=== PATIENT | male | born 1960 | race Caucasian/White ===

== ENCOUNTER 2017-09-20 06:30 | Outpatient (RCR) | payer BC, SELFPAY | END 2017-09-20 06:31 | disposition home or self-care (01) | LOC: OT 06:30 | PROVIDERS: Family Provider Family Medicine; PCP Family Medicine; Visit Provider Specialist | DX: M19.012 Primary osteoarthritis, left shoulder (principal); M19.011 Primary osteoarthritis, right shoulder | CPT/HCPCS: 97014; 97110; 97163; 97165; G0283 ==

== ENCOUNTER → 2018-09-05 08:47 | Outpatient (CLI) | payer BC, SELFPAY | PROVIDERS: PCP Family Medicine; Visit Provider Family Medicine | DX: Z71.3 Dietary counseling and surveillance (principal); E11.65 Type 2 diabetes mellitus with hyperglycemia; E66.3 Overweight | CPT/HCPCS: 97802 ==

== ENCOUNTER → 2019-04-23 14:10 | Outpatient (CLI) | payer BC, SELFPAY ==
--- NOTE | 2019-04-23 14:22 | XR_ITS ---
PROCEDURE: XR FOOT WT BEARING RT 3V CLINICAL INDICATION: pain COMPARISON: No exams were available for comparison FINDINGS: No fracture or dislocation. No lytic or blastic change. There is normal mineralization. The joint spaces are well-preserved. No significant degenerative/arthritic changes. No erosive changes evident. Other findings:There is a 5 millimeter plantar calcaneal spur and a prominent posterior calcaneal spur. There are calcifications also along the plantar aspect of the foot near the calcaneus spur likely related to the plantar aponeurosis. There are ossified densities also related to the distal Achilles tendon. IMPRESSION: No acute process. 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 Achilles calcific/calcific tendinitis. Dictated by: Leon Montgomery 04/23/2019 14:50 Electronically signed by Leon Montgomery in [place] 04/23/2019 14:50
--- NOTE | 2019-04-23 14:22 | XR_ITS ---
PROCEDURE: XR ANKLE WT BEARING LT MIN 3V CLINICAL INDICATION: pain COMPARISON: No exams were available for comparison FINDINGS: Bone density and alignment are normal. There narrowing of the anterior aspect of the tibial talar joint. There is plantar and posterior calcaneal spurs and plantar calcific densities likely related to the plantar aponeurosis described on the foot report. There is also a 5 millimeter calcific density posterior to the ankle on the lateral view although not as well seen on the frontal views. IMPRESSION: No acute process. Arthritic changes at the anterior tibiotalar joint. 5 millimeter ossific/calcific density posterior to the ankle only seen on lateral view. I could not rule out loose body in the joint space although this could be in the soft tissues posterior to the fibula and may be dystrophic. Plantar soft tissue and calcaneal findings described on the foot report. Dictated by: Leon Montgomery 04/23/2019 14:55 Electronically signed by Leon Montgomery in [facility] 04/23/2019 14:55
--- NOTE | 2019-04-23 14:22 | XR_ITS ---
PROCEDURE: XR ANKLE WT BEARING RT MIN 3V CLINICAL INDICATION: pain COMPARISON: No exams were available for comparison FINDINGS: There narrowing of the anterior aspect of the tibiotalar joint. Bone density is normal. Again seen are degenerative changes along the plantar and posterior aspect of the calcaneus described on the foot report. There is no acute fracture. Soft tissues are otherwise unremarkable IMPRESSION: . no acute process. Degenerative change anterior tibiotalar joint. Calcaneal findings described on right foot report. Dictated by: Leon Montgomery 04/23/2019 14:57 Electronically signed by Leon Montgomery in [facility] 04/23/2019 14:57
--- NOTE | 2019-04-23 14:22 | XR_ITS ---
PROCEDURE: XR FOOT WT BEARING LT 3V CLINICAL INDICATION: pain COMPARISON: No exams were available for comparison FINDINGS: No fracture or dislocation. No lytic or blastic change. There is normal mineralization. The joint spaces are well-preserved. No significant degenerative/arthritic changes. No erosive changes evident. Other findings:There is a prominent posterior calcaneal spur at the Achilles tendon attachment. There is a 4 millimeter plantar calcaneal spur along with calcifications in the plantar soft tissues likely related to the plantar aponeurosis. IMPRESSION: No acute process. Degenerative calcaneal changes as described with probable calcific postinflammatory dystrophic densities related to the plantar aponeurosis. Dictated by: Leon Montgomery 04/23/2019 14:52 Electronically signed by Leon Montgomery in [facility] 04/23/2019 14:52
== END ==
PROVIDERS: PCP Family Medicine; Visit Provider Podiatrist
DX: M25.572 Pain in left ankle and joints of left foot (principal); M25.571 Pain in right ankle and joints of right foot
CPT/HCPCS: 73610; 73630

== ENCOUNTER → 2019-04-24 09:35 | Outpatient (POV) | payer BC, SELFPAY | PROVIDERS: Visit Provider Dermatology | DX: Z00.00 Encounter for general adult medical examination without abnormal findings (principal) ==

== ENCOUNTER → 2019-07-10 14:54 | Outpatient (CLI) | payer OTHER, BC, SELFPAY ==
--- NOTE | 2019-07-10 14:58 | XR_ITS ---
PROCEDURE: XR KNEE RT 3V CLINICAL INDICATION: SWELLING RT KNEE, INJURY Right knee pain and swelling COMPARISON: No exams were available for comparison FINDINGS: No fracture or dislocation. No lytic or blastic change. There is normal mineralization. There are minimal osteoarthritic changes of all 3 compartments. Enthesophytes are present along the superior aspect of the patella. No fracture or dislocation. No lytic or blastic change. Other findings:None. IMPRESSION: Minimal osteoarthritic changes Dictated by: Juan Carlos Lopez MD 07/10/2019 15:40 Electronically signed by Juan Carlos Lopez MD in [facility] 07/10/2019 15:40
== END ==
PROVIDERS: PCP Nurse Practitioner Family; Visit Provider Nurse Practitioner Family
DX: M25.461 Effusion, right knee (principal); S89.91XA Unspecified injury of right lower leg, initial encounter
CPT/HCPCS: 73562

== ENCOUNTER → 2019-07-31 15:51 | Outpatient (CLI) | payer OTHER, BC, SELFPAY ==
--- NOTE | 2019-07-31 15:57 | CA_ITS ---
APPROVED REPORT Bilateral Lower Extremity Venous Study for Dsp Engineer: RAFAT Indications Lower Extremity Pain: Right Vein Imaging CFV (R): compressive, spontaneous, phasic, augmentation FEM (R): compressive, spontaneous, phasic, augmentation POP (R): compressive, spontaneous, phasic, augmentation DFV (R): compressive, spontaneous, phasic, augmentation PTV (R): compressive, spontaneous, phasic, augmentation GSV (R): compressive, spontaneous, phasic, augmentation Peroneals (R):compressive, spontaneous, phasic, augmentation GAS (R): compressive, spontaneous, phasic, augmentation Findings No evidence of DVT or superficial thrombophlebitis in the veins scanned of the right lower extremity. Conclusion No evidence of DVT or superficial thrombophlebitis in the veins scanned of the right lower extremity. Electronically signed by : Juan Carlos Lopez MD 08/01/2019 17:02:12
== END ==
PROVIDERS: PCP Nurse Practitioner Family; Visit Provider Nurse Practitioner Family
DX: M79.89 Other specified soft tissue disorders (principal)
CPT/HCPCS: 93971

== ENCOUNTER → 2020-03-12 08:16 | Outpatient (CLI) | payer BC, SELFPAY ==
--- NOTE | 2020-03-12 08:23 | XR_ITS ---
PROCEDURE: XR LUMBAR SPINE MIN 4V CLINICAL INDICATION: LOW BACK PAIN COMPARISON: No exams were available for comparison FINDINGS: No fracture or dislocation. No lytic or blastic change. There is normal mineralization. Minimal lumbar curvature convex left. Multilevel prominent anterior osteophytes from the lower thoracic spine to the L5 region. Disc spaces are well preserved. There are mild facet arthritic changes at L5-L4 and S1. Other findings:None. IMPRESSION: Multilevel spondylosis with prominent anterior osteophytes and mild facet arthritic change Dictated by: Juan Carlos Lopez MD 03/12/2020 14:51 Juan Carlos Lopez MD in [facility] 03/12/2020 14:51
== END ==
PROVIDERS: PCP Family Medicine; Visit Provider Family Medicine
DX: M54.5 Low back pain (principal)
CPT/HCPCS: 72110

== ENCOUNTER → 2020-05-13 13:29 | Outpatient (CLI) | payer BC, MEDICAID, SELFPAY | PROVIDERS: PCP Family Medicine; Visit Provider Family Medicine | DX: Z03.818 Encounter for observation for suspected exposure to other biological agents ruled out (principal) | CPT/HCPCS: U0003 ==

== ENCOUNTER 2020-06-05 16:00 | Outpatient (RCR) | payer BC, MEDICAID, SELFPAY | END 2020-06-05 16:05 | disposition home or self-care (01) | LOC: PT 16:00 | PROVIDERS: PCP Family Medicine; Visit Provider Family Medicine | DX: M54.5 Low back pain (principal) | CPT/HCPCS: 97010; 97012; 97014; 97110; 97163; 97164; G0283 ==

== ENCOUNTER → 2020-06-18 15:24 | Outpatient (CLI) | payer BC, MEDICAID, SELFPAY | PROVIDERS: PCP Family Medicine; Visit Provider Family Medicine | DX: Z20.828 Contact with and (suspected) exposure to other viral communicable diseases (principal); U07.1 COVID-19 | CPT/HCPCS: U0003 ==

== ENCOUNTER → 2020-08-23 09:51 | Outpatient (CLI) | payer BC, OTHER, SELFPAY | PROVIDERS: PCP Family Medicine; Visit Provider Orthopaedic Surgery Hand Surgery | DX: Z01.818 Encounter for other preprocedural examination (principal); Z20.822 Contact with and (suspected) exposure to COVID-19 | CPT/HCPCS: U0003 ==

== ENCOUNTER → 2020-10-30 12:55 | Outpatient (CLI) | payer BC, OTHER, SELFPAY ==
[2020-10-30 13:09] LABS: Basophils # 0.1 K/mm3 (0-0.2); Basophils % 0.8 % (0.1-2.0); Eosinophils # 0.1 K/mm3 (0.0-0.4); Hemoglobin 15.9 g/dL (14.1-18.0); Lymphocytes # 1.9 K/mm3 (0.7-4.5); Mean Corpuscular HGB Conc 33.2 g/dL (31.8-35.4); Mean Corpuscular Hemoglobin 29.8 pg (27.0-31.2); Mean Corpuscular Volume 89.6 fl (80-94); Mean Platelet Volume 8.6 fl (7.4-10.4); Monocytes # 0.4 K/mm3 (0.1-1.0); Monocytes % 6.8 % (1.7-9.3); Neutrophils # 3.5 K/mm3 (1.8-7.8); Neutrophils % 59.3 % (37.0-80.0); Platelet Count 197 K/mm3 (142-424); Red Blood Count 5.36 M/mm3 (4.60-6.20); White Blood Count 5.9 K/mm3 (4.8-10.8)
[2020-10-30 13:11] LABS: Alanine Aminotransferase 50 U/L (12-78); Albumin Level 4.8 g/dl (3.5-5.0); Albumin/Globulin Ratio 1.8 (1.1-1.8); Alkaline Phosphatase 90 U/L (38-126); Anion Gap 15.9 mEq/L (5-15); Aspartate Amino Transferase 41 U/L (17-59); Bilirubin,Total 0.7 mg/dl (0.2-1.3); Blood Urea Nitrogen 16 mg/dl (9-20); Calcium 9.9 mg/dl (8.4-10.2); Carbon Dioxide 28 mmol/L (22.0-30.0); Chloride 101 mmol/L (98-107); Chol/HDL Ratio 3.6 (1-3.5); Cholesterol 208 mg/dl (140-200); Estimated Glomerular Filt Rate 86 ml/min (>60); GFR (African American) 103 ML/MIN (>60); Globulin 2.6 g/dL (1.3-3.2); Glucose 178 mg/dl (74-100); HDL Cholesterol 57 mg/dl (40-60); Potassium 4.9 mmoL/L (3.5-5.1); Sodium 140 mmol/L (136-145); Total Protein,Serum 7.4 g/dl (6.3-8.2); Triglycerides 334 mg/dl (30-150); VLDL Cholesterol 67 mg/dL (0-40)
[2020-10-30 13:22] LABS: Direct LDL Cholesterol 86.99 mg/dL (100-129)
[2020-10-30 13:26] LABS: Creatinine,Urine Random 85 mg/dL (Not Estab.)
[2020-10-30 13:28] LABS: T4 (Thyroxine) 7.4 ug/dl (5.53-11.0)
[2020-10-30 13:30] LABS: Microalbumin < 6.000 mg/L (0-16.7)
[2020-10-30 13:31] LABS: Hemoglobin A1C 8.5 % (4.0-6.0)
[2020-10-30 13:42] LABS: Thyroid Stimulating Hormone 1.31 uIU/mL (0.465-4.68)
== END ==
PROVIDERS: Visit Provider Nurse Practitioner Family
DX: E11.9 Type 2 diabetes mellitus without complications (principal); R73.9 Hyperglycemia, unspecified; E78.5 Hyperlipidemia, unspecified; Z79.84 Long term (current) use of oral hypoglycemic drugs; Z68.35 Body mass index [BMI] 35.0-35.9, adult
CPT/HCPCS: 80053; 80061; 82043; 82306; 82570; 83036; 84436; 84443; 85025

== ENCOUNTER → 2020-11-18 13:55 | Outpatient (CLI) | payer BC, OTHER, SELFPAY | PROVIDERS: PCP Nurse Practitioner Family; Visit Provider Nurse Practitioner Family | DX: G47.33 Obstructive sleep apnea (adult) (pediatric) (principal); R06.83 Snoring | CPT/HCPCS: G0399 ==

== ENCOUNTER 2020-12-02 10:00 | Outpatient (RCR) | payer BC, OTHER, SELFPAY | END 2020-12-23 08:10 | disposition home or self-care (01) | LOC: OT 10:00 | PROVIDERS: PCP Family Medicine; Visit Provider Orthopaedic Surgery Hand Surgery | DX: M18.11 Unilateral primary osteoarthritis of first carpometacarpal joint, right hand (principal) | CPT/HCPCS: 97010; 97014; 97110; 97140; 97164; 97165; 97530; G0283 ==

== ENCOUNTER → 2020-12-02 11:15 | Outpatient (CLI) | payer BC, OTHER, SELFPAY ==
--- NOTE | 2020-12-02 11:18 | XR_ITS ---
PROCEDURE: XR HIP LT 2-3V W/PELVIS CLINICAL INDICATION: BL hip pain COMPARISON: No exams were available for comparison FINDINGS: No acute fractures or dislocations. Bone density is normal. Degenerative changes of the left hip joint with subchondral sclerosis, cystic changes and osteophyte formation. Heterotopic ossification noted adjacent to the greater trochanter. No significant soft tissue abnormality is noted. IMPRESSION: Degenerative changes of the left hip joint. Otherwise unremarkable study. Dictated by: Rachel Fall 12/02/2020 13:18 Rachel Fall in [facility] 12/02/2020 13:18
--- NOTE | 2020-12-02 11:18 | XR_ITS ---
PROCEDURE: XR HIP RT 2-3V W/PELVIS CLINICAL INDICATION: BL hip pain COMPARISON: No exams were available for comparison FINDINGS: Degenerative changes of the right hip joint with subchondral sclerosis, loss of joint space and the heterotopic ossification. Bone density is normal. No significant soft tissue abnormality is noted. IMPRESSION: Right hip joint osteoarthritis. No acute fractures or dislocations. Dictated by: Rachel Fall 12/02/2020 13:17 Rachel Fall in [facility] 12/02/2020 13:17
== END ==
PROVIDERS: PCP Family Medicine; Visit Provider Orthopaedic Surgery
DX: M25.552 Pain in left hip (principal); M25.551 Pain in right hip
CPT/HCPCS: 73502

== ENCOUNTER → 2020-12-12 09:01 | Outpatient (CLI) | payer BC, OTHER, SELFPAY ==
--- NOTE | 2020-12-12 09:15 | MR_ITS ---
PROCEDURE INFORMATION: Exam: MR Lumbar Spine Without Contrast Exam date and time: 12/12/2020 9:15 AM Age: 60 years old Clinical indication: Low back pain; Additional info: Low back pain. Lbp with bilateral hip and leg pain. RT leg pain, numbness, and tingling. Symptoms [id number]. No injury or trauma. Prior x-ray 03-12-20 TECHNIQUE: Imaging protocol: Multiplanar magnetic resonance images of the lumbar spine without intravenous contrast. COMPARISON: CR XR LUMBAR SPINE MIN 4V 03/12/2020 8:37 AM FINDINGS: alignment is grossly normal. signal intensity within the bone marrow is normal. conus terminates at the mid aspect of L1. Soft tissues are unremarkable. Disc degeneration including decreased disc height, hydration and annular disk bulge/protrusion L2-L3 and L3-L4. Annular disc bulge and/or disc protrusion T12-L1. Multilevel neural foraminal narrowing most conspicuous L3-L4 on the right No marrow edema Moderate to severe central canal narrowing L2-L3 and L3-L4 T11-T12: Broad-based annular disc bulge effaces the anterior aspect of the thecal sac mildly so. Question mild central canal narrowing. T12-L1: Central canal and neural foramina are widely patent. L1-L2: No axial images were obtained through this region. L2-L3: Severe narrowing of the central canal secondary to facet hypertrophic changes, ligamentum flavum hypertrophic changes, and a broad-based annular bulge. Disc lateralizes to the right and left with paucity of fat about the exiting nerve roots. Small synovial cyst on the left L3-L4: Moderate degree of central canal narrowing secondary to facet hypertrophic changes, ligamentum flavum hypertrophic changes, and a broad-based annular bulge. Disc lateralizes to the right and left. L4-L5: Broad-based annular disc bulge effaces the anterior aspect of the thecal sac mildly so. Moderate facet hypertrophic changes and ligamentum flavum hypertrophic changes. IMPRESSION: Multilevel degenerative disc disease most pronounced L2-L3 and L3-L4. Severe central canal narrowing L2-L3 and moderate central canal narrowing L3-L4. See above.
--- NOTE | 2020-12-12 09:24 | XR_ITS ---
PROCEDURE: XR ORBIT BILATERAL MIN 4V CLINICAL INDICATION: RULE OUT METAL ARTIFACT FOR MRI COMPARISON: No exams were available for comparison TECHNIQUE: AP views are obtained of the orbits with the patient looking up and down. FINDINGS: No radio opaque foreign bodies evident. IMPRESSION: No radio opaque orbital foreign body identified. Dictated by: Juan Carlos Lopez MD 12/12/2020 12:09 Juan Carlos Lopez MD in [facility] 12/12/2020 12:09
== END ==
PROVIDERS: PCP Family Medicine; Visit Provider Orthopaedic Surgery
DX: M54.5 Low back pain (principal); H05.53 Retained (old) foreign body following penetrating wound of bilateral orbits
CPT/HCPCS: 70200; 72148; 76376

== ENCOUNTER → 2021-01-05 08:58 | Outpatient (POV) | payer BC, OTHER, SELFPAY ==
[2021-01-05 09:49] VITALS: BP 137/79; PULSE 66; RESP 18; O2SAT 96; BMI 35.2
--- NOTE | 2021-01-05 12:29 | HMH.PMCON ---
Assessment and Plan (1) Degenerative joint disease (DJD) of lumbar spine Status: Chronic Category: Medical Code(s): M47.816 - Spondylosis without myelopathy or radiculopathy, lumbar region (2) Lumbar radiculopathy Status: Chronic Category: Medical Code(s): M54.16 - Radiculopathy, lumbar region (3) Facet arthropathy Status: Chronic Category: Medical Code(s): M47.819 - Spondylosis without myelopathy or radiculopathy, site unspecified - Assessment and plan all Dx Assessment and Plan for all problems:: Patient I reviewed his MRI today. He says that he was planning to follow-up with Dr. Kingsley regarding his MRI, however, when he did call to make the appointment he says that Dr. Kingsley is no longer here. He was advised to contact our clinic. We reviewed the MRI today. Patient does have pain that is worse with movement with a positive Kemps test. He says that the pain, however, waxes and wanes. His pain is a 2 out of 10 today. He is having paresthesia to his lower extremity stopping at the knee. We will order him a low-dose of gabapentin until he is able to see Dr. Lopez. He does not want to undergo injective therapy at this time. He is also requested to see the physician before proceeding with any type of injection. He would like to meet the physician and discuss his MRI. We will schedule him to meet with Dr. Lindquist so that she can review his MRI as well. We will order him gabapentin 100 mg 1 tablet p.o. at bedtime. Risks and benefits of the medication have been explained in detail to the patient. The patient has been advised to consult with his/her primary care provider and pharmacist regarding drug-drug interaction of medications currently prescribed. Patient has been instructed to contact the clinic with any concerns before the next appointment. Dr. Lindquist has reviewed this note and agrees with this plan of care. This note was dictated using voice recognition software and make contain errors or omissions. HPI - Data of Consult Patient: new to practice Consult date: 01/05/21 Requesting Physician: Maria Elena Lamas APRN Primary Care Provider: Referral Provider, MD - Consult Narrative Reason for consult: Low back pain History of present illness: Mr. Comer is a 60 year old male who presents today for consultation for low back pain. Patient was referred to us by Dr. Kingsley. Patient says that he has had chronic low back pain for many years which is progressively worsened. He rates his pain a 2 out of 10. Patient says that he has a left knot-like area that causes severe pain with radiation into right side low back. He reports to be having pain that is worse with leaning forward. He says any turning or twisting at his waist worsens his pain, however, he also says that he is having radicular pain into the bilateral lower extremities worse on the right hip and right lateral thigh area. He does have intermittent paresthesia to lower extremities. He says that he has a pulled hamstring sensation to his lower extremities. He says that he did purchase a lumbar support belt which is giving him good relief, but his pain has returned. Patient says that the pain is intermittent. He is not having pain today. He says the pain waxes and wanes. He is referred to Dr. Lopez and also sees rheumatology. Patient is diabetic and wants to postpone any injections until he meets with Dr. Lopez and patient has requested to see the physician before proceeding with injective therapy as well. Patient says his pain is a stabbing sensation and shooting pain that is made worse by movement. The pain has not been relieved with oral medications at this point. He is also tried and failed conservative therapies physical therapy for greater than 6 weeks in the past along with home stretching. CC: Maria Elena Lamas APRN [facility] History I have reviewed the patient's past medical history: Yes Medical History: Reports:: Anxiety,
== END ==
PROVIDERS: Visit Provider Clinical Nurse Specialist Family Health
DX: M47.816 Spondylosis without myelopathy or radiculopathy, lumbar region (principal); M54.16 Radiculopathy, lumbar region
CPT/HCPCS: 99202; G0463

== ENCOUNTER → 2021-01-23 13:03 | Outpatient (POV) | payer BC, OTHER, SELFPAY ==
[2021-01-23 13:18] VITALS: BP 119/62; PULSE 64; RESP 20; O2SAT 97; BMI 34.8
--- NOTE | 2021-01-23 13:59 | HMH.PAINSOAP ---
[facility] Pain Management SOAP Note Subjective:: Mr. Comer is a 60 year old male who presents today for follow-up for low back pain. Patient was referred to us by Dr. Kingsley. Patient says that he has had chronic low back pain for many years which is progressively worsened. He states that the pain is primarily over the left lower side of his back and describes it as a knot in his back. He says he has some very infrequent radiation of pain down his legs posteriorly to the level below his knees. Overall, he states that his back and leg pain is tolerable at this time. He describes his leg pain as sharp shooting pain. He reports that the low back pain is worse with bending, ports that the pain has become much more tolerable after starting to wear a lumbar support brace. Today he rates his pain as a 0 out of 10. He states that he has an upcoming appointment at with Dr. Lopez. Of note, he has tried and failed conservative treatment including oral pain medications and physical therapy for greater than 6 weeks in the past along with home stretching. Has underwent massage therapy for that not in the left side of his back and he said it helped somewhat. He recently had an MRI of lumbar spine which revealed multilevel degenerative changes including severe narrowing of the central canal secondary to facet hypertrophic changes, ligamentum flavum hypertrophic changes, and a broad-based annular bulge at L2-3. At L3-4, he has moderate degree of central canal narrowing secondary to facet hypertrophic changes, ligamentum flavum hypertrophic changes and a broad-based annular bulge. At L4-L5 he is got broad-based annular disc bulge effaces the anterior aspect of the thecal sac and moderate facet hypertrophic changes and ligamentum flavum hypertrophic changes. Objective:: General: Alert and oriented x3, no acute distress, pleasant and cooperative Lungs: Resps E/U, symmetric chest expansion Eyes: PERRL Musculoskeletal: limited flexion and extension of the lumbar spine secondary to pain. Deep tendon reflexes were normal in bilateral lower extremities. Motor exam was grossly intact in the bilateral lower extremities, antalgic gait noted. Military Equipment Specialist to palpation over the left lumbar facet joints, positive facet loading on the left, tenderness to palpation over the lumbar paraspinal muscle. Straight leg raise is positive on the right Neurological: Speech is clear, pony roll finisher equal, no gross sensory deficits Assessment:: I discussed with the patient that he may benefit from lumbar epidural steroid injection at L4-L5 in the future if his low back pain and leg pain worsens and becomes intolerable. I also discussed with him that he may benefit from trigger point injections to his left lumbar paraspinal muscles in the future for his left sided knot-like pain. I discussed the MRI findings of lumbar spine which revealed multilevel degenerative changes including severe narrowing of the central canal secondary to facet hypertrophic changes, ligamentum flavum hypertrophic changes, and a broad-based annular bulge at L2-3. At L3-4, he has moderate degree of central canal narrowing secondary to facet hypertrophic changes, ligamentum flavum hypertrophic changes and a broad-based annular bulge. At L4-L5 he is got broad-based annular disc bulge effaces the anterior aspect of the thecal sac and moderate facet hypertrophic changes and ligamentum flavum hypertrophic changes. This time, he reports the pain is tolerable and we will continue to monitor for now. He also has a evaluation with Dr. Lopez at . We will follow-up with him in 3 months and will reevaluate pain symptoms at that time. [facility] History Medical History: Reports:: Anxiety, Asthma, Depression, Diabetes Mellitus Type 2, Gastroesophageal Reflux Disease(GERD), Hyperlipidemia, Valvular Heart Disease Denies:: Diabetes Mellitus Type 1, Internal Pacemaker, Lung Disease, Seizures *Have you ever received a pneumonia vaccine?: No *Have
== END ==
PROVIDERS: PCP Family Medicine; Visit Provider Anesthesiology Pain Medicine
DX: M51.36 Other intervertebral disc degeneration, lumbar region (principal)
CPT/HCPCS: 99212; G0463

== ENCOUNTER → 2021-06-15 15:18 | Outpatient (CLI) | payer BC, SELFPAY | PROVIDERS: PCP Family Medicine; Visit Provider Nurse Practitioner | DX: Z20.822 Contact with and (suspected) exposure to COVID-19 (principal) | CPT/HCPCS: C9803; U0003; U0005 ==

== ENCOUNTER 2021-10-29 15:00 | Outpatient (RCR) | payer BC, SELFPAY | END 2021-11-02 14:31 | disposition home or self-care (01) | LOC: PT.CARL 15:00 | PROVIDERS: PCP Nurse Practitioner Family; Visit Provider Neurological Surgery | DX: M71.38 Other bursal cyst, other site (principal); Z98.890 Other specified postprocedural states | CPT/HCPCS: 97010; 97014; 97110; 97163; 97530; G0283 ==

== ENCOUNTER 2021-12-06 12:54 | Inpatient (IN) | payer BC, SELFPAY ==
[2021-12-06] VITALS (9 sets, daily range): BP systolic 105–127; BP diastolic 53–70; PULSE 85–126; RESP 18–20; TEMP 36.9–39.1; O2SAT 2–95; BMI 35.2
--- NOTE | 2021-12-06 13:08 | PC.NURSE ---
patient to ED room 2 by wheelchair from waiting room; family at BS. Patient transferred to ED stretcher without complications. Patient hooked to the monitor, and blood glucose was checked reading 129 mg/dL and was reported to Shelby Richards RN. Patient given a warm blanket and is resting.
[2021-12-06 13:13] LABS: POC Glucose,Bedside 129 (70-110)
--- NOTE | 2021-12-06 13:13 | PC.NURSE ---
Shelby Richards, RN at
--- NOTE | 2021-12-06 13:36 | CT_ITS ---
PROCEDURE INFORMATION: Exam: CT Head Without Contrast Exam date and time: 12/06/2021 1:42 PM Age: 61 years old Clinical indication: Altered mental status/memory loss and other: Headache; Confusion or disorientation; Additional info: Confusion and headache TECHNIQUE: Imaging protocol: Computed tomography of the head without contrast. Radiation optimization: All CT scans at this facility use at least one of these dose optimization techniques: automated exposure control; mA and/or kV adjustment per patient size (includes targeted exams where dose is matched to clinical indication); or iterative reconstruction. COMPARISON: CR XR ORBIT BILATERAL MIN 4V 12/12/2020 9:27 AM FINDINGS: Brain: Prominent sulci. Patchy hypodensity of the cerebral white matter which are nonspecific but likely secondary to microangiopathic changes. Cerebral ventricles: The ventricles are prominent secondary to diffuse volume loss/atrophy. Paranasal sinuses: Visualized sinuses are unremarkable. No fluid levels. Mastoid air cells: Visualized mastoid air cells are well aerated. Bones/joints: Unremarkable. No acute fracture. Soft tissues: Unremarkable. IMPRESSION: Chronic age related changes but no evidence of acute intracranial pathology.
--- NOTE | 2021-12-06 13:44 | PC.NURSE ---
patient to CT with RAD techs by mukund
[2021-12-06 13:47] LABS: Chloride 104 mmol/L (98-107); Potassium 3.4 mmoL/L (3.5-5.1); Sodium 138 mmol/L (136-145)
[2021-12-06 13:49] LABS: Alanine Aminotransferase 71 U/L (12-78); Aspartate Amino Transferase 113 U/L (17-59); Blood Urea Nitrogen 14 mg/dl (9-20); Creatinine Clearance Estimated 119 mL/min (50-200); Estimated Glomerular Filt Rate 98 ml/min (>60); GFR (African American) 118 ML/MIN (>60)
--- NOTE | 2021-12-06 13:49 | PC.NURSE ---
patient back from CT with RAD techs by mukund
[2021-12-06 13:50] LABS: Albumin Level 3.9 g/dl (3.5-5.0); Albumin/Globulin Ratio 1.4 (1.1-1.8); Alkaline Phosphatase 133 U/L (38-126); Anion Gap 10.4 mEq/L (5-15); Bilirubin,Total 1.2 mg/dl (0.2-1.3); Calcium 9.6 mg/dl (8.4-10.2); Carbon Dioxide 27 mmol/L (22.0-30.0); Globulin 2.8 g/dL (1.3-3.2); Glucose 151 mg/dl (74-100); Total Protein,Serum 6.7 g/dl (6.3-8.2)
--- NOTE | 2021-12-06 13:52 | PC.NURSE ---
Covid/flu swab sent to lab; family at BS; patient has no needs at this time
[2021-12-06 14:00] LABS: Basophils # 0.1 K/mm3 (0-0.2); Basophils % 0.9 % (0.1-2.0); Eosinophils % 0.2 % (0.1-12.0); Hematocrit 44.9 % (42.0-52.0); Hemoglobin 14.9 g/dL (14.1-18.0); Lymphocytes # 0.8 K/mm3 (0.7-4.5); Lymphocytes % 7.3 % (10-50); Mean Corpuscular HGB Conc 33.1 g/dL (31.8-35.4); Mean Corpuscular Hemoglobin 30.4 pg (27.0-31.2); Mean Corpuscular Volume 91.8 fl (80-94); Mean Platelet Volume 8.4 fl (7.4-10.4); Monocytes # 0.8 K/mm3 (0.1-1.0); Monocytes % 7.8 % (1.7-9.3); Neutrophils # 8.5 K/mm3 (1.8-7.8); Neutrophils % 83.7 % (37.0-80.0); Platelet Count 158 K/mm3 (142-424); Red Blood Count 4.89 M/mm3 (4.60-6.20); Red Cell Distribution Width 13.5 % (11.5-17.5); White Blood Count 10.1 K/mm3 (4.8-10.8)
--- NOTE | 2021-12-06 14:00 | PC.NURSE ---
patient given a urinal and he is aware that we need a urine specimen
[2021-12-06 14:01] LABS: Adenovirus,PCR Not Detected (NotDetected); Bordetella Pertussis Not Detected (NotDetected); Chlamydophila Pneumoniae, PCR Not Detected (NotDetected); Coronavirus 19, PCR Not Detected (NotDetected); Coronavirus 229E Not Detected (NotDetected); Coronavirus NL63 Not Detected (NotDetected); Coronavirus OC43 Not Detected (NotDetected); Coronovirus HKU1,PCR Not Detected (NotDetected); Human Metapneumovirus Not Detected (NotDetected); Influenza A, PCR Not Detected (NotDetected); Influenza AH1, 2009 Not Detected (NotDetected); Influenza AH1, PCR Not Detected (NotDetected); Influenza AH3,PCR Not Detected (NotDetected); Influenza B, PCR Not Detected (NotDetected); Mycoplasma Pneumoniae, PCR Not Detected (NotDetected); Parainfluenza 1, PCR Not Detected (NotDetected); Parainfluenza 2, PCR Not Detected (NotDetected); Parainfluenza 3, PCR Not Detected (NotDetected); Parainfluenza 4, PCR Not Detected (NotDetected); Respiratory Syncytial Virus Not Detected (NotDetected); Rhinovirus/Enterovirus Not Detected (NotDetected)
--- NOTE | 2021-12-06 14:47 | HMH.EDGENADL ---
ED Disposition Clinical Impression: Septic shock Pneumonia Qualifiers: Pneumonia type: due to unspecified organism Laterality: left Lung location: lower lobe of lung Qualified Code(s): J18.9 - Pneumonia, unspecified organism Disposition: Admitted As Inpatient Condition on Discharge: Serious - Critical Care Critical Care Time: Yes Attestation: On 12/06/21, the high probability of a clinically significant, sudden or life threatening deterioration of the following system(s) required my full and direct attention, intervention and personal management. The time I documented below is in addition to time spent performing reported procedures but includes the following listed in this critical care notation. Total Critical Care Time: 35 Vital system(s) involved:: Shock (Septic) My critical care processes included: Assessment & monitoring of V/S, Initial and Re-exams, Data Review/Interpretation, Coordinating Care, Medication Orders and management, Documentation Medical Decision Making - Tristen Inquiry Pt receiving controlled substance: No Vital Signs: 12/06/21 12:56 12/06/21 13:03 12/06/21 13:08 Temperature 99.5 F Temperature Source Oral Pulse Rate 90 90 Pulse Rate [Left Radial] 85 Respiratory Rate 18 Blood Pressure 117/66 111/62 Blood Pressure [Right Arm] 111/62 Blood Pressure Mean 78 72 Blood Pressure Mean [Right Arm] 78 Blood Pressure Source [Right Arm] Automatic Cuff Blood Pressure Position [Right Arm] Sitting 02 Sat by Pulse Oximetry 92 L 92 L 92 L Oxygen Delivery Method Room Air 12/06/21 13:30 12/06/21 15:00 12/06/21 16:30 Temperature 102.4 F H 98.5 F Temperature Source Oral Oral Pulse Rate Pulse Rate [Left Radial] Respiratory Rate 18 Blood Pressure 112/63 Blood Pressure [Right Arm] Blood Pressure Mean 74 Blood Pressure Mean [Right Arm] Blood Pressure Source [Right Arm] Blood Pressure Position [Right Arm] 02 Sat by Pulse Oximetry 95 Oxygen Delivery Method 12/06/21 19:39 Temperature 98.5 F Temperature Source Oral Pulse Rate 113 H Pulse Rate [Left Radial] Respiratory Rate 18 Blood Pressure 105/53 L Blood Pressure [Right Arm] Blood Pressure Mean Blood Pressure Mean [Right Arm] Blood Pressure Source [Right Arm] Blood Pressure Position [Right Arm] 02 Sat by Pulse Oximetry Oxygen Delivery Method - Lab Data Lab Results 12/06/21 12:30: WBC 10.1, RBC 4.89, Hgb 14.9, Hct 44.9, MCV 91.8, MCH 30.4, MCHC 33.1, RDW 13.5, Plt Count 158, MPV 8.4, Neut % (Auto) 83.7 H, Lymph % (Auto) 7.3 L, Schley % (Auto) 7.8, Eos % (Auto) 0.2, Baso % (Auto) 0.9, Neut # (Auto) 8.5 H, Lymph # (Auto) 0.8, Schley # (Auto) 0.8, Eos # (Auto) 0.0, Baso # (Auto) 0.1 12/06/21 12:30: Sodium 138, Potassium 3.4 L, Chloride 104, Carbon Dioxide 27, Anion Gap 10.4, BUN 14, Creatinine 0.80, Estimated Creat Clear 119, Estimated GFR 98, Est GFR ( Amer) 118, Glucose 151 H, Calcium 9.6, Total Bilirubin 1.2, AST 113 H, ALT 71, Alkaline Phosphatase 133 H, Total Protein 6.7, Albumin 3.9, Globulin 2.8, Albumin/Globulin Ratio 1.4 12/06/21 13:05: POC Glucose 129 H 12/06/21 13:57: Chlamy pneumoniae PCR Not detected, Adenovirus (PCR) Not detected, B. pertussis DNA (PCR) Not detected, Coronavirus OC43 (PCR) Not detected, Coronavirus HKU1 (PCR) Not detected, Coronavirus 229E (PCR) Not detected, SARS-CoV-2 (PCR) Not detected, Coronavirus NL63 (PCR) Not detected, Human Metapneumovir PCR Not detected, Influenza A (H1) PCR Not detected, Influ A (H1N1/09) PCR Not detected, Influenza A (H3) PCR Not detected, Influenza Type A (PCR) Not detected, Influenza Type B (PCR) Not detected, M. pneumoniae (PCR) Not detected, Parainfluenza 1 (PCR) Not detected, Parainfluenza 2 (PCR) Not detected, Parainfluenza 3 (PCR) Not detected, Parainfluenza 4 (PCR) Not detected, RSV (PCR) Not detected, Entero/Rhino (PCR) Not detected 12/06/21 13:57: SARS-CoV-2 (PCR) Not detected, Influenza A Untype (PCR) Not detected, Influenza Type
--- NOTE | 2021-12-06 14:53 | PC.NURSE ---
ED MD at
--- NOTE | 2021-12-06 14:59 | XR_ITS ---
PROCEDURE INFORMATION: Exam: XR Chest Exam date and time: 12/06/2021 3:02 PM Age: 61 years old Clinical indication: Cough and shortness of breath; Additional info: Cough, chills TECHNIQUE: Imaging protocol: XR of the chest. Views: 1 view. COMPARISON: No relevant prior studies available. FINDINGS: Lungs: Unremarkable. No consolidation. Pleural spaces: Unremarkable. No pleural effusion. No pneumothorax. Heart/Mediastinum: Unremarkable. No cardiomegaly. Bones/joints: Mild degenerative changes of the shoulder joints. IMPRESSION: No evidence of acute pulmonary process.
--- NOTE | 2021-12-06 15:00 | PC.NURSE ---
Re-checked temp orally; 102.4 Dr. Hester and Shelby Richards RN are aware
--- NOTE | 2021-12-06 15:16 | PC.NURSE ---
Shelby Richards, RN at
--- NOTE | 2021-12-06 15:19 | PC.NURSE ---
Blood cultures and lactic were collected and sent to lab; drawn from right AC; no complications.
[2021-12-06 15:40] LABS: Lactic Acid 1.9 mmol/L (0.7-2.1)
[2021-12-06 15:45] LABS: Coronavirus 19, PCR Not Detected (NotDetected); Influenza A, PCR Not Detected (NotDetected); Influenza B, PCR Not Detected (NotDetected)
[2021-12-06 15:59] LABS: Microscopic, Urine URINE MICROSCOPIC (MICROSCOPIC)
[2021-12-06 16:10] LABS: Erythrocyte Sedimentation Rate 18 mm/hr (0-20)
--- NOTE | 2021-12-06 16:26 | CT_ITS ---
PROCEDURE INFORMATION: Exam: CT Abdomen And Pelvis Without Contrast Exam date and time: 12/06/21 04:33 PM Age: 61 years old Clinical indication: Abdominal pain; Flank; Left; Additional info: Left flank pain TECHNIQUE: Imaging protocol: Computed tomography of the abdomen and pelvis without contrast. Radiation optimization: All CT scans at this facility use at least one of these dose optimization techniques: automated exposure control; mA and/or kV adjustment per patient size (includes targeted exams where dose is matched to clinical indication); or iterative reconstruction. COMPARISON: CR XR HIP LT 2-3V W/PELVIS 12/02/20 11:37 AM FINDINGS: Tubes, catheters and devices: Kahn catheter in the bladder. Lungs: Left lower lobe consolidated pneumonia. Heart: No significant coronary calcifications. No cardiomegaly. No significant pericardial effusion. Liver: Normal. No mass. Gallbladder and bile ducts: Normal. No calcified stones. No ductal dilation. Pancreas: Normal. No ductal dilation. Spleen: Normal. No splenomegaly. Adrenal glands: Normal. No mass. Kidneys and ureters: No CT evidence of nephroureterolithiasis. No hydronephrosis. Stomach and bowel: Unremarkable. No obstruction. No mucosal thickening. Appendix: Retrocecal appendix is well visualized. No evidence of appendicitis. Intraperitoneal space: Unremarkable. No free air. No significant fluid collection. Retroperitoneal space: No significant retroperitoneal inflammatory changes are noted. Vasculature: Unremarkable. No abdominal aortic aneurysm. Lymph nodes: Unremarkable. No enlarged lymph nodes. Urinary bladder: Unremarkable as visualized. Reproductive: Unremarkable as visualized. Bones/joints: Unremarkable. No acute fracture. Soft tissues: Unremarkable. IMPRESSION: 1. Left lower lobe pneumonia. 2. No CT evidence of nephroureterolithiasis.
[2021-12-06 16:27] LABS: Appearance,Urine CLEAR (Clear); Bilirubin,Urine Negative (Negative); Blood, Urine 1+ (Negative); Color,Urine YELLOW (Yellow); Glucose,Urine (UA) 3+ (Negative); Ketones,Urine 3+ (Negative); Leukocyte Esterase,Urine Negative (Negative); Nitrate,Urine Negative (Negative); Protein,Urine Negative (Negative); Urobilinogen,Urine 0.2 EU/dl (0.2)
--- NOTE | 2021-12-06 16:32 | PC.NURSE ---
patient to CT with business technology teacher by mukund
[2021-12-06 16:37] LABS: Bacteria,Urine Trace /lpf; WBC,Urine Occasional #/hpf (0-3)
--- NOTE | 2021-12-06 17:32 | PC.NURSE ---
spoke to house on admit and bed request
--- NOTE | 2021-12-06 17:39 | PC.NURSE ---
ED MD at speaking with patient and family regarding update on POC
--- NOTE | 2021-12-06 17:44 | PC.NURSE ---
pharmacy technician inpatient Dr logan for Dr. Hester
--- NOTE | 2021-12-06 18:19 | PC.NURSE ---
Dr. Hester speaking with Dr. Constantino
--- NOTE | 2021-12-06 18:35 | PC.NURSE ---
janitorial supervisor aware of admission
--- NOTE | 2021-12-06 19:23 | PC.NURSE ---
report given to Kimberly PRYOR
--- NOTE | 2021-12-06 20:15 | PC.NURSE ---
patient up to floor via wheelchair @ this time
[2021-12-07] VITALS: BP 104/41; PULSE 122; RESP 18; TEMP 38.8; O2SAT 91
--- NOTE | 2021-12-07 03:26 | PC.NURSE ---
Pt placed on a bed alarm. Pt unsteady on his feet at this time. Bed alarm set for safety. Pt agreed. Pt continues to have a strong cough, non-productive. Pt continues to be nauseated. Pt encouraged to eat slow ice chips. And was given zofran. Nausea stopped. TYlenol given for fever x1 effective.
[2021-12-07 04:52] VITALS: BP 84/43; PULSE 118; RESP 18; TEMP 37.3; O2SAT 93
--- NOTE | 2021-12-07 05:50 | PC.NURSE ---
Pts blood pressure noted to be low. Pt repositioned in chair and blood pressure retaken. Blood pressure is now 101/60. Pt reported that he was asymptomatic.
--- NOTE | 2021-12-07 07:21 | HMH.PHAVTE ---
[facility] Pharmacy VTE Monitoring - Patient Demographics Admission date: 12/06/21 Report Date: 12/07/21 Time: 07:21 Allergies/Adverse Reactions: Patient Allergies No Known Allergies Allergy (Verified 08/07/21 16:05) Height: 1.78 m Weight: 111.448 kg Patient Problems: Current Active Problems Septic shock (Acute) Pneumonia (Acute) - VTE Risk Labs: VTE Related Lab Results Hgb 14.9 g/dL (14.1-18.0) 12/06/21 12:30 Hct 44.9 % (42.0-52.0) 12/06/21 12:30 Plt Count 158 K/mm3 (142-424) 12/06/21 12:30 BUN 14 mg/dl (9-20) 12/06/21 12:30 Creatinine 0.80 mg/dl (0.66-1.25) 12/06/21 12:30 Estimated Creat Clear 119 mL/min (50-200) 12/06/21 12:30 Was VTE Risk Assessment Performed: Yes VTE Score: 2 VTE Risk Level: Very Low Risk - Prophylaxis VTE Prophylaxis Ordered?: Yes Types of VTE Prophylaxis: TEDS Knee High Location of Applied Device: Bilateral Lower Extremeties
[2021-12-07 08:00] VITALS: BP 113/63; PULSE 119; RESP 18; TEMP 37.6; O2SAT 95
--- NOTE | 2021-12-07 08:48 | PC.NURSE ---
received call from lab (Kimberly) reporting aerobic blood cx PCR is positive for strep pneumonie and gram + diplococci. Name and Verified. Dr. Del Valle rounding and has been notified.
[2021-12-07 10:40] VITALS: BMI 35.2
[2021-12-07 12:00] VITALS: BP 122/49; PULSE 88; RESP 16; TEMP 37.7; O2SAT 94
--- NOTE | 2021-12-07 13:11 | HMH.HP ---
*Admission Date: 12/06/21 *Chief complaint: cough *History of present illness: this patient presented to the ed with altered mental status and cough -pt was seen in the ed - confusion and vomiting since this am and achy all over States that since this morning he has had chills, cough, disorientation. He developed rhinorrhea yesterday. Denies sore throat. Developed a left flank pain while in the emergency department. Also vomiting since arrival in the emergency department. Unable to urinate since arrival in the emergency department, says he feels like his bladder is full, just cannot go. No known exposures to any illnesses. He has been vaccinated against COVID. pt had cap and was admitted for iv treatment [facility] History I have reviewed the patient's past medical history: Yes Medical History: Reports:: Anxiety, Asthma, Depression, Diabetes Mellitus Type 2, Gastroesophageal Reflux Disease(GERD), Hyperlipidemia, Valvular Heart Disease Denies:: Diabetes Mellitus Type 1, Internal Pacemaker, Lung Disease, Seizures *Have you ever received a pneumonia vaccine?: Yes *Have you received a flu vaccine this season?: Yes Other Medical History: Reports: Arthritis Other Surgeries: Yes: Colonoscopy, Sinus Surgery, Other. No: Pacemaker Amputation: No Fractures: Yes - *Social History Last grade of school completed: High school graduate Smoking Status: Former smoker Tobacco Type: cigarettes # Packs/Day (cigarettes): 1 Alcohol Intake: current Alcohol Intake Frequency:: a few times a month Substance Use Type: denies use *Occupational Status:: retired Housing: house Household Members: spouse *Travel in the last 8 weeks: None - Psychiatric History Pschychiatric History:: Reports:: Anxiety, Depression Family Hx:: Diabetes, Hyperlipidemia, Hypertension Review of Systems - Review of Systems Review of systems:: pertinent systems reviewed and negative unless documented below - Constitutional Reports fever(s), Reports weakness - Eyes Denies change in vision - ENT Reports dry mouth - *Cardiovascular Denies chest pain - *Respiratory Reports cough, Reports shortness of breath - *Gastrointestinal Reports nausea, Denies abdominal pain - *Genitourinary Denies blood in urine - *Musculoskeletal Denies joint pain - Integumentary/Breasts Denies rash - *Neurologic Denies localized weakness, Denies seizure-like activity - Psychiatric Denies anxiety Meds Home Medications Medication Instructions Recorded Confirmed Type Tamsulosin HCl [Flomax 0.4mg 0.8 mg PO DAILY 10/05/18 05/16/22 History capsule] clonazepam 0.5 mg tablet 0.5 mg PO TIDP PRN tab 10/30/20 12/07/21 History cholecalciferol (vitamin D3) 50 50 mcg PO DAILY 12/10/20 12/06/21 History mcg (2,000 unit) capsule multivitamin 1 tab PO DAILY 12/10/20 12/06/21 History Semaglutide [Ozempic] 0.25 mg SQ WEEKLY 12/06/21 12/06/21 History Aspirin [Aspirin 81mg EC Tab] 81 mg PO DAILY 12/07/21 12/07/21 History Atorvastatin Calcium [Lipitor 20mg 20 mg PO DAILY 12/07/21 12/07/21 History Tab] Empagliflozin [Jardiance] 25 mg PO DAILY 12/07/21 12/07/21 History Escitalopram Oxalate [Lexapro] 10 mg PO DAILY 12/07/21 12/07/21 History Montelukast Sodium [Singulair 10mg 10 mg PO PM 12/07/21 12/07/21 History tablet] Sitagliptin Phos/Metformin HCl 1 each PO DAILY 12/07/21 12/07/21 History [Janumet Xr 100-1,000 mg Tablet] Allergies Allergy/AdvReac Type Severity Reaction Status Date / Time No Known Allergies Allergy Verified 08/07/21 16:05 Exam Vital signs and Labs for Last 24 Hours: Temp Pulse Resp BP Pulse Ox 99.8 F H 88 16 122/49 L 94 L 12/07/21 12:00 12/07/21 12:00 12/07/21 12:00 12/07/21 12:00 12/07/21 12:00 Laboratory Results - last 24 hr 12/06/21 12:30: WBC 10.1, RBC 4.89, Hgb 14.9, Hct 44.9, MCV 91.8, MCH 30.4, MCHC 33.1, RDW 13.5, Plt Count 158, MPV 8.4, Neut % (Auto) 83.7 H, Lymph % (Auto) 7.3 L, [place] % (Auto) 7.8, Eos
[2021-12-07 15:21] VITALS: BP 106/68; PULSE 104; RESP 17; TEMP 36.6; O2SAT 95
[2021-12-07 16:38] LABS: POC Glucose,Bedside 145 (70-110)
[2021-12-07 16:38] LABS: POC Glucose,Bedside 216 (70-110)
--- NOTE | 2021-12-07 18:41 | PC.NURSE ---
shift summary: Pt A&O. Has been mildly agitated requiring 2 doses of Clonazepam. Bilateral lungs with inspiratory and expiratory ronchi. Unable to cough sputum in cup for specimen. Kahn catheter discontinued this morning. Has been using urinal to measure I&Os. Had 1 BM in toilet. Ambulates with standby assist. Sat in chair for several hours today. Eats 100% of meals.
[2021-12-07 20:00] VITALS: BP 121/67; PULSE 105; RESP 18; TEMP 37.8; O2SAT 94
--- NOTE | 2021-12-07 20:04 | PC.NURSE ---
induced sputum with 3ml of normal saline. pt was able to produce sputum. sent to lab.
[2021-12-08] VITALS (7 sets, daily range): BP systolic 112–136; BP diastolic 62–77; PULSE 72–104; RESP 15–22; TEMP 36.8–37.6; O2SAT 92–98; BMI 35.7
[2021-12-08 00:34] LABS: POC Glucose,Bedside 233 (70-110)
[2021-12-08 05:34] LABS: POC Glucose,Bedside 165 (70-110)
--- NOTE | 2021-12-08 09:25 | HMH.PULMCON ---
*Admission Date: 12/06/21 *Reason for consult:: Acute hypoxic respiratory failure, Streptococcus pneumonia *History of present illness: Mr. Comer is a 61-year-old male no significant smoking complaint presented to the emergency department complaining of nausea vomiting and headache along with worsening respiratory distress found to be having left lower lobe pneumonia and pulmonary was called for further management [facility] History Medical History: Reports:: Anxiety, Asthma, Depression, Diabetes Mellitus Type 2, Gastroesophageal Reflux Disease(GERD), Hyperlipidemia, Valvular Heart Disease Denies:: Diabetes Mellitus Type 1, Internal Pacemaker, Lung Disease, Seizures *Have you ever received a pneumonia vaccine?: Yes *Have you received a flu vaccine this season?: Yes Other Medical History: Reports: Arthritis Other Surgeries: Yes: Colonoscopy, Sinus Surgery, Other. No: Pacemaker Amputation: No Fractures: Yes - *Social History Last grade of school completed: High school graduate Smoking Status: Former smoker Tobacco Type: cigarettes # Packs/Day (cigarettes): 1 Alcohol Intake: current Alcohol Intake Frequency:: a few times a month Substance Use Type: denies use *Occupational Status:: retired Housing: house Household Members: spouse *Travel in the last 8 weeks: None - Psychiatric History Pschychiatric History:: Reports:: Anxiety, Depression Family Hx:: Diabetes, Hyperlipidemia, Hypertension ROS - Cons Reports body ache(s), Denies anorexia, Denies chills - Eyes Reports blurry vision - ENT Denies hoarseness - Card Denies shortness of breath, Denies shortness of breath with activity - Resp Respiratory: Reports chest congestion, Reports cough, Denies excessive phlegm production, Denies coughing up blood, Reports cough with sputum production, Denies wheezing - GI Gastrointestingal: Reports: nausea. Denies: abdominal pain - [place] Musculoskeletal: Reports back pain - Psych Denies thoughts of hurting/killing others, Denies thoughts of hurting/killing yourself Meds Home Medications Medication Instructions Recorded Confirmed Type Tamsulosin HCl [Flomax 0.4mg 0.8 mg PO DAILY 04/28/18 12/07/21 History capsule] clonazepam 0.5 mg tablet 0.5 mg PO TIDP PRN tab 10/30/20 12/07/21 History cholecalciferol (vitamin D3) 50 50 mcg PO DAILY 12/10/20 12/06/21 History mcg (2,000 unit) capsule multivitamin 1 tab PO DAILY 12/10/20 12/06/21 History Semaglutide [Ozempic] 0.25 mg SQ WEEKLY 12/06/21 12/06/21 History Aspirin [Aspirin 81mg EC Tab] 81 mg PO DAILY 12/07/21 12/07/21 History Atorvastatin Calcium [Lipitor 20mg 20 mg PO DAILY 12/07/21 12/07/21 History Tab] Empagliflozin [Jardiance] 25 mg PO DAILY 12/07/21 12/07/21 History Escitalopram Oxalate [Lexapro] 10 mg PO DAILY 12/07/21 12/07/21 History Montelukast Sodium [Singulair 10mg 10 mg PO PM 12/07/21 12/07/21 History tablet] Sitagliptin Phos/Metformin HCl 1 each PO DAILY 12/07/21 12/07/21 History [Janumet Xr 100-1,000 mg Tablet] Allergies Allergy/AdvReac Type Severity Reaction Status Date / Time No Known Allergies Allergy Verified 08/07/21 16:05 Exam - Constitutional Constitutional:: Present: no acute distress, comfortable - HENMT Exam HENMT: Present: normocephalic - Eye Exam Eyes:: Present: normal appearance both eyes and related structures - Neck Exam Neck:: Present: normal visual inspection - Respiratory Exam Respiratory:: Present: able to speak in complete sentences, no respiratory distress. Absent: wheezing - Cardiovascular Exam Cardiac:: Present: S1, S2 - GI Exam GI:: Present: soft - Skin Exam Skin: Present: warm, no rash - Neurological Exam Neurological: Present: alert, awake - Extremities Exam Extremities: Present: no cyanosis, no clubbing, no edema Internal Medicine - CN: Reslt - Labs CBC & Chem 7: 12/06/21 12:30 12/06/21 12:30 Assessment and Plan (1) SIRS (systemic inflammatory response
--- NOTE | 2021-12-08 09:53 | P.PN_ITS ---
Internal Medicine - PN: Subj *Date: 12/09/21 *Time: 04:48 Interval history: doing better but with fever last pm - has lt post rib pain Exam Vital signs and Labs for Last 24 Hours: Temp Pulse Resp BP Pulse Ox 99.5 F 104 H 22 136/75 96 12/08/21 08:00 12/08/21 08:00 12/08/21 08:00 12/08/21 08:00 12/08/21 08:00 Laboratory Results - last 24 hr 12/07/21 11:16: POC Glucose 216 H 12/07/21 16:29: POC Glucose 145 H 12/07/21 20:13: POC Glucose 233 H 12/08/21 05:13: POC Glucose 165 H I & O for Last 24 hours: Intake & Output 12/05/21 12/06/21 12/07/21 12/08/21 11:59 11:59 11:59 11:59 Intake Total 1275 / 1275 2220 / 2220 Output Total 2250 / 2250 2100 / 2100 Balance -975 / -975 120 / 120 Weight 245 lb 9.519 oz 249 lb 8 oz Microbiology Reports for the Last 24 Hours: Microbiology 12/06/21 15:19 Blood Blood Culture - Preliminary Gram Negative Rods - Constitutional no acute distress - *Routine HEENT Exam Head: Present: normocephalic Eye: Present: EOMI, PERRL ENT: Present: mucous membranes dry - *Routine Neck Exam Absent: JVD - *Routine Respiratory Exam Present: prolonged expiratory phase, rhonchi - *Routine Cardiovascular Exam Present: RRR, murmur - *Routine Abdominal Exam Present: soft - *Routine Extremities Exam Absent: calf tenderness - *Routine Skin Exam Present: intact - *Routine Neurological Exam Present: alert, CN II-XII intact - Routine Psychiatric Exam Present: normal affect Assessment and Plan (1) SIRS (systemic inflammatory response syndrome) Status: Acute Category: Medical Code(s): R65.10 - Systemic inflammatory response syndrome (SIRS) of non-infectious origin without acute organ dy sfunction (2) Pneumonia Status: Acute Qualifiers: Pneumonia type: due to unspecified organism Laterality: left Lung location: lower lobe of lung Qualified Code(s): J18.9 - Pneumonia, unspecified organism Category: Medical Code(s): J18.9 - Pneumonia, unspecified organism (3) Diabetes mellitus Status: Chronic Qualifiers: Diabetes mellitus type: type 2 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
--- NOTE | 2021-12-08 18:50 | PC.NURSE ---
PT IS ALERT AND ORIENTED X4. HE HAS AMULATED WITH STANDBY ASSISTANCE TO THE BATHROOM. HE HAS BEEN ON ROOM AIR MOST OF THE DAY AND IS TOLERATING WELL. HE HAS HAD NO C/O N/V/D OR SOB. CALL LOERA WITHIN REACH. WILL CONTINUE TO MONITOR.
[2021-12-09] VITALS: BP 129/78; PULSE 92; RESP 18; TEMP 37.3; O2SAT 96
[2021-12-09 04:00] VITALS: BP 138/85; PULSE 76; RESP 16; TEMP 36.9; O2SAT 96
[2021-12-09 05:08] VITALS: BMI 35.8
--- NOTE | 2021-12-09 05:20 | PC.NURSE ---
Patient is alert and oriented x4. Has been awake most of the shift, complaints of having a headache and not getting comfortable in the bed. Call light in place and working appropriately.
[2021-12-09 06:29] LABS: Basophils % 0.4 % (0.1-2.0); Eosinophils # 0.1 K/mm3 (0.0-0.4); Eosinophils % 0.9 % (0.1-12.0); Hematocrit 36.3 % (42.0-52.0); Hemoglobin 11.9 g/dL (14.1-18.0); Lymphocytes # 1.2 K/mm3 (0.7-4.5); Lymphocytes % 11.9 % (10-50); Mean Corpuscular HGB Conc 32.9 g/dL (31.8-35.4); Mean Corpuscular Hemoglobin 30.2 pg (27.0-31.2); Mean Corpuscular Volume 91.9 fl (80-94); Mean Platelet Volume 7.9 fl (7.4-10.4); Monocytes # 0.4 K/mm3 (0.1-1.0); Monocytes % 4.3 % (1.7-9.3); Neutrophils # 8.1 K/mm3 (1.8-7.8); Neutrophils % 82.5 % (37.0-80.0); Platelet Count 179 K/mm3 (142-424); Red Blood Count 3.95 M/mm3 (4.60-6.20); Red Cell Distribution Width 13.3 % (11.5-17.5); White Blood Count 9.8 K/mm3 (4.8-10.8)
[2021-12-09 06:56] LABS: Anion Gap 9.6 mEq/L (5-15); Blood Urea Nitrogen 10 mg/dl (9-20); Calcium 8.5 mg/dl (8.4-10.2); Carbon Dioxide 29 mmol/L (22.0-30.0); Chloride 101 mmol/L (98-107); Creatinine Clearance Estimated 121 mL/min (50-200); Estimated Glomerular Filt Rate 114 ml/min (>60); GFR (African American) 138 ML/MIN (>60); Glucose 167 mg/dl (74-100); Potassium 3.6 mmoL/L (3.5-5.1); Sodium 136 mmol/L (136-145)
[2021-12-09 07:41] VITALS: BP 139/73; PULSE 89; RESP 18; TEMP 37.3; O2SAT 97
[2021-12-09 08:00] VITALS: O2SAT 97
[2021-12-09 08:07] VITALS: O2SAT 97
--- NOTE | 2021-12-09 08:07 | PC.NURSE ---
Pt on RA is 97%.
[2021-12-09 09:14] LABS: POC Glucose,Bedside 199 (70-110)
--- NOTE | 2021-12-09 09:23 | XR_ITS ---
FINAL REPORT CLINICAL HISTORY: Pneumonia COMPARISON: December 06, 2021 FINDINGS: SINGLE VIEW CHEST The heart size is enlarged. The mediastinum is within normal limits. No acute pulmonary abnormality is identified. There is no evidence of pneumothorax. The bony thorax is intact. IMPRESSION: No acute cardiopulmonary process. Reviewed, Interpreted and Dictated by Bud Yang III, MD Transcribed by Paco Ortega Authenticated by Bud Yang III, MD on 12/09/2021 10:16:09 AM [facility]
--- NOTE | 2021-12-09 10:49 | HMH.PULMPN ---
Internal Medicine - PN: Subj *Date: 12/09/21 *Time: 10:49 Interval history: No acute respiratory events overnight. Patient admits continued improvement in his symptoms. Exam - Constitutional Constitutional:: Present: no acute distress, comfortable - HENMT Exam HENMT: Present: normocephalic - Eye Exam Eyes:: Present: normal appearance both eyes and related structures - Neck Exam Neck:: Present: normal visual inspection - Respiratory Exam Respiratory:: Present: able to speak in complete sentences, no respiratory distress, crackles. Absent: wheezing - Cardiovascular Exam Cardiac:: Present: S1, S2 - GI Exam GI:: Present: soft - Skin Exam Skin: Present: warm, no rash - Neurological Exam Neurological: Present: alert, awake - Extremities Exam Extremities: Present: no cyanosis, no clubbing, no edema - Psychiatric Exam Psychiatric: Present: normal affect Assessment and Plan (1) SIRS (systemic inflammatory response syndrome) Status: Acute Category: Medical Code(s): R65.10 - Systemic inflammatory response syndrome (SIRS) of non-infectious origin without acute organ dysfunction (2) Pneumonia Status: Acute Qualifiers: Pneumonia type: due to unspecified organism Laterality: left Lung location: lower lobe of lung Qualified Code(s): J18.9 - Pneumonia, unspecified organism Category: Medical Code(s): J18.9 - Pneumonia, unspecified organism (3) Diabetes mellitus Status: Chronic Qualifiers: Diabetes mellitus type: type 2 Diabetes mellitus fci insulin use: without termite technician use Diabetes mellitus complication status: without complication Qualified Code(s): E11.9 - Type 2 diabetes mellitus without complications Category: Medical Code(s): E11.9 - Type 2 diabetes mellitus without complications (4) Obesity (BMI 30-39.9) Status: Acute Category: Medical Code(s): E66.9 - Obesity, unspecified - Assessment and plan all Dx Assessment and Plan for all problems:: #Streptococcus bacteremia: #Left lower lobe pneumonia: 61-year-old no significant smoking history no prior respiratory complaints presented with nausea vomiting and abdominal pain found to be having Streptococcus bacteremia along with left lower lobe consolidation Presented with altered mentation, confusion and vomiting. On 2 L nasal cannula saturating 95% and above. BUN/creatinine within normal limits. CRP elevated at 41. No evidence of leukocytosis. Chest x-ray bilateral lower lobe airspace disease left greater than right. Evidence of vascular congestion also noted. CT abdomen showed dense left lower lobe consolidation. Patient was initiated on ceftriaxone and azithromycin. Preliminary blood cultures growing Streptococcus pneumonia. Interval update: Patient admits improving symptoms, weaned to room air, saturating 95% and above chest x-ray this morning continue to show left lower lobe pulmonary infiltrate, stable from recent chest x-ray. Improving leukocytosis. Ceftriaxone dose increased to 2 g every 12 hours as remote concern for meningitis patient initial presentation was nausea and vomiting with no respiratory distress. Given his continued improvement in symptoms will wean to cefdinir to complete a total of 14-day course. Repeat blood cultures pending at this point of time. Plan: -F/U repeat Blood cultures -Antibiotics can be weaned to cefdinir to complete a total of 14-day course -Follow with sputum cultures. #Thank you for involving pulmonary in this patient care. We will follow the patient in pulmonary clinic in 7 to 10 days
[2021-12-09 11:21] VITALS: BP 127/70; PULSE 77; RESP 18; TEMP 36.6; O2SAT 95
[2021-12-09 11:48] LABS: POC Glucose,Bedside 242 (70-110)
--- NOTE | 2021-12-09 12:55 | HMH.DCSUM ---
General - General Admission date:: 12/06/21 Discharge date: 12/09/21 HPI HPI: this patient presented to the ed with altered mental status and cough -pt was seen in the ed - confusion and vomiting since this am and achy all over States that since this morning he has had chills, cough, disorientation. He developed rhinorrhea yesterday. Denies sore throat. Developed a left flank pain while in the emergency department. Also vomiting since arrival in the emergency department. Unable to urinate since arrival in the emergency department, says he feels like his bladder is full, just cannot go. No known exposures to any illnesses. He has been vaccinated against COVID. pt had cap and was admitted for iv treatment Hospital Course Hospital Course: States that since this morning he has had chills, cough, disorientation. He developed rhinorrhea yesterday. Denies sore throat. Developed a left flank pain while in the emergency department. Also vomiting since arrival in the emergency department. Unable to urinate since arrival in the emergency department, says he feels like his bladder is full, just cannot go. No known exposures to any illnesses. He has been vaccinated against COVID. pt had cap and was admitted for iv treatment In the emergency department temperature 102.4, systolic blood pressure 89, heart rate 135, he received fluid bolus, azithromycin, and ceftriaxone, ER physician documented septic shock Chest x-ray showed left lower lobe airspace disease and abdomen CT revealed dense left lower lobe consolidation Preliminary blood culture reveal Streptococcus pneumonia in 1 bottle the other bottle was negative. Follow-up blood cultures were negative at 5 days. Sputum culture was no growth at 5 days. Respiratory PCR negative and urinalysis was negative. He did receive azithromycin and ceftriaxone IV and will be discharged with cefdinir p.o. Oxygenation status he was weaned down from 2 L to room air with greater than 95% saturation. He has been afebrile for greater than 24 hours and is tolerating a regular diet Pulmonology has seen and recommends: 61-year-old no significant smoking history no prior respiratory complaints presented with nausea vomiting and abdominal pain found to be having Streptococcus bacteremia along with left lower lobe consolidation Presented with altered mentation, confusion and vomiting. On 2 L nasal cannula saturating 95% and above. BUN/creatinine within normal limits. CRP elevated at 41. No evidence of leukocytosis. Chest x-ray bilateral lower lobe airspace disease left greater than right. Evidence of vascular congestion also noted. CT abdomen showed dense left lower lobe consolidation. Patient was initiated on ceftriaxone and azithromycin. Preliminary blood cultures growing Streptococcus pneumonia. Interval update: Patient admits improving symptoms, weaned to room air, saturating 95% and above chest x-ray this morning continue to show left lower lobe pulmonary infiltrate, stable from recent chest x-ray. Improving leukocytosis. Ceftriaxone dose increased to 2 g every 12 hours as remote concern for meningitis patient initial presentation was nausea and vomiting with no respiratory distress. Given his continued improvement in symptoms will wean to cefdinir to complete a total of 14-day course. Repeat blood cultures pending at this point of time. Plan: -F/U repeat Blood cultures -Antibiotics can be weaned to cefdinir to complete a total of 14-day course -Follow with sputum cultures. #Thank you for involving pulmonary in this patient care. We will follow the patient in pulmonary clinic in 7 to 10 days Septic shock SIRS (systemic inflammatory response syndrome) Pneumonia left lower lobe In the emergency department temperature 102.4, systolic blood pressure 89, heart rate 135, he received fluid bolus, azithromycin, and ceftriaxone, ER physician documented septic shock Chest x-ray showed left lower lobe a
--- NOTE | 2021-12-10 14:31 | CARE MANAGER ---
Contacted patient related to discharge from hospital. Patient states he had an episode last night where he couldn't sleep, but states he finally fell asleep and is doing ok now. He is aware of follow up appointments and is taking his antibiotic as prescribed.
== END 2021-12-09 14:22 | disposition home or self-care (01) | DRG 871 ==
LOC: ER 17:46 → 2ND 12-07 02:39
PROVIDERS: Nurse Practitioner Family; Admitting Provider Internal Medicine Adolescent Medicine; Emergency Provider Emergency Medicine; PCP Nurse Practitioner Family; Visit Provider Emergency Medicine
DX: A40.9 Streptococcal sepsis, unspecified (principal); J18.9 Pneumonia, unspecified organism; R65.21 Severe sepsis with septic shock; F41.9 Anxiety disorder, unspecified; F32.A Depression, unspecified; K21.9 Gastro-esophageal reflux disease without esophagitis; E78.5 Hyperlipidemia, unspecified; M19.90 Unspecified osteoarthritis, unspecified site; Z79.84 Long term (current) use of oral hypoglycemic drugs; E66.9 Obesity, unspecified; Z68.35 Body mass index [BMI] 35.0-35.9, adult
CPT/HCPCS: 36415; 51702; 70450; 71045; 74176; 80048; 80053; 81001; 82962; 83605; 85025; 85651; 86140; 87040; 87070; 87077; 87186; 87205; 87581; 87632; 87798; 99291; C9803; J0456; J0696; J2405; U0003; U0005

== ENCOUNTER 2022-05-03 16:32 | Emergency (ER) | payer BC, SELFPAY ==
[2022-05-03 16:33] VITALS: BP 139/75; PULSE 82; RESP 20; TEMP 36.6; O2SAT 97; BMI 34.2
--- NOTE | 2022-05-03 16:42 | CT_ITS ---
PROCEDURE INFORMATION: Exam: CT Lumbar Spine Without Contrast Exam date and time: 05/03/2022 5:00 PM Age: 61 years old Clinical indication: Injury or trauma; Fall; Additional info: Fall, pain TECHNIQUE: Imaging protocol: Computed tomography of the lumbar spine without contrast. Radiation optimization: All CT scans at this facility use at least one of these dose optimization techniques: automated exposure control; mA and/or kV adjustment per patient size (includes targeted exams where dose is matched to clinical indication); or iterative reconstruction. COMPARISON: MR LUMBAR SPINE WO CON 12/12/2020 9:45 AM FINDINGS: Bones/joints: Acute burst fracture L5 vertebral body with less than 50% height loss centrally and no retropulsion. Moderate lumbar spondylosis without CT evidence of critical stenosis. Soft tissues: Unremarkable. IMPRESSION: Acute burst fracture L5 vertebral body with less than 50% height loss centrally and no retropulsion.
--- NOTE | 2022-05-03 16:42 | CT_ITS ---
PROCEDURE INFORMATION: Exam: CT Pelvis Without Contrast; Skeletal Exam date and time: 05/03/2022 4:57 PM Age: 61 years old Clinical indication: Injury or trauma; Fall; Additional info: Fall, pain TECHNIQUE: Imaging protocol: Computed tomography of the pelvis without contrast. Exam focused on the skeleton. Radiation optimization: All CT scans at this facility use at least one of these dose optimization techniques: automated exposure control; mA and/or kV adjustment per patient size (includes targeted exams where dose is matched to clinical indication); or iterative reconstruction. COMPARISON: CT ABDOMEN PELVIS WO CON 12/06/2021 4:33 PM FINDINGS: Reproductive: Enlarged prostate. Bones/joints: Moderate osteoarthritis in the hips bilaterally without acute hip or pelvic fracture. Burst fracture L5 vertebral body without retropulsion. Soft tissues: Unremarkable. IMPRESSION: Moderate osteoarthritis in the hips bilaterally without acute hip or pelvic fracture. Burst fracture L5 vertebral body without retropulsion.
--- NOTE | 2022-05-03 16:45 | PC.NURSE ---
ED MD AT BEDSIDE FOR EVALUATION
--- NOTE | 2022-05-03 16:47 | HMH.EDGENADL ---
Discharge Plan Disposition Patient Disposition: Home, Self-Care Condition: Fair Prescriptions Prescriptions: No Action cholecalciferol (vitamin D3) 50 mcg (2,000 unit) capsule 50 mcg PO DAILY multivitamin Tablet 1 tab PO DAILY albuterol sulfate 90 mcg/actuation HFA aerosol inhaler 2 inh IH Q6H PRN (Reason: shortness of breath or wheezing) 90 Days Qty: 8.5 3RF semaglutide 0.25 mg or 0.5 mg(2 mg/1.5 mL) pen injector 0.25 mg SQ WEEKLY Qty: 1.5 10RF tamsulosin 0.4 MG capsule 0.8 mg PO DAILY clonazepam 0.5 mg tablet 0.5 mg PO TIDP PRN (Reason: Anxiety) atorvastatin 20 MG tablet 20 mg PO DAILY montelukast 10 MG tablet 10 mg PO PM escitalopram oxalate 10 MG tablet 10 mg PO DAILY sitagliptin-metformin 1 EACH tablet, ER multiphase 24 hr 1 each PO DAILY Label Comments: TAKE 1 TABLET BY MOUTH EVERY DAY WITH A MEAL empagliflozin 25 MG tablet 25 mg PO DAILY Label Comments: TAKE 1 TABLET BY MOUTH EVERY DAY aspirin 81 MG tablet,delayed release (DR/EC) 81 mg PO DAILY cefdinir 300 MG capsule 300 mg PO BID 11 Days Qty: 22 0RF Referrals Follow up/Referrals: Nellie Duran APRN [Primary Care Provider] - See instructions Activity Restrictions/Add. Instructions Additional Instructions/Restrictions: You have been evaluated for back injury, diagnosed with a fracture. The fracture is of the L5 vertebrae. The type of fracture is called a burst fracture. There is less than 50% height loss and no retropulsion of fragments into the spinal canal. No other fractures. Take Tylenol B Profen for pain. Oxycodone for severe pain. It is very important that you follow-up with your spine doctor. Follow-up with your primary care doctor in 1 to 2 days for symptom recheck. Return to the emergency department at once for any new or worsening symptoms, uncontrolled pain, difficulty walking, any other concerns. Clinical Impressions Clinical Impression: Closed L5 vertebral fracture, Lumbar back pain Instructions Patient Instructions: DI for Low Back Pain, DI for Lumbar Radiculopathy Discharge ED Provider: Maryjane Spivey Adult [facility] General Chief complaint: Back Pain/Injury Stated complaint: back pain Time Seen by Provider: 05/03/22 16:34 Mode of Arrival: Ambulatory Source of Information: Patient Limitations: No Limitations History of Present Illness HPI narrative: 61-year-old male presenting the emergency department with low back pain after a fall. Fall happened yesterday evening. He was working in his yard when he pulled backwards, lost his balance and fell. He struck his low back and landed on his buttocks. Had immediate pain. Was able to get up. Continue to have pain yesterday evening and this morning. Pain is constant and achy in the low back. Radiates into his buttocks on the right. No numbness, weakness, tingling in his legs. He took oxycodone with some relief. Has a history of spine surgery in July of this year. Says he did not have hardware, but had the vertebrae scraped. Related Data Home Medications Medication Instructions Recorded Confirmed tamsulosin 0.4 mg capsule 0.8 mg PO DAILY prostate 04/28/18 12/15/21 clonazepam 0.5 mg tablet 0.5 mg PO TIDP PRN Anxiety 10/30/20 12/15/21 cholecalciferol (vitamin D3) 50 50 mcg PO DAILY supplement 12/10/20 12/15/21 mcg (2,000 unit) capsule multivitamin 1 tab PO DAILY Supplement 12/10/20 12/15/21 aspirin 81 mg tablet,delayed 81 mg PO DAILY HEART HEALTH 12/07/21 12/15/21 release atorvastatin 20 mg tablet 20 mg PO DAILY Cholesterol 12/07/21 12/15/21 empagliflozin 25 mg tablet 25 mg PO DAILY Diabetes 12/07/21 12/15/21 escitalopram oxalate 10 mg tablet 10 mg PO DAILY MOOD 12/07/21 12/15/21 montelukast 10 mg tablet 10 mg PO PM Allergy symptoms 12/07/21 12/15/21 sitagliptin 100 mg-metformin ER 1 each PO DAILY Diabetes 12/07/21 12/15/21 1,000 mg tablet,extended [id number]
[2022-05-03 16:48] VITALS: BMI 34.2
[2022-05-03 16:49] LABS: Microscopic, Urine URINE MICROSCOPIC (MICROSCOPIC)
[2022-05-03 16:53] LABS: Appearance,Urine CLEAR (Clear); Bilirubin,Urine Negative (Negative); Blood, Urine Negative (Negative); Color,Urine YELLOW (Yellow); Glucose,Urine (UA) 3+ (Negative); Ketones,Urine 1+ (Negative); Leukocyte Esterase,Urine Negative (Negative); Nitrate,Urine Negative (Negative); Protein,Urine Negative (Negative); Specific Gravity, Urine 1.025 (1.005-1.030); Urobilinogen,Urine 0.2 EU/dl (0.2)
--- NOTE | 2022-05-03 17:04 | PC.NURSE ---
PT TO CT AT THIS TIME
[2022-05-03 17:11] LABS: RBC,Urine Occasional #/hpf (0-3); Squamous Epithelial Cell,Urine Occasional #/hpf (0-5); WBC,Urine Occasional #/hpf (0-3)
--- NOTE | 2022-05-03 17:12 | PC.NURSE ---
PT RETURNED FROM CT
[2022-05-03 17:34] LABS: Basophils # 0.2 K/mm3 (0-0.2); Basophils % 3.4 % (0.1-2.0); Eosinophils # 0.1 K/mm3 (0.0-0.4); Eosinophils % 1.7 % (0.1-12.0); Hematocrit 44.4 % (42.0-52.0); Hemoglobin 14.8 g/dL (14.1-18.0); Lymphocytes # 1.9 K/mm3 (0.7-4.5); Mean Corpuscular HGB Conc 33.2 g/dL (31.8-35.4); Mean Corpuscular Hemoglobin 30.2 pg (27.0-31.2); Mean Corpuscular Volume 90.8 fl (80-94); Mean Platelet Volume 7.9 fl (7.4-10.4); Monocytes # 0.6 K/mm3 (0.1-1.0); Neutrophils # 4.1 K/mm3 (1.8-7.8); Neutrophils % 58.9 % (37.0-80.0); Platelet Count 157 K/mm3 (142-424); Red Blood Count 4.89 M/mm3 (4.60-6.20); White Blood Count 6.9 K/mm3 (4.8-10.8)
[2022-05-03 17:35] LABS: Chloride 99 mmol/L (98-107)
[2022-05-03 17:36] LABS: Potassium 4.2 mmoL/L (3.5-5.1); Sodium 137 mmol/L (136-145)
[2022-05-03 17:38] LABS: Alanine Aminotransferase 37 U/L (12-78); Alkaline Phosphatase 106 U/L (38-126); Aspartate Amino Transferase 34 U/L (17-59); Bilirubin,Total 1.2 mg/dl (0.2-1.3); Blood Urea Nitrogen 15 mg/dl (9-20); Creatinine Clearance Estimated 119 mL/min (50-200); Estimated Glomerular Filt Rate 114 ml/min (>60); GFR (African American) 138 ML/MIN (>60)
[2022-05-03 17:39] LABS: Albumin Level 4.4 g/dl (3.5-5.0); Albumin/Globulin Ratio 1.6 (1.1-1.8); Anion Gap 14.2 mEq/L (5-15); Calcium 9.2 mg/dl (8.4-10.2); Carbon Dioxide 28 mmol/L (22.0-30.0); Globulin 2.7 g/dL (1.3-3.2); Glucose 129 mg/dl (74-100); Total Protein,Serum 7.1 g/dl (6.3-8.2)
[2022-05-03 18:24] VITALS: BP 111/69; PULSE 80; RESP 18; TEMP 36.6; O2SAT 99
== END 2022-05-03 18:25 | disposition home or self-care (01) ==
PROVIDERS: Emergency Provider Emergency Medicine; PCP Nurse Practitioner Family
DX: S32.051A Stable burst fracture of fifth lumbar vertebra, initial encounter for closed fracture (principal); W19.XXXA Unspecified fall, initial encounter; E11.9 Type 2 diabetes mellitus without complications; Z79.51 Long term (current) use of inhaled steroids; Z79.82 Long term (current) use of aspirin; Z79.899 Other long term (current) drug therapy
CPT/HCPCS: 72131; 72192; 80053; 81001; 85025; 99285

== ENCOUNTER → 2022-05-11 17:27 | Outpatient (CLI) | payer BC, SELFPAY ==
--- NOTE | 2022-05-11 17:48 | XR_ITS ---
PROCEDURE INFORMATION: Exam: XR Left Femur Exam date and time: 05/11/2022 5:58 PM Age: 61 years old Clinical indication: Injury or trauma; Fall; Blunt trauma; Thigh or upper leg; Patient HX: Fell last week, left hip pain, cant walk even with his cane. TECHNIQUE: Imaging protocol: Radiologic exam of the Left femur. Views: 2 views. COMPARISON: CT PELVIS WO CON 05/03/2022 4:57 PM FINDINGS: Bones/joints: Osteopenia. Scattered phleboliths superimposed upon the left superior pubic ramus. Focal region of sclerosis superimposed upon the proximal femur. This corresponds to soft tissue calcification superficial to the left gluteal muscle bundle based upon previous CT examination. Total knee replacement. No evidence of hardware malfunction or distal femoral fracture. Soft tissues: See Bones/joints finding. IMPRESSION: No evidence of acute osseous injury.
== END ==
PROVIDERS: PCP Nurse Practitioner Family; Visit Provider Nurse Practitioner Family
DX: M25.552 Pain in left hip (principal)
CPT/HCPCS: 73552

== ENCOUNTER → 2022-05-17 11:04 | Outpatient (POV) | payer BC, SELFPAY ==
[2022-05-17 11:37] VITALS: BP 130/73; PULSE 69; RESP 18; TEMP 37; O2SAT 96; BMI 34.2
--- NOTE | 2022-05-17 16:52 | EXP.PAIN.OV ---
HPI Data of Consult Patient: new to practice Consult date: 05/17/22 Requesting Physician: Coni Velásquez APRN Primary Care Provider: Froilan Duran APRN Consult Narrative Reason for consult: Back pain, bilateral leg pain History of present illness: Mr. Comer is a 61 year old male who presents today as a new patient. He is a referral from froilan from his office. He rates his pain a 10 out of 10 and states the pain is in his low back with some radiating symptoms into his bilateral lower extremities and bilateral hips. Patient describes this as a sharp, shooting, throbbing sensation that is constant and worse with increased activity. Patient fell while he was trying to move a piece of a tree off the road on May 02. Patient did have CT imaging which showed a burst fracture at L5 with 50% height loss. Patient has been managing his pain with Bethany 7.5 mg 4 times a day. Patient does also use occasional Tylenol or ibuprofen. Patient states he has tried [id number] Biofreeze as well as a herbal cream called deep blue that helps provide additional relief. Patient does use a heating pad and a back brace. Patient has been using a cane for ambulation and he states he cannot tolerate pressure on his left leg. Patient states he has had back issues for years but over time of progressively worsened. He states he does have a sciatica history as well as cramping along his calves at night. Patient states he does do deep tissue massage every 2 weeks to provide additional relief of his symptoms. Patient has had previous back surgery at and is currently waiting for an appointment on June 07 at that office for possible treatment such as a kyphoplasty. Patient states he has had a lot going on this year starting with his original back surgery the end of July followed by a blood infection that turned to aspiration pneumonia. Patient also mentions that he then had prostate/bladder issues. Patient states he is a diabetic and that his glucose levels are not well managed and average around 240. Patient states he only uses oral medications to treat his diabetes at this point however his primary care has discussed going to insulin injections. Patient's Tristen was reviewed and appropriate. CC: Coni Velásquez APRN [facility] Medical History (Updated 05/18/22 @ 08:44 by Coni Velásquez APRN) Anxiety Arthritis Chronic pain Depression Diabetes mellitus FH: total knee replacement HLD (hyperlipidemia) Hypothyroidism Surgical History (Updated 05/17/22 @ 11:41 by Chantel Lorenzana RN) H/O eye surgery History of bladder surgery Previous back surgery Social History (Updated 05/17/22 @ 11:42 by Chantel Lorenzana, RN) Smoking Status: Never smoker alcohol intake: current substance use type: denies use current occupational status: retired Travel in the last 8 weeks: None household members: spouse housing: house caffeine: Yes Review of Systems Review of Systems Review of systems:: pertinent systems reviewed and negative unless documented below Review of systems (narrative): Review of Systems: General: No recent weight changes, no fever, no sleep disturbances Respiratory: No cough, no shortness of air, no recurring pulmonary infections Cardiovascular/peripheral vascular: No chest pain, no palpitations, no edema, no shortness of breath Gastrointestinal: No new onset incontinence, normal bowel movements reported Genitourinary: No new onset incontinence Musculoskeletal: Low back pain, bilateral leg pain Psychiatric: [Normal mood/affect] Neurological: [Denies weakness in extremities], [denies balance issues] Meds Home Medications and Allergies Home Medications Medication Instructions Recorded Confirmed Type tamsulosin 0.4 mg capsule 0.8 mg PO DAILY prostate 04/28/18 05/17/22 History clonazepam 0.5 mg tablet 0.5 mg PO TIDP PRN Anxiety 10/30/20 05/17/22 History cholecalciferol (vitamin D3) 50 50 mcg PO DAILY supplement 11/22
== END | disposition home or self-care (01) ==
PROVIDERS: PCP Nurse Practitioner Family; Visit Provider Nurse Practitioner Family
DX: S32.059A Unspecified fracture of fifth lumbar vertebra, initial encounter for closed fracture (principal); M47.816 Spondylosis without myelopathy or radiculopathy, lumbar region; M25.551 Pain in right hip; M25.552 Pain in left hip; M79.604 Pain in right leg; M79.605 Pain in left leg; Z79.899 Other long term (current) drug therapy
CPT/HCPCS: 99212; G0463

== ENCOUNTER → 2022-05-24 07:53 | Outpatient (CLI) | payer BC, SELFPAY ==
--- NOTE | 2022-05-24 07:55 | MR_ITS ---
FINAL REPORT CLINICAL HISTORY: BURST FRACTURE, FALL Apr, FX L5, PAIN, LEFT HIP PAIN AND NUMBNESS COMPARISON: CT dated 05/03/2022 FINDINGS: Multiplanar MR imaging of the lumbar spine was performed without contrast. On the sagittal T2-weighted images, disc degeneration is seen at multiple levels. The vertebral alignment is normal. There is a mild acute to subacute L3 superior endplate compression fracture with 10% loss of height. There is a moderate, acute to subacute L5 burst fracture with approximately 40% loss of height. There is a probable small fracture of the anterior/superior corner of S1 with bone marrow edema. The conus has an unremarkable appearance. L1-2: An annular bulge and facet arthropathy are present. There is mild bilateral neural foraminal narrowing. L2-3: An annular bulge is present. Facet arthropathy and osteophytes are present. There is moderate bilateral neural foraminal narrowing. L3-4: An annular bulge is present. Facet arthropathy and osteophytes are present. There is a broad-based right foraminal disc protrusion resulting in right L4 nerve root impingement. There is moderate bilateral neural foraminal narrowing. L4-5: An annular bulge is present. Facet arthropathy and osteophytes are present. There is moderate bilateral neural foraminal narrowing. L5-S1: An annular bulge is present. Facet arthropathy and osteophytes are present. There is severe bilateral neural foraminal narrowing. There is spurring of the sacroiliac joints. IMPRESSION: Mild acute to subacute L3 superior endplate compression fracture. Moderate acute to subacute L5 burst fracture. Probable small fracture of the anterior/superior corner of S1. Broad-based right foraminal disc protrusion at L3-4 results in right L4 nerve root impingement. Multilevel degenerative disc disease and spondylosis. Reviewed, Interpreted and Dictated by Bud Yang III, MD Transcribed by Sujatha Abdul Authenticated and [facility]
== END ==
PROVIDERS: PCP Nurse Practitioner Family; Visit Provider Nurse Practitioner Family
DX: M54.50 Low back pain, unspecified (principal); S32.001A Stable burst fracture of unspecified lumbar vertebra, initial encounter for closed fracture
CPT/HCPCS: 72148; 76376

== ENCOUNTER → 2022-05-27 08:34 | Outpatient (POV) | payer BC, SELFPAY ==
[2022-05-27 08:51] VITALS: BP 129/75; PULSE 92; RESP 18; TEMP 36.7; O2SAT 95; BMI 34.2
--- NOTE | 2022-05-27 09:21 | EXP.PAIN.SOA ---
[facility] Pain Management SOAP Note Subjective:: Patient is a pleasant 61-year-old male who presents today for MRI follow-up. We are currently treating the patient for degenerative disc disease of lumbar spine with lumbar radiculopathy symptoms, L5 burst fracture. Today the patient rates his pain a 9 out of 10. Patient denies any new trauma or injury. Patient denies any change to location or type of pain he experiences. Patient does describe this pain as a sharp, shooting, throbbing sensation as well as a tooth ache like sensation that is worse with increased activity. Patient did have a fall while trying to move a piece of a tree off of the road on May 02 which resulted in the fracture. Patient is currently managing his pain with [place] 7.5 mg as needed. Patient denies any side effects from this medication. He states this medication does help take the edge off his pain. Patient does also use occasional Tylenol or ibuprofen with minimal improvement. Patient uses Biofreeze as well as a herbal cream called deep blue that provides additional relief. Patient continues to wear his back brace to add additional support and uses a heating pad. Patient does use a cane for ambulation. Patient states he did try the ropinirole for 1 night and it did seem to really help however he has not continued to take this. Patient states he will make more of an effort to try and remember this medication at night. Patient is scheduled to go to [facility] on June 02 and June 07 to to see a neurosurgeon. Patient does have a history of low back pain and sciatic issues. Patient states he recently was given an antibiotic for a ear infection. Patient is a diabetic that is uncontrolled with his average blood glucose being 240. Patient does only use oral medications to treat his diabetes however he states they have discussed starting insulin injections. His Tristen is [id number]. It has been reviewed and appropriate. Review of Systems: General: No recent weight changes, no fever, no sleep disturbances Respiratory: No cough, no shortness of air, no recurring pulmonary infections Cardiovascular/peripheral vascular: No chest pain, no palpitations, no edema, no shortness of breath Gastrointestinal: No new onset incontinence, normal bowel movements reported Genitourinary: No new onset incontinence Musculoskeletal: Low back pain, bilateral leg pain Psychiatric: [Normal mood/affect] Neurological: [Denies weakness in extremities], [denies balance issues] Objective:: Physical Exam: General: Alert and oriented x3, no acute distress, pleasant and cooperative Lungs: Respirations even and unlabored, symmetrical chest expansion Eyes: PERRL Musculoskeletal: Flexion and extension of lumbar [spine] somewhat guarded secondary to pain, [antalgic gait noted] Neurological: Speech clear, no gross sensory deficit Assessment:: Degenerative disc disease of lumbar spine with lumbar radiculopathy symptoms, L5 burst fracture, lumbar facet arthropathy, L3 compression fracture Plan:: Patient is experiencing significant pain in his low back that radiates into his bilateral lower extremities. Patient did have limited range of motion of his lumbar spine during today's visit. I have discussed with the patient regarding a lumbar epidural. Risk and benefits of the procedure were explained to the patient. He would like to proceed forward with this injection. Patient is not currently on any blood thinners. I have counseled the patient to continue to take his medication for his diabetes and monitor his glucose the day of this injection. I have also discussed with the patient to continue taking the ropinirole 0.25 mg at night and that if he has significant improvement in his leg cramping that he experiences at night I will send in a refill. We will schedule him for a lumbar epidural steroid injection at L4-L5 as soon as possible. Patient has been instructed to contact the clinic with any concerns befor
== END ==
PROVIDERS: PCP Nurse Practitioner Family; Visit Provider Nurse Practitioner Family
DX: M51.16 Intervertebral disc disorders with radiculopathy, lumbar region (principal); S32.059A Unspecified fracture of fifth lumbar vertebra, initial encounter for closed fracture; M48.56XA Collapsed vertebra, not elsewhere classified, lumbar region, initial encounter for fracture
CPT/HCPCS: 99212; G0463

== ENCOUNTER 2022-05-28 14:28 | Day surgery (SDC) | payer BC, SELFPAY ==
[2022-05-28 15:35] VITALS: BP 113/66; PULSE 87; RESP 20; TEMP 36.8; O2SAT 94; BMI 32.8
[2022-05-28 16:20] VITALS: BP 130/76; PULSE 78; RESP 20
--- NOTE | 2022-05-28 16:26 | EXP.PAIN.PRO ---
Procedure Date: 05/28/22 Time: 16:26 Anesthesiologist:: Jigar Soriano MD Complications:: None Pre-procedure Diagnosis:: Degenerative disc disease of lumbar spine with lumbar radiculopathy symptoms With subacute compression fracture of the L3 vertebrae and burst fracture of the L5 vertebrae. Post-procedure Diagnosis:: Same Indications for Procedure:: This patient is a pleasant 61-year-old white male who we are treating for low back pain with lumbar radicular symptoms. He has a subacute compression fracture of the L3 vertebrae. He also has a burst fracture of the L5 vertebrae. He is having some increasing back pain. He is scheduled to see Dr. Velásquez as well as a neurosurgeon at . We will plan on a lumbar epidural steroid injection today to help him with his pain symptoms. Procedure Details:: Informed consent was obtained and the risk and benefits of the procedure was explained to the patient. The patient was taken to the procedure room. The patient was placed prone on the procedure table. The patient was prepped and draped in sterile fashion. C-arm fluoroscopy was used to view the lumbar spine. Skin and subcutaneous tissues were anesthetized using lidocaine. I placed an 18-gauge epidural needle and advanced into the L4-L5 interspace using fluoroscopic guidance and [id number] to air. After confirmation of needle placement in the epidural space with dye I injected 2 mL of lidocaine 1.5% with Depo-Medrol 80 mg. Patient tolerated the procedure well with no complications. Plan and Disposition:: We will follow-up with him in 2 weeks. Will reevaluate symptoms at that time. We will follow-up on recommendations from Dr. Velásquez and his neurosurgeon.
== END 2022-05-28 16:20 | disposition home or self-care (01) ==
PROVIDERS: PCP Nurse Practitioner Family; Visit Provider Anesthesiology
DX: M51.16 Intervertebral disc disorders with radiculopathy, lumbar region (principal); S32.051A Stable burst fracture of fifth lumbar vertebra, initial encounter for closed fracture
CPT/HCPCS: 62323

== ENCOUNTER → 2022-06-14 12:55 | Outpatient (POV) | payer BC, SELFPAY ==
[2022-06-14 13:16] VITALS: BP 126/72; PULSE 75; RESP 18; O2SAT 97; BMI 32.8
--- NOTE | 2022-06-14 14:30 | EXP.PAIN.SOA ---
[facility] Pain Management SOAP Note Subjective:: Patient is a pleasant 61-year-old male who presents today for follow-up. We are currently treating the patient for degenerative disc disease of lumbar spine with lumbar radiculopathy symptoms, L5 burst fracture, subacute compression fracture of L3 vertebra. Today the patient rates his pain a 9 out of 10. Patient denies any new trauma or injury. Patient denies any change to location or type of pain he experiences. Patient states the pain is all in his low back with radiating symptoms into his bilateral lower extremities however states his left leg being the worst leg. Patient describes this as a sharp, shooting, throbbing sensation that is worse with increased activity. Patient states he has limited range of motion in his left leg. Patient states this affects his ability to walk or stand for prolonged periods. Patient has had increasing difficulty in performing activities of daily living due to the pain. Patient previously had a fall where he tripped over a piece of wood on the road resulted in a burst fracture at L5 and a subacute fracture of L3. Patient previously had a lumbar epidural steroid injection at L4-L5 on 05/28/2022. Patient states that he did have approximately 75 to 80% relief with this injection lasting a couple of weeks. Patient is currently managed with [place] 7.5 mg from an outside provider. Patient denies any side effects from this medication. He states this medication does help with some of his pain symptoms. Patient also uses Biofreeze and a herbal cream deep blue to provide additional relief. Patient continues to wear his back brace to provide additional support and will use a heating pad occasionally. Patient does use a cane for ambulation. At our last visit I did prescribe him ropinirole at night however he states he has not noticed significant improvement with this medication. Patient denies any side effects from the medicine. Patient did go to [facility] and they have recommended him to see Carroll Ramirez for a possible spinal fusion. He states he is scheduled to see them July 12 for a nerve test to identify any nerve root impingements. Patient states he also saw his previous neurosurgeon at however he stated that they told him that they do not do spinal fusions. Patient is a diabetic and states his average blood glucose is around 240. Patient does use oral medications for his diabetes however states that his provider has mentioned that he might need to start insulin injections. His Tristen is [id number]. It has been reviewed and appropriate. Review of Systems: General: No recent weight changes, no fever, no sleep disturbances Respiratory: No cough, no shortness of air, no recurring pulmonary infections Cardiovascular/peripheral vascular: No chest pain, no palpitations, no edema, no shortness of breath Gastrointestinal: No new onset incontinence, normal bowel movements reported Genitourinary: No new onset incontinence Musculoskeletal: Low back pain, left leg pain Psychiatric: [Normal mood/affect] Neurological: [Denies weakness in extremities], [denies balance issues] Objective:: Physical Exam: General: Alert and oriented x3, no acute distress, pleasant and cooperative Lungs: Respirations even and unlabored, symmetrical chest expansion Eyes: PERRL Musculoskeletal: Flexion and extension of lumbar [spine] somewhat guarded secondary to pain, [antalgic gait noted] Neurological: Speech clear, no gross sensory deficit Assessment:: Degenerative disc disease of lumbar spine with lumbar radiculopathy symptoms, L5 burst fracture, subacute compression fracture of L3 vertebra Plan:: Patient continues to experience significant pain in his low back that radiates into his lower extremities. Patient had limited range of motion of his lumbar spine during today's visit. I have discussed with the patient that he may benefit from a repeat lumbar epidural steroid injection. Risk and benef
== END | disposition home or self-care (01) ==
PROVIDERS: PCP Nurse Practitioner Family; Visit Provider Nurse Practitioner Family
DX: M51.16 Intervertebral disc disorders with radiculopathy, lumbar region (principal); S32.051A Stable burst fracture of fifth lumbar vertebra, initial encounter for closed fracture
CPT/HCPCS: 99212; G0463

== ENCOUNTER 2022-06-22 14:34 | Day surgery (SDC) | payer BC, SELFPAY ==
[2022-06-22 15:10] VITALS: BP 115/72; PULSE 77; RESP 18; TEMP 36.4; O2SAT 94; BMI 32.8
[2022-06-22 15:12] VITALS: BP 140/80; PULSE 79; RESP 18; O2SAT 97
--- NOTE | 2022-06-22 15:21 | EXP.PAIN.PRO ---
Procedure Date: 06/22/22 Time: 15:21 Anesthesiologist:: Dayo Lee CRNA Complications:: None Pre-procedure Diagnosis:: Degenerative disc disease lumbar spine multilevels. Lumbar radiculopathy. Lumbar postlaminectomy syndrome Post-procedure Diagnosis:: Same Indications for Procedure:: Patient is a pleasant 61-year-old male that comes our clinic today for lumbar epidural steroid injection. We have given him a couple of these in the past with significant provement terms of low back pain as well as bilateral hip and leg radicular symptoms. He describes low back pain as constant, dull, aching. He rates pain 6/10. Procedure Details:: Procedure: Lumbar epidural steroid injection under fluoroscopy Informed consent was obtained and the risks and benefits of the procedure were explained to the patient. The patient was taken to the procedure room and noninvasive monitors placed, including noninvasive blood pressure cuff and pulse oximeter. The back was viewed using C-arm Fluoroscopy and prepped using Chloraprep as a cleansing solution and the L4-L5 interspace was palpated. Skin and subcutaneous tissues were anesthetized using lidocaine 1.5% and a 25-gauge needle. After this, an 18-gauge Touhy epidural needle was placed into the L4-L5 interspace and advanced using fluoroscopic guidance and loss of resistance to air until the epidural space was encountered. After confirmation of needle placement in the epidural space, with dye, a solution containing normal saline, 3 mL and Depo-Medrol 80 mg were incrementally injected into the lumbar epidural space. The patient tolerated the procedure well with no complications. The patient was observed in the Pain Clinic and then discharged home neurologically intact. Plan and Disposition:: Patient was discharged without incident.
[2022-06-22 15:25] VITALS: BP 132/70; PULSE 72; RESP 20
== END 2022-06-22 15:26 | disposition home or self-care (01) ==
PROVIDERS: PCP Nurse Practitioner Family; Visit Provider Nurse Anesthetist, Certified Registered
DX: M51.16 Intervertebral disc disorders with radiculopathy, lumbar region (principal); M96.1 Postlaminectomy syndrome, not elsewhere classified
CPT/HCPCS: 62323; J1040

== ENCOUNTER → 2022-07-03 09:18 | Outpatient (CLI) | payer BC, SELFPAY ==
[2022-07-03 09:25] LABS: Microscopic, Urine URINE MICROSCOPIC (MICROSCOPIC)
[2022-07-03 09:52] LABS: Basophils # 0.1 K/mm3 (0-0.2); Basophils % 0.9 % (0.1-2.0); Eosinophils # 0.1 K/mm3 (0.0-0.4); Eosinophils % 1.3 % (0.1-12.0); Hematocrit 46.1 % (42.0-52.0); Hemoglobin 15.5 g/dL (14.1-18.0); Lymphocytes # 2.5 K/mm3 (0.7-4.5); Lymphocytes % 34.3 % (10-50); Mean Corpuscular HGB Conc 33.7 g/dL (31.8-35.4); Mean Corpuscular Hemoglobin 30.2 pg (27.0-31.2); Mean Corpuscular Volume 89.6 fl (80-94); Mean Platelet Volume 7.8 fl (7.4-10.4); Monocytes # 0.4 K/mm3 (0.1-1.0); Monocytes % 5.7 % (1.7-9.3); Neutrophils # 4.3 K/mm3 (1.8-7.8); Neutrophils % 57.9 % (37.0-80.0); Platelet Count 205 K/mm3 (142-424); Red Blood Count 5.15 M/mm3 (4.60-6.20); Red Cell Distribution Width 13.1 % (11.5-17.5); White Blood Count 7.3 K/mm3 (4.8-10.8)
[2022-07-03 10:33] LABS: Appearance,Urine CLEAR (Clear); Bilirubin,Urine Negative (Negative); Blood, Urine Negative (Negative); Color,Urine YELLOW (Yellow); Glucose,Urine (UA) 3+ (Negative); Ketones,Urine Negative (Negative); Leukocyte Esterase,Urine Negative (Negative); Nitrate,Urine Negative (Negative); Protein,Urine Negative (Negative); Urobilinogen,Urine 0.2 EU/dl (0.2)
[2022-07-03 10:41] LABS: Albumin Level 4.7 g/dl (3.5-5.0); Blood Urea Nitrogen 18 mg/dl (9-20); Calcium 9.9 mg/dl (8.4-10.2); Carbon Dioxide 25 mmol/L (22.0-30.0); Chloride 102 mmol/L (98-107); Estimated Glomerular Filt Rate 85 ml/min (>60); GFR (African American) 103 ML/MIN (>60); Glucose 184 mg/dl (74-100); Phosphorous 4.7 mg/dl (2.5-4.5); Sodium 137 mmol/L (136-145)
[2022-07-03 10:48] LABS: Creatinine,Urine Random 92 mg/dL (Not Estab.); Microalbumin < 6.000 mg/L (0-16.7)
[2022-07-03 10:53] LABS: Intact Parathyroid Hormone 39.2 pg/mL (7.5-53.5)
[2022-07-03 11:00] LABS: 25-OH Vitamin D, Total 39.5 ng/mL (30-100)
== END ==
PROVIDERS: PCP Nurse Practitioner Family; Visit Provider Internal Medicine Nephrology
DX: R80.9 Proteinuria, unspecified (principal); E55.9 Vitamin D deficiency, unspecified
CPT/HCPCS: 36415; 80069; 81001; 82043; 82306; 82570; 83970; 84155; 85025

== ENCOUNTER → 2022-07-05 13:16 | Outpatient (POV) | payer BC, SELFPAY | PROVIDERS: Visit Provider Internal Medicine Nephrology | DX: Z00.00 Encounter for general adult medical examination without abnormal findings (principal) ==

== ENCOUNTER → 2022-08-05 10:15 | Outpatient (POV) | payer BC, SELFPAY ==
[2022-08-05 10:41] VITALS: BP 136/66; PULSE 84; RESP 18; O2SAT 98; BMI 34.8
--- NOTE | 2022-08-05 11:20 | EXP.PAIN.SOA ---
[facility] Pain Management SOAP Note Subjective:: Patient is a pleasant 62-year-old male who presents today for follow-up. We are currently treating the patient for degenerative disc disease of lumbar spine with lumbar radiculopathy symptoms, L5 burst fracture, subacute compression fracture of L3 vertebra. Today he rates his pain a 2 out of 10. Patient states that he has had significant improvement from his initial visit to our office. Patient did state that his last lumbar epidural steroid injection did not seem to make significant difference. Patient states that he has been back to his neurosurgeon and had updated imaging and was told that his back has healed as much to be expected and that he did not think that he would need additional back surgery. Patient states that he is scheduled for a follow-up with Dr. Carroll Ramirez on August 08. Patient states he continues to use his compounding cream along with deep blue and IcyHot for some additional improvement. Patient states he is scheduled for carvedilol physical therapy following our visit today as well as he has a's scheduled deep tissue massage coming up in the future. Patient does state that his pain today is more along his bilateral hips and into his lower extremities. Patient does state that the left side is the worst side. He does describe this as a stiffness with some radiating symptoms into his groin. Patient does state it limits his range of motion and often has to walk with a cane for additional support. Patient does state that increased activity aggravates his symptoms and he often ends up limping. Patient does describe this as a aching sensation that affects his ability to perform activities of daily living such as light housework. Patient is currently managed with clonazepam 0.5 mg 3 times a day from his primary care doctor. Patient denies any side effects from this medication. Patient is a diabetic on oral medications. his Tristen is [id number]. Its been reviewed and appropriate. Review of Systems: General: No recent weight changes, no fever, no sleep disturbances Respiratory: No cough, no shortness of air, no recurring pulmonary infections Cardiovascular/peripheral vascular: No chest pain, no palpitations, no edema, no shortness of breath Gastrointestinal: No new onset incontinence, normal bowel movements reported Genitourinary: No new onset incontinence Musculoskeletal: Low back pain, bilateral hip pain, bilateral leg pain Psychiatric: [Normal mood/affect] Neurological: [Denies weakness in extremities], [denies balance issues] Objective:: Physical Exam: General: Alert and oriented x3, no acute distress, pleasant and cooperative Lungs: Respirations even and unlabored, symmetrical chest expansion Eyes: PERRL Musculoskeletal: Flexion and extension of lumbar [spine] somewhat guarded secondary to pain, [antalgic gait noted] point tenderness along bilateral SI's and positive bilateral Joseph's, Indigo's, Gaenslen's, compression and distraction exam Neurological: Speech clear, no gross sensory deficit Assessment:: Degenerative disc disease of lumbar spine with lumbar radiculopathy symptoms, L5 burst fracture, subacute compression fracture of L3 vertebra, chronic pain syndrome, sacroiliitis Plan:: Patient is experiencing significant pain in his low back with radiating symptoms into his bilateral lower extremities. Patient did have limited range of motion of his lumbar spine during today's visit along with point tenderness along his bilateral SI's and positive bilateral Joseph's, Indigo's, Gaenslen's, compression and distraction exam. I have discussed with the patient that he may benefit from diagnostic sacroiliac joint injections. Risk and benefits were discussed with the patient. He would like to proceed forward with this plan of care. We will schedule him for diagnostic bilateral SI injections. Patient has been instructed to contact the clinic with any concerns before the next appointment. Dr. Soriano has
== END ==
PROVIDERS: PCP Nurse Practitioner Family; Visit Provider Nurse Practitioner Family
DX: M51.16 Intervertebral disc disorders with radiculopathy, lumbar region (principal); G89.4 Chronic pain syndrome; M46.1 Sacroiliitis, not elsewhere classified; S32.059A Unspecified fracture of fifth lumbar vertebra, initial encounter for closed fracture; S32.039A Unspecified fracture of third lumbar vertebra, initial encounter for closed fracture
CPT/HCPCS: 99212; G0463

== ENCOUNTER 2022-08-10 10:47 | Day surgery (SDC) | payer BC, SELFPAY ==
[2022-08-10 11:04] VITALS: BP 123/70; PULSE 64; RESP 18; TEMP 36.6; O2SAT 96; BMI 32.8
[2022-08-10 11:25] VITALS: BP 158/99; PULSE 62; RESP 18; O2SAT 97
[2022-08-10 11:26] VITALS: BP 158/99; PULSE 62; RESP 18; O2SAT 97
--- NOTE | 2022-08-10 11:31 | P.PCN_ITS ---
Procedure Date: 08/10/22 Time: 11:32 Anesthesiologist:: Dayo Lee CRNA Complications:: None Pre-procedure Diagnosis:: Degenerative disc disease of lumbar spine with lumbar radiculopathy symptoms, L5 burst fracture, subacute compression fracture of L3 vertebra, sacroiliitis Post-procedure Diagnosis:: Same Indications for Procedure:: Patient is a pleasant 62-year-old male who presents today for bilateral SI injections. We are currently treating the patient for degenerative disc disease of the lumbar spine with lumbar radiculopathy symptoms, L5 burst fracture, subacute compression fracture of L3 vertebra, sacroiliitis. Today he rates his pain a 4 out of 10. Patient denies any new trauma or injury. Patient denies any change to location or type of pain he experiences. Patient does state his pain is in his low back on bilateral sides radiating into his lower extremities that stops before the knee. Patient does state this is an aching, throbbing sensation that is worse with increased activity. Patient is a diabetic on oral medications. Procedure Details:: Informed consent was obtained and the risks and benefits of the procedure were explained to the patient.~ The patient was taken to the procedure room and noninvasive monitors were placed including a noninvasive blood pressure cuff and pulse oximeter.~ The patient was placed prone on the procedure table. Both hips were cleansed using Betadine as a cleansing solution. C-arm fluoroscopy was used to view the right sacroiliac joint.~ The skin and subcutaneous tissues were anesthetized using lidocaine 1.5% and a 25-gauge needle.~ After this, a 22-gauge spinal needle was inserted under fluoroscopic guidance into the inferior aspect of the right sacroiliac joint.~ Omnipaque dye was injected and good spread was seen throughout the joint.~ After this, approximately 5 mL of bupivacaine, 0.25% and Depo-Medrol, 40 mg was incrementally injected into the right sacroiliac joint. We then moved to the left sacroiliac joint.~ The skin and subcutaneous tissues were anesthetized using lidocaine 1.5% and a 25-gauge needle.~ After this, a 22- gauge spinal needle was inserted under fluoroscopic guidance into the inferior aspect of the left sacroiliac joint.~ Omnipaque dye was injected and good spread was seen throughout the joint. After this, approximately 5 mL of bupivacaine, 0.25% and Depo-Medrol, 40 mg was incrementally injected into the left sacroiliac joint.~ The patient tolerated the procedure well with no complications. The patient was observed in the Pain Clinic and then was discharged home neurologically intact. Plan and Disposition:: Patient will return to clinic in 2 weeks for reevaluation of symptoms and follow-up. Patient has been counseled to contact the office with any questions or concerns before the next appointment date. Dr. Soriano has read this note and agrees with this plan of care. This note was dictated using voice recognition software and may contain errors or omissions.
[2022-08-10 11:50] VITALS: BP 128/69; PULSE 66; RESP 20
== END 2022-08-10 11:50 | disposition home or self-care (01) ==
PROVIDERS: PCP Nurse Practitioner Family; Visit Provider Nurse Anesthetist, Certified Registered
DX: M51.16 Intervertebral disc disorders with radiculopathy, lumbar region (principal); M46.1 Sacroiliitis, not elsewhere classified; S32.051A Stable burst fracture of fifth lumbar vertebra, initial encounter for closed fracture
CPT/HCPCS: 27096; G0260; J1040

== ENCOUNTER → 2022-08-30 08:52 | Outpatient (POV) | payer BC, SELFPAY ==
[2022-08-30 09:32] VITALS: BP 131/70; PULSE 78; RESP 18; O2SAT 97; BMI 32.8
--- NOTE | 2022-08-30 10:18 | EXP.PAIN.SOA ---
[facility] Pain Management SOAP Note Subjective:: Patient is a pleasant 62-year-old male who presents today for follow-up of bilateral SI injections on 08/10/2022. We are currently treating the patient for degenerative disc disease of lumbar spine with lumbar radiculopathy symptoms, L5 burst fracture, subacute compression fracture of L3 vertebra, sacroiliitis. Today the patient rates his pain a 0 out of 10. Patient states that he did have significant improvement of upwards of 60% or more following these injections however they only lasted 3 to 4 days. Patient denies any new trauma or injury. Patient denies any change in the location or type of pain he experiences. Patient does state his shoulder pain is a pulling, achy, throbbing sensation with occasional sharp pains. Patient states that he is in physical therapy currently and he does feel like following these visits his pain is aggravated specifically in his low back. Patient states that they do several stretching exercises and certain movements are more painful than others. Patient has recently been to [facility] where he did get bilateral shoulder injections and he states that this did help his right significantly however he continues to experience worsening pain in the left shoulder. Patient also states he does still have pain along his low back at the left side that is worse with certain movements. Patient states he is scheduled to see a [place] orthopedic doctor in November for his shoulder issues. Patient states he is going to discuss whether or not surgical intervention is needed. Patient has been to a neurosurgeon who stated he did not need any additional back surgery. Patient does continue to use his compounded cream along with IcyHot and deep blue for additional improvement. Patient does do deep tissue massages for some additional relief. Patient is currently managed with clonazepam 0.5 mg 3 times a day from his primary care doctor. Patient denies any side effects from this medication. His Tristen is [id number]. Has been reviewed and appropriate. Review of Systems: General: No recent weight changes, no fever, no sleep disturbances Respiratory: No cough, no shortness of air, no recurring pulmonary infections Cardiovascular/peripheral vascular: No chest pain, no palpitations, no edema, no shortness of breath Gastrointestinal: No new onset incontinence, normal bowel movements reported Genitourinary: No new onset incontinence Musculoskeletal: Left shoulder pain Psychiatric: [Normal mood/affect] Neurological: [Denies weakness in extremities], [denies balance issues] Objective:: Physical Exam: General: Alert and oriented x3, no acute distress, pleasant and cooperative Lungs: Respirations even and unlabored, symmetrical chest expansion Eyes: PERRL Musculoskeletal: Flexion and extension of left shoulder somewhat guarded secondary to pain, [antalgic gait noted] Neurological: Speech clear, no gross sensory deficit Assessment:: Degenerative disc disease of lumbar spine with lumbar radiculopathy symptoms, L5 burst fracture, subacute compression fracture of L3 vertebra, sacroiliitis, left shoulder pain Plan:: Patient continues to experience significant pain in his left shoulder with limited range of motion. I have discussed with the patient that he may benefit from a left suprascapular nerve block. Risk and benefits were discussed with the patient. He would like to proceed forward with this plan of care. I have also discussed with the patient that he may benefit from repeat SI injections in the future. We will schedule him for a diagnostic left suprascapular nerve block. Patient has been instructed to contact the clinic with any concerns before the next appointment. Dr. Soriano has reviewed this note and agrees with this plan of care. This note was dictated using voice recognition software and make contain errors or omissions. [facility] Disclaimer: The information contained in this section may have
== END ==
PROVIDERS: Visit Provider Nurse Practitioner Family
DX: M51.16 Intervertebral disc disorders with radiculopathy, lumbar region (principal); M46.1 Sacroiliitis, not elsewhere classified; M25.512 Pain in left shoulder; S32.051D Stable burst fracture of fifth lumbar vertebra, subsequent encounter for fracture with routine healing
CPT/HCPCS: 99212; G0463

== ENCOUNTER 2022-08-31 13:10 | Day surgery (SDC) | payer BC, SELFPAY ==
[2022-08-31 13:33] VITALS: BP 135/71; PULSE 80; RESP 18; TEMP 36.8; O2SAT 95; BMI 33.7
[2022-08-31 13:56] VITALS: BP 148/87; PULSE 84; RESP 18; O2SAT 98
[2022-08-31 13:57] VITALS: BP 148/87; PULSE 84; RESP 18; O2SAT 98
[2022-08-31 14:03] VITALS: BP 146/76; PULSE 73; RESP 18; O2SAT 95
--- NOTE | 2022-08-31 14:11 | P.PCN_ITS ---
Procedure Date: 08/31/22 Time: 14:00 Anesthesiologist:: Dayo Lee CRNA Complications:: None Pre-procedure Diagnosis:: Osteoarthritis left shoulder. Chronic left shoulder pain Post-procedure Diagnosis:: Same. Indications for Procedure:: Was patient's a very pleasant 62-year-old male who comes our injection clinic today for left suprascapular nerve block. Patient has had chronic bilateral shoulder pain for several years. He has appointment with shoulder specialist in [place] november 2022. Procedure Details:: Details of the procedure explained to the patient. The patient taken the procedure room placed in the sitting position. The area of the left scapula was cleaned using chlorhexidine as a cleansing solution. Using a 25-gauge inch and half needle the superior border of the left scapula from midline to the lateral was accessed in a fanning fashion. I injected after negative aspiration 8 cc of 0.25% Marcaine +1% lidocaine and 40 mg of Depo-Medrol. Patient tolerated procedure without difficulty. There are no complications Plan and Disposition:: Patient was discharged without incident. He reported 50 to 75% improvement in terms of his left shoulder pain at the time of discharge.
== END 2022-08-31 14:03 | disposition home or self-care (01) ==
LOC: SC.PAINP 13:10
PROVIDERS: PCP Nurse Practitioner Family; Visit Provider Nurse Anesthetist, Certified Registered
DX: M19.012 Primary osteoarthritis, left shoulder (principal); M25.512 Pain in left shoulder; G89.29 Other chronic pain; M25.511 Pain in right shoulder
CPT/HCPCS: 64418; J1040

== ENCOUNTER 2022-09-21 09:00 | Outpatient (RCR) | payer BC, SELFPAY | END 2022-09-23 15:30 | disposition home or self-care (01) | LOC: PT 09:00 | PROVIDERS: PCP Nurse Practitioner Family; Visit Provider Orthopaedic Surgery | DX: S32.038A Other fracture of third lumbar vertebra, initial encounter for closed fracture (principal); S32.058A Other fracture of fifth lumbar vertebra, initial encounter for closed fracture; M48.061 Spinal stenosis, lumbar region without neurogenic claudication | CPT/HCPCS: 97010; 97014; 97110; 97163; 97530; G0283 ==

== ENCOUNTER → 2022-09-23 14:43 | Outpatient (POV) | payer BC, SELFPAY ==
--- NOTE | 2022-09-23 15:01 | EXP.PAIN.SOA ---
[facility] Pain Management SOAP Note Subjective:: Patient is a pleasant 62-year-old male who presents today for follow-up of left suprascapular nerve block on 08/31/2022. We are currently treating the patient for degenerative disc disease of lumbar spine with lumbar radiculopathy symptoms, L5 burst fracture, subacute compression fracture of L3 vertebra, sacroiliitis, shoulder pain. Today he states that the suprascapular nerve block did help some however only for 2 days. Patient rates the improvement of upwards of 50%. He does rate his pain today a 6 out of 10. Patient denies any new trauma or injury. Patient denies any change location or type of pain he experiences. Patient does state that his pain changes on a day-to-day basis depending on what activities he is doing. Right now he states his left shoulder is doing good overall and not causing additional symptoms. Patient is scheduled to see a specialist for his shoulder coming up in November. Patient does state that his back does still appear to be a chronic pain issue. He describes it as a aching, throbbing sensation with certain activities. He does state that he will still occasionally get symptoms into his lower extremities. Patient does have a history of SI related issues. He does state that he had his last visit for physical therapy and was released. He states they said that he does have good range of motion as well as muscle strength. He does state occasionally this would aggravate his pain symptoms after these visits. Patient also states he did go to see his neurosurgeon on September 20 and said that everything looked great. Patient also states that last week he had a rougher time due to a double ear infection. He states that he did have to sleep on a heating pad 1 day just to get any additional improvement. He states this may have aggravated some of his additional pain symptoms. Patient did go to his primary care doctor who gave a injection and oral antibiotics. Patient states he is currently still taking the antibiotics. Patient is prescribed ropinirole 1 mg at bedtime however he states he has been out of this medication. He is requesting a refill at today's visit. Patient is currently managed with clonazepam 0.5 mg 3 times a day from his primary care doctor and compounding cream from our office. Patient denies any side effects from this medication. His Tristen is [id number]. Its been reviewed and appropriate. Review of Systems: General: No recent weight changes, no fever, no sleep disturbances Respiratory: No cough, no shortness of air, no recurring pulmonary infections Cardiovascular/peripheral vascular: No chest pain, no palpitations, no edema, no shortness of breath Gastrointestinal: No new onset incontinence, normal bowel movements reported Genitourinary: No new onset incontinence Musculoskeletal: Low back pain Psychiatric: [Normal mood/affect] Neurological: [Denies weakness in extremities], [denies balance issues] Objective:: Physical Exam: General: Alert and oriented x3, no acute distress, pleasant and cooperative Lungs: Respirations even and unlabored, symmetrical chest expansion Eyes: PERRL Musculoskeletal: Flexion and extension of lumbar spine somewhat guarded secondary to pain, [antalgic gait noted] Neurological: Speech clear, no gross sensory deficit Assessment:: degenerative disc disease of lumbar spine with lumbar radiculopathy symptoms, L5 burst fracture, subacute compression fracture of L3 vertebra, sacroiliitis, shoulder pain Plan:: Patient continues to have chronic pain symptoms with limited range of motion of his lumbar spine. I have discussed with the patient that he may benefit in the future from a spinal cord stimulator trial or a pain pump trial. Risk and benefits were discussed with the patient and educational handouts given at today's visit. I will refill his ropinirole 1 mg at bedtime and provide a 3-month supply of this medication. I will also order him methocarbamol 500 mg tw
[2022-09-23 15:14] VITALS: BP 132/79; PULSE 80; RESP 18; O2SAT 98; BMI 34.8
== END | disposition home or self-care (01) ==
PROVIDERS: PCP Nurse Practitioner Family; Visit Provider Nurse Practitioner Family
DX: M51.16 Intervertebral disc disorders with radiculopathy, lumbar region (principal); M46.1 Sacroiliitis, not elsewhere classified; M25.519 Pain in unspecified shoulder; S32.051D Stable burst fracture of fifth lumbar vertebra, subsequent encounter for fracture with routine healing; S32.030D Wedge compression fracture of third lumbar vertebra, subsequent encounter for fracture with routine healing
CPT/HCPCS: 99212; G0463

== ENCOUNTER → 2023-05-16 09:22 | Outpatient (POV) | payer BC, SELFPAY ==
[2023-05-16 11:15] VITALS: BP 141/69; PULSE 81; RESP 18; O2SAT 95; BMI 35.2
--- NOTE | 2023-05-16 12:56 | EXP.PAIN.SOA ---
[facility] Pain Management SOAP Note Subjective:: This patient is a very pleasant 62-year-old male that comes our clinic today for medication refill. He is currently taking ropinirole 1 mg nightly. Patient reports moderate to significant improvement terms of his overall restless leg syndrome while taking ropinirole. Patient does not report any side effects from the medication. We treat the patient chronically for degenerative disc lumbar spine multilevels. Lumbar radiculopathy. L5 burst fracture. Subacute compression fracture L3 vertebral body. Bilateral sacroiliitis. Right shoulder pain. Today patient states his right shoulder pain has increased significantly over the last several weeks. He was working on a lawnmower and pulled a cable and felt something in his shoulder. Upon examination he has 5/5 strength in the right arm. He has limited range of motion secondary to right shoulder joint pain. We discussed right intra-articular shoulder injection. He wishes to proceed. Patient's Tristen #[id number] has been reviewed and appropriate. Objective:: Patient is awake alert [place] x3. No acute distress. Flexion-extension lumbar spine somewhat guarded secondary to pain. Deep tendon reflexes upper lower extremities normal. Motor strength upper lower extremities normal. There is no gross sensory deficit. Gait is normal Assessment:: Degenerative disc lumbar spine multilevel. Lumbar radiculopathy. Right shoulder pain. DJD right shoulder Plan:: Discussed in detail with the patient regarding right intra-articular shoulder injection. He wishes to proceed. We will set this up for him today. We will refill his ropinirole 1 mg 1 p.o. nightly [facility] Disclaimer: The information contained in this section may have been updated after the patient was seen, as this information can be updated by other users. Medical History (Updated 11/16/22 @ 14:13 by Kendy Harding MD) Anxiety Arthritis Chronic pain COPD (chronic obstructive pulmonary disease) Cough Depression Diabetes mellitus Dyspnea on exertion FH: total knee replacement History of asthma HLD (hyperlipidemia) Hypothyroidism Seasonal allergic rhinitis Shortness of breath Surgical History H/O eye surgery History of arthroscopic knee surgery History of bladder surgery Previous back surgery Family History Other Diabetes Hyperlipidemia Hypertension Social History (Updated 11/16/22 @ 09:21 by Edilma Salcido Smoking Status: Former smoker tobacco type: cigarettes packs per day: 1 alcohol intake: current substance use type: denies use current occupational status: retired Travel in the last 8 weeks: None household members: spouse housing: house marital status: caffeine: Yes
== END | disposition home or self-care (01) ==
PROVIDERS: PCP Nurse Practitioner Family; Visit Provider Nurse Anesthetist, Certified Registered
DX: M51.16 Intervertebral disc disorders with radiculopathy, lumbar region (principal); M25.511 Pain in right shoulder; M19.011 Primary osteoarthritis, right shoulder
CPT/HCPCS: 99212; G0463

== ENCOUNTER 2023-05-24 13:56 | Day surgery (SDC) | payer MEDICARE, SELFPAY, BC ==
[2023-05-24 14:13] VITALS: BP 152/76; PULSE 76; RESP 16; TEMP 36.8; O2SAT 94; BMI 35.2
[2023-05-24 14:30] VITALS: BP 167/77; PULSE 67; RESP 16; O2SAT 94
[2023-05-24] MEDS: BUPIVACAINE 0.25% 10ML INJ 25 MG IJ (14:40)
[2023-05-24] MEDS: methylPREDNISolone ACETATE 80MG/ML VIAL 80 MG (14:41)
[2023-05-24] MEDS: LIDOCAINE 1% 5ML PF VIAL 5 ML (14:41)
--- NOTE | 2023-06-03 12:27 | P.PCN_ITS ---
Procedure Date: 05/24/23 Time: 09:00 Anesthesiologist:: Dayo Lee CRNA Complications:: None Pre-procedure Diagnosis:: DJD right shoulder. Chronic right shoulder pain. Post-procedure Diagnosis:: Same. Indications for Procedure:: Patient is a very pleasant 62-year-old male who comes our clinic today for a right shoulder injection. Patient has 5/5 strength in the right arm. However, patient has limited range of motion in the right arm secondary to right shoulder pain. He describes the pain as constant, dull, aching. He rates the pain 7/10. Procedure Details:: Procedure Details: Right shoulder intra-articular injection Informed consent was obtained risk and benefits of the procedure were explained to the patient. Patient was taken to the procedure room. The right shoulder was prepped using ChloraPrep. A 25-gauge needle was used first anteriorly, laterally, and then posteriorly to inject 10 mL bupivacaine 0.25% and Depo- Medrol 40 mg. Patient tolerated procedure well with no complications. Plan and Disposition:: Patient was discharged without incident.
== END 2023-05-24 14:30 | disposition home or self-care (01) ==
LOC: SC.PAINP 13:56
PROVIDERS: PCP Nurse Practitioner Family; Visit Provider Nurse Anesthetist, Certified Registered
DX: M19.011 Primary osteoarthritis, right shoulder (principal); M25.511 Pain in right shoulder; G89.29 Other chronic pain
CPT/HCPCS: 20610; J1040

== ENCOUNTER → 2023-06-06 11:02 | Outpatient (POV) | payer MEDICARE, SELFPAY ==
--- NOTE | 2023-06-06 11:50 | EXP.PAIN.SOA ---
[facility] Pain Management SOAP Note Subjective:: Patient is a pleasant 62-year-old male who presents today for follow-up of right shoulder intra-articular injection on 06/03/2023. We are currently treating the patient for degenerative disc disease of lumbar spine with lumbar radiculopathy symptoms, burst fracture, right shoulder pain, hip pain. Today he rates his pain a 2 out of 10. Patient states that he had about 40% improvement following this injection. He states he has noticed decreased pain however he still feels like he has additional soreness and limited range of motion. Patient states this is all regarding trying to get a lawnmower going and pulling the cord he felt something tear. Patient denies any previous imaging. He does also state that yesterday he fell 2 different times while deer hunting. He states that he just feels like he does not have the balance that he had prior to and also has weakness into his lower extremities. Patient is on ropinirole 1 mg at bedtime and denies any side effects from this medication. His Tristen has been reviewed and is appropriate. Review of Systems: General: No recent weight changes, no fever, no sleep disturbances Respiratory: No cough, no shortness of air, no recurring pulmonary infections Cardiovascular/peripheral vascular: No chest pain, no palpitations, no edema, no shortness of breath Gastrointestinal: No new onset incontinence, normal bowel movements reported Genitourinary: No new onset incontinence Musculoskeletal: Right shoulder pain, bilateral leg weakness/altered balance Psychiatric: [Normal mood/affect] Neurological: [Denies weakness in extremities], [denies balance issues] Objective:: Physical Exam: General: Alert and oriented x3, no acute distress, pleasant and cooperative Lungs: Respirations even and unlabored, symmetrical chest expansion Eyes: PERRL Musculoskeletal: Flexion and extension of right shoulder somewhat guarded secondary to pain, [antalgic gait noted] Neurological: Speech clear, no gross sensory deficit Assessment:: Degenerative disc disease of lumbar spine with lumbar radiculopathy symptoms, burst fracture history, right shoulder pain, left hip pain Plan:: Patient is experiencing continued pain in his right shoulder with limited range of motion. I have counseled the patient that I will order x-ray imaging followed by MRI without contrast of his right shoulder. I have also counseled the patient that I will order physical therapy evaluation and treatment for his altered balance and continued weakness in his bilateral lower extremities. Patient will return to clinic in 1 month for reevaluation of symptoms and plan of care. Patient has been instructed to contact the clinic with any concerns before the next appointment. Dr. Soriano has reviewed this note and agrees with this plan of care. This note was dictated using voice recognition software and make contain errors or omissions. [facility] Disclaimer: The information contained in this section may have been updated after the patient was seen, as this information can be updated by other users. Medical History Anxiety Arthritis Chronic pain COPD (chronic obstructive pulmonary disease) Cough Depression Diabetes mellitus Dyspnea on exertion FH: total knee replacement History of asthma HLD (hyperlipidemia) Hypothyroidism Seasonal allergic rhinitis Shortness of breath Surgical History H/O eye surgery History of arthroscopic knee surgery History of bladder surgery Previous back surgery Family History Other Diabetes Hyperlipidemia Hypertension Social History Smoking Status: Former smoker tobacco type: cigarettes packs per day: 1 alcohol intake: current substance use type: denies use cu
[2023-06-06 12:03] VITALS: BP 136/68; PULSE 84; RESP 18; O2SAT 95; BMI 35.2
== END ==
PROVIDERS: PCP Nurse Practitioner Family; Visit Provider Nurse Practitioner Family
DX: M51.16 Intervertebral disc disorders with radiculopathy, lumbar region (principal); Z87.81 Personal history of (healed) traumatic fracture; M25.511 Pain in right shoulder; M25.552 Pain in left hip
CPT/HCPCS: 99212; G0463

== ENCOUNTER → 2023-06-06 12:06 | Outpatient (CLI) | payer MEDICARE, SELFPAY ==
--- NOTE | 2023-06-06 12:12 | XR_ITS ---
FINAL REPORT CLINICAL HISTORY: RT SHOULDER PAIN,LIMITED ROM FINDINGS: RIGHT SHOULDER Three views demonstrate no acute fracture or dislocation. The visualized joint spaces are normally aligned. The soft tissues are unremarkable. There are moderate hypertrophic changes in the acromioclavicular joint. IMPRESSION: No acute process. Moderate hypertrophic change involving the acromioclavicular joint. Reviewed, Interpreted and Dictated by Alber Black MD Transcribed by Naz Wright Authenticated and [facility]
== END ==
PROVIDERS: PCP Nurse Practitioner Family; Visit Provider Nurse Practitioner Family
DX: M25.511 Pain in right shoulder (principal); M25.611 Stiffness of right shoulder, not elsewhere classified
CPT/HCPCS: 73030; 99212; G0463

== ENCOUNTER → 2023-07-07 08:21 | Outpatient (CLI) | payer MEDICARE, SELFPAY ==
--- NOTE | 2023-07-07 08:25 | MR_ITS ---
FINAL REPORT CLINICAL HISTORY: RIGHT SHOULDER PAIN, LIMITED ROM. WEAKNESS IN ARM COMPARISON: None FINDINGS: Multi planar MR imaging of the right shoulder was performed. There is complete disruption and retraction of the supraspinatus tendon. The supraspinatus tendon is retracted by 3.2 cm. There is fluid in the subacromial subdeltoid bursa. There is a linear tear of the anterior labrum best seen in images #14 through 16 of series 3. The biceps tendon appears intact. Marked hypertrophic changes present in the acromioclavicular joint. IMPRESSION: Complete disruption with retraction of the supraspinatus tendon as described. Marked hypertrophic change acromioclavicular joint. Linear tear of the anterior labrum. Reviewed, Interpreted and Dictated by Alber Black MD Transcribed by Naz Wright Authenticated and [facility]
== END ==
PROVIDERS: PCP Nurse Practitioner Family; Visit Provider Nurse Practitioner Family
DX: M25.511 Pain in right shoulder (principal)
CPT/HCPCS: 73221

== ENCOUNTER → 2023-07-14 09:00 | Outpatient (POV) | payer MEDICARE, SELFPAY ==
[2023-07-14 09:19] VITALS: BP 138/66; PULSE 82; RESP 18; O2SAT 95; BMI 34.8
--- NOTE | 2023-07-14 10:27 | EXP.PAIN.SOA ---
[facility] Pain Management SOAP Note Subjective:: Patient is a pleasant 63-year-old male who presents today for shoulder MRI follow-up. We are currently treating the patient for degenerative disc disease of lumbar spine with lumbar radiculopathy symptoms, lumbar burst fracture, right shoulder pain, hip pain. Today he rates his pain a 3 out of 10. Patient denies any new trauma or injury since our last visit. He states he continues to have low back and left hip pain as well as right shoulder pain. Patient does see [facility] orthopedics for his left shoulder issues as well as his low back. Patient had previously been told that he may benefit from back surgery by Dr. Rosenbaum. He states he is scheduled for follow-up soon. Patient is currently managed with ropinirole 1 mg at bedtime. He denies any side effects from this medication. His Tristen has been reviewed and is appropriate. Review of Systems: General: No recent weight changes, no fever, no sleep disturbances Respiratory: No cough, no shortness of air, no recurring pulmonary infections Cardiovascular/peripheral vascular: No chest pain, no palpitations, no edema, no shortness of breath Gastrointestinal: No new onset incontinence, normal bowel movements reported Genitourinary: No new onset incontinence Musculoskeletal: Right shoulder pain, low back pain Psychiatric: [Normal mood/affect] Neurological: [Denies weakness in extremities], [denies balance issues] Objective:: Physical Exam: General: Alert and oriented x3, no acute distress, pleasant and cooperative Lungs: Respirations even and unlabored, symmetrical chest expansion Eyes: PERRL Musculoskeletal: Flexion and extension of lumbar [spine] somewhat guarded secondary to pain, [antalgic gait noted] Neurological: Speech clear, no gross sensory deficit COMPARISON: None FINDINGS: Multi planar MR imaging of the right shoulder was performed. There is complete disruption and retraction of the supraspinatus tendon. The supraspinatus tendon is retracted by 3.2 cm. There is fluid in the subacromial subdeltoid bursa. There is a linear tear of the anterior labrum best seen in images #14 through 16 of series 3. The biceps tendon appears intact. Marked hypertrophic changes present in the acromioclavicular joint. IMPRESSION: Complete disruption with retraction of the supraspinatus tendon as described. Marked hypertrophic change acromioclavicular joint. Linear tear of the anterior labrum. Reviewed, Interpreted and Dictated by Alber Black MD Transcribed by Naz Wright Authenticated and [facility] Assessment:: Degenerative disc disease of lumbar spine with lumbar radiculopathy symptoms, lumbar burst fracture, right shoulder pain, hip pain Plan:: I have reviewed over with the patient his MRI findings and discussed regarding him following up with his orthopedic doctor for possible surgical intervention. I have reviewed over with the patient that he may benefit from additional shoulder injections or additional physical therapy as well. At this time he is going to follow-up with [facility] orthopedics for possible evaluation and surgical intervention. He will return to clinic in 1 month for reevaluation of symptoms and plan of care. I will refill his ropinirole 1 mg at bedtime and provide a 2-month supply of this medication. Patient has been instructed to contact the clinic with any concerns before the next appointment. Dr. Soriano has reviewed this note and agrees with this plan of care. This note was dictated using voice recognition software and make contain errors or omissions. [facility] Disclaimer: The information contained in this section may have been updated after the patient was seen, as this information can be updated by other users. Medical History Anxiety Arthritis Chronic pain COPD (chronic o
== END | disposition home or self-care (01) ==
PROVIDERS: Visit Provider Nurse Practitioner Family
DX: M51.16 Intervertebral disc disorders with radiculopathy, lumbar region (principal); S32.001S Stable burst fracture of unspecified lumbar vertebra, sequela; M25.511 Pain in right shoulder; M25.559 Pain in unspecified hip
CPT/HCPCS: 99212; G0463

== ENCOUNTER 2023-07-28 10:05 | Outpatient (CLI) | payer MEDICARE, SELFPAY ==
[2023-07-28 10:16] LABS: Microscopic, Urine URINE MICROSCOPIC (MICROSCOPIC)
[2023-07-28 10:49] LABS: Basophils % 0.6 % (0.1-2.0); Eosinophils # 0.1 K/mm3 (0.0-0.4); Eosinophils % 1.8 % (0.1-12.0); Hematocrit 43.6 % (42.0-52.0); Hemoglobin 14.8 g/dL (14.1-18.0); Lymphocytes # 1.6 K/mm3 (0.7-4.5); Lymphocytes % 30.8 % (10-50); Mean Corpuscular HGB Conc 33.9 g/dL (31.8-35.4); Mean Corpuscular Hemoglobin 30.9 pg (27.0-31.2); Mean Corpuscular Volume 91.1 fl (80-94); Mean Platelet Volume 8.1 fl (7.4-10.4); Monocytes # 0.4 K/mm3 (0.1-1.0); Monocytes % 7.5 % (1.7-9.3); Neutrophils # 3.1 K/mm3 (1.8-7.8); Neutrophils % 59.4 % (37.0-80.0); Platelet Count 180 K/mm3 (142-424); Red Blood Count 4.78 M/mm3 (4.60-6.20); Red Cell Distribution Width 13.5 % (11.5-17.5); White Blood Count 5.2 K/mm3 (4.8-10.8)
[2023-07-28 10:54] LABS: Albumin Level 3.8 g/dl (3.5-5.0); Blood Urea Nitrogen 12 mg/dl (9-20); Calcium 8.7 mg/dl (8.4-10.2); Carbon Dioxide 28 mmol/L (22.0-30.0); Chloride 104 mmol/L (98-107); Estimated Glomerular Filt Rate 85 ml/min (>60); GFR (African American) 102 ML/MIN (>60); Glucose 186 mg/dl (74-100); Phosphorous 3.6 mg/dl (2.5-4.5); Sodium 136 mmol/L (136-145)
[2023-07-28 13:09] LABS: Appearance,Urine CLEAR (Clear); Bilirubin,Urine Negative (Negative); Blood, Urine Negative (Negative); Color,Urine YELLOW (Yellow); Glucose,Urine (UA) 3+ (Negative); Ketones,Urine Negative (Negative); Leukocyte Esterase,Urine Negative (Negative); Nitrate,Urine Negative (Negative); Protein,Urine Negative (Negative); Specific Gravity, Urine 1.015 (1.005-1.030); Urobilinogen,Urine 0.2 EU/dl (0.2)
[2023-07-28 13:49] LABS: Sperm,Urine OCC /lpf; Squamous Epithelial Cell,Urine Occasional #/hpf (0-5); WBC,Urine Occasional #/hpf (0-3)
[2023-07-28 14:30] LABS: Creatinine,Urine Random 92 mg/dL (Not Estab.)
== END 2023-07-28 23:59 ==
LOC: LAB 10:07
PROVIDERS: PCP Nurse Practitioner Family; Visit Provider Internal Medicine Nephrology
DX: R80.9 Proteinuria, unspecified (principal)
CPT/HCPCS: 36415; 80069; 81001; 82570; 84155; 85025

== ENCOUNTER 2023-07-28 12:42 | Outpatient (POV) | payer MEDICARE, SELFPAY | END 2023-07-28 23:59 | disposition home or self-care (01) | LOC: SC 12:43 | PROVIDERS: Visit Provider Internal Medicine Nephrology | DX: Z00.00 Encounter for general adult medical examination without abnormal findings (principal) ==

== ENCOUNTER → 2023-08-25 08:08 | Outpatient (POV) | payer MEDICARE, SELFPAY ==
[2023-08-25 08:36] VITALS: BP 123/64; PULSE 123; RESP 18; O2SAT 95; BMI 34.2
--- NOTE | 2023-08-25 08:48 | A.OFFVIS_ITS ---
[facility] Pain Management SOAP Note Subjective:: Patient is a pleasant 63-year-old male who presents today for follow-up. We are currently treating the patient for degenerative disc disease of the lumbar spine with lumbar radiculopathy symptoms, lumbar burst fracture, right shoulder pain, hip pain. Today he rates his pain a 3 out of 10. Patient denies any new trauma or injury. He does state that he did go back and see Dr. Warren regarding his shoulder tear and that he is stating he can do surgery for this. Patient states that he was told it is up to him when he would like to schedule this procedure. Patient is already scheduled for a lumbar fusion with Carroll Rosenbaum on 16 September. Patient is currently managed with ropinirole 1 mg at bedtime. He denies any side effects from this medication. He states he does not take this medication every day because his low back symptoms have been better. He is prescribed clonazepam 0.5 mg 3 times daily from his as needed from his PCP. His Tristen has been reviewed and is appropriate. Review of Systems: General: No recent weight changes, no fever, no sleep disturbances Respiratory: No cough, no shortness of air, no recurring pulmonary infections Cardiovascular/peripheral vascular: No chest pain, no palpitations, no edema, no shortness of breath Gastrointestinal: No new onset incontinence, normal bowel movements reported Genitourinary: No new onset incontinence Musculoskeletal: Low back pain right shoulder pain Psychiatric: [Normal mood/affect] Neurological: [Denies weakness in extremities], [denies balance issues] Objective:: Physical Exam: General: Alert and oriented x3, no acute distress, pleasant and cooperative Lungs: Respirations even and unlabored, symmetrical chest expansion Eyes: PERRL Musculoskeletal: Flexion and extension of lumbar [spine] somewhat guarded secondary to pain, [antalgic gait noted] Neurological: Speech clear, no gross sensory deficit Assessment:: Degenerative disc disease of lumbar spine with lumbar radiculopathy symptoms, lumbar burst fracture, right shoulder pain, hip pain Plan:: Patient is doing overall well at today's visit and does have upcoming lumbar fusion surgery at the end of this month. I have counseled the patient that we will follow-up with him following this procedure in 2 months for reevaluation of symptoms and plan of care. Patient has been instructed to contact the clinic with any concerns before the next appointment. Dr. Soriano has reviewed this note and agrees with this plan of care. This note was dictated using voice recognition software and make contain errors or omissions. [facility] Disclaimer: The information contained in this section may have been updated after the patient was seen, as this information can be updated by other users. Medical History Anxiety Arthritis Chronic pain COPD (chronic obstructive pulmonary disease) Cough Depression Diabetes mellitus Dyspnea on exertion FH: total knee replacement History of asthma HLD (hyperlipidemia) Hypothyroidism Seasonal allergic rhinitis Shortness of breath Surgical History H/O eye surgery History of arthroscopic knee surgery History of bladder surgery Previous back surgery Family History Other Diabetes Hyperlipidemia Hypertension Social History Smoking Status: Former smoker tobacco type: cigarettes packs per day: 1 alcohol intake: current substance use type: denies use current occupational status: retired Travel in the last 8 weeks: None household members: spouse housing: house marital status: caffeine: Yes
== END ==
LOC: SC.PAIN 08:08
PROVIDERS: Visit Provider Nurse Practitioner Family
DX: M51.16 Intervertebral disc disorders with radiculopathy, lumbar region (principal); S32.001D Stable burst fracture of unspecified lumbar vertebra, subsequent encounter for fracture with routine healing; M25.511 Pain in right shoulder; M25.559 Pain in unspecified hip
CPT/HCPCS: 99212; G0463

== ENCOUNTER 2024-02-01 09:00 | Outpatient (RCR) | payer MEDICARE, SELFPAY | END 2024-02-01 10:20 | disposition home or self-care (01) | LOC: PT 09:00 | PROVIDERS: Visit Provider Orthopaedic Surgery | DX: M43.26 Fusion of spine, lumbar region (principal) | CPT/HCPCS: 97010; 97014; 97110; 97112; 97163; 97164; 97530; 97535; G0283 ==

== ENCOUNTER 2024-02-15 10:46 | Day surgery (SDC) | payer MEDICARE, SELFPAY ==
[2024-02-13 13:45] VITALS: BMI 34.2
[2024-02-15 12:11] VITALS: BMI 34.2
[2024-02-15 12:12] VITALS: BP 142/83; PULSE 62; RESP 18; TEMP 36.6; O2SAT 96
[2024-02-15] MEDS: LACTATED RINGERS 1000ML 1,000 ML 25 ML IV (12:28)
[2024-02-15 12:30] LABS: POC Glucose,Bedside 113 (70-110)
[2024-02-15 13:17] VITALS: O2SAT 96
--- NOTE | 2024-02-15 13:26 | EXP.ANES.CKL ---
[facility] Disclaimer: The information contained in this section may have been updated after the patient was seen, as this information can be updated by other users. Medical History Macular degeneration Chronic eczematous otitis externa Recurrent serous otitis media of both ears Dyspnea on exertion Seasonal allergic rhinitis Cough History of asthma Shortness of breath COPD (chronic obstructive pulmonary disease) FH: total knee replacement Hypothyroidism Arthritis Depression Anxiety Chronic pain HLD (hyperlipidemia) Diabetes mellitus Surgical History History of arthroscopic knee surgery H/O eye surgery Previous back surgery History of bladder surgery Family History Other Diabetes Hyperlipidemia Hypertension Social History Smoking Status: Former smoker tobacco type: cigarettes packs per day: 1 alcohol intake: never substance use type: denies use current occupational status: retired Travel in the last 8 weeks: None household members: spouse housing: house marital status: caffeine: Yes [facility] Anesthesia Checklist Patient Identification Patient Identification: Arm Band Structural Data Admitted From: Home Planned Operative Procedure/s: EGD Consent for Planned Operative Procedure(s) Verified: Yes Verified Documents: Surgical Consent and History and Physical NPO Status Verified Time NPO: 00:00 Additional verifications Anesthesia Reactions: No Hx Blood Transfusions: No Blood Transfusion Reaction: No Airway Assessment Mallampati Score:: Class II C-Spine Mobility Assessed: Yes TMJ Mobility Assessed: Yes Dentition: Good Dentition Neurological Assessment Level of Consciousness: Awake, Alert and Appropriate Anesthesia Plan Anesthesia Risk discussed: Yes Anesthesia Plan: Verified ASA Class: II Anesthesia Type: MAC
--- NOTE | 2024-02-15 13:27 | HMH.SCOPE ---
Procedure: Date: 02/15/24 Patient Date of :: 1960 Procedure Performed:: EGD Indications:: The patient is a 63-year-old who presents for EGD evaluation of anemia. The patient reportedly had a normal colonoscopy 1 year ago. The patient denies a history of hematochezia or melena. Performing Provider:: Lei Nunes MD Referring Provider:: Bhaskar Luna MD Sedation:: See RN records Procedure:: The gastroscope was gently passed through the incisoral orifice into the oral cavity and under direct visualization the esophagus was intubated. The endoscope was passed down the esophagus, through the stomach, and into the duodenum. Color, texture, mucosa, and anatomy of the esophagus, stomach, and duodenum were carefully examined with the scope. Findings:: The esophagus appeared normal. The Z-line was regular and measured at 40 cm. There was inflammation in the stomach characterized by erythema and congestion. There were a few scattered small fundic gland polyps. There was flecks of old blood in the body of the stomach. Biopsies were obtained with a cold forceps for histology. The examined duodenum appeared normal. Biopsies were obtained with a cold forceps for histology. The cardia and fundus appeared normal on retroflexion view. Impression: Gastritis Recommendations:: Await pathology results Avoid NSAIDs when possible Follow-up with referring provider as previously scheduled Complications:: None Estimated blood obtained (mL): 0 Colonoscopy Component Colonoscopy Component Was a colonoscopy performed during today's procedure?: No
[2024-02-15 13:38] VITALS: BP 126/67; BP 128/69; PULSE 61; PULSE 62; TEMP 36.7; O2SAT 91; O2SAT 92
[2024-02-15 13:48] VITALS: BP 121/71; PULSE 61; O2SAT 94
[2024-02-15 13:58] VITALS: BP 119/69; PULSE 64; O2SAT 95
== END 2024-02-15 13:58 | disposition home or self-care (01) ==
PROVIDERS: PCP Nurse Practitioner Family; Visit Provider Internal Medicine
PROC: 0DJ08ZZ Inspection of Upper Intestinal Tract, Via Natural or Artificial Opening Endoscopic (ICD-10-PCS; CPT 43235; principal; 2024-02-15 12:00)
DX: D64.9 Anemia, unspecified (principal); K29.70 Gastritis, unspecified, without bleeding; K31.7 Polyp of stomach and duodenum
CPT/HCPCS: 43239; 82962; 88305; J7120

== ENCOUNTER 2024-03-14 08:08 | Outpatient (CLI) | payer MEDICARE, SELFPAY ==
[2024-03-14 08:45] LABS: Basophils # 0.1 K/mm3 (0-0.2); Basophils % 1.3 % (0.1-2.0); Eosinophils # 0.1 K/mm3 (0.0-0.4); Hematocrit 49.3 % (42.0-52.0); Hemoglobin 15.3 g/dL (14.1-18.0); Lymphocytes # 1.7 K/mm3 (0.7-4.5); Lymphocytes % 31.5 % (10-50); Mean Corpuscular HGB Conc 30.9 g/dL (31.8-35.4); Mean Corpuscular Hemoglobin 27.2 pg (27.0-31.2); Mean Corpuscular Volume 87.9 fl (80-94); Monocytes # 0.4 K/mm3 (0.1-1.0); Monocytes % 6.7 % (1.7-9.3); Neutrophils # 3.1 K/mm3 (1.8-7.8); Neutrophils % 58.5 % (37.0-80.0); Platelet Count 166 K/mm3 (142-424); Red Blood Count 5.61 M/mm3 (4.60-6.20); Red Cell Distribution Width 18.4 % (11.5-17.5); White Blood Count 5.4 K/mm3 (4.8-10.8)
[2024-03-14 10:04] LABS: Iron 85 ug/dL (49-181)
[2024-03-14 10:17] LABS: Total Iron Binding Capacity 401 ug/dL (261-462)
[2024-03-14 10:40] LABS: Ferritin 20.4 ng/ml (17.9-464)
== END 2024-03-14 23:59 | disposition home or self-care (01) ==
LOC: LAB 08:12
PROVIDERS: PCP Nurse Practitioner Family; Visit Provider Internal Medicine Medical Oncology
DX: D50.0 Iron deficiency anemia secondary to blood loss (chronic) (principal)
CPT/HCPCS: 36415; 82728; 83540; 83550; 85025

== ENCOUNTER 2024-04-24 11:01 | Outpatient (CLI) | payer MEDICARE, SELFPAY ==
[2024-04-24 12:11] LABS: Blood Urea Nitrogen 23 mg/dl (9-20); Estimated Glomerular Filt Rate 85 ml/min (>60); GFR (African American) 102 ML/MIN (>60)
== END 2024-04-24 23:59 | disposition home or self-care (01) ==
LOC: LAB 11:03
PROVIDERS: PCP Nurse Practitioner Family; Visit Provider Surgery
DX: K46.9 Unspecified abdominal hernia without obstruction or gangrene (principal)
CPT/HCPCS: 36415; 82565; 84520

== ENCOUNTER 2024-05-08 08:20 | Outpatient (CLI) | payer MEDICARE, SELFPAY ==
--- NOTE | 2024-05-08 08:22 | CT_ITS ---
FINAL REPORT TECHNIQUE: After the administration of oral and intravenous contrast, axial images were obtained through the abdomen and pelvis by computed tomography. The study was performed with techniques to keep radiation dose as low as reasonably achievable, (ALARA). Individual dose reduction techniques using automated exposure control or adjustment of mA and/or kV according to the patient's size were employed. CLINICAL HISTORY: hernia COMPARISON: 12/06/2021 FINDINGS: Abdomen: There is a small cluster of nodules in the posterior right lower lobe of the lung which are stable, probably postinflammatory. The liver parenchyma is homogeneous. The gallbladder is present. The margins of the gallbladder are slightly indistinct. The spleen, pancreas, adrenals and kidneys appear unremarkable. The aorta is normal in caliber. There is no free fluid or adenopathy. There are postoperative changes from lumbar fusion. No hernia is identified. There is a chronic fracture of the L5 mid vertebral body. Pelvis: The appendix is normal. There is a moderate amount of stool seen throughout the colon. The urinary bladder is unremarkable. There is no free fluid or adenopathy. IMPRESSION: Slight indistinctness to the margin of the gallbladder of uncertain significance, consider gallbladder ultrasound. No definite hernia identified. Reviewed, Interpreted and Dictated by Alber Black MD Transcribed by Sujatha Abdul Authenticated and [facility]
[2024-05-08] MEDS: IOPAMIDOL-370 (76%);100ML BOTTLE 75 ML IV (09:10)
[2024-05-08] MEDS: SODIUM CHLORIDE 0.9% 10ML SYR (RAD ONLY) 10 ML IV (09:10)
== END 2024-05-08 23:59 | disposition home or self-care (01) ==
LOC: RAD 08:22
PROVIDERS: PCP Nurse Practitioner Family; Visit Provider Surgery
DX: K46.9 Unspecified abdominal hernia without obstruction or gangrene (principal)
CPT/HCPCS: 74177; Q9967

== ENCOUNTER 2024-06-16 12:07 | Emergency (ER) | payer MEDICARE, SELFPAY ==
[2024-06-16 12:08] VITALS: BP 135/59; PULSE 83; RESP 18; TEMP 36.6; O2SAT 96; BMI 34.8
--- NOTE | 2024-06-16 12:18 | XR_ITS ---
PROCEDURE INFORMATION: Exam: XR Left Hand Exam date and time: 06/16/2024 12:14 PM Age: 63 years old Clinical indication: Injury or trauma; Fall; Blunt trauma (contusions or hematomas); Patient HX: Fell on to left wrist. Pain in left wrist and hand. TECHNIQUE: Imaging protocol: Radiologic exam of the left hand. Views: 3 or more views. COMPARISON: No relevant prior studies available. FINDINGS: Bones/joints: Diffuse osteopenia. 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 Chronic avulsion fracture of the ulnar styloid process. There is an acute intra-articular essentially nondisplaced distal radial fracture. Soft tissues: Normal. IMPRESSION: There is an acute intra-articular essentially nondisplaced distal radial fracture.
--- NOTE | 2024-06-16 12:18 | XR_ITS ---
PROCEDURE INFORMATION: Exam: XR Left Forearm Exam date and time: 06/16/2024 12:19 PM Age: 63 years old Clinical indication: Injury or trauma; Fall; Blunt trauma (contusions or hematomas); Wrist and hand; Left; Additional info: Fell on to left wrist. Pain in left wrist and hand. TECHNIQUE: Imaging protocol: Radiologic exam of the left forearm. Views: 2 views. COMPARISON: CR XR WRIST LT MIN 3V 06/16/2024 12:15 PM FINDINGS: Bones/joints: Otherwise, no visible fracture or dislocation. Soft tissues: There is redemonstration of circumferential soft tissue swelling about the wrist. For findings in the wrist, please refer to the separately dictated wrist radiograph report under a separate accession number. IMPRESSION: Otherwise, no visible fracture or dislocation.
--- NOTE | 2024-06-16 12:18 | XR_ITS ---
PROCEDURE INFORMATION: Exam: XR Left Wrist Exam date and time: 06/16/2024 12:15 PM Age: 63 years old Clinical indication: Injury or trauma; Fall; Blunt trauma (contusions or hematomas); Patient HX: Fell on to left wrist. Pain in left wrist and hand. ; Additional info: [place] TECHNIQUE: Imaging protocol: Radiologic exam of the left wrist. Views: 3 or more views. COMPARISON: CR XR HAND LT MIN 3V 06/16/2024 12:14 PM FINDINGS: Bones/joints: Age-indeterminate likely chronic ulnar styloid process avulsion fracture. There is an acute nondisplaced intra-articular distal radial fracture. Soft tissues: Circumferential soft tissue swelling about the wrist noted. IMPRESSION: 1. There is an acute nondisplaced intra-articular distal radial fracture. 2. Age-indeterminate likely chronic ulnar styloid process avulsion fracture. Correlate with point tenderness
--- NOTE | 2024-06-16 12:24 | HMH.EDGENADL ---
Discharge Plan Disposition Patient Disposition: Home, Self-Care Condition: Fair Prescriptions Prescriptions: No Action atorvastatin [Lipitor] 80 mg tablet 80 mg PO DAILY Patient Comments: TAKE 1 TABLET BY MOUTH EVERY DAY insulin glargine [Lantus Solostar U-100 Insulin] 100 unit/mL (3 mL) insulin pen 28 unit SQ HS Patient Comments: ADMINISTER 28 UNITS UNDER THE SKIN EVERY DAY AT BEDTIME Ozempic 0.25 mg or 0.5 mg (2 mg/3 mL) pen injector 0.25 mg SQ WEEKLY Patient Comments: INJECT 0.25 MG UNDER SKIN WEEKLY FOR DIABETES azelastine 137 mcg (0.1 %) aerosol,spray 1 spray intranasal BID Qty: 30 3RF Rx Instructions: administer into each nostril famotidine [Pepcid AC] 20 mg tablet 20 mg PO DAILY ferrous fumarate 325 mg (106 mg iron) tablet 325 mg PO DAILY celecoxib 200 mg capsule 200 mg PO DAILY Patient Comments: TAKE 1 CAPSULE BY MOUTH TWICE DAILY WITH FOOD omeprazole 20 mg capsule,delayed release(DR/EC) See Rx Instructions .ROUTE .COMPLEX Qty: 30 3RF Dose Instruction: TAKE 1 CAPSULE BY MOUTH TWICE DAILY Rx Instructions: TAKE 1 CAPSULE BY MOUTH TWICE DAILY clonazepam [Klonopin] 0.5 mg tablet 0.5 mg PO TIDP PRN (Reason: Anxiety) montelukast [Singulair] 10 MG tablet 10 mg PO PM escitalopram oxalate [Lexapro] 10 MG tablet 10 mg PO DAILY sitagliptin phos-metformin 1 EACH tablet, ER multiphase 24 hr 1 each PO DAILY Patient Comments: TAKE 1 TABLET BY MOUTH EVERY DAY WITH A MEAL Jardiance 25 MG tablet 25 mg PO DAILY Patient Comments: TAKE 1 TABLET BY MOUTH EVERY DAY Referrals Follow up/Referrals: Nellie Duran APRN [Primary Care Provider] - See instructions Graham Velásquez DO [Staff Physician] - See instructions Activity Restrictions/Add. Instructions Additional Instructions/Restrictions: Do not get your splint wet. Try not to straighten your elbow. Keep arm elevated. Please call Dr. Velásquez on Tuesday for follow-up care. May take Tylenol and ibuprofen for pain. Clinical Impressions Clinical Impression: Fracture of wrist Instructions Patient Instructions: DI for Wrist Fracture Print Language Print Language: Argentine Discharge ED Provider: Edwin Mckeon General Adult HPI <Vicki Weller (ED), HOSPITAL MORTICIAN - Last Filed: 06/16/24 13:21> General Chief complaint: Extremity Injury, Upper Stated complaint: AO fall 06/16 @1000, left wrist pain Time Seen by Provider: 06/16/24 12:18 Mode of Arrival: Ambulatory Source of Information: Patient Limitations: No Limitations Description of Symptoms (Recalled from ER Triage Doc. by RN): c/o left wrist pain after trying to catch his self coming down a deer stand. Denies any other injuries. History of Present Illness HPI narrative: This is a 63-year-old male who presents to the ED today after falling. He tried to catch himself and came down on his left wrist and hand. He has swelling that is obvious of his left wrist. No other symptoms noted today. No other pain. Related Data Home Medications ?Medication ?Instructions ?Recorded ?Confirmed clonazepam 0.5 mg tablet (Klonopin) 0.5 mg PO TIDP PRN Anxiety 10/30/20 05/10/24 empagliflozin 25 mg tablet 25 mg PO DAILY Diabetes 12/07/21 05/10/24 (Jardiance) escitalopram oxalate 10 mg tablet 10 mg PO DAILY MOOD 12/07/21 05/10/24 (Lexapro) montelukast 10 mg tablet 10 mg PO PM Allergy symptoms 12/07/21 05/10/24 (Singulair) sitagliptin phos 100 mg-metformin 1 each PO DAILY Diabetes 12/07/21 05/10/24 ER 1,000 mg tablet,extend rel 24h mp celecoxib 200 mg capsule 200 mg PO DAILY 11/16/22 05/10/24 atorvastatin 80 mg tablet (Lipitor) 80 mg PO DAILY 08/25/23 05/10/24 insulin glargine 100 unit/mL (3 28 unit SQ HS 08/25/23 05/10/24 mL) subcutaneous pen (Lantus Solostar U-100 Insulin) semaglutide 0.25 mg or 0.5 mg (2 0.25 mg SQ WEEKLY 08/25/23 05/10/24 mg/3 mL) subcutaneous pen injector (Ozempic) ferrous fumarate 325 mg (106 mg 325 mg PO DAILY 01/17/24 05/10/24 iron) tablet famotidine 20 mg tablet (Pepcid AC) 20 mg PO DAILY 02/21/24 05/10/24 Previous Rx's ?Medication ?Instructions ?Recorded azelastine 137 mcg (0.1 %) nasal 1 spray intranasal BID #30 mL 08/25/23 spray omeprazole 20 mg capsule,delayed See Rx Instructions .Route 04/24/24 release .COMPLEX #30 caps Allergies Allergy/AdvReac Type Severity Reaction Status Date / Time No Known Allergies Allergy Verified 05/10/24 10:00 REPLACED BY [facility] <Vicki Weller (ED), HOSPITAL MORTICIAN - Last Filed: 06/16/24 13:21> PFS Disclaimer: The information contained in this section may have been updated after the patient was seen, as this information can be updated by other users. Medical History GERD (gastroesophageal reflux disease) Macular degeneration Chronic eczematous otitis externa Recurrent serous otitis media of both ears Dyspnea on exertion Seasonal allergic rhinitis Cough History of asthma Shortness of breath COPD (chronic obstructive pulmonary disease) FH: total knee replacement LEFT Hypothyroidism Arthritis Depression Anxiety Chronic pain HLD (hyperlipidemia) Diabetes mellitus Surgical History History of arthroscopic knee surgery H/O eye surgery LEFT Previous back surgery X2 History of bladder surgery Family History Other Diabetes Hyperlipidemia Hypertension Social History (Updated 06/16/24 @ 13:21 by Vicki WEBB), HOSPITAL MORTICIAN) Smoking Status: Former smoker tobacco type: cigarettes packs per day: 1 alcohol intake: never substance use type: denies use current occupational status: retired Travel in the last 8 weeks: None household members: spouse housing: house marital status: caffeine: Yes Other Medical History Have you received the Flu Vaccine for this season: Yes Have you received the Pneumonia Vaccine: No <Vicki Weller (ED), HOSPITAL MORTICIAN - Last Filed: 06/16/24 13:21> ROS Obtained: Yes Systems reviewed as appropriate & no additional complaints except as documented Constitutional Constitutional: Reports as per HPI Physical Exam <Vicki Weller (ED), HOSPITAL MORTICIAN - Last Filed: 06/16/24 13:21> General General appearance: alert and in no apparent distress Head Head exam: atraumatic and normocephalic Eye Eye exam: Present normal appearance, PERRL and EOMI ENT ENT exam: Present normal exam, normal oropharynx and mucous membranes moist Neck Neck exam: Present normal inspection and full ROM Respiratory Respiratory exam: Present normal lung sounds bilaterally Cardiovascular Cardiovascular exam: Present regular rate, normal rhythm, normal heart sounds, +S1 and +S2 Extremities Exam Extremities exam: Present tenderness (To left wrist and hand, patient is moving wrist and hand) and normal capillary refill Neurological Exam Neurological exam: Present alert, oriented X3 and normal gait Skin Skin exam: Present warm, dry and intact Medical Decision Making <Vicki Weller (ED), HOSPITAL MORTICIAN - Last Filed: 06/16/24 13:21> Medical Records Screening: Per USPSTF and CDC recommendations, given the prevalence of disease in our region, it is our hospital?s policy to screen for HIV and viral Hepatitis for all patients aged 18 and over and those with ongoing risk factors. Tristen Inquiry Pt receiving controlled substance: No Tristen was queried for this patient: No Vital Signs: 06/16/24 12:08 06/16/24 13:25 Temperature 97.9 F 97.9 F Temperature Source Oral Oral Pulse Rate 80 Pulse Rate [Left Radial] 83 Respiratory Rate 18 18 Blood Pressure 130/62 Blood Pressure [Right Arm] 135/59 L Blood Pressure Mean [Right Arm] 84 Blood Pressure Source [Right Arm] Automatic Cuff Blood Pressure Position [Right Arm] Sitting 02 Sat by Pulse Oximetry 96 Oxygen Delivery Method Room Air Room Air Orders (Tests/Meds): ORDERS Category Date Time Status XR forearm LT 2V Stat Exams 06/16/24 12:18 Completed XR hand LT min 3V Stat Exams 06/16/24 12:18 Completed XR wrist LT min 3V Stat Exams 06/16/24 12:18 Completed Medical Decision Narrative: Insert review patient is a 63-year-old male presenting to the emergency department for evaluation of left wrist after a fall today. Patient is hemodynamically stable and nontoxic-appearing upon arrival, afebrile. Differential diagnosis includes broken wrist versus sprain strain. Workup will be conducted with left wrist, left hand and left forearm films. Initial workup reviewed by me no labs were needed today. Imaging informally interpreted by me and remarkable for a left nondisplaced radial fracture. Formal imaging read remarkable for intra-articular distal radial fracture of left wrist. upon repeat evaluation patient's pain is improved. Sugar-tong splint placed. Patient given Dr. Velásquez's info. <Edwin Mckeon MD - Last Filed: 06/17/24 15:24> Vital Signs: 06/16/24 12:08 06/16/24 13:25 Temperature 97.9 F 97.9 F Temperature Source Oral Oral Pulse Rate 80 Pulse Rate [Left Radial] 83 Respiratory Rate 18 18 Blood Pressure 130/62 Blood Pressure [Right Arm] 135/59 L Blood Pressure Mean [Right Arm] 84 Blood Pressure Source [Right Arm] Automatic Cuff Blood Pressure Position [Right Arm] Sitting 02 Sat by Pulse Oximetry 96 Oxygen Delivery Method Room Air Room Air Orders (Tests/Meds): ORDERS Category Date Time Status XR forearm LT 2V Stat Exams 06/16/24 12:18 Completed XR hand LT min 3V Stat Exams 06/16/24 12:18 Completed XR wrist LT min 3V Stat Exams 06/16/24 12:18 Completed Medical Decision Narrative: Insert review patient is a 63-year-old male presenting to the emergency department for evaluation of left wrist after a fall today. Patient is hemodynamically stable and nontoxic-appearing upon arrival, afebrile. Differential diagnosis includes broken wrist versus sprain strain. Workup will be conducted with left wrist, left hand and left forearm films. Initial workup reviewed by me no labs were needed today. Imaging informally interpreted by me and remarkable for a left nondisplaced radial fracture. Formal imaging read remarkable for intra-articular distal radial fracture of left wrist. upon repeat evaluation patient's pain is improved. Sugar-tong splint placed. Patient given Dr. Velásquez's info. I was consulted by the LISA, and we discussed the complexity of the problems being addressed. I approved the treatment and management plan for this patient's care in the Emergency Department, thus performing a substantive portion of the medical decision making. Edwin Mckeon MD Procedures <Vicki Weller (ED), HOSPITAL MORTICIAN - Last Filed: 06/16/24 13:21> Orthopedic Splinting/Casting Injury #1: Side: left Upper Extremity Injury Location: wrist Upper Extremity Immobilizer: sugar tong splint Post Cast/Splinting Neuro Status: intact Post Cast/Splinting Vasc Status: intact Critical Care <Vicki Weller (ED), HOSPITAL MORTICIAN - Last Filed: 06/16/24 13:21> Critical Care Time Critical Care Time: No
[2024-06-16 13:25] VITALS: BP 130/62; PULSE 80; RESP 18; TEMP 36.6; O2SAT 98
== END 2024-06-16 13:28 | disposition home or self-care (01) ==
PROVIDERS: Emergency Provider Emergency Medicine; PCP Nurse Practitioner Family
DX: S62.109A Fracture of unspecified carpal bone, unspecified wrist, initial encounter for closed fracture (principal); M25.532 Pain in left wrist; M79.642 Pain in left hand; W17.89XA Other fall from one level to another, initial encounter; Y93.89 Activity, other specified; Y92.89 Other specified places as the place of occurrence of the external cause
CPT/HCPCS: 73090; 73110; 73130; 99283

== ENCOUNTER 2024-06-26 08:13 | Outpatient (CLI) | payer MEDICARE, SELFPAY ==
--- NOTE | 2024-06-26 08:16 | XR_ITS ---
FINAL REPORT CLINICAL HISTORY: left wrist fracture x 2 weeks ago, cast x 10 days COMPARISON: None FINDINGS: LEFT WRIST 3 views of the left wrist were obtained. A cast is present which obscures some of the detail. There is an impacted fracture of the distal radius and a fracture of the ulnar styloid process. There is a questionable fracture of the proximal fourth metacarpal. There are mild and moderate degenerative changes. There is no acute soft tissue abnormality. IMPRESSION: Distal radial and ulnar fractures of uncertain age. Possible fracture proximal fourth metacarpal. Reviewed, Interpreted and Dictated by Bud Yang III, MD Transcribed by Ginger Berkowitz Authenticated and [facility]
== END 2024-06-26 23:59 | disposition home or self-care (01) ==
LOC: RAD 08:14
PROVIDERS: PCP Nurse Practitioner Family; Visit Provider Orthopaedic Surgery
DX: S62.102A Fracture of unspecified carpal bone, left wrist, initial encounter for closed fracture (principal)
CPT/HCPCS: 73110

== ENCOUNTER 2024-07-24 08:43 | Outpatient (CLI) | payer MEDICARE, SELFPAY ==
--- NOTE | 2024-07-24 09:10 | XR_ITS ---
FINAL REPORT CLINICAL HISTORY: left wrist fx COMPARISON: 06/26/2024 FINDINGS: AP, oblique, and lateral views of the left wrist were obtained. The plaster cast has been removed. There has been interval healing of the previously seen intra-articular fracture of the distal radius. The ulnar styloid process fracture is unchanged. Multijoint degenerative disease is noted. There is no acute soft tissue abnormality. IMPRESSION: Interval healing distal radius fracture. Stable ulnar styloid process fracture. Reviewed, Interpreted and Dictated by Thao Fajardo MD Transcribed by Lazara Rodriguez Authenticated and [facility]
== END 2024-07-24 23:59 | disposition home or self-care (01) ==
LOC: RAD 08:44
PROVIDERS: PCP Nurse Practitioner Family; Visit Provider Orthopaedic Surgery
DX: S52.532A Colles' fracture of left radius, initial encounter for closed fracture (principal)
CPT/HCPCS: 73110

== ENCOUNTER 2024-07-24 09:55 | Outpatient (RCR) | payer MEDICARE, SELFPAY | END 2024-07-24 23:59 | disposition home or self-care (01) | LOC: OT 09:55 | PROVIDERS: Visit Provider Physician Assistant | DX: S52.502A Unspecified fracture of the lower end of left radius, initial encounter for closed fracture (principal) ==

== ENCOUNTER 2024-08-21 09:09 | Outpatient (CLI) | payer MEDICARE, SELFPAY ==
--- NOTE | 2024-08-21 09:16 | XR_ITS ---
FINAL REPORT CLINICAL HISTORY: Lt wrist pain COMPARISON: 07/24/2024 FINDINGS: LEFT WRIST Three views of the left wrist were obtained. There are moderately advanced changes of osteoarthritis at the radiocarpal joint. There is deformity of the distal radial metaphysis probably related to a healed fracture deformity. There is a well-corticated ossific density distal to the ulna probably related to united fracture fragment. The soft tissues are unremarkable. IMPRESSION: Old healed fracture deformities as above Osteoarthritis radiocarpal joint. Reviewed, Interpreted and Dictated by Alber Black MD Transcribed by Ginger Berkowitz Authenticated and [facility]
== END 2024-08-21 23:59 | disposition home or self-care (01) ==
LOC: RAD 09:10
PROVIDERS: PCP Nurse Practitioner Family; Visit Provider Orthopaedic Surgery
DX: M25.532 Pain in left wrist (principal); S52.532A Colles' fracture of left radius, initial encounter for closed fracture
CPT/HCPCS: 73110

== ENCOUNTER 2024-09-11 12:11 | Outpatient (CLI) | payer MEDICARE, SELFPAY ==
[2024-09-11 12:59] LABS: Hemoglobin 14.2 g/dL (14.1-18.0); Mean Corpuscular Hemoglobin 28.8 pg (27.0-31.2); Mean Corpuscular Volume 87.2 fl (80-94); Platelet Count 171 K/mm3 (142-424); Red Blood Count 4.93 M/mm3 (4.60-6.20); Red Cell Distribution Width 12.9 % (11.5-17.5); White Blood Count 6.4 K/mm3 (4.8-10.8)
[2024-09-11 13:22] LABS: Albumin Level 4.2 g/dl (3.5-5.0); Chloride 101 mmol/L (98-107); Potassium 4.3 mmoL/L (3.5-5.1); Sodium 136 mmol/L (136-145)
[2024-09-11 13:25] LABS: Anion Gap 12.3 mEq/L (5-15); Blood Urea Nitrogen 14 mg/dl (9-20); Carbon Dioxide 27 mmol/L (22.0-30.0); Estimated Glomerular Filt Rate 97 ml/min (>60); GFR (African American) 117 ML/MIN (>60); Phosphorous 3.2 mg/dl (2.5-4.5)
[2024-09-11 13:26] LABS: Calcium 8.9 mg/dl (8.4-10.2); Glucose 112 mg/dl (74-100)
== END 2024-09-11 23:59 | disposition home or self-care (01) ==
LOC: LAB 12:12
PROVIDERS: PCP Nurse Practitioner Family; Visit Provider Internal Medicine Nephrology
DX: N18.2 Chronic kidney disease, stage 2 (mild) (principal); R80.9 Proteinuria, unspecified
CPT/HCPCS: 36415; 80069; 85027

== ENCOUNTER 2024-09-13 10:00 | Outpatient (RCR) | payer MEDICARE, SELFPAY | END 2024-09-13 23:59 | disposition home or self-care (01) | LOC: OT 10:00 | PROVIDERS: PCP Nurse Practitioner Family; Visit Provider Physician Assistant | DX: M25.532 Pain in left wrist (principal); S52.532A Colles' fracture of left radius, initial encounter for closed fracture | CPT/HCPCS: 97014; 97110; 97140; 97166; G0283 ==

== ENCOUNTER 2024-09-13 11:00 | Outpatient (RCR) | payer MEDICARE, SELFPAY | END 2024-09-13 23:59 | disposition home or self-care (01) | LOC: PT 11:00 | PROVIDERS: PCP Nurse Practitioner Family; Visit Provider Orthopaedic Surgery | DX: M46.1 Sacroiliitis, not elsewhere classified (principal); Z98.890 Other specified postprocedural states | CPT/HCPCS: 97110; 97163 ==

== ENCOUNTER 2024-09-13 12:00 | Outpatient (CLI) | payer MEDICARE, SELFPAY ==
[2024-09-13 12:13] LABS: Microscopic, Urine URINE MICROSCOPIC (MICROSCOPIC)
[2024-09-13 12:33] LABS: Appearance,Urine CLEAR (Clear); Bilirubin,Urine Negative (Negative); Blood, Urine Negative (Negative); Color,Urine YELLOW (Yellow); Glucose,Urine (UA) 3+ (Negative); Ketones,Urine Negative (Negative); Leukocyte Esterase,Urine Negative (Negative); Nitrate,Urine Negative (Negative); PH,Urine 5.5 (5.0-8.5); Protein,Urine Negative (Negative); Urobilinogen,Urine 0.2 EU/dl (0.2)
[2024-09-13 12:48] LABS: Creatinine,Urine Random 63 mg/dL (Not Estab.)
[2024-09-13 12:56] LABS: Squamous Epithelial Cell,Urine Occasional #/hpf (0-5)
== END 2024-09-13 23:59 | disposition home or self-care (01) ==
LOC: LAB 12:06
PROVIDERS: PCP Nurse Practitioner Family; Visit Provider Internal Medicine Nephrology
DX: N18.2 Chronic kidney disease, stage 2 (mild) (principal)
CPT/HCPCS: 81001; 82570; 84156

== ENCOUNTER 2024-09-18 08:10 | Outpatient (CLI) | payer MEDICARE, SELFPAY ==
--- NOTE | 2024-09-18 08:13 | XR_ITS ---
FINAL REPORT CLINICAL HISTORY: Left Wrist fx COMPARISON: 08/21/2024 FINDINGS: LEFT WRIST THREE VIEW Three views show a healed distal radius fracture and an old, ununited, ulnar styloid process fracture. There are degenerative changes. IMPRESSION: Healed fractures without acute findings. Reviewed, Interpreted and Dictated by Shayy Mcguire MD Transcribed by Lazara Rodriguez Authenticated and [facility]
== END 2024-09-18 23:59 | disposition home or self-care (01) ==
LOC: RAD 08:11
PROVIDERS: PCP Nurse Practitioner Family; Visit Provider Physician Assistant
DX: M25.532 Pain in left wrist (principal); S52.532A Colles' fracture of left radius, initial encounter for closed fracture
CPT/HCPCS: 73110

== ENCOUNTER 2024-10-18 10:34 | Outpatient (CLI) | payer MEDICARE, SELFPAY ==
--- NOTE | 2024-10-18 10:37 | XR_ITS ---
FINAL REPORT CLINICAL HISTORY: Left Wrist fx jun 16 no sx COMPARISON: 09/18/2024 FINDINGS: AP, oblique, and lateral views of the left wrist were obtained. There is no acute fracture or dislocation. There has been interval healing of the previously seen distal radial fracture. Multijoint degenerative disease may be slightly worse compared to the prior study. No acute soft tissue abnormality. IMPRESSION: Healing distal radial fracture. No acute osseous abnormality. Reviewed, Interpreted and Dictated by Thao Fajardo MD Transcribed by Lazara Rodriguez Authenticated and [facility]
== END 2024-10-18 23:59 | disposition home or self-care (01) ==
LOC: RAD 10:35
PROVIDERS: PCP Nurse Practitioner Family; Visit Provider Physician Assistant
DX: M25.532 Pain in left wrist (principal); S52.532A Colles' fracture of left radius, initial encounter for closed fracture
CPT/HCPCS: 73110

== ENCOUNTER 2024-10-18 13:00 | Outpatient (RCR) | payer MEDICARE, SELFPAY | END 2024-10-18 23:59 | disposition home or self-care (01) | LOC: OT 13:00 | PROVIDERS: PCP Nurse Practitioner Family; Visit Provider Physician Assistant | DX: S52.532A Colles' fracture of left radius, initial encounter for closed fracture (principal) | CPT/HCPCS: 97010; 97014; 97110; 97140; 97168; 97530; G0283 ==

== ENCOUNTER 2024-10-18 14:00 | Outpatient (RCR) | payer MEDICARE, SELFPAY | END 2024-10-18 23:59 | disposition home or self-care (01) | LOC: PT 14:00 | PROVIDERS: PCP Nurse Practitioner Family; Visit Provider Orthopaedic Surgery | DX: M46.1 Sacroiliitis, not elsewhere classified (principal); M43.26 Fusion of spine, lumbar region; Z98.890 Other specified postprocedural states | CPT/HCPCS: 97110 ==

== ENCOUNTER 2024-10-24 14:48 | Outpatient (RCR) | payer MEDICARE, SELFPAY | END 2024-10-24 23:59 | disposition home or self-care (01) | LOC: OT 14:48 | PROVIDERS: PCP Nurse Practitioner Family; Visit Provider Physician Assistant | DX: S52.532A Colles' fracture of left radius, initial encounter for closed fracture (principal) | CPT/HCPCS: 97014; 97110; 97140; G0283 ==

== ENCOUNTER 2024-11-08 10:00 | Outpatient (RCR) | payer MEDICARE, SELFPAY | END 2024-11-08 23:59 | disposition home or self-care (01) | LOC: PT 10:00 | PROVIDERS: PCP Nurse Practitioner Family; Visit Provider Orthopaedic Surgery | DX: M46.1 Sacroiliitis, not elsewhere classified (principal); Z98.890 Other specified postprocedural states | CPT/HCPCS: 97110 ==

== ENCOUNTER 2025-05-13 06:41 | Outpatient (CLI) | payer MEDICARE, SELFPAY ==
--- OUTSIDE RECORDS SUMMARY | 2020-01-23 04:43 | XMS_ITS | Continuity of Care Document ---
Author Organization [facility] Address [address] [place] [address] Phone Care Team Providers Care Wind Instrument Repairer Name Role Phone Mary Jo Shaw DMD Unavailable Unavail able Allergies, Adverse Reactions, Alerts Substance Reaction Status Criticality Sulfa (Sulfonamide Antibiotics) Active No Information Penicillins Active No Information Medications Medication Instructions Dosage Effective Dates (start - stop) Status Comments quetiapine 400 mg tablet take 1 tablet by oral route 2 times every day 400 MG - Active atenolol 25 mg tablet take 1 tablet by o ral route every day 25 MG - Active Tirosint 25 mcg capsule take 1 capsule by oral route every day 25 MCG - Active Problems Condition Type Effective Dates (start - stop) Clini nancy Status Comments No Known Problems Procedures Procedure Date PPE Compsve Oral Eval- New/Est Pat 20 Subsequent Nursing Facility Care 2019 Advance Directives Directive Yes / No Effective Date File Name No Information Encounters Encounter Description Practice Location Reason(s) For Visit Diagnoses Date Provider Providers Copied on Encounter [facility], [address], [place], [place], [id number], tel:[phone] [facility] No Information 0 Toshia Camargo. [address], [place], [place], [id number], . tel:[phone] [facility], [address], [place], [place], [id number], tel:[phone] [facility] Encounter for dental exam and cleaning w/o abnormal findings 0 Toshia Camargo. [address], [address], [place], [place], [id number], . tel:[phone] Referring Provider: Vincent Solano. Subsequent Nursing Facility Care [address] [place] [address], [address] [address], [place], [place], [id number], tel:[phone] [facility] ear care exam (chief complaint) Encounter for exam of ears and hearing w/o abnormal findings 0 Bernice-Hard felipe Nuvia. [address], [place], [place], [facility], . Referring Provider: Vincent Solano. [address] [place] [address], [address] [address], [place], [place], [id number], tel:[phone] [facility] No Information 0 Bernice-Hard felipe Nuvia. [address], [place], [place], [facility], . [address] [place] [address], [address] [facility], [place], [place], [id number], tel:[phone] [facility] No Information 8 Ana Szymanski. . Family History Family Member Type Diagnosis Age At Onset No Information Payers Payer name Insurance type Covered alliance party ID Authoriza tifuad(s) DDS Medicaid [place] [id number] Social History Type Description Quantity Date Captured Comments Sex Male Smoking Status No Information Chief Complaint And Reason For Visit No Information Reason For Referral Reason For Referral No Information Plan Of Treatment Date Type Action Status Patient Education Earwax Blockage: Care I nstructions completed History Of Present Illness Encounter Date Complaint History Of Prese nt Illness ear care exam Disorientation n oted making subjective and some objective data difficult to gather. Facility requests ear eval for possible cerumen that may be worsening hearing or causing issues. Facility requests cerumen removal if needed. pt is nonverbal today. nurse does not think there is anything wrong with his ears. cerumen history is unknown. Functional Status Date Functional Assessmen t No Information Instructions Date Instruction Additional Infor greg may refer to audiolo gy if pt, family, and/or facility wish to pursue. Follow up in 6-9 months or sooner if needed. Related to Encounter for exam of ears and hearing w/o abnormal findings Assessments Type Assessment Date No Information Patient Care Teams Name Effective Dates (start - stop) Status Members No Information
--- NOTE | 2025-05-13 | CA_ITS ---
APPROVED REPORT Exam: Pharmacologic Technologist: Isabel Rhdoes Ht: 5 ft 11 in Wt: 254 lbs BSA: 2.33 m2 HR: 59 bpm BP: 148/84 mmHg Rhythm: sinus rhythm Indications: fatigue, dyspnea Medical History Cardiac Risk Factors: Hyperlipidemia, Diabetes (non-insulin), Smoking Stress Test Details HR Resting HR: 59 bpm Max Heart Rate (APMHR): 154.697343 bpm Target HR (85% APMHR): 130.579777 bpm Recovery HR: 80 bpm BP Resting BP: 148.0/84.0 mmHg Recovery BP: 147.0/84.0 mmHg ECG Resting ECG: Sinus rhythm Stress ECG Conclusion During lexiscan pt experinced no symptoms. PACs noted. Less than 0.5mm upsloping ST segment changes. Nondiagnostic ECG/Lexiscan. Electronically signed by : Linda Woodruff MD 05/15/2025 12:22:55
--- OUTSIDE RECORDS SUMMARY | 2025-05-13 06:44 | XMS_ITS | Clinical Summary ---
Author Organization Healthcare Address [address] [place] [address] Care Team Providers Care Mortgage Loan Originator Name Role Phone Anu Polo APRN, DNP Unavailable Priscila Musa APRN Unavailable [phone] Nellie Duran RESEARCH INSTRUMENTATION TECHNICIAN Primary Care Provider [phone] Allergies Active Allergy Reactions Criticality Noted Date Comments Pollen Extract Cough Low 02/24/2021 Medications metFORMIN (Glucophage) 1000 MG tablet Take 1 tablet (1,000 mg) by mouth daily with breakfast. Takes in the morning Active celecoxib (CeleBREX) 200 MG capsule Take 1 capsule (200 mg) by mouth daily. Active clonazePAM (KlonoPIN) 0.5 MG tablet Take 2 tablets (1 mg) by mouth nightly. Active escitalopram (Lexapro) 10 MG tablet Take 1 tablet (10 mg) by mouth daily. Active montelukast (Singulair) 10 MG tablet Take 1 tablet (10 mg) by mouth nightly. Active OneTouch Ultra test strip USE TO TEST TWICE DAILY 09/16/19 Active atorvastatin (Lipitor) 80 MG tablet 06/04/20 22 Active ibuprofen 800 MG tablet Take 1 tablet (800 mg) by mouth 3 (three) times a day. 12/25/19 22 Active Lantus SoloStar 100 UNIT/ML injection pen ADMINISTER 8 UNITS UNDER THE SKIN EVERY DAY AT BEDTIME 05/31/20 22 Active Lancets (OneTouch Delica Plus [id number]) [facility] [place] DIRECTED TO TEST BLOOD SUGAR 10/30/19 22 Active Continuous Blood Gluc Sensor (Dexcom G6 Sensor) [facility] Dexcom G6 Sensor device APPLY 1 SENSOR EVERY 10 DAYS DIRECTED Active B-D UF III MINI PEN NEEDLES 31G X 5 MM [facility] FOLLOW PER PRESCRIBER DIRECTONS 05/16/20 23 Active Ozempic, 1 MG/DOSE, 4 MG/3ML solution pen-injector INJECT 1 MG SUBCUTANEOUSLY EACH WEEK 05/02/20 23 Active Jardiance 25 MGIndications:T ype 2 diabetes mellitus with chronic kidney disease, without long-term current use of insulin, unspecified CKD stage,Chronic kidney disease, stage 1 Take 1 tablet (25 mg) by mouth daily. Takes in the evening along with Janumet 90 tablet 3 09/14/19 25 Active Active Problems Problem Noted Date Diagnosed Date Type 2 diabetes mellitus wit h chronic kidney disease, without long-term current use of insulin 09/14/2024 Chronic kidney disease, stage 1 09/14/2024 Obesity (BMI 30-39.9) 09/14/2024 Benign prostatic hyperplasia without lower urinary tract symptoms 09/14/2024 Microalbuminuria 07/05/2022 Spinal stenosis of lumbar re gion with neurogenic claudication 06/23/2021 Overview (06/23/2021): Added automatically from request for surgery [id number] Intervertebral disc disorder s with radiculopathy, lumbar region 06/23/2021 Overview (06/23/2021): Added automatically from request for surgery [id number] Resolved Problems Problem Noted Date Diagnosed Date Resolved Date Meralgia paraesthetica 06/23/202106/23 Immunizations Immunization Administration Dates Next Due Influenza, injectable, MDCK, preservative free, quadrivalent 04/13/2023 Influenza, injectable, quadrivalent, preservativ e free 03/22/2022 Influenza, seasonal, injectable, preservative fr ee 07/27/2017,07/26/2016 Td (adult) 11/05/2017 Family History Medical History Relation Name Comments Heart failure Father COPD Mother Relation Name Status Comments Father Mother Social History Tobacco Use Types Packs/Day Years Used Date Smoking Tobacco: Former Cigarettes Q uit: 1999 Smokeless Tobacco: Former Chew Tobacco Cessation:Counseling Given: Not Answered Alcohol Use Standard Drinks/Week Comments Not Currently 0 (1 standard drink = 0.6 oz pure alcohol) rarely drinks, maybe a beer a month Sex and Gender Information Value Date Recorded Sex Assigned at Male 08/14/2021 12:17 PM EST Legal Sex Male 7:53 PM EDT Gender Identity Male 08/14/2021 12:17 PM EST Sexual Orientation Not on file Last Filed Vital Signs Vital Sign Reading Time Taken Comments Blood Pressure 138/66 09/14/2024 10:40 AM EST Pulse 18 09/14/2024 10:40 AM EST Temperature 36.5 C (97.7 F) 09/14/2024 10:40 AM EST Respiratory Rate 18 09/14/2024 10:40 AM EST Oxygen Saturation 95% 09/14/2024 10:40 AM EST Inhaled Oxygen Concentration - - Weight 116 kg (256 lb) 09/14/2024 10:40 AM EST Height 180.3 cm (5' 11 ) 09/14/2024 10:40 AM EST Body Mass Index 35.7 09/14/2024 10:40 AM EST Plan of Treatment Upcoming Encounters Date Type Department Care Team (Late st Contact Info) Description 09/27/2025 9:20 AM EST Office Visit [facility] [address] [place] [address] Vincent Jones MD [address] [place] [phone] Health Maintenance Due Date Last Done Comments [facility]-Depression Screening 1958 [facility]-Hepatitis C Screening 1958 [facility]-Medicare Annual Wellness (AWV) 1958 [facility]-/Child/Adol SDOH Screenings 1958 Diabetes: Dental Exam 1968 [facility]- SDOH Screenings 1976 [facility]-Adult SDOH Screenings 1976 [facility]-Pneumococcal Vaccine: 50+ Years (1 of 2 - PCV) 1977 CT Colonography 2003 Colonoscopy 2003 FIT-DNA 2003 FIT 2003 FOBT 2003 Sigmoidoscopy 2003 [facility]-Colorectal Cancer Screening 2003 [facility]-Zoster Vaccines (1 of 2) 2008 [facility]-DTaP,Tdap,and Td Vaccines (1 - Tdap) 11/06/2017 11/05/2017 [facility]-RSV Vaccine: 60+ Years or (1 - Risk 60-74 years 1-dose series) 2018 [facility]-Diabetes: Hemoglobin A1C 01/12/2022 07/15/2021 [facility]-Abdominal Aortic Aneurysm (AAA) Screening 2023 [id number] Vaccine (2 - season) 2025 03/31/2021 [facility]-Influenza Vaccine (#1) 03/25/202505/10, 04/13/2023, 03/22/2022, Additional history exists [facility]-Obesity Intervention Completed 025, 07/28/2023, 07/05/2022, Additional history exists HPV Vaccines Aged Out No longer eligi ble based on patient's age to complete this topic [facility]-HIB Vaccines Aged Out No longer e ligible based on patient's age to complete this topic [facility]-Hepatitis A Vaccines Aged Out No longer eligible based on patient's age to complete this topic [facility]-IPV Vaccines Aged Out No longer e ligible based on patient's age to complete this topic [facility]-Rotavirus Vaccines Aged Out No lo nger eligible based on patient's age to complete this topic Procedures Procedure Name Priority Date/Time Associated Diagnosis Comments HEMOGLOBIN A1C Routine 07/15/2021 10:47 AM EST Pre-op evaluation from Last 3 Months or Most Recently Relevant to Health Maintenance Results * (ABNORMAL) Hemoglobin A1c (07/15/2021 10:47 AM EST) Hemoglobin A1c 8.7(H) <5.7 % 07/15/2021 1:24 PM EST [id number] Blood Venous blood specimen / Unknown Venipuncture / Unknown 07/15/2021 10:47 AM EST 07/15/2021 10:47 AM EST Narrative [facility] - 07/15/2021 1:24 PM EST HA1C Interpretive Data: Diagnosis of Diabetes: Diabetic > or = 6.5% Pre-diabetic 5.7 to 6.4% Non-diabetic < or = 5.6% Glycemic Targets for Type I and Type II Diabetics: Non- Adults <7.0% Adults <6.0% Children and Adolescents <7.5% Source: [place] [employer]. Standards of medical care in diabetes,2017. Diabetes Care.2017:40 (suppl 1):S1-S135. HbA1c assay performed by an ion-exchange chromatography method that is certified traceable to the DCCT. Anu Polo APRN, DNP LAB BLOOD ORDERABLES Final Result [facility] [address] [place] [address] from Last 3 Months or Most Recently Relevant to Health Maintenance Insurance [facility] MEDIC[facility] Care Teams Mortgage Loan Originator Relationship Specialty Start Date End Date Nellie Duran APRN [address] [place] [id number] PCP - General 06/07/22 Anu Polo APRN, PATRICK [address] [place] [phone] Nurse Practitioner Neurosurgery 07/15/21 Priscila Musa APRN [address] [place] [address] Nurse Practitioner Neurosurgery 06/07/22
--- OUTSIDE RECORDS SUMMARY | 2025-05-13 06:44 | XMS_ITS | Clinical Summary ---
Author Organization [facility] Address [address] [place] [id number] Phone Care Team Providers Care Sole Leveler Name Role Phone Sayra Dugan Unavailable [phone] Conditions or Problems No information available. Medications No information available. Medications Administered No information available. Allergies, Adverse Reactions, Alerts No information available. Results No information available. Plan of Care No information available. Procedures No information available. Vital Signs No information available. Immunizations No information available. Advance Directives No information available.
--- OUTSIDE RECORDS SUMMARY | 2025-05-13 06:44 | XMS_ITS | Clinical Summary ---
Author Organization [facility] Address [address] [address] Care Team Providers Care Paper Feeder Name Role Phone David Reece MD Primary Care Provider [phone] Medications oxyCODONE (ROXICODONE) 10 MG tablet Take 1 tablet by mouth Every 6 (Six) Hours As Needed for pain. 30 tablet 08/26/2020 10:52 AM EST 08/25/2020 Active promethazine (PHENERGAN) 12.5 MG tablet Take 1 tablet by mouth Every 6 (Six) Hours As Needed. 10 tablet 08/26/2020 10:52 AM EST 08/25/2020 Active Social History Tobacco Use Types Packs/Day Years Used Date Smoking Tobacco: Never Assessed Abuse Screen Answer Date Recorded Unsafe at Home or Work/School Not on file Feels Threatened by Someone? Not on file 03/2023 Does Anyone Keep You from Co ntacting Others or Doint Things Outside the Home? Not on file 05/02/2023 Physical Sign of Abuse Present Not on file 1 Housing Stability Answer Date Recorded Current Living Arrangements Not on file 03/2023 Potentially Unsafe Housing Conditions Not on evette e 05/02/2023 Family and Community Support Answer Torres e Recorded Help with Day-to-Day Activities Not on file 05/02/2023 Lonely or Isolated Not on file 05/02/2023 Employment Answer Date Recorded Do you want help finding or keeping work or a carline b? Not on file 05/02/2023 Disabilities Answer Date Recorded Concentrating, Remembering, or Making Decisions Difficulty Not on file 05/02/2023 Doing Errands Independently Difficulty Not on fi le 05/02/2023 Education Answer Date Recorded Help with school or training? Not on file Preferred Language Not on file 05/02/2023 Sex and Gender Information Value Date Recorded Sex Assigned at Not on file Legal Sex Male 1:20 PM EDT Gender Identity Not on file Sexual Orientation Not on file Plan of Treatment Health Maintenance Due Date Last Done Comments COLOGUARD 2003 COLON CANCER SCREENING 5 YEA R SIGMOIDOSCOPY 2003 COLONOSCOPY 2003 COLORECTAL CANCER SCREENING 2003 CT COLONOGRAPHY 2003 FECAL OCCULT BLOOD TEST 2003 FIT Testing (1 year) 2003 Pneumococcal Vaccine 50+ (1 of 1 - PCV) 2008 ZOSTER VACCINE (1 of 2) 2008 TDAP/TD VACCINES (1 - Tdap) 11/06/2017 11/05/2017 ANNUAL PHYSICAL 09/05/2020 HEPATITIS C SCREENING 09/05/2020 PT PLAN OF CARE 09/05/2020 AAA SCREEN ONCE 2023 INFLUENZA VACCINE 02/22/2025 07/27/2017, 07/26/2016 COVID-19 Vaccine ( season) 2025 Insurance [facility] P[facility] Member Subscriber Plan / Payer (Ef fective 2019-Present) Name:Otto Comer Relation to Subscriber:Self Name:Otto Comer Payer ID:[id number] (NAIC) Type:Not on file Address: [facility] [id number] Care Teams Paper Feeder Relationship Specialty Start Date End Date David Reece MD [address] [place] [address] PCP - General Family Medicine 02/01/20
--- OUTSIDE RECORDS SUMMARY | 2025-05-13 06:44 | XMS_ITS | Clinical Summary ---
Author Organization [facility] , [facility] Address [address] [place] [address] Phone Care Team Providers Care Roads Supervisor Name Role Phone Maxim WINSTON, Iron Oshea Unavailable Unavail able Nellie Duran APRN Unavailable [phone] Chevy WINSTON, Rodrigue Primary Care Provider Unavailabl e Reason for Visit and Chief Complaint The Chief Complaint is: Bilateral shoulder pain Problems Includes: Problems addressed during this encounter and other active Problems Current Visit Onset Date Resolved Date Provider Conditio n Status Lower Back Pain 04/06/2023 WOLF GONZALEZ PA-C Active Last Documented On 3 11:22AM ; [facility], [facility] Past Visits Onset Date Resolved Date Provider Condition Status Neck Pain 05/31/2022 Adam Guerrier MD Active Last Documented On 2 10:13AM ; [facility], [facility] Joint Pain Shoulder Right 05/20/2022 Faby Rodriguez PA-C Active Last Documented On 2 9:03AM ; [facility], [facility] Joint Pain Shoulder Left 05/20/2022 Faby Rodriguez PA-C Active Last Documented On 2 8:59AM ; [facility], [facility] Plan of Treatment He is having significant difficulty sleeping. We had a long discussion about this. He has had injection in the past. He states he needs something that will provide him less pain to allow him to have more restful sleep. We will provide him an injection here he understands the goals risks and benefits of an injection in the potential for it to have a higher associated rates of rotator cuff retear if we were to repair this in the future. He understood that. He will continue with a home-based exercise program. We will see him back as scheduled. Procedure note: Left shoulder: The risk and benefits of the injection were outlined to the patient. They understand these and wished to proceed. The anterior portion of the shoulder over the glenohumeral joint was prepped with alcohol and Betadine. Using a 27-gauge needle and 5 cc syringe I pierced the skin breaching the anterior joint capsule. I then aspirated to confirm no presence of a vascular bed I then injected a solution of 40 mg Kenalog / 2 cc of lidocaine/2 cc of Marcaine into the joint. The patient tolerated this procedure well. - Last Documented On 09/25/2024 12:48PM ; [facility], [facility] Pending Tests Order Diagnosis Results Due Ordering P carmen Radiology - MRI MRI Shoulder 12/08/22 Iron Pan MD Last Documented On 3 7:41AM ; [facility], [facility] Future Appointments Date Time Location Provi matilde Follow Up 05/20/2025 9:30AM [facility] paedics [facility] B Iron Pan MD Last Documented On 5 11:14AM ; [facility], [facility] Instructions to patient Lose weight Last Documented On 5 1:33PM ; [facility], [facility] Assessments Includes: Assessments from this encounter Findings Left shoulder known rotator cuff tear in a 64-year-old gentleman who is having multiple musculoskeletal complaints. His back in wrist approved to be more a more symptomatic culprit at this time. He states that he would not really be able to undergo surgery at this time as some of his other somatic complaints are really taking priority at this point. - Last Documented On 09/25/2024 12:48PM ; [facility], [facility] Instructions Includes: Instructions from this encounter Instructions to patient Lose weight Last Documented On 5 1:33PM ; [facility], [facility] Medical Equipment - Implanted Devices Includes: Current Devices No Medical Equipment Recorded Medications Includes: Medications discussed during this encounter and other current Medications Current Medications (continue as prescribed) clonazePAM 0.5 MG Oral Tablet 02/06/2025 Provider: Eugonda Fryman PIN OR CLIP FASTENER Diagnosis: Last Documented On 5 12:53PM By Kusum Stokes ; [facility], [facility] Montelukast Sodium 10 MG Oral Tablet 02/06/2025 Prov ider: Haidera yman PIN OR CLIP FASTENER Diagnosis: Last Documented On 5 12:53PM By Kusum Stokes ; [facility], [facility] Escitalopram Oxalate 10 MG Oral Tablet 02/06/2025 Pr ovider: Eugonda Fryman PIN OR CLIP FASTENER Diagnosis: Last Documented On 5 12:53PM By Kusum Stokes ; [facility], [facility] Atorvastatin Calcium 80 MG Oral Tablet 02/06/2025 Pr ovider: Eugonda Fryman PIN OR CLIP FASTENER Diagnosis: Last Documented On 5 12:53PM By Kusum Stokes ; [facility], [facility] Omeprazole 20 MG Oral Capsule Delayed Release 03/14/20 24 Provider: Diagnosis: Last Documented On 4 6:12PM By Adam Guerrier ; [facility], [facility] FeroSul 325 (65 Fe) MG Oral Tablet 03/05/2024 Provid er: Yasminebryonjosep Chindeb PIN OR CLIP FASTENER Diagnosis: Last Documented On 4 6:12PM By Adam Guerrier ; [facility], [facility] Jardiance 25 MG Oral Tablet 03/02/2024 Provider: Yasminekarel Duran PIN OR CLIP FASTENER Diagnosis: Last Documented On 4 6:12PM By Adam Guerrier ; [facility], [facility] Celecoxib 200 MG Oral Capsule 02/16/2024 Provider: Nellie Duran PIN OR CLIP FASTENER Diagnosis: Last Documented On 4 6:13PM By Adam Guerrier ; [facility], [facility] Lantus SoloStar 100 UNIT/ML Subcutaneous Solution Pen-injector 02/16/2024 Provider: Nellie Duran APR N Diagnosis: Last Documented On 4 6:13PM By Adam Guerrier ; [facility], [facility] Past Medications on file HYDROcodone-Acetaminophen 5- 325 MG Oral Tablet 10/26/2023 - 11/02/2023 Provider: Adam Guerrier MD Diagnosis: Intervertebral d isc disorders w radiculopathy, lumbar region Take 1 tablet PO Q4H, NEE DED-may take with tylenol Last Documented On 4 11:12AM By Adam Guerrier ; [facility], [facility] Medications Administered Includes: Administered Medications from this encounter No Administered Medications Recorded Vital Signs Includes: Vital Signs from this encounter Vital Name 09/19/2024 01:33P Height (in) 71 Weight (lb) 247 Body Mass Index 34.4 Body Surface Area 2.3 Note: AH Last Documented: On 09/19/2024 1:33PM ; [facility], [facility] Results Includes: Results discussed during this encounter No Results Recorded For Specified Dates History of Present Illness Includes: History of Present Illness from this encounter FIDE Comer is a 64 year old male. - Allergy list reviewed - Problem list reviewed - Medication list reviewed Patient is here for his left shoulder. He had a fall in May. He hurt his wrist. He is also having significant back pain. His left shoulder is still problematic. He still has moderate pain in the shoulder. He states that really his back is probably proving to be his most significant symptom at this point. As such he feels as though despite some of the structural changes in his shoulder he states he is not ready for surgery at this point. Social History Description Last Updated Not a current smoker. 09/13/2022 Last Documented On 5 1:33PM ; [facility], [facility] Caffeine use 08/26/2022 Last Documented On 5 1:33PM ; [facility], [facility] Not exercising regularly 08/26/2022 Last Documented On 5 1:33PM ; [facility], [facility] Not using alcohol former 08/26/2022 Last Documented On 5 1:33PM ; [facility], [facility] Not using drugs 08/26/2022 Last Documented On 5 1:33PM ; [facility], [facility] Recent change in diet 08/26/2022 Last Documented On 5 1:33PM ; [facility], [facility] Tobacco non-user 08/26/2022 Last Documented On 5 1:33PM ; [facility], [facility] Smoking Status Unknown Procedures and Surgical History Includes: Procedures from this encounter Procedures Code Diagnosis Performing Provider Service Location Service Date DRAIN/INJECT, JOINT/BURSA (LEFT) Pain in left shoulder Iron Pan MD [facility] 09/19/2024 Last Documented On 5 1:49PM ; [facility] Triamcinolone/Kenalog, 10mg per cc J3301 Pain in left shoulder Iron Pan MD [facility] 09/19/2024 Last Documented On 5 1:49PM ; [facility] use of tobacco assessment performed 1000F Last Documented On 5 1:33PM ; [facility] patient screened for future fall risk: documentation of any fall with injury in past year 1100F Last Documented On 5 1:33PM ; [facility] review of medications documented 1160F Last Documented On 5 1:33PM ; [facility] an X-ray was performed 36314 Last Documented On 5 1:33PM ; [facility] an MRI was performed [id number] Last Documented On 5 1:33PM ; [facility] Surgical History Last Updated History of back surgery 02/2024 L3-5 Decompression, L3-S1 Fusion @ [facility] 10/12/2023 Last Documented On 5 1:33PM ; [facility] History of total knee arthroplasty 08/26 Last Documented On 5 1:33PM ; [facility] Medical History Includes: Medical History addressed during this encounter Description Last Updated History of arthritis 08/26/2022 Last Documented On 5 1:33PM ; [facility] History of depression 08/26/2022 Last Documented On 5 1:33PM ; [facility] History of diabetes mellitus 08/26/2022 Last Documented On 5 1:33PM ; [facility] No recent immunization for flu 3 Last Documented On 5 1:33PM ; [facility] No recent immunization for pneumococcal pneumonia 08/26/2022 Last Documented On 5 1:33PM ; [facility] Family History Includes: Family History addressed during this encounter Description Last Updated No significant family history 08/26/2022 Last Documented On 5 1:33PM ; [facility] Review of Systems Includes: Review of Systems from this encounter Systemic: Not feeling tired. Recent weight loss. No recent weight gain. Head: No headache and no sinus pain. Eyes: No vision problems, no Cataracts, no Glasses/Contacts, and no Glaucoma. Otolaryngeal: Hearing loss and tinnitus. Cardiovascular: No chest pain or discomfort, no palpitations, and no Hypertension. High Cholesterol. Pulmonary: No daytime asthma symptoms and no chronic cough. No wheezing. Gastrointestinal: No heartburn and no abdominal pain. No Indigestion, no Peptic Ulcer, no GI Stomach Bleed, no Ulcers, and no Acid Reflux. Endocrine: No hot flashes. Muscle weakness and Diabetes. No Hypothyroid and no Hyperthyroid. Hematologic: No easy bleeding, no tendency for easy bruising, and no Anemia. Musculoskeletal: Arthritis and lower back pain. No soft tissue swelling. Pain localized to one or more joints. Neurological: No dizziness, no convulsions, and no numbness. Psychological: Anxiety. No emotional lability. Depression. No insomnia. Not crying for no reason. Skin: No dry skin. No Ulcers, no Scars, and no rash. Allergic and Immunologic: Complaint of seasonal allergic reaction. Mental Status Includes: Mental Status from this encounter Description Anxiety Functional Status Includes: Functional Status from this encounter No Functional Status Recorded Physical Exam Includes: Physical Exam from this encounter Allergies Includes: Active Allergies No Known Allergies Encounters Encounter Provider Location Date Check-In Time Check- Out Time Diagnosis Follow Up Iron Pan MD [facility] B 5 1:32PM 1:45PM Insurance Includes: Active Insurance Policies Plan Name Member ID Group # Subscriber Relationship Effect alok Dates 1 - [employer] /[employer]ARE [id number] Otto Orellanavamsi Self 07/25/2024 - Unknown Clinical Notes Includes: Clinical Notes from this encounter * Progress note Date Encounter Last Documented by 09/19/2024 Follow Up Last documented on 09/25/2024; 12:48 PM, Iron Pan MD; [facility] Active Problems & Conditions - Joint Pain, Localized in the Left Shoulder - Joint Pain, Localized in the Right Shoulder - Lower Back Pain - Neck Pain Chief Complaint The Chief Complaint is: Bilateral shoulder pain. Referred Here Referred by PCP. History of Present Illness Otto Comer is a 64 year old male. - Allergy list reviewed - Problem list reviewed - Medication list reviewed Patient is here for his left shoulder. He had a fall in May. He hurt his wrist. He is also having significant back pain. His left shoulder is still problematic. He still has moderate pain in the shoulder. He states that really his back is probably proving to be his most significant symptom at this point. As such he feels as though despite some of the structural changes in his shoulder he states he is not ready for surgery at this point. Current Medication - Atorvastatin Calcium 80 MG Oral Tablet once a day 90 days, 0 refills - Celecoxib 200 MG Oral Capsule twice a day 90 days, 0 refills - Escitalopram Oxalate 10 MG Oral Tablet once a day 30 days, 0 refills - FeroSul 325 (65 Fe) MG Oral Tablet once a day 30 days, 0 refills - Jardiance 25 MG Oral Tablet once a day 30 days, 0 refills - Lantus SoloStar 100 UNIT/ML Subcutaneous Solution Pen-injector use as directed 50 days, 0 refills - Omeprazole 20 MG Oral Capsule Delayed Release twice a day 30 days, 0 refills Past Medical/Surgical History Reported: Immunization History: No recent immunization for flu and not for pneumococcal pneumonia. Diagnoses: Diabetes mellitus. Arthritis. Depression Surgical: - Back surgery 09/30/2023 L3-5 Decompression, L3-S1 Fusion @ [facility] - Total knee arthroplasty Social History Not a current smoker. Current diet: Recent change in diet. Caffeine use: Caffeine use. Tobacco use: Tobacco non-user. Alcohol: Not using alcohol former. Drug Use: Not using drugs. Habits: Not exercising regularly. Allergies - No Known Allergies Family History No significant family history Review Of Systems Systemic: Not feeling tired. Recent weight loss. No recent weight gain. Head: No headache and no sinus pain. Eyes: No vision problems, no Cataracts, no Glasses/Contacts, and no Glaucoma. Otolaryngeal: Hearing loss and tinnitus. Cardiovascular: No chest pain or discomfort, no palpitations, and no Hypertension. High Cholesterol. Pulmonary: No daytime asthma symptoms and no chronic cough. No wheezing. Gastrointestinal: No heartburn and no abdominal pain. No Indigestion, no Peptic Ulcer, no GI Stomach Bleed, no Ulcers, and no Acid Reflux. Endocrine: No hot flashes. Muscle weakness and Diabetes. No Hypothyroid and no Hyperthyroid. Hematologic: No easy bleeding, no tendency for easy bruising, and no Anemia. Musculoskeletal: Arthritis and lower back pain. No soft tissue swelling. Pain localized to one or more joints. Neurological: No dizziness, no convulsions, and no numbness. Psychological: Anxiety. No emotional lability. Depression. No insomnia. Not crying for no reason. Skin: No dry skin. No Ulcers, no Scars, and no rash. Allergic and Immunologic: Complaint of seasonal allergic reaction. Physical Findings - Vitals taken 09/19/2024 01:33 pm AH Height 71 in Weight 247 lbs Body Mass Index 34.4 kg/m2 Body Surface Area 2.3 m2 Alert and oriented x 3, Skin intact, No gross deformity, no atrophy of rotator cuff musculature, Sensation intact to light touch through upper extremity. Fingers warm well perfused. Impingement testing positive. Range of motion limited by pain. Weakness to supraspinatus and infraspinatus strength testing. Subscapularis testing negative. Positive biceps signs to speeds and upper cut testing. Assessment Left shoulder known rotator cuff tear in a 64-year-old gentleman who is having multiple musculoskeletal complaints. His back in wrist approved to be more a more symptomatic culprit at this time. He states that he would not really be able to undergo surgery at this time as some of his other somatic complaints are really taking priority at this point. Previous Tests Imaging: X-Ray: X-ray. MRI Scan: An MRI was performed. Counseling/Education - Lose weight Plan He is having significant difficulty sleeping. We had a long discussion about this. He has had injection in the past. He states he needs something that will provide him less pain to allow him to have more restful sleep. We will provide him an injection here he understands the goals risks and benefits of an injection in the potential for it to have a higher associated rates of rotator cuff retear if we were to repair this in the future. He understood that. He will continue with a home-based exercise program. We will see him back as scheduled. Procedure note: Left shoulder: The risk and benefits of the injection were outlined to the patient. They understand these and wished to proceed. The anterior portion of the shoulder over the glenohumeral joint was prepped with alcohol and Betadine. Using a 27-gauge needle and 5 cc syringe I pierced the skin breaching the anterior joint capsule. I then aspirated to confirm no presence of a vascular bed I then injected a solution of 40 mg Kenalog / 2 cc of lidocaine/2 cc of Marcaine into the joint. The patient tolerated this procedure well. Notes This dictation was done with voice recognition software and may contain errors and omissions. Practice Management Use of tobacco assessment performed and patient screened for future fall risk documentation of any fall with injury in past year Review of medications documented. Care Team - Nellie Duran APRN - CORE DRILLER HELPER
--- OUTSIDE RECORDS SUMMARY | 2025-05-13 06:44 | XMS_ITS | Data Portability ---
Author Organization [facility] FILIPPO Skelton DAVIDSON CLOSED Address [address] [place] [address] Care Team Providers Care Barge Hand Name Role Phone DEAN MCKINLEY Primary Care Provider [phone] Assessment Encounter Date Assessment Date Assessment LastModified by Organization Details LastModified Time 06/04/2024 06/04/2024 After speaking in depth with the patient, I believe that there is a component of dehydration that is causing him to experience dysuria. I have encouraged him to increase his fluid intake and advised him on possible bladder irritants. His urinalysis was not suggestive of a urinary tract infection, however, because he has dysuria and glycosuria, I think it is a good idea to ensure there is no growth on the culture. He was also worked up recently for a possible abdominal hernia, for which he had a CT of the abdomen and pelvis done at [facility]. I would like to review these records to see if there is anything more sinister along the urinary tract that needs further evaluation. His PVR of 99 mL suggests that he is not emptying as well as he could so I want to restart an alpha-brendan. I would like to get a PSA with him before follow-up, I plan to see him back in 3 months - sooner if needed [email or web address] Not available 06/04/2024 19:11:04 Plan of Treatment Reminders Order Date Submit Date Provider Last Modified By Organization Details Last Modified Time Details Appointments None recorded. Lab PSA, total, serum or plasma 2023 024 [email or web address] [facility], [address] [place] [address], [phone], 5 16:26:48 urinalysi s panel, auto 2023 024 [email or web address] [facility], [address] [place], [place] [address], [place], [address], 4 20:07:12 culture, urine 2023 024 [facility], [address] [place] [address], [phone], 4 09:30:24 Referral None recorded. Procedures None recorded. Surgeries None recorded. Imaging None recorded. Medication Orders tamsulosi n 0.4 mg capsule 2023 024 [facility][id number], [address], [id number], 4 19:06:29 betametha sone dipropion ate 0.05 % topical cream 2015 016 [facility][id number], [address], [id number], 6 12:49:11 Patient TargetsNo targets recorded. Patient Instructions Encounter Date Encounter Id Patient Instructions Last Modified By Organization Details Last Modified Time 07/22/2016 [id number] 1. Audiogram performed today - bilateral sensorineural hearing loss (R > L) with Tymps Type A bilaterally. 2. The patient is trying Phonak hearing aids for the next week. 3. Follow up visit PRN or sooner if concerns arise. ervin Not available 07/22/2016 11:42:43 Reason for Referral None Reported. Results Created Date Observation Date Name Description Value Unit Range Abnormal Flag Note LastModifiedBy Organization Detail LastModifiedTime 06/04/20 24 06/04/2024 URINE CULTU RE enterococcus faecalis Organi sm: Entero coccus faecal is Not Available [facility] [address] [place] [address], [phone], 06/06/2024 12:04:27 06/04/20 24 06/06/2024 URINE CULTU RE urine culture abnormal ISOLA TE #1 COLON Y COUNT : > 100,0 00 CFU/M L Proba ble Strep tococ cus sp.; ID and sensi tivit y in progr ess. See [place] te Resul t(s) Below Enter ococc us faeca lis Not Available [facility] [address] [place] [address], [phone], 06/06/2024 12:04:27 06/04/20 24 06/06/2024 URINE CULTU RE ampicillin <=2 ug/mL susceptib le Not Available [facility] [address] [place] [address], [phone], 06/06/2024 12:04:27 06/04/20 24 06/06/2024 URINE CULTU RE ciprofloxaci n <=1 ug/mL susceptib le Not Available [facility] [address] [place] [address], [address], 06/06/2024 12:04:27 06/04/20 24 06/06/2024 URINE CULTU RE levofloxacin <=1 ug/mL susceptib le Not Available [facility] [address] [place] [address], [phone], 06/06/2024 12:04:27 06/04/20 24 06/06/2024 URINE CULTU RE nitrofuranto in <=32 ug/mL susceptib le Not Available [facility] [address] [place] [address], [address], 06/06/2024 12:04:27 06/04/20 24 06/06/2024 URINE CULTU RE penicillin 2 ug/mL susceptib le Not Available [facility] [address] [place] [address], [address], 06/06/2024 12:04:27 06/04/20 24 06/06/2024 URINE CULTU RE rifampin 2 ug/mL intermedi ate Not Available [facility] [address] [place], [address], 06/06/2024 12:04:27 06/04/20 24 06/06/2024 URINE CULTU RE tetracycline >8 ug/mL resistant Not Available [facility] [address] [place], [address], 06/06/2024 12:04:27 06/04/20 24 06/06/2024 URINE CULTU RE vancomycin 1 ug/mL susceptib le Not Available [facility] [address] [place], [address], 06/06/2024 12:04:27 06/04/2006/04/2024 urina lysis panel , auto Unknown Analyte Clean Catch Not Available [facility] [address], [place], [address], 06/04/2024 10:05:16 06/04/20 24 06/04/2024 urina lysis panel , auto Unknown Analyte Yellow Not Available [facility] [address], [place], [address], 06/04/2024 10:05:16 06/04/20 24 06/04/2024 urina lysis panel , auto Unknown Analyte Clear Not Available [facility] [address], [place], [address], 06/04/2024 10:05:16 06/04/20 24 06/04/2024 urina lysis panel , auto Unknown Analyte 1.015 Not Available [facility] [address], [place], [address], 06/04/2024 10:05:16 06/04/20 24 06/04/2024 urina lysis panel , auto Unknown Analyte 1.003- 1.035 Not Available [facility] [address], [place], [address], 06/04/2024 10:05:16 06/04/20 24 06/04/2024 urina lysis panel , auto Unknown Analyte 5.0 Not Available [facility] [address], [place], [address], 06/04/2024 10:05:16 06/04/20 24 06/04/2024 urina lysis panel , auto Unknown Analyte 5.0-8. 0 Not Available [facility] [address], [place], [address], 06/04/2024 10:05:16 06/04/20 24 06/04/2024 urina lysis panel , auto Unknown Analyte Negati ve Not Available [facility] [address], [place], [address], 06/04/2024 10:05:16 06/04/20 24 06/04/2024 urina lysis panel , auto Unknown Analyte Negati ve Not Available [facility] [address], [place], [address], 06/04/2024 10:05:16 06/04/20 24 06/04/2024 urina lysis panel , auto Unknown Analyte Negati ve Not Available [facility] [address], [place], [address], 06/04/2024 10:05:16 06/04/20 24 06/04/2024 urina lysis panel , auto Unknown Analyte Negati ve Not Available [facility] [address], [place], [address], 06/04/2024 10:05:16 06/04/20 24 06/04/2024 urina lysis panel , auto Unknown Analyte Negati ve Not Available [facility] [address], [place], [address], 06/04/2024 10:05:16 06/04/2006/04/2024 urina lysis panel , auto Unknown Analyte Negati ve Not Available [facility] [address], [place], [address], 06/04/2024 10:05:16 06/04/20 24 06/04/2024 urina lysis panel , auto Unknown Analyte >1000 mg/dl Not Available [facility] [address], [place], [address], 06/04/2024 10:05:16 06/04/20 24 06/04/2024 urina lysis panel , auto Unknown Analyte Normal Not Available [facility] [address], [place], [address], 06/04/2024 10:05:16 06/04/2006/04/2024 urina lysis panel , auto Unknown Analyte Negati ve Not Available [facility] [address], [place], [address], 06/04/2024 10:05:16 06/04/20 24 06/04/2024 urina lysis panel , auto Unknown Analyte Negati ve Not Available [facility] [address], [place], [address], 06/04/2024 10:05:16 06/04/20 24 06/04/2024 urina lysis panel , auto Unknown Analyte Normal Not Available [facility] [address], [place], [address], 06/04/2024 10:05:16 06/04/20 24 06/04/2024 urina lysis panel , auto Unknown Analyte Normal 1 mg/dl Not Available [facility] [address], [place], [address], 06/04/2024 10:05:16 06/04/20 24 06/04/2024 urina lysis panel , auto Unknown Analyte Negati ve Not Available [facility] [address], [place], [address], 06/04/2024 10:05:16 06/04/20 24 06/04/2024 urina lysis panel , auto Unknown Analyte Negati ve Not Available [facility] [address], [place], [address], 06/04/2024 10:05:16 06/04/20 24 06/04/2024 urina lysis panel , auto Unknown Analyte Negati ve Not Available [facility] [address], [place], [address], 06/04/2024 10:05:16 06/04/20 24 06/04/2024 urina lysis panel , auto Unknown Analyte Negati ve Not Available [facility] [address], [place], [address], 06/04/2024 10:05:16 Result Notes None recorded. Problems No Known Problems Procedures Surgical History Date Name Laterality Status Provider Name and Address Organization Details Recorded Time 4 Post Void Residual; Ultrasound completed Penny Coleman [facility] 06/04/2024 10:26:54 6 Tympanogram completed MURIEL NEW, [address] [place], [address], [facility] 07/22/2016 09:43:37 6 Audiogram completed MURIEL NEW, [address] [place], [address], [facility] 07/22/2016 09:43:35 Imaging Results None recorded. Procedure Notes None recorded. Medical Equipment None Reported. Allergies No known drug allergies Medications Name Sig Start Date Stop Date Status Note LastModified by Organization Details LastModified Time celecoxib 200 mg capsule TAKE 1 CAPSULE BY MOUTH TWICE DAILY WITH FOOD active Not Available Not Available No t Available amoxicillin 500 mg capsule 07/22 completed Not Available Not Available Not Available atorvastati n 80 mg tablet TAKE 1 TABLET BY MOUTH EVERY DAY active Not Available Not Available No t Available atorvastati n 20 mg tablet active Not Available Not Available Not Available fosfomycin tromethamin e 3 gram oral packet Take 1 packet by oral route for 1 day, for UTI. 2023 active Not Available Not Available Not Avai lable hydrocodone 5 mg-acetamin ophen 325 mg tablet TAKE 1 TABLET BY MOUTH EVERY 4 HOURS NEEDED. MAY TAKE WITH TYLENOL active Not Available Not Available No t Available prednisone 20 mg tablet TAKE 1 TABLET BY MOUTH TWICE DAILY FOR 5 DAYS. TAKE WITH FOOD active Not Available Not Available No t Available clonazepam 0.5 mg tablet TAKE 1 TABLET BY MOUTH THREE TIMES DAILY active Not Available Not Available No t Available sulfamethox azole 800 mg-trimetho prim 160 mg tablet 07/22 completed Not Available Not Available Not Available amoxicillin 500 mg tablet TAKE 1 TABLET BY MOUTH TWICE DAILY FOR 10 DAYS active Not Available Not Available No t Available ketorolac 0.5 % eye drops active Not Available Not Available Not Available methocarbam ol 750 mg tablet TAKE 1 TABLET BY MOUTH THREE TIMES DAILY NEEDED FOR SPASM active Not Available Not Available No t Available tamsulosin 0.4 mg capsule Take 1 capsule every day by oral route for 30 days, for difficult y urinating . 2023 active Not Available Not Available Not Avai lable OneTouch Ultra Test strips active Not Available Not Available Not Available gemfibrozil 600 mg tablet active Not Available Not Available Not Available cephalexin 500 mg capsule TAKE 1 CAPSULE BY MOUTH TWICE DAILY FOR 10 DAYS active Not Available Not Available No t Available metformin 1,000 mg tablet TAKE 1 TABLET BY MOUTH TWICE DAILY IN THE MORNING AND IN THE EVENING active Not Available Not Available No t Available betamethaso ne dipropionat e 0.05 % topical cream APPLY A THIN LAYER TO THE AFFECTED AREA(S) TWICE A DAY FOR 2 WEEKS 2015 active Not Available Not Available Not Avai lable omeprazole 20 mg capsule,del ayed release TAKE 1 CAPSULE BY MOUTH TWICE DAILY active Not Available Not Available No t Available montelukast 10 mg tablet TAKE 1 TABLET BY MOUTH EVERY DAY active Not Available Not Available No t Available azelastine 137 mcg (0.1 %) nasal spray USE 1 SPRAY IN EACH NOSTRIL TWICE DAILY active Not Available Not Available No t Available methylpredn isolone 4 mg tablets in a dose pack 07/22 completed Not Available Not Available Not Available ondansetron 4 mg disintegrat ing tablet DISSOLVE 1 TABLET ON THE TONGUE EVERY 8 HOURS FOR 3 DAYS NEEDED active Not Available Not Available No t Available cefdinir 300 mg capsule TAKE 1 CAPSULE BY MOUTH EVERY 12 HOURS FOR 10 DAYS active Not Available Not Available No t Available fluticasone propionate 50 mcg/actuati on nasal spray,suspe nsion SHAKE LIQUID AND USE 1 SPRAY IN EACH NOSTRIL EVERY DAY FOR CONGESTIO N active Not Available Not Available No t Available escitalopra m 10 mg tablet TAKE 1 TABLET BY MOUTH EVERY DAY active Not Available Not Available No t Available Singulair active Not Available Not Rachel ilable Not Available Lexapro active Not Available Not Avail able Not Available FeroSul 325 mg (65 mg iron) tablet TAKE 1 TABLET BY MOUTH ONCE DAILY active Not Available Not Available No t Available Lantus Solostar U-100 Insulin 100 unit/mL (3 mL) subcutaneou s pen ADMINISTE R 16 UNITS UNDER THE SKIN EVERY DAY AT BEDTIME active Not Available Not Available No t Available OneTouch Delica Lancets 33 gauge active Not Available Not Available Not Available AndroGel 20.25 mg/1.25 gram per pump act. (1.62 %) transdermal gel 2016 active Not Available Not Available Not Avai lable Janumet XR 100 mg-1,000 mg tablet,exte nded release active Not Available Not Available Not Available Jardiance 25 mg tablet TAKE 1 TABLET BY MOUTH EVERY DAY active Not Available Not Available No t Available Jardiance active Not Available Not Rachel ilable Not Available Fluvirin (PF) 45 mcg (15 mcg x 3)/0.5 mL intramuscul ar syringe active Not Available Not Available N ot Available BD Ultra-Fine Micro Pen Needle 32 gauge x 1/4 USE FOR INJECTION ONE TIME A DAY active Not Available Not Available No t Available Dexcom G6 Sensor device APPLY 1 SENSOR EVERY 10 DAYS DIRECTED active Not Available Not Available No t Available Dexcom G6 Transmitter device USE DIRECTED active Not Available Not Available No t Available Ozempic 1 mg/dose (4 mg/3 mL) subcutaneou s pen injector INJECT 1 MG SUBCUTANE OUSLY ONCE WEEKLY ON SAME DAY EACH WEEK DIRECTED active Not Available Not Available No t Available Ozempic 0.25 mg or 0.5 mg (2 mg/3 mL) subcutaneou s pen injector INJECT 0.25 MG UNDER SKIN WEEKLY FOR DIABETES active Not Available Not Available No t Available OneTouch UltraSoft 2 Lancet 30 gauge USE DIRECTED TO TEST BLOOD GLUCOSE active Not Available Not Available No t Available Vitals Date Recorded Body height Body mass index (BMI) Body weight Provider Name and Address Organization Details Last Updated DateTime 06/04/2024 180.34 cm 34.9 kg/m2 622617.09 g Penny Coleman [facility] 06/04/2024 09:45:41 Date Recorded Body weight Body temperature Heart rate Body height Body mass index (BMI) Systolic And Diastolic Provider Name and Address Organization Details Last Updated DateTime 6 449889. 88 g 97.4 [degF] 72 /min 180.34 cm 37.3 kg/m2 136/71 mm[Hg] Aba Rosales [facility] 6 09:17:24 Social History Question Answer Notes LastModified by Organizat ion Details LastModified Time Tobacco Smoking Status Former Smoker no second hand exposure [facility] 09:48:52 What Was The Date Of Your Most Recent Tobacco Screening? 06/04/2024 [email or web address] Information not available 06/04/2024 What Is Your Relationship Status? Single [email or web address] Information not available 06/04/2024 Sex: Unknown Functional Status Question Answer Note LastModified by Organizat ion Details LastModified Time How many times per week do you consume alcohol? Less than 1 time per week [email or web address] Information not available 06/04/2024 Do you or have you ever used any other forms of tobacco or nicotine? Yes [email or web address] Information not available 06/04/2024 What is your level of alcohol consumption? Occasional [email or web address] Information not available 06/04/2024 Are you currently employed? No [email or web address] Information not available 06/04/2024 Do you or have you ever used e-cigarettes or vape? Never used electronic cigarettes [email or web address] Information not available 06/04/2024 Mental Status None recorded. Family History Relationship Description Onset Age of this Age Resolved Age Notes LastModified by Organization Details LastModified Time Father History of hypertension [email or web address] Not available 09:12:59 Brother Diabetes mellitus asalva Not available 2015 09:13:06 Medical History Condition Response Allergies/Hayfever Y Depression Y Anesthesia Complications N Diabetes Y Anxiety Disorder Y Bleeding Disorder N Arthritis Y Cancer N High Cholesterol Y Hypertension N Past Encounters Encounter ID Performer Location Encounter Start Date Encounter Closed Date Diagnosis/Indication Diagnosis SNOMED-CT Code Diagnosis ICD10 Code Diagnosis IMO Codes Diagnosis Note [id number] MD BRADY [facility] [address] [place] [address] 07/22/2016 08:21:09 07/22/2016 14:49:49 Eczema 09149636 L30.9 of the ear canals Sensorineu ral hearing loss of bilateral ears 929091721 H90.3 [id number] MURIEL NEW AYANA BRADY [facility] [address] [place] [address] 07/22/2016 09:43:10 07/22/2016 10:12:20 Asymmetrical sensorineural hearing loss 856316478 H90.A21 Tinnitus 99055726 H93.13 Finding of hearing aid 547603347 Z97.4 [id number] MURIEL NEW AYANA ABREU [facility]NT [address] [place] [address] 07/22/2016 11:18:10 07/22/2016 11:19:43 [id number] MURIEL NEW AYANA BRADY [facility] [address] [place] [address] 07/30/2016 15:57:25 07/30/2016 16:33:59 [id number] ARCHANA XAIO PA-C [facility] [address] [place] [address] 06/04/2024 09:07:30 07/06/2024 15:57:03 Difficulty passing urine 444379579 R39.198 Dysuria 66623839 R30.0 Lower urin torsten tract symptoms due to benign prostatic hypertrophy 0793741438 9101 N40.1 Health Concerns Section Related Observation LastModified by Organization Detai ls LastModified Time None Recorded Concern Status LastModified by Organization Details LastModified Time None Recorded Advance Directives Directive None Recorded Payers Insurance Date Sequence Insurance Name Policy Number Policy Mckeon Covered Member ID Mckeon Member ID Guarantor Name 06/01/2024 1 [place] [id number] Otto Comer [id number] Otto Comer 07/07/2024 1 [facility] (MEDICARE REPLACEMENT/A DVANTAGE - HMO) [id number] Otto Comer [id number] Otto Comer Notes Date Note Type Note Provider Name and Address Organization Details Recorded Time 07/22/2016 text/html Otto is a 56 year old male here today for a consultation of hearing loss. The patient says that he has severe high frequency hearing loss in his right ear. He does currently wear hearing aids but says that they are not high quality. He says that Dr. Durand has told him that he has scar tissue on his ear drums but he believes that he has constant fluid behind his ears. He complains that his ears are dry and flaky. The patient has been exposed to loud noises throughout his life but he has started to wear hearing protection. The patient has a history of a Septoplasty and Turbinate Reduction in the past. The patient does have seasonal allergies. He says that he was allergic to everything he was tested for. ATTILA KENNEDY MD [address] [place], [address], [facility] 07/22/2016 15:00:33 06/04/2024 text/html ROS as noted in the HPI Patient is here for my initial assessment of difficulty urinating with side pain. His past medical history is remarkable for BPH - he is s/p Green[employer] laser therapy with Dr. Rock. He also has T2DM.Patient reports the pain started last Tuesday. Patient describes the pain as affecting the anterior abdomen (left side) and he points along the transverse abdominis muscle. He says that he is able to urinate, but that he does not have a strong stream and he has dysuria. His post void residual was 99 mL. ARCHANA XIAO PA-C [address] [place], [address], [facility] 06/04/2024 19:12:52
--- OUTSIDE RECORDS SUMMARY | 2025-05-13 06:46 | XMS_ITS | Clinical Summary ---
Author Organization [employer] ([place], [place], [place], [place]) Address [address] [place] [address] Care Team Providers Care Neck Band Setter Name Role Phone Nellie Duran Primary Care Provider [phone] Allergies No known active allergies Medications Ozempic 0.25 mg or 0.5 mg (2 mg/3 mL) PnIj Inject 0.25 mg subcutaneously once a week. 4 Active montelukast (SINGULAIR) 10 mg tablet Take 1 tablet (10 mg total) by mouth nightly. 4 Active metFORMIN (GLUCOPHAGE) 1000 MG tablet Take 1 tablet (1,000 mg total) by mouth 2 (two) times daily. 4 Active Lantus Solostar U-100 Insulin 100 unit/mL (3 mL) InPn Inject 28 Units subcutaneously nightly. 4 Active fluticasone propionate (FLONASE) 50 mcg/actuation nasal spray 1 spray by Nasal route as needed for Rhinitis or Allergies. 3 Active escitalopram oxalate (LEXAPRO) 10 MG tablet Take 1 tablet (10 mg total) by mouth nightly. 4 Active Jardiance 25 mg tablet Take 1 tablet (25 mg total) by mouth in the morning. 4 Active clonazePAM (KlonoPIN) 0.5 MG tablet Take 2 tablets (1 mg total) by mouth nightly. 3 Active atorvastatin (LIPITOR) 80 MG tablet Take 1 tablet (80 mg total) by mouth nightly. 02/09/202 4 Active azelastine (ASTELIN) 137 mcg (0.1 %) nasal spray 1 spray by Nasal route 2 (two) times daily Use in each nostril as directed. Active HYDROcodone-ac etaminophen (NORCO 5-325) 5-325 mg per tablet Take 1 tablet by mouth every 4 (four) hours as needed for Pain. Max Daily Amount: 6 tablets 30 tablet Active methocarbamoL (ROBAXIN) 750 MG tablet Take 1 tablet (750 mg total) by mouth 3 (three) times daily as needed. 0 Active Active Problems Problem Noted Date Diagnosed Date Post-operative state 09/30/2023 Allergies 09/12/2023 09/12/2023 History of obstructive sleep apnea 09/12/2023 09/12/2023 Diabetes mellitus 09/12/2023 09/12/2023 History of asthma 09/12/2023 09/12/2023 Subconjunctival hemorrhage of right eye 09/12/19 24 09/12/2023 SIRS (systemic inflammatory response syndrome) 0 09/12/2023 09/12/2023 Pulmonic valve insufficiency 09/12/2023 Septic shock 09/12/2023 09/12/2023 Degenerative joint disease (DJD) of lumbar spine 09/12/2023 09/12/2023 Facet arthropathy 09/12/2023 09/12/2023 Bilateral hip pain 09/12/2023 09/12/2023 Low back pain 04/06/2023 09/12/2023 Neck pain 05/31/2022 09/12/2023 Anxiety 01/26/2022 09/12/2023 Arthritis 01/26/2022 09/12/2023 Depressive disorder 01/26/2022 09/12/2023 Hypercholesterolemia 01/26/2022 09/12/2023 Type 2 diabetes mellitus 01/26/2022 024 Intervertebral disc disorder s with radiculopathy, lumbar region 06/23/2021 09/12/2023 Overview (09/12/2023): Added automatically from request for surgery [id number] Resolved Problems Problem Noted Date Diagnosed Date Resolved Date Enlarged prostate 09/12/2023 09/12/2023 09/12/2023 Obesity (BMI 30-39.9) 09/12/2023 09/12/20232023 Sleep apnea 09/12/2023 09/12/2023 09/12/2023 Overview (09/12/2023): 1No cpap/bipap ordered per patient. Closed L5 vertebral fracture 09/12/2023 09/12/2023 09/12/2023 Social History Tobacco Use Types Packs/Day Years Used Date Smoking Tobacco: Former Cigarettes Q uit: 1998 Passive Smoke Exposure: Past Smokeless Tobacco: Former Quit: 1994 Tobacco Cessation:Counseling Given: Not Answered Alcohol Use Standard Drinks/Week Comments Yes 0 (1 standard drink = 0.6 oz pur e alcohol) occasional social drink Utilities Answer Date Recorded In the past 12 months, has t he electric, gas, oil, or water company threatened to shut off services in your home? No 09/30/2023 Food Insecurity Answer Date Recorded Within the past 12 months, y ou worried that your food would run out before you got money to buy more. Never true 09/30/2023 Within the past 12 months, t he food you bought just didn't last and you didn't have money to get more. Never true 09/30/2023 Transportation Needs Answer Date Record ed In the past 12 months, has l ack of reliable transportation kept you from medical appointments, meetings, work or from getting things needed for daily living? No 09/30/2023 Financial Resource Strain Answer Date R ecorded How hard is it for you to pa y for the very basics like food, housing, medical care, and heating? Would you say it is: Not hard at all 09/30/2023 Employment Answer Date Recorded Do you want help finding or keeping work or a job? I do not need or want help 09/30/2023 Family and Community Support Answer Torres e Recorded If for any reason you need h elp with day-to-day activities such as bathing, preparing meals, shopping, managing finances, etc., do you get the help you need? I don't need any help 09/30/2023 Feeling Lonely or Isolated 0 09/29 Educational Attainment Answer Date Kailash rded Do you speak a language other than [place] at [facility]? No 09/30/2023 Do you want help with school or training? For example, starting or completing job training or getting a high school diploma, GED or equivalent. No 09/30/2023 Physical Activity Answer Date Recorded Number of minutes of exercise per week 0 09/30/2023 Substance Use Answer Date Recorded How many times in the past y ear have you used prescription drugs for non-medical reasons? Never 09/30/2023 How many times in the past year have you used [place] legal drugs? Never 09/30/2023 Comments Unknown Sex and Gender Information Value Date Recorded Sex Assigned at Unknown 01/19/2022 4:26 PM CDT Legal Sex Male 4:26 PM CDT Gender Identity Other 01/19/2022 4:26 PM CDT Sexual Orientation Not on file Last Filed Vital Signs Vital Sign Reading Time Taken Comments Blood Pressure 125/59 10/04/2023 9:53 AM EDT Pulse 94 10/04/2023 9:53 AM EDT Temperature 37.1 C (98.8 F) 10/04/2023 9:53 AM EDT Respiratory Rate 16 10/04/2023 6:25 AM EDT Oxygen Saturation 94% 10/04/2023 9:53 AM EDT Inhaled Oxygen Concentration - - Weight 113.9 kg (251 lb) 09/30/2023 6:00 AM EST Height 180.3 cm (5' 11 ) 09/12/2023 11:59 AM EST Body Mass Index 35.01 09/12/2023 11:59 AM EST Plan of Treatment Health Maintenance Due Date Last Done Comments CT Colonography 1960 Colonoscopy 1960 Colorectal Cancer Screening 1960 Diabetic Kidney Health Evaluation (KED) 1958 FOBT/FIT 1958 Fit-DNA (Cologuard) 1958 Sigmoidoscopy 1958 Diabetic Eye Exam 1968 Hepatitis C Screening 1976 Pneumococcal 50+ years (1 of 2 - PCV) 1977 Shingles Vaccine (Zoster) (1 of 2) 2008 Respiratory Syncytial Virus (RSV) Adult or (1 - Risk 60-74 years 1-dose series) 2018 Hemoglobin A1C 04/01/2024 09/30/2023 Falls Risk Screening 07/25/2024 Tobacco Cessation Counseling and Screening (12+) 09/2909/30/2023 COVID-19 VACCINE (2 - season) 03/25/202501/2021 Influenza Vaccine (#1) 2025 04/13/2023 DTAP/TDAP/TD VACCINES (2 - Td or Tdap) 11/06/2027 Medical Devices Implanted Type Area [facility] Health Services Manager Device Identifier Shelf Expiration Date Model / Serial / Lot Fibergraft Mtrx 12.5cc [id number] - [id number] Implanted:Qty: 1 on 09/30/2023 by Adam Guerrier MD at [facility] IMPLANTS N/A: Spine Lumbar [employer] 05/03/2026 [id number] / / [id number] Bone Vivigen Frmble Cell 10cc -1600-003 - [id number] Implanted:Qty: 1 on 09/30/2023 by Adam Guerrier MD at [facility] IMPLANTS N/A: Spine Lumbar LIFENET:LIFENET TRANSPLANT SRV 09/13/2024 BL-[id number] / / [id number] Robbie Pre Load 95mm - - [id number] Implanted:Qty: 2 on 09/30/2023 by Adam Guerrier MD at [facility] IMPLANTS N/A: Spine Lumbar J &J:DEPUY:DEPUY SPINE / / Scr Spne Hayden Fix 6x40mm - [id number] Implanted:Qty: 2 on 09/30/2023 by Adam Guerrier MD at [facility] IMPLANTS N/A: Spine Lumbar J &J:DEPUY:DEPUY SPINE / / Scr Spne Hayden Fix 6x50mm - [id number] Implanted:Qty: 4 on 09/30/2023 by Adam Guerrier MD at [facility] IMPLANTS N/A: Spine Lumbar J &J:DEPUY:DEPUY SPINE / / Scr Spne Hayden Fix 6x55mm - [id number] Implanted:Qty: 2 on 09/30/2023 by Adam Guerrier MD at [facility] IMPLANTS N/A: Spine Lumbar J &J:DEPUY:DEPUY SPINE / / Mis Melisa Ply Scrw Set Ti - [id number] Implanted:Qty: 8 on 09/30/2023 by Adam Guerrier MD at [facility] IMPLANTS N/A: Spine Lumbar J &J:DEPUY:DEPUY SPINE / / Explanted Type [facility] Manager Device Identifier Shelf Expiration Date Model / Serial / Lot Scr Spne Hayden Fix 6x30mm - [id number] Explanted:Qty : 1 on 09/30/2023 at [facility] IMPLANTS N/A: Spine Lumbar J &J:DEPUY:DEPUY SPINE 30 / 30 / Scr Spne Hayden Fix Fen 6x45mm - [id number] Explanted:Qty : 1 on 09/30/2023 at [facility] IMPLANTS N/A: Spine Lumbar J &J:DEPUY:DEPUY SPINE 45 / 45 / Procedures Procedure Name Priority Date/Time Associated Diagnosis Comments HEMOGLOBIN A1C STAT 09/30/2023 6:51 AM EST from Last 3 Months or Most Recently Relevant to Health Maintenance Results * Hemoglobin A1c (09/30/2023 6:51 AM EST) Hemoglobin A1C 7.4 % 09/30/2023 12:20 PM EST [facility] Comment: Hemoglobin A1C levels are related to mean glucose during the preceding 2-3 months. Less than 7% demonstrates glycemic control in diabetic patients. Hemoglobin AlC % Suggested Diagnosis > or = 6.5 Diabetic 5.7 - 6.4 Prediabetic <5.7 Non-diabetic eAVG Glucose 165.68 mg/dL 09/30/2023 12:20 PM EST [facility] Blood Venipuncture / Unknown 09/30/2023 6:51 AM EST 09/30/2023 6:59 AM EST us Adam Guerrier MD LAB BLOOD ORDERABLES F inal Result [facility] [address] [id number] [phone] from Last 3 Months or Most Recently Relevant to Health Maintenance Insurance [facility] DUAL COMPLETE MCR ADV Advance Directives For more information, please contact: [phone] * Full Code (Latest Code Status on File) Date Activated Date Inactivated Comments 09/30/2023 4:20 PM 10/04/2023 1:40 PM Care Teams Neck Band Setter Relationship Specialty Start Date End Date Nellie Duran [address] [place] [address] PCP - General 09/12/23
--- OUTSIDE RECORDS SUMMARY | 2025-05-13 06:46 | XMS_ITS ---
Care Plan - [facility], [facility] Created on: May 13, 2025 ReynavamsiDeboOtto : 1960 Sex: Male Author Organization [facility] Address [address] [place] [address] Phone Care Team Providers Care Cheese Pancake Roller Name Role Phone Maxim WINSTON, Iron Oshea Unavailable [phone] Nellie Duran APRN Unavailable [phone] Rodrigue Reece MD Primary Care Provider Unavailabl e
--- OUTSIDE RECORDS SUMMARY | 2025-05-13 06:46 | XMS_ITS ---
Author Organization [facility] , [facility] Address [address] [facility] [place] [address] Phone Care Team Providers Care Family Preservation Worker Name Role Phone Maxim WINSTON, Iron Oshea Unavailable [phone] Nellie Duran APRN Unavailable [phone] Rodrigue Reece MD Primary Care Provider Unavailabl e Reason for Referral Date Encounter Description Provider Reason for Referral 05/20/22 Physician Specified Faby Rodriguez PA -C Referral To Physician Problems Includes: Active, inactive, and resolved Problems All Visits Onset Date Resolved Date Provider Condition S tatus Lower Back Pain 04/06/2023 WOLF GONZALEZ PA-C Active Last Documented On 3 11:22AM ; [facility], [facility] Neck Pain 05/31/2022 Adam Guerrier MD Active Last Documented On 2 10:13AM ; [facility] Joint Pain Shoulder Right 05/20/2022 Faby Guptayd PA-C Active Last Documented On 2 9:03AM ; [facility], [facility] Joint Pain Shoulder Left 05/20/2022 Faby Rodriguez PA-C Active Last Documented On 2 8:59AM ; [facility] Plan of Treatment Findings Encounter Date Patient screened for future fall risk: documentation of any fall with injury in past year Follow Up with Iron Pan MD 02/18/2025 Last Documented On 5 1:25PM ; [facility] Patient screened for future fall risk: documentation of any fall with injury in past year Follow Up with Adam Guerrier MD 08/11/2024 Last Documented On 5 4:15PM ; [facility] Patient screened for future fall risk: documentation of any fall with injury in past year Follow Up with Adam Guerrier MD 03/28/2024 Last Documented On 4 6:13PM ; [facility] Patient screened for future fall risk: documentation of any fall with injury in past year Post Op with Adam Guerrier MD 12/21/2023 Last Documented On 4 10:39AM ; [facility] Pending Tests Order Diagnosis Results Due Ordering P carmen Procedure/Tests EMG 06/14/22 Adam Gibson MD Last Documented On 2 2:09PM ; [facility], [facility] Procedure/Tests Nerve Conduction Study 06/14/22 Adam Guerrier MD Last Documented On 2 2:09PM ; [facility] Radiology - MRI MRI Shoulder 12/08/22 Iron Pan MD Last Documented On 3 7:41AM ; [facility] Radiology - MRI MRI Lumbar Spine Low back pain, unspecified 04/20/23 WOLF GONZALEZ PA-C Last Documented On 3 11:41AM ; [facility], [facility] Radiology - CT Scan Lumbar Low back benedict n, unspecified 08/30/23 Adam Guerrier MD Last Documented On 4 4:14PM ; [facility], [facility] Future Appointments Date Time Location Provi matilde Follow Up 05/20/2025 9:30AM [facility] Iron Pan MD Last Documented On 5 11:14AM ; [facility] Instructions to patient Lose weight Last Documented On 5 12:53PM ; [facility] Lose weight Last Documented On 5 1:33PM ; [facility] Lose weight Last Documented On 5 8:25AM ; [facility] Lose weight Last Documented On 4 1:46PM ; [facility] Lose weight Last Documented On 4 1:56PM ; [facility] Lose weight Last Documented On 4 1:46PM ; [facility] Lose weight Last Documented On 4 12:49PM ; [facility] Lose weight Last Documented On 4 10:56AM ; [facility] Lose weight Last Documented On 4 8:30AM ; [facility] Lose weight Last Documented On 3 10:45AM ; [facility] Lose weight Last Documented On 3 1:37PM ; [facility] Lose weight Last Documented On 3 8:38AM ; [facility] Lose weight Last Documented On 3 1:04PM ; [facility] Lose weight Last Documented On 3 12:58PM ; [facility] Lose weight Last Documented On 3 2:55PM ; [facility] Lose weight Last Documented On 3 9:40AM ; [facility] Lose weight Last Documented On 3 12:59PM ; [facility] Lose weight Last Documented On 3 2:01PM ; [facility] Lose weight Last Documented On 3 12:57PM ; [facility] Lose weight Last Documented On 3 10:42AM ; [facility] Lose weight Last Documented On 2 1:13PM ; [facility] Lose weight Last Documented On 2 10:30AM ; [facility] Lose weight Last Documented On 2 10:40AM ; [facility] Lose weight Last Documented On 2 9:04AM ; [facility] Assessments Includes: Assessments for all patient encounters Findings Encounter Date Overweight Follow Up with Iron rosado MD 02/18/2025 Last Documented On 5 1:25PM ; [facility] Overweight Follow Up with Adam Rosenbaum MD 08/11/2024 Last Documented On 5 4:15PM ; [facility] Overweight Follow Up with Adam Rosenbaum MD 03/28/2024 Last Documented On 4 6:13PM ; [facility] Overweight Post Op with Adam hollis MD 12/21/2023 Last Documented On 4 10:39AM ; [facility] Overweight Post Op with Adam hollis MD 11/08/2023 Last Documented On 4 10:24AM ; [facility] Overweight Post Op with Adam hollis MD 10/12/2023 Last Documented On 4 1:26PM ; [facility] Overweight Follow Up with Adam Rosenbaum MD 08/16/2023 Last Documented On 4 4:49PM ; [facility] Overweight Follow Up with Iron rosado MD 08/08/2023 Last Documented On 4 1:56PM ; [facility] Overweight Follow Up with WOLF JOAQUIN -Gamaliel 07/13/2023 Last Documented On 3 11:33AM ; [facility] Overweight Follow Up with WOLF GONZALEZ PA -C 05/11/2023 Last Documented On 3 3:46PM ; [facility] Overweight Follow Up with WOLF GONZALEZ PA -C 04/06/2023 Last Documented On 3 11:41AM ; [facility] Instructions Includes: Instructions for all patient encounters Instructions to patient Lose weight Last Documented On 5 12:53PM ; [facility] Lose weight Last Documented On 5 1:33PM ; [facility] Lose weight Last Documented On 5 8:25AM ; [facility] Lose weight Last Documented On 4 1:46PM ; [facility] Lose weight Last Documented On 4 1:56PM ; [facility] Lose weight Last Documented On 4 1:46PM ; [facility] Lose weight Last Documented On 4 12:49PM ; [facility] Lose weight Last Documented On 4 10:56AM ; [facility] Lose weight Last Documented On 4 8:30AM ; [facility] Lose weight Last Documented On 3 10:45AM ; [facility] Lose weight Last Documented On 3 1:37PM ; [facility] Lose weight Last Documented On 3 8:38AM ; [facility] Lose weight Last Documented On 3 1:04PM ; [facility] Lose weight Last Documented On 3 12:58PM ; [facility] Lose weight Last Documented On 3 2:55PM ; [facility] Lose weight Last Documented On 3 9:40AM ; [facility] Lose weight Last Documented On 3 12:59PM ; [facility] Lose weight Last Documented On 3 2:01PM ; [facility] Lose weight Last Documented On 3 12:57PM ; [facility] Lose weight Last Documented On 3 10:42AM ; [facility] Lose weight Last Documented On 2 1:13PM ; [facility] Lose weight Last Documented On 2 10:30AM ; [facility] Lose weight Last Documented On 2 10:40AM ; [facility] Lose weight Last Documented On 2 9:04AM ; [facility] Medical Equipment - Implanted Devices Includes: Current and historical Devices No Medical Equipment Recorded Medications Includes: Current and historical Medications Current Medications (continue as prescribed) clonazePAM 0.5 MG Oral Tablet 02/06/2025 Provider: Nellie Duran APRN Diagnosis: Last Documented On 5 12:53PM By Kusum Stokes ; [facility] Montelukast Sodium 10 MG Oral Tablet 02/06/2025 Prov ider: Nellie Chindeb [employer] Diagnosis: Last Documented On 5 12:53PM By Kusum Stokes ; [facility] Escitalopram Oxalate 10 MG Oral Tablet 02/06/2025 Pr ovider: Haidera ymrodrick [employer] Diagnosis: Last Documented On 5 12:53PM By Kusum Stokes ; [facility] Atorvastatin Calcium 80 MG Oral Tablet 02/06/2025 Pr ovider: Yasminebryonjosep Chindeb [employer] Diagnosis: Last Documented On 5 12:53PM By Kusum Stokes ; [facility] Omeprazole 20 MG Oral Capsule Delayed Release 03/14/20 24 Provider: Diagnosis: Last Documented On 4 6:12PM By Adam Guerrier ; [facility] FeroSul 325 (65 Fe) MG Oral Tablet 03/05/2024 Provid er: Nellie Duran [employer] Diagnosis: Last Documented On 4 6:12PM By Adam Guerrier ; [facility] Jardiance 25 MG Oral Tablet 03/02/2024 Provider: Nellie Duran [employer] Diagnosis: Last Documented On 4 6:12PM By Adam Guerrier ; [facility] Celecoxib 200 MG Oral Capsule 02/16/2024 Provider: Nellie Duran [employer] Diagnosis: Last Documented On 4 6:13PM By Adam Guerrier ; [facility] Lantus SoloStar 100 UNIT/ML Subcutaneous Solution Pen-injector 02/16/2024 Provider: Nellie Duran APR N Diagnosis: Last Documented On 4 6:13PM By Adam Guerrier ; [facility] Past Medications on file Atorvastatin Calcium 80 MG O ral Tablet 03/09/2024 - 02/18/2025 Provider: Nellie Mott PRN Diagnosis: Last Documented On 5 3:18PM By Iron Pan ; [facility] Escitalopram Oxalate 10 MG O ral Tablet 03/02/2024 - 02/18/2025 Provider: Nellie Mott PRN Diagnosis: Last Documented On 5 3:18PM By Iron Pan ; [facility] HYDROcodone-Acetaminophen 5- 325 MG Oral Tablet 10/26/2023 - 11/02/2023 Provider: Adam Guerrier MD Diagnosis: Intervertebral d isc disorders w radiculopathy, lumbar region Take 1 tablet PO Q4H, NEE DED-may take with tylenol Last Documented On 4 11:12AM By Adam Guerrier ; [facility] Atorvastatin Calcium 80 MG O ral Tablet 05/03/2023 - 08/03/2023 Provider: Nellie Mott PRN Diagnosis: Last Documented On 4 6:11PM By Adam Guerrier ; [facility] Montelukast Sodium 10 MG Ora l Tablet 04/29/2023 - 05/30/2023 Provider: Nellie Mott PRN Diagnosis: Last Documented On 4 6:11PM By Adam Guerrier ; [facility] Jardiance 25 MG Oral Tablet 04/29/2023 - 05/30/2023 Pr ovider: Nellie Duran [employer] Diagnosis: Last Documented On 4 6:11PM By Adam Guerrier ; [facility] Mupirocin 2% External Ointment 04/18/2023 - 04/28/2023 Provider: Nellie Duran [employer] Diagnosis: Last Documented On 4 6:12PM By Adam Guerrier ; [facility] rOPINIRole HCl 0.5 MG Oral Tablet 04/13/2023 - 023 Provider: Diagnosis: Last Documented On 4 6:12PM By Adam Guerrier ; [facility] Lantus SoloStar 100 UNIT/ML Subcutaneous Solution Pen-injector 04/13/2023 - 06/13/2023 Provider: Nellie Mott PRN Diagnosis: Last Documented On 4 6:12PM By Adam Guerrier ; [facility] Escitalopram Oxalate 10 MG O ral Tablet 04/12/2023 - 05/12/2023 Provider: Nellie Mott PRN Diagnosis: Last Documented On 4 6:12PM By Adam Guerrier ; [facility] clonazePAM 0.5 MG Oral Tablet 04/05/2023 - 05/05/2023 Provider: Nellie Duran [employer] Diagnosis: Last Documented On 4 6:12PM By Adam Guerrier ; [facility] Celecoxib 200 MG Oral Capsule 03/24/2023 - 03/28/2024 Provider: Nellie Duran APRN Diagnosis: Last Documented On 4 6:12PM By Adam Guerrier ; [facility] Ozempic (1 MG/DOSE) 4 MG/3ML Subcutaneous Solution Pen-injector 01/12/2023 - 02/11/2023 Provider: Diagnosis: Last Documented On 4 6:12PM By Adam Guerrier ; [facility] Montelukast Sodium 10 MG Ora l Tablet 12/07/2022 - 01/07/2023 Provider: Nellie Mott PRN Diagnosis: Last Documented On 3 3:44PM By Darius Gonzalez ; [facility] Methocarbamol 500 MG Oral Tablet 12/07/2022 - 01/08/20 23 Provider: Diagnosis: Last Documented On 4 6:12PM By Adam Guerrier ; [facility] metFORMIN HCl 1000 MG Oral Tablet 12/07/2022 - 01/07/2023 Provider: Nellie Mott PRN Diagnosis: Last Documented On 4 6:12PM By Adam Guerrier ; [facility] Atorvastatin Calcium 80 MG O ral Tablet 11/29/2022 - 12/30/2022 Provider: Nellie Mott PRN Diagnosis: Last Documented On 3 3:44PM By Darius Gonzalez ; [facility] Escitalopram Oxalate 10 MG O ral Tablet 05/18/2022 - 08/18/2022 Provider: HARRIET REECE MD Diagnosis: Last Documented On 3 3:44PM By Darius Gonzalez ; [facility] rOPINIRole HCl 0.5 MG Oral Tablet 05/17/2022 - 022 Provider: Diagnosis: Last Documented On 3 3:44PM By Darius Gonzalez ; [facility] Ozempic (0.25 or 0.5 MG/DOSE ) 2 MG/1.5ML Subcutaneous Solution Pen-injector 05/17/2022 - 01/12/2023 Provider: Ra ANDRE RN Diagnosis: Last Documented On 3 1:01PM By Yolanda Boyer ; [facility] Janumet XR 100-1000 MG Oral Tablet Extended Release 24 Hour 05/13/2022 - 06/13/2022 Provider: HARRIET BACA MD Diagnosis: Last Documented On 3 3:43PM By Darius Gonzalez ; [facility] Jardiance 25 MG Oral Tablet 05/13/2022 - 06/13/2022 Pr ovider: HARRIET REECE MD Diagnosis: Last Documented On 3 3:43PM By Darius Gonzalez ; [facility] Medications Administered Includes: Administered Medications in patient's chart No Administered Medications Recorded Vital Signs Includes: Vital Signs from 05/13/2024 through 05/13/2025 Vital Name 02/18/2025 12:53P 09/19/2024 01:33P 08/11 08:49A Height (in) 71 71 71 Weight (lb) 247 247 247.6 Body Mass Index 34.4 34.4 34.5 Body Surface Area 2.3 2.3 2.3 Pain Level 4 Note: hernan blankenship Last Documented: On 02/18/2025 12:53P M ; [facility] On 09/19/2024 1:33PM ; [facility] On 08/11/2024 8:49AM ; [facility] Results Includes: Results from 05/13/2024 through 05/13/2025 No Results Recorded For Specified Dates History of Present Illness History of Present Illness not supported for this document type No History of Present Illness Recorded Social History Description Last Updated Not a current smoker. 09/13/2022 Last Documented On 3 4:01PM ; [facility] Caffeine use 08/26/2022 Last Documented On 3 1:30PM ; [facility] Not exercising regularly 08/26/2022 Last Documented On 3 1:30PM ; [facility] Not using alcohol former 08/26/2022 Last Documented On 3 1:30PM ; [facility] Not using drugs 08/26/2022 Last Documented On 3 1:30PM ; [facility] Recent change in diet 08/26/2022 Last Documented On 3 1:30PM ; [facility] Tobacco non-user 08/26/2022 Last Documented On 3 1:30PM ; [facility] Smoking Status Unknown Procedures and Surgical History Includes: Procedures from 05/13/2024 through 05/13/2025 Procedures Code Diagnosis Performing Provider Service Location Service Date Triamcinolone/Paco alog, 10mg per cc [id number] Pain in right shoulder Iron Pan MD [facility] 02/18/2025 Last Documented On 5 11:08AM ; [facility] DRAIN/INJECT, JOINT/BURSA (RIGHT) 98809 Pain in right shoulder Iron Pan MD [facility] 02/18/2025 Last Documented On 5 11:08AM ; [facility] DRAIN/INJECT, JOINT/BURSA (LEFT) 79248 Pain in left shoulder Iron Pan MD [facility] 09/19/2024 Last Documented On 5 1:49PM ; [facility] Triamcinolone/Kenalog, 10mg per cc J3301 Pain in left shoulder Iron Pan MD [facility] 09/19/2024 Last Documented On 5 1:49PM ; [facility] INJECT SACROILIAC JOINT (LEFT) 91401 Sacroiliitis, not elsewhere classified Adam Guerrier MD [facility] 08/21/2024 Last Documented On 5 1:40PM ; [facility] Triamcinolone/Kenalog, 10mg per cc [id number] Sacroiliitis, not elsewhere classified Adam Guerrier MD [facility] 08/21/2024 Last Documented On 5 1:40PM ; [facility] X-RAY EXAM OF LOWER SPINE 4-5 VIEWS [id number] Fusion of spine, lumbar region Adam Guerrier MD [facility] 08/11/2024 Last Documented On 5 9:06AM ; [facility] Surgical History Last Updated History of back surgery 02/2024 L3-5 Decompression, L3-S1 Fusion @ [facility] 10/12/2023 Last Documented On 4 1:26PM ; [facility] History of total knee arthroplasty 08/26 Last Documented On 3 1:30PM ; [facility] Medical History Includes: Medical History in patient's chart Description Last Updated History of arthritis 08/26/2022 Last Documented On 3 1:30PM ; [facility] History of depression 08/26/2022 Last Documented On 3 1:30PM ; [facility] History of diabetes mellitus 08/26/2022 Last Documented On 3 1:30PM ; [facility] No recent immunization for flu 3 Last Documented On 3 1:30PM ; [facility] No recent immunization for pneumococcal pneumonia 08/26/2022 Last Documented On 3 1:30PM ; [facility] Family History Includes: Family History in patient's chart Description Last Updated No significant family history 08/26/2022 Last Documented On 3 1:30PM ; [facility] Review of Systems Review of Systems not supported for this document type No Review of Systems Recorded Mental Status Description Anxiety Functional Status No Functional Status Recorded Physical Exam Physical Exam not supported for this document type No Physical Exam Recorded Immunizations Includes: Immunizations in patient's chart Vaccine Dose # Date Site Reaction(s) Status Source Influenza 1 05/20/2022 Complete (Refused - Patient objection) [facility] Last Documented On 2 9:06AM ; [facility] PCV (Pneumovax 23) 1 05/20/2022 Complete (Refused - Patient objection) [facility] Last Documented On 2 9:06AM ; [facility] Td 1 05/20/2022 Complete (Refused - Patient objection) [facility] Last Documented On 2 9:06AM ; [facility] Allergies Includes: Active, inactive, and resolved Allergies No Known Allergies Encounters Includes: Encounters from 05/13/2024 through 05/13/2025 Encounter Provider Location Date Check-In Time Check-Out Time Diagnosis Follow Up Iron Pan MD [facility] 02/19/20 12:45PM 12:57PM Overweight Follow Up Iron Pan MD [facility] 09/19/19 1:32PM 1:45PM SI joint injection WOLF GONZALEZ PA-C [facility] 08/21/19 25 08/11/2024 1:00PM 1:14PM Follow Up Adam arevalo MD [facility] 08/11/19 8:15AM 9:37AM Overweight Insurance Includes: Active Insurance Policies Plan Name Member ID Group # Subscriber Relationship Effect alok Dates 1 - [facility] /MEDICARE [id number] Otto Comer Self 07/25/2024 - Unknown Clinical Notes Includes: Signed Clinical Notes starting from 07/08/2022 * Progress note Date Encounter Last Documented by 02/18/2025 Follow Up Last documented on 02/25/2025; 1:25 PM, Iron Pan MD; [facility] Active Problems & Conditions - Joint Pain, [...] Problem list reviewed - Medication list reviewed - Review of medications documented Patient is here for his bilateral shoulders. He states the pain has become more significant over the last few months on the right side e. He has also had a slight increase in his pain and trouble lifting on the right side. On the left side he had an MRI in 2022 which showed a significant rotator cuff tear near the myotendinous junction. He states the pain in the left side is tolerable. He states the pain on the right side is intolerable at this point. Current Medication - Atorvastatin Calcium 80 MG Oral Tablet 90 days, 0 refills - Celecoxib 200 MG Oral Capsule twice a day 90 days, 0 refills - clonazePAM 0.5 MG Oral Tablet 30 days, 0 refills - Escitalopram Oxalate 10 MG Oral Tablet 90 days, 0 refills - FeroSul 325 (65 Fe) MG Oral Tablet once a day 30 days, 0 refills - Jardiance 25 MG Oral Tablet once a day 30 days, 0 refills - Lantus SoloStar 100 UNIT/ML Subcutaneous Solution Pen-injector use as directed 50 days, 0 refills - Montelukast Sodium 10 MG Oral Tablet 90 days, 0 refills - Omeprazole 20 MG Oral Capsule Delayed Release twice a day 30 days, 0 refills Past Medical/Surgical History Diagnoses: Diabetes mellitus. Arthritis. Depression Surgical: - Back surgery 09/30/2023 L3-5 Decompression, L3-S1 Fusion @ [facility] - Total knee arthroplasty Social History Not a current smoker. Current diet: Recent change in diet. Behavioral: Tobacco non-user. Caffeine: Caffeine use. Alcohol: Not using alcohol former. Drug Use: [...] allergic reaction. Physical Findings - Vitals taken 02/18/2025 12:53 pm ah Height 71 in Weight 247 lbs Body Mass Index 34.4 kg/m2 Body Surface Area 2.3 m2 Right side: Alert and oriented x 3, Skin intact, No gross deformity, no atrophy of rotator cuff musculature, Sensation intact to light touch through upper extremity. Fingers warm well perfused. Impingement testing positive. Range of motion limited by pain. Weakness to supraspinatus and infraspinatus strength testing. Subscapularis testing negative. Positive biceps signs to speeds and upper cut testing. Assessment - Overweight Bilateral shoulder pain [id number]-left in a 64-year-old gentleman with a 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 Previous Tests Imaging: X-Ray: X-ray. MRI Scan: An MRI was performed. Counseling/Education Tobacco non-user. use of tobacco assessment performed. - Lose weight Plan Patient screened for future fall risk: documentation of any fall with injury in past year. Fall Risk Assessment: This patient has been identified as a fall risk. Balance/gait along with postural blood pressure, vision and home fall hazards have been assessed. Medications have been reviewed, and recommendations made with regard to contributing factors for future falls. Plan of care: Consideration of vitamin D supplementation along with balance and strength training with consideration for formal physical therapy has been discussed with the patient. At this point he is not ready to undergo anything invasive from a surgical or interventional standpoint. He is looking for pain relief and potentially would discuss something more as it pertains of the right side should he have issues in the future. We will inject him. He understands the risks associated with repeated injections and the potential for further degeneration of rotator cuff tissue. Procedure note: Right shoulder: The risk and benefits of the [...] software and may contain errors and omissions. Care Team - Nellie Duran APRN - CHECKER CASHIER * Progress note Date Encounter Last Documented by 09/19/2024 Follow Up Last documented on 09/25/2024; 12:48 PM, Iron Pan MD; [facility], [facility] Active Problems & Conditions - Joint Pain, [...] surgery 09/30/2023 L3-5 Decompression, L3-S1 Fusion @ [facility] - Total knee arthroplasty Social History Not [...] Care Team - Nellie Duran APRN - CHECKER CASHIER * Progress note Date Encounter Last Documented by 08/21/2024 SI joint injection Last document ed on 09/26/2024; 9:58 AM, WOLF GONZALEZ PA-C; [facility], [facility] Plan Diagnosis: SI Joint OA Procedure: Patient presents today for injection into the Left SI joint under fluoroscopy. Patient was placed on the fluoroscopy table. Patient was examined determining the localized area of pain over the left SI joint. Once this was performed the skin was then prepped with ChloraPrep and skin anesthetized with 1% lidocaine. Fluoroscopic guidance was used to place the 22-gauge needle into the sacroiliac joint at the most painful area. At that point a small amount of contrast was injected to confirm placement within the joint. And once confirmed an injection of bupivacaine and 40 mg of Kenalog was injected. Patient tolerated the procedure well. Sterile dressing was placed over the puncture site. And patient left the procedure room in stable condition. Follow-up evaluation approximately 10 minutes postprocedure revealing- % pain relief Patient could not tell if he had any relief yet. Patient will let us know his relief at his follow up. Notes This dictation was done with voice recognition software and may contain errors and omissions. * Progress note Date Encounter Last Documented by 08/11/2024 Follow Up Last documented on 09/28/2024; 4:15 PM, Adam Rosenbaum MD; [facility], [facility] Active Problems & Conditions - Joint Pain, Localized in the Left Shoulder - Joint Pain, Localized in the Right Shoulder - Lower Back Pain - Neck Pain Chief Complaint The Chief Complaint is: Low back pain. Referred Here Referred by PCP. History of Present Illness Otto Comer is a 64 year old male. - Allergy list reviewed - Problem list reviewed - Medication list reviewed - Previous history of new onset pain Injury is not work related or an automotive accident - Patient pain level from 1-10: 5 - Yes, previous treatment. - History of Physical Therapy @ [facility] - History of Home Exercise - History of Injections 12/28/2022 Arnie L4-S1 Facet 03/10/2023 Left SI Joint Inj 05/25/2023 L3-4 MARISSA - - Review of medications documented Medications used for this condition: This is a 64-year-old man following up with me on low back pain. He says he has pain in the left more so than the right buttock. That is worse with certain movements and relieved by rest. Current Medication - Atorvastatin Calcium 80 MG [...] surgery 09/30/2023 L3-5 Decompression, L3-S1 Fusion @ [facility] - Total knee arthroplasty Social History Not [...] allergic reaction. Physical Findings - Vitals taken 08/11/2024 08:49 am mbb Height 71 in Weight 247 lbs 9.6 oz Body Mass Index 34.5 kg/m2 Body Surface Area 2.3 m2 Pain Level 4 Standard Measurements: - Patient was overweight. General: Alert and Oriented A&Ox3 Focused Musculoskeletal Exam of the Spine: Patient is able to ambulate in the room without assistive device No focal tenderness to palpation in the Lumbar Spine Motor HF KE AD EHL GS Right 5/5 5/5 5/5 5/5 5/5 Left 5/5 5/5 5/5 5/5 5/5 Sensation L2 L3 L4 L5 S1 Right 2 2 2 2 2 Left 2 2 2 2 2 Patellar reflex is 2+ bilaterally Achilles reflex is 2+ bilaterally No ankle clonus Symmetric, palpable posterior tibialis pulse bilaterally Positive left Gaenslen's, JUAN, thigh thrust. Significant pain with passive internal rotation of the left hip Tests Lumbar Spine X-ray Ap, Lateral, Flexion, and Extension views of the lumbar spine were obtained in the office today there is instrumented fusion from L3-S1 with no obvious hardware failure or loosening User Defined 5 Fall Risk Assessment: This patient has been identified as a fall risk. Balance/gait along with postural blood pressure, vision and home fall hazards have been assessed. Medications have been reviewed, and recommendations made with regard to contributing factors for future falls. Plan of care: Consideration of vitamin D supplementation along with balance and strength training with consideration for formal physical therapy has been discussed with the patient. This is a 64-year-old man status post L3-S1 posterolateral fusion for a chronic L5 compression/burst fracture. It was nice seeing Otto in the office today. I told him that I would recommend a left sacroiliac joint injection, physical therapy, and evaluation by a hip specialist. He asked if he could see Dr. Murillo or his team and I told him that would be just fine. Assessment - Overweight Previous Tests Laboratory Studies: Neuro-Electrical Functions: EMG 06/25/2022 BLE @ [facility]. Imaging: X-Ray: X-ray 08/02/2022 LSpine @ [facility] 12/15/2022 LSpine @ [facility] 11/08/2023 LSpine @ [facility] 12/21/2023 LSpine @ [facility] 03/28/2024 LSpine @ [facility]. MRI Scan: An MRI was performed 05/24/2022 Emanuel @ [facility]. Counseling/Education - Tobacco non-user - Use of tobacco assessment performed - Lose weight Plan StartCited - Overweight Therapy/Physical Therapy: Lumbar Instructions: See PT order attached EndCited - Patient screened for future fall risk: documentation of any fall with injury in past year Fall Risk Assessment: This patient has been identified as a fall risk. Balance/gait along with postural blood pressure, vision and home fall hazards have been assessed. Medications have been reviewed, and recommendations made with regard to contributing factors for future falls. Plan of care: Consideration of vitamin D supplementation along with balance and strength training with consideration for formal physical therapy has been discussed with the patient. Practice Management Use of tobacco assessment performed and patient screened for future fall risk documentation of any fall with injury in past year Review of medications documented. Care Team - Nellie Duran APRN - CHECKER CASHIER Notes This dictation was done with voice recognition software and may contain errors and omissions. Health Reminders - Assess BMI satisfied 08/11/2024. - Assess Tobacco Use satisfied 08/26/2022. - Follow Up Plan BMI Management satisfied 08/11/2024.
--- OUTSIDE RECORDS SUMMARY | 2025-05-13 06:46 | XMS_ITS | Data Portability ---
Author Organization [facility] Address [address] [place] [phone] Assessment No assessment recorded. Plan of Treatment Reminders Order Date Submit Date Provider Last Modified By Organization Details Last Modified Time Details Appointments None recorded. Lab None recorded. Referral None recorded. Procedures None recorded. Surgeries None recorded. Imaging XR, knee 2024 025 kristina [facility], [address] [place] [address] [place], [address], 5 16:06:47 Medication Orders Kenalog 10 mg/mL suspension for injection [address] [place], [place] [id number], [address], [phone], 5 16:06:47 bupivacaine (PF) 0.5 % (5 mg/mL) injection solution [address] [place], [place] [address] [employer] [facility] #[id number], [phone], 5 16:06:47 Patient TargetsNo targets recorded. Patient InstructionsNo instructions recorded. Reason for Referral None Reported. Results Created Date Observation Date Name Description Value Unit Range Abnormal Flag Note LastModifiedBy Organization Detail LastModifiedTime 01/22/20 25 XR, knee No observ ation record ed. IRENE [address] [place], [address], 01/21/2025 14:25:56 Result Notes None recorded. Medical Equipment None Reported. Allergies No known drug allergies Medications Name Sig Start Date Stop Date Status Note LastModified by Organization Details LastModified Time celecoxib 200 mg capsule TAKE 1 CAPSULE BY MOUTH TWICE DAILY WITH FOOD active Not Available Not Available No t Available amoxicillin 500 mg capsule TAKE 1 CAPSULE BY MOUTH TWICE DAILY FOR 10 DAYS active Not Available Not Available No t Available atorvastatin 80 mg tablet TAKE 1 TABLET BY MOUTH EVERY DAY active Not Available Not Available No t Available doxycycline hyclate 100 mg capsule TAKE 1 CAPSULE BY MOUTH TWICE DAILY FOR 14 DAYS active Not Available Not Available No t Available fosfomycin tromethamine 3 gram oral packet TAKE 1 PACKET DIRECTED FOR 1 DOSE active Not Available Not Available N ot Available ibuprofen 800 mg tablet TAKE 1 TABLET BY MOUTH EVERY 6 HOURS NEEDED FOR PAIN active Not Available Not Available No t Available hydrocodone 5 mg-acetamino phen 325 mg tablet TAKE 1 TABLET BY MOUTH EVERY 6 HOURS NEEDED FOR PAIN active Not Available Not Available No t Available clonazepam 0.5 mg tablet TAKE 1 TABLET BY MOUTH THREE TIMES DAILY active Not Available Not Available Not Available Kenalog 10 mg/mL suspension for injection Take 20 mg by injection route. 2024 active Not Available Not Available Not Avai lable metformin 1,000 mg tablet TAKE 1 TABLET BY MOUTH TWICE DAILY IN THE MORNING AND IN THE EVENING active Not Available Not Available No t Available nystatin-tri amcinolone 100,000 unit/g-0.1 % topical cream APPLY A SMALL AMOUNT TO CORNERS OF THE MOUTH 2 TO 4 TIMES A DAY active Not Available Not Available No t Available omeprazole 20 mg capsule,bhupendra yed release TAKE 1 CAPSULE BY MOUTH TWICE DAILY active Not Available Not Available No t Available montelukast 10 mg tablet TAKE 1 TABLET BY MOUTH EVERY DAY active Not Available Not Available No t Available ondansetron 4 mg disintegrati ng tablet DISSOLVE 1 TABLET ON THE TONGUE EVERY 8 HOURS FOR 3 DAYS NEEDED active Not Available Not Available No t Available metformin ER 500 mg tablet,exten ded release 24 hr TAKE 2 TABLETS BY MOUTH TWICE DAILY active Not Available Not Available No t Available escitalopram 10 mg tablet TAKE 1 TABLET BY MOUTH EVERY DAY active Not Available Not Available No t Available bupivacaine (PF) 0.5 % (5 mg/mL) injection solution Take 10 mg by injection route. 2024 active Not Available Not Available Not Avai lable FeroSul 325 mg (65 mg iron) tablet TAKE 1 TABLET BY MOUTH ONCE DAILY active Not Available Not Available No t Available Lantus Solostar U-100 Insulin 100 unit/mL (3 mL) subcutaneous pen ADMINISTER 18 UNITS UNDER THE SKIN EVERY DAY AT BEDTIME active Not Available Not Available No t Available Jardiance 25 mg tablet TAKE 1 TABLET BY MOUTH EVERY DAY active Not Available Not Available No t Available BD Ultra-Fine Micro Pen Needle 32 [...] Available Ozempic 1 mg/dose (4 mg/3 mL) subcutaneous pen injector INJECT 1 MG SUBCUTANEOU SLY ONCE WEEKLY ON SAME DAY EACH WEEK DIRECTED active Not Available Not Available Not Available OneTouch UltraSoft 2 Lancet 30 gauge USE DIRECTED TO TEST BLOOD GLUCOSE active Not Available Not Available No t Available Vitals None Recorded Social History None recorded. Functional Status None recorded. Mental Status None recorded. Family History Nothing Reported. Medical History No medical history recorded. Past Encounters Encounter ID Performer Location Encounter Start Date Encounter Closed Date Diagnosis/Indication Diagnosis SNOMED-CT Code Diagnosis ICD10 Code Diagnosis IMO Codes Diagnosis Note [id number] DO MACARIO SCHILLING [address] [phone] 01/21/2025 13:49:23 01/21/2025 14:40:26 Osteoarthritis of right knee joint [id number] 84819 M17.11 [id number] Health Concerns Section Related Observation LastModified by Organization Detai ls LastModified Time None Recorded Concern Status LastModified by Organization Details LastModified Time None Recorded Advance Directives Directive None Recorded Payers Insurance Date Sequence Insurance Name Policy Number Policy Mckeon Covered Member ID Mckeon Member ID Guarantor Name 03/01/2025 1 [facility] (MEDICARE REPLACEMENT/A DVANTAGE - HMO) Otto Comer [id number] Otto Comer Notes Date Note Type Note Provider Name and Address Organization Details Recorded Time 01/21/2025 text/html ROS as noted in the HPI This is a 64 year old male here today for right knee pain. Has been ongoing following an injury in 200 getting worse in the last couple of months. Patient is complaining of pain with no locking and catching. States he uses a compound cream on his knee but does not know the name E6 JOAQUINA JONATHAN ABEBE, [address], [place], [address], [place] - [facility] - [place] & [place] 01/22/2025 09:28:09
--- OUTSIDE RECORDS SUMMARY | 2025-05-13 06:46 | XMS_ITS | Referral Summary ---
Author Organization [facility] ([place], [place], [place], [place] Address [address] [place] [address] Care Team Providers Care Health Program Analyst Name Role Phone Nellie Duran Primary Care Provider [phone] Allergies No known active allergies Medications Ozempic [...] (09/12/2023): Added automatically from request for surgery [id number] Resolved Problems Problem Noted Date Diagnosed Date [...] Do you speak a language other than [place] at [facility]? No 09/30/2023 Do you want help with [...] 09/12/2023 11:59 AM EST Plan of Treatment Not on file Medical Devices Implanted Type Area Doorkeeper Device Identifier Shelf Expiration Date Model / Serial / Lot Fibergraft Mtrx 12.5cc [id number] - [id number] Implanted:Qty: 1 on 09/30/2023 by Adam Guerrier MD at [facility] IMPLANTS N/A: Spine Lumbar [employer] 05/03/2026 [id number] / / [id number] Bone Vivigen Frmble Cell 10cc Bl-1600-003 - [id number] Implanted:Qty: 1 on 09/30/2023 by Adam Guerrier MD at [facility] IMPLANTS N/A: Spine Lumbar LIFENET:LIFENET TRANSPLANT SRV 09/13/2024 BL-1600-003 / / [id number] Robbie Pre Load 95mm - [id number] Implanted:Qty: 2 on 09/30/2023 by Adam Guerrier MD at [facility] IMPLANTS N/A: Spine Lumbar J &J:DEPUY:DEPUY SPINE / / Scr Spne Hayden Fix 6x40mm - [id number] Implanted:Qty: 2 on 09/30/2023 by Adam Guerrier MD at [facility] IMPLANTS N/A: Spine Lumbar J &J:DEPUY:DEPUY SPINE / / Scr Spne Hayden Fix 6x50mm - Implanted:Qty: 4 on 09/30/2023 by Adam Guerrier MD at [facility] IMPLANTS N/A: Spine Lumbar J &J:DEPUY:DEPUY SPINE / / Scr Spne Hayden Fix 6x55mm - Implanted:Qty: 2 on 09/30/2023 by Adam Guerrier MD at [facility] IMPLANTS N/A: Spine Lumbar J &J:DEPUY:DEPUY SPINE / / Mis Melisa Ply Scrw Set Ti - [id number] Implanted:Qty: 8 on 09/30/2023 by Adam Guerrier MD at [facility] IMPLANTS N/A: Spine Lumbar J &J:DEPUY:DEPUY SPINE / / Explanted Type Area Doorkeeper Device Identifier Shelf Expiration Date Model / Serial / Lot Scr Spne Hayden Fix 6x30mm - Explanted:Qty : 1 on 09/30/2023 at [facility] IMPLANTS N/A: Spine Lumbar J &J:DEPUY:DEPUY SPINE 30 / 30 / Scr Spne Hayden Fix Fen 6x45mm 5 - [id number] Explanted:Qty : 1 on 09/30/2023 at [facility] IMPLANTS N/A: Spine Lumbar J &J:DEPUY:DEPUY SPINE 45 / 45 / Procedures Procedure Name Priority Date/Time Associated Diagnosis Comments HEMOGLOBIN A1C STAT 09/30/2023 6:51 AM EST from Last 3 Months or Most Recently Relevant to Health Maintenance Results * Hemoglobin A1c (09/30/2023 6:51 AM EST) Hemoglobin A1C 7.4 % 09/30/2023 12:20 PM EST [facility] Comment: Hemoglobin A1C levels are related to mean glucose during the preceding 2-3 months. Less than 7% demonstrates glycemic control in diabetic patients. Hemoglobin AlC % Suggested Diagnosis > or = 6.5 Diabetic 5.7 - 6.4 Prediabetic <5.7 Non-diabetic eAVG Glucose 165.68 mg/dL 09/30/2023 12:20 PM EST [facility] Blood Venipuncture / Unknown 09/30/2023 6:51 AM EST 09/30/2023 6:59 AM EST us Adam Guerrier MD LAB BLOOD ORDERABLES F inal Result [facility] [address] [phone] from Last 3 Months or Most Recently Relevant to Health Maintenance Insurance [facility] DUAL COMPLETE MCR ADV Advance Directives For more information, please contact: [phone] * Full Code (Latest Code Status on File) Date Activated Date Inactivated Comments 09/30/2023 4:20 PM 10/04/2023 1:40 PM Care Teams Health Program Analyst Relationship Specialty Start Date End Date Nellie Duran [address] [place] [address] [place] [address] PCP - General 09/12/23
--- OUTSIDE RECORDS SUMMARY | 2025-05-13 06:46 | XMS_ITS | Continuity of Care Document ---
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 Plan of Treatment Reminders Order Date Submit Date Provider Last Modified By Organization Details Last Modified Time Details Appointments None recorded. Lab rapid flu (A+B) 2024 [facility], [address] [place] [address], [phone], 13:19:18 rapid SARS CoV + SARS CoV 2 Ag, QL IA, respiratory specimen 2024 [facility], [address] [place] [address], [phone], 13:19:18 Referral None recorded. Procedures None recorded. Surgeries None recorded. Imaging None recorded. Medication Orders montelukast 10 mg tablet 2024 [facility] #[id number], [address], [id number], 13:19:37 dexamethaso ne sodium phosphate 4 mg/mL injection solution 2024 [facility], [address] [address] [address], [place], [id number], 14:03:30 Januvia 25 mg tablet 2024 [facility] #66923, [address] [address] [address], [place], [id number], 13:19:38 Lantus Solostar U-100 Insulin 100 unit/mL (3 mL) subcutaneou s pen 2024 [facility] #93222, [address], [place], [place], [id number], 13:19:41 metformin ER 500 mg tablet,exte nded release 24 hr 2024 [facility] #[id number], [address], [place], [place], [id number], 13:19:37 atorvastati n 80 mg tablet 2024 [facility] #19619, [address], [place], [place], [id number], 13:19:41 clonazepam 0.5 mg tablet 2024 [facility] #60658, [address], [place], [place], [id number], 13:19:27 escitalopra m 10 mg tablet 2024 [facility] #[id number], [address], [place], [place], [id number], 13:19:45 Patient TargetsNo targets recorded. Patient InstructionsNo instructions recorded. Reason for Referral None Reported. Results Created Date Observation Date Name Description Value Unit Range Abnormal Flag Note LastModifiedBy Organization Detail LastModifiedTime 04/25/2004/26/2025 CBC WITH DIFFE RENTI AL/PL ATELE T WBC 5.2 x10e3 /uL 3.4-10 .8 normal Not Available [facility] ([facility]) [address] [place], [address], 04/26/2025 08:10:54 04/25/2004/26/2025 CBC WITH DIFFE RENTI AL/PL ATELE T RBC 4.51 x10e6 /uL 4.14-5 .80 normal Not Available [facility] ([facility]) [address] [place], [address], 04/26/2025 08:10:54 04/25/2004/26/2025 CBC WITH DIFFE RENTI AL/PL ATELE T hemoglobin 13.4 g/dL 13.0-1 7.7 normal Not Available [facility] ([facility]) [address] [place], [address], 04/26/2025 08:10:54 04/25/2004/26/2025 CBC WITH DIFFE RENTI AL/PL ATELE T hematocrit 41.6 % 37.5-5 1.0 normal Not Available [facility] ([facility]) [address] [place], [address], 04/26/2025 08:10:54 04/25/2004/26/2025 CBC WITH DIFFE RENTI AL/PL ATELE T MCV 92 fL 79-97 normal Not Available [facility] ([facility]) [address] [place], [address], 04/26/2025 08:10:54 04/25/2004/26/2025 CBC WITH DIFFE RENTI AL/PL ATELE T MCH 29.7 pg 26.6-3 3.0 normal Not Available [facility] ([facility]) [address] [facility], [place], [address], 04/26/2025 08:10:54 04/25/20 25 04/26/2025 CBC WITH DIFFE RENTI AL/PL ATELE T MCHC 32.2 g/dL 31.5-3 5.7 normal Not Available [facility] ([facility]) [address] [facility], [place], [address], 04/26/2025 08:10:54 04/25/2004/26/2025 CBC WITH DIFFE RENTI AL/PL ATELE T RDW 13.1 % 11.6-1 5.4 Not Available [facility] ([facility]) [address] [facility], [place], [address], 04/26/2025 08:10:54 04/25/20 25 04/26/2025 CBC WITH DIFFE RENTI AL/PL ATELE T platelets 210 x10e3 /uL 150-45 0 normal Not Available [facility] ([facility]) [address] [facility], [place], [address], 04/26/2025 08:10:54 04/25/20 25 04/26/2025 CBC WITH DIFFE RENTI AL/PL ATELE T neutrophils 55 % not estab. normal Not Available [facility] ([facility]) [address] [facility], [place], [address], 04/26/2025 08:10:54 04/25/20 25 04/26/2025 CBC WITH DIFFE RENTI AL/PL ATELE T lymphs 34 % not estab. normal Not Available [facility] ([facility]) [address] [facility], [place], [address], 04/26/2025 08:10:54 04/25/20 25 04/26/2025 CBC WITH DIFFE RENTI AL/PL ATELE T monocytes 8 % not estab. normal Not Available [facility] ([facility]) [address] [facility], [place], [address], 04/26/2025 08:10:54 04/25/20 25 04/26/2025 CBC WITH DIFFE RENTI AL/PL ATELE T eos 2 % not estab. normal Not Available [facility] ([facility]) [address] [facility], [place], [address], 04/26/2025 08:10:54 04/25/20 25 04/26/2025 CBC WITH DIFFE RENTI AL/PL ATELE T basos 1 % not estab. 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 0 normal Not Available [facility] ([facility]) [address] [place], [address], 04/26/2025 08:10:54 04/25/20 25 04/26/2025 CBC WITH DIFFE RENTI AL/PL ATELE T lymphs (absolute) 1.7 x10e3 /uL 0.7-3. 1 normal Not Available [facility] ([facility]) [address] [place], [address], 04/26/2025 08:10:54 04/25/20 25 04/26/2025 CBC WITH DIFFE RENTI AL/PL ATELE T monocytes(ab solute) 0.4 x10e3 /uL 0.1-0. 9 normal Not Available [facility] ([facility]) [address] [facility], [place], [address], 04/26/2025 08:10:54 04/25/20 25 04/26/2025 CBC WITH DIFFE RENTI AL/PL ATELE T eos (absolute) 0.1 x10e3 /uL 0.0-0. 4 normal Not Available [facility] ([facility]) [address] [facility], [place], [address], 04/26/2025 08:10:54 04/25/20 25 04/26/2025 CBC WITH DIFFE RENTI AL/PL ATELE T baso (absolute) 0.0 x10e3 /uL 0.0-0. 2 normal Not Available [facility] ([facility]) [address] [facility], [place], [address], 04/26/2025 08:10:54 04/25/20 25 04/26/2025 CBC WITH DIFFE RENTI AL/PL ATELE T immature granulocytes 0 % not estab. Not Available [facility] ([facility]) [address] [facility], [place], [address], 04/26/2025 08:10:54 04/25/20 25 04/26/2025 CBC WITH DIFFE RENTI AL/PL ATELE T immature grans (abs) 0.0 x10e3 /uL 0.0-0. 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 6 above high normal Predi abete s: 5.7 - 6.4 Diabe gayatri: >6.4 Glyce lucio contr ol for adult s with diabe gayatri: <7.0 Not Available [facility] ([facility]) [address], [place], [address], 04/26/2025 08:10:54 05/06/2005/06/2025 rapid SARS CoV + SARS CoV 2 Ag, QL IA, respi rator y speci men SARS CoV antigen Invali d Not Available [address], [address], 05/06/2025 12:43:36 05/06/2005/06/2025 rapid flu (A+B) Flu negati ve Not Available [address], [address], 05/06/2025 12:43:08 05/06/2005/06/2025 rapid flu (A+B) Type Both A & B Not Available [address], [address], 05/06/2025 12:43:08 04/16/20 25 04/16/2025 elect rocar diogr am No observ ation record ed. efryman [address], [address], 04/16/2025 16:39:45 05/03/20 25 04/16/2025 elect rocar diogr am No observ ation record ed. BARCODE [address], [place], [address], 05/03/2025 14:42:28 Result Notes None recorded. 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 07693716160 9105 Active 2020 Yesika Galvin [facility], [place] - [facility] 4 08:22:17 Type 2 diabetes mellitus 91282087 Completed 202101/26/2022 Dean Duran, COLD STORAGE WORKER [address], [place], [address] , [place] - [facility] 4 08:17:49 Anxiety 09395254 Active 2021 Dean Duran, COLD STORAGE WORKER [address], [place], [address] , [place] [facility] 2 16:49:08 Depressiv e disorder 95057419 Active 2021 Dean Duran, COLD STORAGE WORKER [address], [place], [address] , [place] [facility] 2 16:49:13 Hyperchol esterolem ia 21003449 Active 2021 Dean Duran, COLD STORAGE WORKER [address], [place], [address] , [place] [facility] 2 16:49:26 Arthritis 8051186 Active 2021 Dean Duran, COLD STORAGE WORKER [address], [place], [address] , [place] [facility] 2 16:49:10 Environme ntal allergy 431171679 Active 2021 Dean Duran, COLD STORAGE WORKER [address], [place], [address] , [place] [facility] 2 16:49:17 Type 2 diabetes mellitus 84481275 Active 2021 Dean Duran, COLD STORAGE WORKER [address], [place], [address] , [place] [facility] 4 08:17:48 Albuminur ia 967183385 Active 2021 Dean Duran, COLD STORAGE WORKER [address], [place], [address] , [place] [facility] 2 08:46:14 Neck pain 00073162 Active 2021 Yesika Galvin null, [place] - [facility] 4 08:22:17 Fracture of lumbar spine 365048863 Active 2021 Dean Duran, COLD STORAGE WORKER [address], [place], [address] , [place] [facility] 2 11:07:18 Low back pain 215870458 Active 2022 Yesika Kamar null, [place] - [facility] 4 08:22:17 History of respirato ry disease 050520098 Active 2023 Yesika Kamar null, [place] - [facility] 4 08:22:17 History of asthma 443416488 Active 2023 Yesika Kamar null, [place] - [facility] 4 08:22:17 Systemic inflammat ory response syndrome 332220633 Completed 202309/12/2023 Yesika Kamar null, [place] - [facility] 4 08:22:17 Lumbar spondylos is 679759133 Active 2023 Yesika Galvin null, [place] - [facility] 4 08:22:17 Subconjun ctival hemorrhag e of right eye 69086218163 9100 Active 2023 Yesika Galvin null, [place] - [facility] 4 08:22:17 Arthropat hy of spinal facet joint 947401470 Active 2023 Yesika Galvin [place] [facility] 4 08:22:17 Allergic condition 927981190 Active 2023 Yesika Galvin null, [place] [facility] 4 08:22:17 Pain of hip region 87626050 Active 2023 Yesika Galvin null, [place] [facility] 4 08:22:17 Diabetes mellitus 78199173 Completed 202309/12/2023 Yesika Galvin null, [place] [facility] 4 08:22:17 Septic shock 54845777 Completed 202309/12/2023 Yesika Galvin null[place] [facility] 4 08:22:17 Pulmonic valve regurgita tion 02523909 Active 2023 Yesika Galvin null, [place] [facility] 4 08:22:17 Postopera tive state 87595861 Active 2023 Yesika Galvin null, [place] - [facility] 4 08:22:17 Diabetic on insulin 979080920 Active 2023 Dean Duran, COLD STORAGE WORKER [address], [place], [address] , [place] - [facility] 4 15:06:20 Gastritis 0700880 Active 2023 Vinita Stockton null, [place] - [facility] 4 09:09:10 Acute bronchiti s 38095040 Active 2024 Salima Quinteros, COLD STORAGE WORKER [address], [place], [address] , [place] - [facility] 5 14:19:26 Wheezing 00735794 Active 2024 Salima Quinteros, COLD STORAGE WORKER [address], [place], [address] , [place] - [facility] 5 14:22:04 Problem Notes None recorded. Procedures Surgical History Date Name Laterality Status Provider Name and Address Organization Details Recorded Time 11/28/19 25 Laceration Repair with Sutures/Alexis completed Dean Duran, COLD STORAGE WORKER [address], [place], [address], [place] - [facility] 11/27/2024 11:10:23 10/10/19 25 Advance Care Planning completed Vinita Stockton [place] - [facility] 10/09/2024 09:00:13 10/10/19 25 Functional Status Assessed completed Vinita Stockton [place] - [facility] 025 09:00:13 09/08/19 24 Advance Care Planning completed Yesika Galvin [place] - [facility] 09/08/2023 08:09:01 09/08/19 24 Functional Status Assessed completed Yesika Garcialer [place] - [facility] 09/08/2023 08:09:01 04/04/20 23 Cerumen Removal completed Yesika Garcialer [place] [facility] 04/04/2023 13:11:40 05/25/20 22 Cerumen Removal completed Yasminebryonjosep Chinmitchrodrick, COLD STORAGE WORKER [address], [place], [address], [place] - [facility] 05/25/2022 14:51:22 03/12/20 22 Dexcom Placement completed Yasminekarel deb, C[employer] STORAGE WORKER [address], [place], [address], [place] - [facility] 03/12/2022 09:33:13 Eye Surgery completed Vinita Stears [place] - [facility] 01/26/2022 14:57:12 Deviated Septum Repair completed Vinita Stears [place] [facility] 01/26/2022 14:57:23 total knee replacement completed Vinita Stears [place] [facility] 01/26/2022 14:57:42 Back Surgery completed Vinita Stears [place] [facility] 01/26/2022 14:57:46 Prostate Surgery completed Vinita Stears [place] [facility] 01/26/2022 14:58:11 operation on urinary bladder completed Vinita Stears [place] - [facility] 022 14:58:27 Colonoscopy completed Yesika Garcialer [place] [facility] 09/08/2023 08:10:45 Joint Replacement completed Yesika Garcialer [place] [facility] 09/08/2023 08:10:45 Knee Surgery completed Yesika Kamar [place] [facility] 09/08/2023 08:10:45 Sinus Surgery [place]ika Kamar [place] [facility] 09/08/2023 08:10:45 endoscopy completed Vinita Stears [place] [facility] 02/28/2024 09:08:44 Imaging Results None recorded. Procedure Notes None recorded. Medical Equipment None Reported. Allergies Allergen ID Allergen Name Allergen Category Reaction Reaction Severity Criticality Documentation Date Start Date Code Code System Note Provider Name and Address Organization Details Recorded Time 130265 No known allergy (situatio n) Not available Not available Not available Not available 11/21/2023 17596 6003 SNOMED Yesika Galvin null, [place] - [facility] 4 08:22:23 No known drug allergies Medications Name Sig Start Date Stop Date Status Note LastModified by Organization Details LastModified Time amantadine HCl 100 mg tablet Take 1 tablet every day by oral route for 12 days. 06/27 completed Not Available Not Available Not Available celecoxib 200 mg capsule TAKE 1 CAPSULE BY MOUTH TWICE DAILY WITH FOOD 2024 active Not Available Not Available Not Avai lable amoxicillin 500 mg capsule TAKE 1 CAPSULE BY MOUTH TWICE DAILY FOR 10 DAYS 11/27 completed Not Available Not Available Not Available atorvastati n 40 mg tablet TAKE 1 TABLET BY MOUTH EVERY DAY 07/20 completed Not Available Not Available Not Available methocarbam ol 500 mg tablet TAKE 1 TABLET BY MOUTH TWICE DAILY 06/27 completed Not Available Not Available Not Available atorvastati n 80 mg tablet Take 1 tablet every day by oral route. 2024 active Not Available Not Available Not Avai lable doxycycline hyclate 100 mg capsule Take 1 capsule twice a day by oral route for 14 days. 08/20 completed Not Available Not Available Not Available atorvastati n 20 mg tablet TAKE 1 TABLET BY MOUTH EVERY DAY 01/26 completed Not Available Not Available Not Available azithromyci n 250 mg tablet TAKE 2 TABLETS (500 MG) BY ORAL ROUTE ONCE DAILY FOR 1 DAY THEN 1 TABLET (250 MG) BY ORAL ROUTE ONCE DAILY FOR 4 DAYS 03/05 completed Not Available Not Available Not Available fosfomycin tromethamin e 3 gram oral packet TAKE 1 PACKET DIRECTED FOR 1 DOSE 06/14 completed Not Available Not Available Not Available aspirin 325 mg tablet 01/26 completed Not Available Not Available Not Available ibuprofen 800 mg tablet TAKE 1 TABLET BY MOUTH EVERY 6 HOURS NEEDED FOR PAIN 10/09 completed Not Available Not Available Not Available hydrocodone 5 mg-acetamin ophen 325 mg tablet TAKE 1 TABLET BY MOUTH EVERY 4 HOURS NEEDED FOR PAIN 10/09 completed Not Available Not Available Not Available Claritin 10 mg tablet Take 1 tablet every day by oral route in the morning. 2024 active Not Available Not Available Not Avai lable ondansetron HCl 4 mg tablet Take 1 tablet by oral route. 06/14 completed Not Available Not Available Not Available Medrol (Cheikh) 4 mg tablets in a dose pack Take 1 dose pk by oral route. 2024 active Not Available Not Available Not Avai lable prednisone 20 mg tablet TAKE 1 TABLET BY MOUTH TWICE DAILY FOR 5 DAYS. TAKE WITH FOOD 08/22 completed Not Available Not Available Not Available clonazepam 0.5 mg tablet Take 1 tablet 3 times a day by oral route. 2024 active Not Available Not Available Not Avai lable ciprofloxac in 500 mg tablet TAKE 1 TABLET BY MOUTH EVERY 12 HOURS FOR 7 DAYS 01/26 completed Not Available Not Available Not Available hydrocodone 10 mg-acetamin ophen 325 mg tablet TAKE 1 TABLET BY MOUTH EVERY 6 HOURS NEEDED FOR MODERATE PAIN 01/26 completed Not Available Not Available Not Available amoxicillin 500 mg tablet Take 1 tablet twice a day by oral route for 10 days. 11/27 completed Not Available Not Available Not Available ceftriaxone 1 gram solution for injection Take 1 g by injection route. 10/09 completed Not Available Not Available Not Available methocarbam ol 750 mg tablet Take 750 mg by oral route. 02/27 completed Not Available Not Available Not Available tamsulosin 0.4 mg capsule TAKE 2 CAPSULES BY MOUTH EVERY DAY 02/27 completed Not Available Not Available Not Available OneTouch Ultra Test strips USE TO TEST TWICE A DAY active Not Available Not Available No t Available gemfibrozil 600 mg tablet 01/26 completed Not Available Not Available Not Available triamcinolo ne acetonide 40 mg/mL suspension for injection Take 1 mL by injection route. 2024 active Not Available Not Available Not Avai lable hydrocodone 7.5 mg-acetamin ophen 325 mg tablet TAKE 1 TABLET BY MOUTH EVERY 6 HOURS FOR UP TO 14 DAYS NEEDED FOR SEVERE PAIN 06/27 completed Not Available Not Available Not Available cephalexin 500 mg capsule TAKE 1 CAPSULE BY MOUTH TWICE DAILY FOR 10 DAYS 07/01 completed Not Available Not Available Not Available erythromyci n 5 mg/gram (0.5 %) eye ointment APPLY INTO LOWER EYELID OF AFFECTED EYE 4 TIMES DAILY FOR 10 DAYS 01/26 completed Not Available Not Available Not Available metformin 1,000 mg tablet TAKE 1 TABLET BY MOUTH TWICE DAILY IN THE MORNING AND IN THE EVENING 01/15 completed Not Available Not Available Not Available ropinirole 0.5 mg tablet TAKE 2 TABLETS BY MOUTH EVERY NIGHT AT BEDTIME ADMINISTE RED 1 TO 3 HOURS BEFORE BEDTIME FOR RESTLESS LEGS 02/27 completed Not Available Not Available Not Available nystatin-tr iamcinolone 100,000 unit/g-0.1 % topical cream APPLY A SMALL AMOUNT TO CORNERS OF THE MOUTH 2 TO 4 TIMES A DAY active Not Available Not Available No t Available omeprazole 20 mg capsule,del ayed release TAKE 1 CAPSULE BY MOUTH TWICE DAILY active Not Available Not Available No t Available montelukast 10 mg tablet Take 1 tablet every day by oral route. 2024 active Not Available Not Available Not Avai lable mupirocin 2 % topical ointment APPLY SMALL AMOUNT TOPICALLY TO THE AFFECTED AREA THREE TIMES DAILY 09/08 completed Not Available Not Available Not Available dexamethaso ne sodium phosphate 4 mg/mL injection solution Inject 1 mL every day by intramusc ular route. 05/09 completed Not Available Not Available Not Available azelastine 137 mcg (0.1 %) nasal spray 1 {spray} twice a day by nasal route. active Not Available Not Available No t Available levofloxaci n 750 mg tablet TAKE 1 TABLET BY MOUTH EVERY DAY FOR 10 DAYS 01/26 completed Not Available Not Available Not Available albuterol sulfate HFA 90 mcg/actuati on aerosol inhaler Inhale 2 puffs every 4 hours by inhalatio n route as needed. 2024 active Not Available Not Available Not Avai lable docusate sodium 250 mg capsule 01/26 completed Not Available Not Available Not Available ondansetron 4 mg disintegrat ing tablet DISSOLVE 1 TABLET ON THE TONGUE EVERY 8 HOURS FOR 3 DAYS NEEDED 06/14 completed Not Available Not Available Not Available cefdinir 300 mg capsule Take 1 capsule every 12 hours by oral route for 10 days. 2024 active Not Available Not Available Not Avai lable fluticasone propionate 50 mcg/actuati on nasal spray,suspe nsion SHAKE LIQUID AND USE 1 SPRAY IN EACH NOSTRIL EVERY DAY FOR CONGESTIO N active Not Available Not Available No t Available metformin ER 500 mg tablet,exte nded release 24 hr TAKE 2 TABLETS BY MOUTH TWICE DAILY 2024 active Not Available Not Available Not Avai lable neomycin-po lymyxin-hyd rocort 3.5 mg-10,000 unit/mL-1 % ear drops,susp SHAKE LIQUID AND INSTILL 2 DROPS TO AFFECTED EAR THREE TIMES DAILY 06/27 completed Not Available Not Available Not Available escitalopra m 10 mg tablet Take 1 tablet every day by oral route. 2024 active Not Available Not Available Not Avai lable cyclobenzap rine 5 mg tablet 01/26 completed Not Available Not Available Not Available metformin ER 1,000 mg tablet,exte nded release 24hr (osmotic) Take 1 tablet every day by oral route. 01/15 completed Not Available Not Available Not Available BD Ultra-Fine Mini Pen Needle 31 gauge x 3/16 FOLLOW PER PRESCRIBE R DIRECTONS active Not Available Not Available No t Available Januvia 25 mg tablet Take 1 tablet every day by oral route. 2024 active Not Available Not Available Not Avai lable FeroSul 325 mg (65 mg iron) tablet TAKE 1 TABLET BY MOUTH ONCE DAILY 10/09 completed Not Available Not Available Not Available Lantus Solostar U-100 Insulin 100 unit/mL (3 mL) subcutaneou s pen Inject 18 units every day by subcutane ous route at bedtime. 2024 active Not Available Not Available Not Avai lable diclofenac 1 % topical gel APPLY 2 GRAMS TO THE AFFECTED AREA(S) BY TOPICAL ROUTE 2 TIMES PER DAY 10/09 completed Not Available Not Available Not Available metformin ER 1,000 mg 24 hr tablet,exte nded release (gastric reten.) Take 1 tablet every day by oral route. 09/08 completed Not Available Not Available Not Available GaviLyte-G 236 gram-22.74 gram-6.74 gram-5.86 gram oral solution MIX AND DRINK DIRECTED 06/27 completed Not Available Not Available Not Available Janumet XR 100 mg-1,000 mg tablet,exte nded release TAKE 1 TABLET BY MOUTH EVERY DAY WITH A MEAL 07/20 completed Not Available Not Available Not Available Jardiance 25 mg tablet Take 1 tablet every day by oral route. 2024 active Not Available Not Available Not Avai lable Trulicity 0.75 mg/0.5 mL subcutaneou s pen injector ADMINISTE R 0.75 MG UNDER THE SKIN WEEKLY 01/26 completed Not Available Not Available Not Available naloxone 4 mg/actuatio n nasal spray CALL 911. SPR CONTENTS OF ONE SPRAYER (0.1ML) INTO ONE NOSTRIL. REPEAT IN 2-3 MIN IF SYMPTOMS OF OPIOID EMERGENCY PERSIST, ALTERNATE NOSTRILS active Not Available Not Available No t Available BD Ultra-Fine Micro Pen Needle 32 gauge x 1/4 USE FOR INJECTION ONE TIME A DAY 2024 active Not Available Not Available Not Avai lable Ozempic 0.25 mg or 0.5 mg (2 mg/1.5 mL) subcutaneou s pen injector Inject 0.5 mg every week by subcutane ous route. 04/04 completed Not Available Not Available Not Available Dexcom G6 Sensor device APPLY 1 SENSOR EVERY 10 DAYS DIRECTED active Not Available Not Available No t Available Dexcom G6 Transmitter device USE DIRECTED active Not Available Not Available No t Available Ozempic 1 mg/dose (4 mg/3 mL) subcutaneou s pen injector Inject 1 mg every week by subcutane ous route. 11/23 completed Not Available Not Available Not Available BinaxNOW COVID-19 Ag Self Test kit TEST DIRECTED TODAY 08/20 completed Not Available Not Available Not Available Ozempic 0.25 mg or 0.5 mg (2 mg/3 mL) subcutaneou s pen injector Inject 0.25 mg every week by sub-q route. 02/27 completed Not Available Not Available Not Available OneTouch UltraSoft 2 Lancet 30 gauge USE DIRECTED TO TEST BLOOD GLUCOSE active Not Available Not Available No t Available Vitals Date Recorded Body height Body mass index (BMI) Body weight Body temperature Heart rate Oxygen saturation Oxygen saturation in Arterial blood by Pulse oximetry Respiratory rate Pain severity - 0-10 verbal numeric rating [Score] - Reported Systolic And Diastolic Provider Name and Address Organization Details Last Updated DateTime 5 180.34 cm 35.3 kg/m2 696141. 87 g 97.6 [degF] 62 /min 95 % 95 % 18 /min 0 142/84 mm[Hg] Yesika Kamar [place] - [facility] 5 12:42:20 Social History Question Answer Notes LastModified by Organizat ion Details LastModified Time Tobacco Smoking Status Former Smoker Vinita Mahin ab[place], [place] - [facility] 01/26/2022 14:56:00 Do You Have An Advance Directive? No Information n ot available 01/26/2022 Are You Blind Or Do You Have Difficulty Seeing? No Information n ot available 09/08/2023 Is Blood Transfusion Acceptable In An Emergency? Yes Information not available 09/08/2023 What Is Your Level Of Caffeine Consumption? Heavy Information not available 01/26/2022 How Much Tobacco Do You Chew? None Information not available 09/08/2023 In The 14 Days Before Symptom Onset, Have You Had Close Contact With A Laboratory-confirm ed COVID-19 While That Case Was Ill? No Information n ot available 09/08/2023 In The 14 Days Before Symptom Onset, Have You Had Close Contact With A Person Who Is Under Investigation For COVID-19 While That Person Was Ill? No Information not available 09/08/2023 Have You Been To An Area Known To Be High Risk For COVID-19? No Information not available 09/08/2023 Are You Deaf Or Do You Have Serious Difficulty Hearing? Yes Information not available 09/08/2023 What Type Of Diet Are You Following? REGULAR Information n ot available 09/08/2023 Have You Processed Blood Or Body Fluids From An Ebola Virus Disease Patient Without Appropriate PPE? No Information not available 09/08/2023 Do You Reside In Or Have You Traveled To An Area Where Ebola Virus Transmission Is Active? No Information not available 09/08/2023 What Is The Highest Grade Or Level Of School You Have Completed Or The Highest Degree You Have Received? [id number] Information not available 01/26/2022 Have There Been Any Changes To Your Family Or Social Situation? No Information no t available 09/08/2023 What Is The Fluoride Status Of Your Home? Unknown Information not available 09/08/2023 When Did You Quit Smoking? 16+yearssince lastcigarette Information not available 01/26/2022 Have You Recently Or Are You Planning To Travel To An Area With Zika Virus? No Information not available 09/08/2023 Do You Have A Medical Power Of Bakelite Molder? No Information not available 09/08/2023 What Was The Date Of Your Most Recent Tobacco Screening? 09/18/2024 Information not available 09/18/2024 How Many Children Do You Have? 1 Information not available 09/08/2023 What Is Your Current Pack Years? 10-19packyear s Information not available 08/20/2024 What Is Your Relationship Status? Domestic Partner Information not available 01/26/2022 Do You Use Your Seat Belt Or Car Seat Routinely? Yes Information not available 09/08/2023 Are You Sexually Active? No Information not available 09/08/2023 Do You Have Smoke And Carbon Monoxide Detectors In Your Home? No Information not available 09/08/2023 At What Age Did You Start Smoking Tobacco? 23 Information not available 09/08/2023 Are You Passively Exposed To Smoke? No Information no t available 01/26/2022 How Much Tobacco Do You Smoke? 1 PPD Information not available 08/20/2024 Do You Use Sunscreen Routinely? Yes Information not available 09/08/2023 Has Tobacco Cessation Counseling Been Provided? No Information not available 09/08/2023 How Many Years Have You Smoked Tobacco? 10 Information not available 09/08/2023 Do You Have Difficulty Walking Or Climbing Stairs? No Information not available 09/08/2023 Sex: Male Functional Status Question Answer Note LastModified by Organizat ion Details LastModified Time How many times per week do you consume alcohol? 1-2 times per week Information not available 09/08/2023 Do you or have you ever used smokeless tobacco? [id number] Information n ot available 09/08/2023 Are you currently employed? No Information not available 01/26/2022 Do you have transportation difficulties? No Information not available 09/08/2023 Are you able to care for yourself independently? Yes Information not available 01/26/2022 Do you have difficulty dressing, bathing, grooming, or toileting? No Information not available 09/08/2023 Do you or have you ever used e-cigarettes or vape? Never used electronic cigarettes Information not available 01/26/2022 What is your exercise level? Occasional Information not available 09/08/2023 Do you use any illicit or recreational drugs? No Information not available 01/26/2022 Do you or have you ever used any other forms of tobacco or nicotine? Yes Information not available 09/08/2023 What is your level of alcohol consumption? Occasional Information not available 01/26/2022 Are you able to walk independently without assistance or assistive devices? YESWOREST Information not available 09/08/2023 Do you have difficulty doing errands alone? No Information not available 09/08/2023 Mental Status Question Answer Note LastModified by Organizat ion Details LastModified Time Do you feel stressed (tense, restless, nervous, or anxious, or unable to sleep at night)? [id number] Information not available 01/26/2022 Do you have difficulty concentrating, remembering or making decisions? No Information no t available 09/08/2023 Family History Relationship Description Onset Age of this Age Resolved Age Notes LastModified by Organization Details LastModified Time Father No current problems or disability cbuckler Not available 09/08 08:10:25 Mother No current problems or disability cbuckler Not available 09/08 08:10:25 Brother Hypercholest erolemia cbuckler Not available 2023 08:10:25 Brother Arthritis cbuckler Not availab le 09/08/2023 08:10:25 Brother Hypertensive disorder cbuckler Not available 2023 08:10:25 Brother Diabetes mellitus cbuckler Not available 2023 08:10:25 Medical History Condition Response Diabetes Y Anxiety Disorder Y Arthritis Y Ear or Hearing Problems Y Acid Reflux (GERD) Y Hyperlipidemia Y Hypoglycemia Y Depression Y Hypothyroidism Y Hypercholesterolemia Y Hypertension Y Immunizations Vaccine Type Date Status Note Provider Name and Address Organization Details Recorded Time Tdap 022 cancelled patient objection Dean Duran, [employer] [address], [place], [address], [place] - [facility] 03/26/2022 10:37:59 Pneumococcal conjugate PCV20, polysaccharide [id number] conjugate, adjuvant, PF 024 cancelled patient objection Yasminebryonjosep Chindeb, [employer] [address], [place], [address], [place] - [facility] 02/28/2024 13:34:11 Influenza, high-dose, trivalent, PF 024 completed Yesika Galvin null, [place] - [facility] 05/10/2024 16:48:23 zoster recombinant 025 cancelled patient objection Yasminebryonjosep Duran, [employer] [address], [place], [address], [place] - [facility] 10/09/2024 10:08:40 Pneumococcal conjugate PCV20, polysaccharide [id number] conjugate, adjuvant, PF 025 cancelled patient objection Dean Duran, [employer] [address], [place], [address], [place] - [facility] 10/09/2024 10:08:40 Tdap 025 completed Vinita Maharajs null, [place] - [facility] 11/27/2024 16:08:06 Influenza, high-dose, trivalent, PF 025 completed Vinita Stears null, [place] - [facility] 04/16/2025 16:30:33 COVID-19, mRNA, LNP-S, PF, 30 mcg/0.3 mL dose 021 completed Yesika Galvin [place], [place] - [facility] 05/25/2022 13:19:20 Influenza, split virus, trivalent, PF 017 completed Yesika Galvin [place], [place] - [facility] 05/25/2022 13:19:20 Influenza, split virus, trivalent, PF 018 completed Yesika Galvin null, [place] - [facility] 05/25/2022 13:19:20 Influenza, split virus, quadrivalent, PF 022 completed Yesika Galvin [place], [place] - [facility] 05/25/2022 13:19:20 Td (adult) 018 completed Yesika Galvin [place], [place] - [facility] 05/25/2022 13:19:20 Influenza, MDCK, quadrivalent, PF 023 completed Yesika Galvin null, [place] - [facility] 04/18/2023 15:16:35 Past Encounters Encounter ID Performer Location Encounter Start Date Encounter Closed Date Diagnosis/Indication Diagnosis SNOMED-CT Code Diagnosis ICD10 Code Diagnosis IMO Codes Diagnosis Note [id number] Dean Duran [place] [id number] 1 04/16/2025 14:21:27 04/16/2025 16:39:42 Influenza vaccine needed 7649974370 106 Z23 Type 2 christina betes mellitus 47999893 E11.9 Z79.4 pt adherence to cgm regimen and dm treatment plandiscus sed med in detail Diabetic on insulin 1707 19692 Z79.4 Malaise and fatigue 2717 48161 R53.81 R53.83 13164 Excessive sweating 10732 005 R61 21971 [id number] Dean Duran [address] [address] 04/25/2025 10:51:05 04/25/2025 14:04:18 Diabetic on insulin 531019969 Z79.4 Type 2 christina betes mellitus 97679918 E11.9 Z79.4 pt adherence to cgm regimen and dm treatment plandiscus sed med in detail [id number] Dean Duran [address] [id number] 05/06/2025 11:43:25 05/06/2025 12:36:52 Bronchitis 46141910 J40 30422 no sign of a bacterial infection. likely viral. viruses can take 7-14 days to run their course. nasal saline and bulb syringe to remove nasal drainage to help with congestion . monitor temp. Tylenol or Motrin as needed for pain or fever. encourage fluids, water, Gatorade, power aide, Pedialyte if /tod dler/child warm salt water gargles warm fluids sore throat lozenges sleep elevated humidifier /vaporizer follow up immediatel y for new or worsening symptoms or no noticeable improvemen t over the next 48-72 hours Depressive disorder 3548 9007 F32.A Anxiety 22959735 F41.9 Pt compliant with plan of careTristen reviewedme dication compliance discussedL ast uds: 5Control substance agreement on file Hypercholesterolemia 136 91763 E78.00 Type 2 christina betes mellitus 89633805 E11.9 Z79.4 pt adherence to cgm regimen and dm treatment plandiscus sed med in detail Environmental allergy 42 9170811 T78.49XA Health Concerns Section Related Observation LastModified by Organization Detai ls LastModified Time None Recorded Concern Status LastModified by Organization Details LastModified Time None Recorded Payers Encounter Date Sequence Insurance Name Policy Number Policy Mckeon Covered Member ID Mckeon Member ID Guarantor Name 05/06/2025 1 [facility] (MEDICARE REPLACEMENT/A DVANTAGE - HMO) [id number] Otto Comer [id number] Otto Comer Notes Date Note Type Note Provider Name and Address Organization Details Recorded Time 05/06/2025 text/html ROS as noted in the HPI 64 yr old male presents for cough and wheezing for about 3 days. Patient has taken zithromax that he had at home.also needs all of his meds refilled.states his meds help with his anxiety/panic attacks Dean Duran, [employer] [address], [place], [address], [place] - [facility] 05/06/2025 13:20:07
--- OUTSIDE RECORDS SUMMARY | 2025-05-13 06:47 | XMS_ITS | Data Portability ---
Author Organization [facility] Address [address] [place] [address] Care Team Providers Care Fiscal Accountant Name Role Phone DEAN HAMLIN Primary Care Provider HARRIET Richardson Primary Care Provider [phone] CARLO CORDERO Urologist FARIDA GRAVES [employer]r [facility] Acute Care Occupational Therapist [phone] Assessment No assessment recorded. Plan of Treatment Reminders Order Date Submit Date Provider Last Modified By Organization Details Last Modified Time Details Appointments None recorded. Lab rapid flu (A+B) 2024 025 [facility], [address] [place] [address], [address], 13:19:18 rapid SARS CoV + SARS CoV 2 Ag, QL [place], respiratory specimen 2024 025 [facility], [address] [place] [address], [address], 13:19:18 venipunctur e 2024 025 felisha [facility], [address], Rust F, [place], [address], 16:46:04 Mycobacteri um tuberculosi s stimulated gamma interferon, qual, blood 2024 025 IRENE [facility], [address], J[place]on F, [place], [address], 04:05:57 HbA1c (hemoglobin A1c), blood 2024 025 IRENE [facility], [address], [place] F, [place], [address], 08:10:54 CBC w/ auto diff 2024 025 IRENE [facility], [address], [place] F, [place], [address], 08:10:54 TSH + free T4, serum 2024 025 IRENE [facility], [address], [place] F, [place], [address], 04:05:56 CMP, serum or plasma 2024 025 IRENE [facility], [address], [place] F, [place], [address], 04:05:56 cobalamin and folate panel, serum 2024 025 IRENE [facility], [address], [place] F, [place], [address], 04:05:57 vitamin D, 25-hydroxy, total, serum 2024 025 IRENE [facility], [address], [place] F, [place], [address], 04:05:57 iron + total iron-bindin g capacity (TIBC), serum 2024 025 IRENE [facility], [address], [place] F, [place], [address], 04:05:57 Referral cardiologis t referral - 04/17/25- dr gilbert at 1 pm per em 2024 IRENE Woodruff MD, [address], [place], [address], 08:27:27 Procedures None recorded. Surgeries None recorded. Imaging electrocard iogram 2024 [email or web address] [facility], [address] [place] [address], [address], 16:39:42 Medication Orders albuterol sulfate HFA 90 mcg/actuati on aerosol inhaler 2024 [facility], [address] [place] [address], [address], 14:25:33 Claritin 10 mg tablet 2024 [facility], [address] [place] [address], [address], 14:25:33 Medrol (Cheikh) 4 mg tablets in a dose pack 2024 [facility], [address] [place] [address], [address], 14:25:31 cefdinir 300 mg capsule 2024 [facility], [address] [place] [address], [address], 14:25:31 triamcinolo ne acetonide 40 mg/mL suspension for injection 2024 lflora Not available 14:39:24 montelukast 10 mg tablet 2024 [id number], [address] [facility] [address], [place], [id number], 13:19:37 dexamethaso ne sodium phosphate 4 mg/mL injection solution 2024 [facility] #[id number], [address] [address] [address], [place], [id number], 14:03:30 Januvia 25 mg tablet 2024 [facility] #[id number], [address] [address] [address], [place], [id number], 13:19:38 Lantus Solostar U-100 Insulin 100 unit/mL (3 mL) subcutaneou s pen 2024 [facility] #, [address] [address] [address], [place], [id number], 13:19:41 metformin ER 500 mg tablet,exte nded release 24 hr 2024 [facility] #[id number], [address] [address] [address], [place], [id number], 13:19:37 atorvastati n 80 mg tablet 2024 [facility] #[id number], [address] [address] [address], [place], [id number], 13:19:41 clonazepam 0.5 mg tablet 2024 [facility] #05702, [address] [address] [address], [place], [id number], 13:19:27 escitalopra m 10 mg tablet 2024 [facility]14736, [address] [address] [place], [id number], 13:19:45 dexamethaso ne sodium phosphate 4 mg/mL injection solution 2024 025 lflora Not available 14:03:30 Patient TargetsNo targets recorded. Patient Instructions Encounter Date Encounter Id Patient Instructions Last Modified By Organization Details Last Modified Time 05/09/2025 [id number] wheezing or bronchoconstricti on: care instructions Not available 05/09/2025 14:25:30 bronchitis: care instructions Not available 05/09/2025 14:25:30 body mass index: care instructions Not available 05/09/2025 14:25:30 learning about healthy weight Not available 05/09/2025 14:25:30 Pt advised to take medications as directed, tylenol and ibuprofen for pain and/or fever. Increase fluids. Rest. Salt water gargles. Not available 05/09/2025 14:39:28 Follow up as needed. The patient will report any new or worsening symptoms. The patient will return to clinic if new or worsening symptoms are noted, or if if the symptoms do not resolve. If marked worsening of the symptoms is noted the patient will go to the emergency department of their choice. Not available 05/09/2025 14:39:32 Reason for Referral Manager Domestic Referral for Ex cessive sweating 04/17/25- dr gilbert at 1 pm per em Referring Physician: Dean Hamlin, Family Medicine, Encounter Date: 04/16/2025 Results Created Date Observation Date Name Description Value Unit Range Abnormal Flag Note LastModifiedBy Organization Detail LastModifiedTime 01/04/2001/03/2025 drug scree n, urine AMP negati ve Not Available [address], [place], [address], 01/03/2025 14:38:32 01/04/20 25 01/03/2025 drug scree n, urine BAR negati ve Not Available [address], [address], 01/03/2025 14:38:32 01/04/20 25 01/03/2025 drug scree n, urine BUP negati ve Not Available [address], [address], 01/03/2025 14:38:32 01/04/20 25 01/03/2025 drug scree n, urine BZO negati ve Not Available [address], [address], 01/03/2025 14:38:32 01/04/20 25 01/03/2025 drug scree n, urine SANDEEP negati ve Not Available [address], [address], 01/03/2025 14:38:32 01/04/20 25 01/03/2025 drug scree n, urine FTY negati ve Not Available [address], [address], 01/03/2025 14:38:32 01/04/20 25 01/03/2025 drug scree n, urine MDMA negati ve Not Available [address], [address], 01/03/2025 14:38:32 01/04/20 25 01/03/2025 drug scree n, urine MET negati ve Not Available [address], [address], 01/03/2025 14:38:32 01/04/20 25 01/03/2025 drug scree n, urine MOP negati ve Not Available [address], [address], 01/03/2025 14:38:32 01/04/20 25 01/03/2025 drug scree n, urine MTD negati ve Not Available [address], [address], 01/03/2025 14:38:32 01/04/20 25 01/03/2025 drug scree n, urine OXY negati ve Not Available [address], [address], 01/03/2025 14:38:32 01/04/20 25 01/03/2025 drug scree n, urine PCP negati ve Not Available [address], [address], 01/03/2025 14:38:32 01/04/20 25 01/03/2025 drug scree n, urine TCA negati ve Not Available [address], [address], 01/03/2025 14:38:32 01/04/20 25 01/03/2025 drug scree n, urine THC negati ve Not Available [address], [address], 01/03/2025 14:38:32 04/25/20 25 04/26/2025 CBC WITH DIFFE RENTI AL/PL ATELE T WBC 5.2 x10e3 /uL 3.4-10 .8 normal Not Available [facility] ([facility]) [address] [facility], [place], [address], 04/26/2025 08:10:54 04/25/20 25 04/26/2025 CBC WITH DIFFE RENTI AL/PL ATELE T RBC 4.51 x10e6 /uL 4.14-5 .80 normal Not Available [facility] ([facility]) [address] [place], [address], 04/26/2025 08:10:54 04/25/20 25 04/26/2025 CBC WITH DIFFE RENTI AL/PL ATELE T hemoglobin 13.4 g/dL 13.0-1 7.7 normal Not Available [facility] ([facility]) [address] [place], [address], 04/26/2025 08:10:54 04/25/2004/26/2025 CBC WITH DIFFE RENTI AL/PL ATELE T hematocrit 41.6 % 37.5-5 1.0 normal Not Available [facility] ([facility]) [address] [place], [address], 04/26/2025 08:10:54 04/25/2004/26/2025 CBC WITH DIFFE RENTI AL/PL ATELE T MCV 92 fL 79-97 normal Not Available [facility] ([facility]) [address] [place], [address], 04/26/2025 08:10:54 04/25/20 25 04/26/2025 CBC WITH DIFFE RENTI AL/PL ATELE T MCH 29.7 pg 26.6-3 3.0 normal Not Available [facility] ([facility]) [address] [place], [address], 04/26/2025 08:10:54 04/25/2004/26/2025 CBC WITH DIFFE RENTI AL/PL ATELE T MCHC 32.2 g/dL 31.5-3 5.7 normal Not Available [facility] ([facility]) [address] [place], [address], 04/26/2025 08:10:54 04/25/20 25 04/26/2025 CBC WITH DIFFE RENTI AL/PL ATELE T RDW 13.1 % 11.6-1 5.4 Not Available [facility] ([facility]) [address] [facility], [place], [address], 04/26/2025 08:10:54 04/25/20 25 04/26/2025 CBC WITH DIFFE RENTI AL/PL ATELE T platelets 210 x10e3 /uL 150-45 0 normal Not Available [facility] ([facility]) [address] [facility], [place], [address], 04/26/2025 08:10:54 04/25/20 25 04/26/2025 CBC WITH DIFFE RENTI AL/PL ATELE T neutrophils 55 % not estab. normal Not Available [facility] ([facility]) [address] [facility], [place], [address], 04/26/2025 08:10:54 04/25/20 25 04/26/2025 CBC WITH DIFFE RENTI AL/PL ATELE T lymphs 34 % not estab. normal Not Available [facility] ([facility]) [address] [facility], [place], [address], 04/26/2025 08:10:54 04/25/20 25 04/26/2025 CBC WITH DIFFE RENTI AL/PL ATELE T monocytes 8 % not estab. normal Not Available [facility] ([facility]) [address] [facility], [place], [address], 04/26/2025 08:10:54 04/25/20 25 04/26/2025 CBC WITH DIFFE RENTI AL/PL ATELE T eos 2 % not estab. normal Not Available [facility] ([facility]) [address] [facility], [place], [address], 04/26/2025 08:10:54 04/25/20 25 04/26/2025 CBC WITH DIFFE RENTI AL/PL ATELE T basos 1 % not estab. normal Not Available [facility] ([facility]) [address] [facility], [place], [address], 04/26/2025 08:10:54 04/25/20 25 04/26/2025 CBC WITH DIFFE RENTI AL/PL ATELE T immature cells BUNDLE PERSON Not Available [facility] ([facility]) [address] [facility], [place], [address], 04/26/2025 08:10:54 04/25/20 25 04/26/2025 CBC WITH DIFFE RENTI AL/PL ATELE T neutrophils (absolute) 2.9 x10e3 /uL 1.4-7. 0 normal Not Available [facility] ([facility]) [address] [facility], [place], [address], 04/26/2025 08:10:54 04/25/20 25 04/26/2025 CBC WITH DIFFE RENTI AL/PL ATELE T lymphs (absolute) 1.7 x10e3 /uL 0.7-3. 1 normal Not Available [facility] ([facility]) [address] [place], [address], 04/26/2025 08:10:54 04/25/20 25 04/26/2025 CBC WITH DIFFE RENTI AL/PL ATELE T monocytes(ab solute) 0.4 x10e3 /uL 0.1-0. 9 normal Not Available [facility] ([facility]) [address] [place], [address], 04/26/2025 08:10:54 04/25/20 25 04/26/2025 CBC WITH DIFFE RENTI AL/PL ATELE T eos (absolute) 0.1 x10e3 /uL 0.0-0. 4 normal Not Available [facility] ([facility]) [address] [facility], [place], [address], 04/26/2025 08:10:54 04/25/20 25 04/26/2025 CBC WITH DIFFE RENTI AL/PL ATELE T baso (absolute) 0.0 x10e3 /uL 0.0-0. 2 normal Not Available [facility] ([facility]) [address] [facility], [place], [address], 04/26/2025 08:10:54 04/25/20 25 04/26/2025 CBC WITH DIFFE RENTI AL/PL ATELE T immature granulocytes 0 % not estab. Not Available [facility] ([facility]) [address] [facility], [place], [address], 04/26/2025 08:10:54 04/25/2004/26/2025 CBC WITH DIFFE RENTI AL/PL ATELE T immature grans (abs) 0.0 x10e3 /uL 0.0-0. 1 Not Available [facility] ([facility]) [address] [facility], [place], [address], 04/26/2025 08:10:54 04/25/20 25 04/26/2025 CBC WITH DIFFE RENTI AL/PL ATELE T NRBC BUNDLE PERSON Not Available [facility] ([facility]) [address] [facility], [place], [address], 04/26/2025 08:10:54 04/25/2004/26/2025 CBC WITH DIFFE RENTI AL/PL ATELE T hematology comments: BUNDLE PERSON Not Available [facility] ([facility]) [address] [facility], [place], [address], 04/26/2025 08:10:54 04/25/2004/26/2025 HEMOG LOBIN A1C hemoglobin A1C 9.8 % 4.8-5. 6 above high normal Predi abete s: 5.7 - 6.4 Diabe gayatri: >6.4 Glyce lucio contr ol for adult s with diabe gayatri: <7.0 Not Available [facility] ([facility]) [address] [facility], [place], [address], 04/26/2025 08:10:54 05/06/2005/06/2025 rapid SARS CoV + SARS CoV 2 Ag, QL IA, respi rator y speci men SARS CoV antigen Invali d Not Available [address], [address], 05/06/2025 12:43:36 05/06/2005/06/2025 rapid flu (A+B) Flu negati ve Not Available [address], [address], 05/06/2025 12:43:08 05/06/2005/06/2025 rapid flu (A+B) Type Both A & B Not Available [address], [address], 05/06/2025 12:43:08 04/16/2004/16/2025 elect rocar diogr am No observ ation record ed. efryman [address], [address], 04/16/2025 16:39:45 05/03/20 25 04/16/2025 elect rocar diogr am No observ ation record ed. BARCODE [address], [address], 05/03/2025 14:42:28 Result Notes None recorded. 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 67410099044 9105 Active 2020 Yesika Galvin [facility], [place] - [facility] 4 08:22:17 Type 2 diabetes mellitus 60534198 Completed 202101/26/2022 Dean Hamlin, DIRECTOR PAID MEDIA [address], [place], [address] , [place] - [facility] 4 08:17:49 Anxiety 72743523 Active 2021 Dean Hamlin, DIRECTOR [employer] [address], [place], [address] , [place] - [facility] 2 16:49:08 Depressiv e disorder 36293854 Active 2021 Dean Hamlin, DIRECTOR [employer] [address], [place], [address] , [place] - [facility] 2 16:49:13 Hyperchol esterolem ia 13622923 Active 2021 Dean Hamlin, DIRECTOR [employer] [address], [place], [address] , [place] [facility] 2 16:49:26 Arthritis 6020613 Active 2021 Dean Hamlin, DIRECTOR [employer] [address], [place], [address] , [place] [facility] 2 16:49:10 Environme ntal allergy 745757573 Active 2021 Dean Hamlin, DIRECTOR [employer] [address], [place], [address] , [place] [facility] 2 16:49:17 Type 2 diabetes mellitus 78859210 Active 2021 Dean Hamlin, DIRECTOR [employer] [address], [place], [address] , [place] [facility] 4 08:17:48 Albuminur ia 680153004 Active 2021 Dean Hamlin, DIRECTOR [employer] [address], [place], [address] , [place] [facility] 2 08:46:14 Neck pain 04899697 Active 2021 Yesika Galvin null, [place] - [facility] 4 08:22:17 Fracture of lumbar spine 175662619 Active 2021 Dean Hamlin, DIRECTOR [employer] [address], [place], [address] , [place] [facility] 2 11:07:18 Low back pain 163794202 Active 2022 Yesika Galvin null, [place] - [facility] 4 08:22:17 History of respirato ry disease 362669742 Active 2023 Yesika Kamar null, [place] - [facility] 4 08:22:17 History of asthma 179862418 Active 2023 Yesika Galvin null, [place] - [facility] 4 08:22:17 Systemic inflammat ory response syndrome 134484646 Completed 202309/12/2023 Yesika Kamar null, [place] - [facility] 4 08:22:17 Lumbar spondylos is 668955714 Active 2023 Yesika Galvin null, [place] - [facility] 4 08:22:17 Subconjun ctival hemorrhag e of right eye 73007010569 9100 Active 2023 Yesika Galvin null, [place] - [facility] 4 08:22:17 Arthropat hy of spinal facet joint 737675584 Active 2023 Yesika Galvin null, [place] - [facility] 4 08:22:17 Allergic condition 323647522 Active 2023 Yesikachritsy Galvin null, [place] - [facility] 4 08:22:17 Pain of hip region 65788237 Active 2023 Yesika Kamar null, [place] - [facility] 4 08:22:17 Diabetes mellitus 13065093 Completed 202309/12/2023 Yesika Galvin null, [place] - [facility] 4 08:22:17 Septic shock 68936088 Completed 202309/12/2023 Yesika Galvin null, [place] - [facility] 4 08:22:17 Pulmonic valve regurgita tion 03034199 Active 2023 Yesika Galvin null, [place] - [facility] 4 08:22:17 Postopera tive state 22656911 Active 2023 Yesika Galvin null, [place] - [facility] 4 08:22:17 Diabetic on insulin 817615230 Active 2023 Dean Hamlin, DIRECTOR [employer] [address], [place], [address] , [place] - [facility] 4 15:06:20 Gastritis 8029039 Active 2023 Vinita [place] [facility] [place] - [facility] 4 09:09:10 Acute bronchiti s 41748085 Active 2024 Salima Quinteros, DIRECTOR [employer] [address], [place], [address] , [place] - [facility] 5 14:19:26 Wheezing 26401848 Active 2024 Salima Saxenaoberts, DIRECTOR [employer] [address], [place], [address] , [place] - [facility] 5 14:22:04 Problem Notes None recorded. Procedures Surgical History Date Name Laterality Status Provider Name and Address Organization Details Recorded Time 11/28/19 25 Laceration Repair with Sutures/[place] completed Dean Hamlin APRN [address], [place], [address], [place] - [facility] 11/27/2024 11:10:23 10/10/19 25 Advance Care Planning completed Vinita [place] - [facility] 10/09/2024 09:00:13 10/10/19 25 Functional Status Assessed completed V[place]a [place] - [facility] 025 09:00:13 09/08/19 24 Advance Care Planning completed Yesika Galvin [place] - [facility] 09/08/2023 08:09:01 09/08/19 24 Functional Status Assessed completed Yesika ABREU - [facility] 09/08/2023 08:09:01 04/04/20 23 Cerumen Removal completed Yesika ABREU - [facility] 04/04/2023 13:11:40 05/25/20 22 Cerumen Removal completed Dean Hamlin APRN [address], [place], [address], [place] - [facility] 05/25/2022 14:51:22 03/12/20 22 Dexcom Placement completed Dean Hamlin APRN [address], [place], [address], [place] - [facility] 03/12/2022 09:33:13 Eye Surgery [...] - [facility] 022 14:58:27 Colonoscopy completed Yesika Kamar [place] - [facility] 09/08/2023 08:10:45 Joint Replacement completed Yesika Kamar [place] - [facility] 09/08/2023 08:10:45 Knee Surgery [...] Name and Address Organization Details Recorded Time 909284 No known allergy (situatio n) Not available Not available Not available Not available 11/21/2023 [id number] [id number] SNOMED Yesika Kamar null, [place] - [facility] 08:22:23 No known drug allergies Medications Name [...] completed Not Available Not Available Not Available [employer] Test strips USE TO TEST TWICE A [...] Ultra-Fine Mini Pen Needle 31 gauge x 10/07 FOLLOW PER PRESCRIBE R DIRECTONS active Not [...] Ultra-Fine Micro Pen Needle 32 gauge x 07/28 USE FOR INJECTION ONE TIME A DAY [...] height Body mass index (BMI) Body weight Heart rate Oxygen saturation Oxygen saturation in Arterial blood by Pulse oximetry Respiratory rate Pain severity - 0-10 verbal numeric rating [Score] - Reported Systolic And Diastolic Provider Name and Address Organization Details Last Updated DateTime 5 180.34 cm 35.3 kg/m2 435870. 57 g 100 /min 96 % 96 % 20 /min 10 136/82 mm[Hg] Yesika Galvin [place] - [facility] 5 15:49:23 Date Recorded Body height Respiratory rate Body mass index (BMI) Body weight Body temperature Heart rate Oxygen saturation Oxygen saturation in Arterial blood by Pulse oximetry Systolic And Diastolic Provider Name and Address Organization Details Last Updated DateTime 5 180.34 cm 18 /min 35.6 kg/m2 548970. 05 g 97.8 [degF] 70 /min 97 % 97 % 134/78 mm[Hg] Vinita [place] - [facility] 15:02:30 Date Recorded Body height Provider Name an d Address Organization Details Last Updated DateTime 04/25/2025 180.34 [address] [place] - [facility] 04/25 11:29:41 Date Recorded Body height Body mass index (BMI) Body weight Body temperature Heart rate Oxygen saturation Oxygen saturation in Arterial blood by Pulse oximetry Respiratory rate Pain severity - 0-10 verbal numeric rating [Score] - Reported Systolic And Diastolic Provider Name and Address Organization Details Last Updated DateTime 180.34 cm 35.3 kg/m2 731846. 87 g 97.6 [degF] 62 /min 95 % 95 % 18 /min 0 142/84 mm[Hg] Yesika Galvin [place] - [facility] 12:42:20 Date Recorded Body height Body mass index (BMI) Body weight Body temperature Respiratory rate Pain severity - 0-10 verbal numeric rating [Score] - Reported Heart rate Oxygen saturation Oxygen saturation in Arterial blood by Pulse oximetry Systolic And Diastolic Provider Name and Address Organization Details Last Updated DateTime 180.34 cm 35.3 kg/m2 090846. 87 g 97.8 [degF] 18 /min 0 60 /min 98 % 98 % 138/70 mm[Hg] Trisha [place] - [facility] 14:05:20 Social History Question Answer Notes LastModified by Organizat ion Details LastModified Time Tobacco Smoking Status Former Smoker V[facility]at [facility] [facility] 01/26/2022 14:56:00 Do You Have An Advance [...] Or The Highest Degree You Have Received? [id number] Information not available 01/26/2022 Have There Been [...] Do You Have A Medical Power Of Roofing Superintendent? No Information not available 09/08/2023 What Was [...] Functional Status Question Answer Note LastModified by [employer] Details LastModified Time How many times per week do you consume alcohol? 1-2 times per week Information not available 09/08/2023 Do you or have you ever used smokeless tobacco? [id number] Information n ot available 09/08/2023 Are you [...] anxious, or unable to sleep at night)? [id number] Information not available 01/26/2022 Do you have [...] available 2023 08:10:25 Medical History Condition Response Depression Y Anxiety Disorder Y Arthritis Y Acid Reflux (GERD) Y Hypercholesterolemia Y Ear or Hearing Problems Y Hypothyroidism Y Hypoglycemia Y Diabetes Y Hyperlipidemia Y Hypertension Y Immunizations Vaccine Type Date Status Note Provider Name and Address Organization Details Recorded Time Tdap 022 cancelled patient objection Dean Hamlin APRN [address], [place], [address], [place] - [facility] 03/26/2022 10:37:59 Pneumococcal conjugate PCV20, polysaccharide [id number] conjugate, adjuvant, PF 024 cancelled patient objection Dean Hamlin APRN [address], [place], [address], [facility] - [facility] 02/28/2024 13:34:11 Influenza, high-dose, trivalent, PF 024 completed Yesika Galvin [place], [place] - [facility] 05/10/2024 16:48:23 zoster recombinant 025 cancelled patient objection Dean Hamlin APRN [address], [place], [address], [facility] - [facility] 10/09/2024 10:08:40 Pneumococcal conjugate PCV20, polysaccharide [id number] conjugate, adjuvant, PF 025 cancelled patient objection Dean Hamlin, DIRECTOR PA[employer] MEDIA [address], [place], [address], [place] - [facility] 10/09/2024 10:08:40 Tdap 025 completed Vinita [place] - [facility] 11/27/2024 16:08:06 Influenza, high-dose, trivalent, PF 025 completed Vinita [place] - [facility] 04/16/2025 16:30:33 COVID-19, mRNA, LNP-S, PF, 30 mcg/0.3 mL dose 021 completed Yesika Kamar [place] - [facility] 05/25/2022 13:19:20 Influenza, split virus, trivalent, PF 017 completed Yesika Kamar [place] - [facility] 05/25/2022 13:19:20 Influenza, split virus, trivalent, PF 018 completed Yesika Kamar [place] - [facility] 05/25/2022 13:19:20 Influenza, split virus, quadrivalent, PF 022 completed Yesika Kamar [place], [place] - [facility] 05/25/2022 13:19:20 Td (adult) 018 completed Yesika Kamar [place], [place] - [facility] 05/25/2022 13:19:20 Influenza, MDCK, quadrivalent, PF 023 completed Yesika Kamar null, [place] - [facility] 04/18/2023 15:16:35 Past Encounters Encounter ID Performer Location Encounter Start Date Encounter Closed Date Diagnosis/Indication Diagnosis SNOMED-CT Code Diagnosis ICD10 Code Diagnosis IMO Codes Diagnosis Note [id number] Dean Hamlin, GAGE [facility] [address] [place] [address] 01/26/2022 14:00:20 01/26/2022 15:39:43 Diabetes mellitus 05699884 E11.9 Overall, pt doing well at this time. This has remained stable since previous visit. Pt is due for Diabetic labs in 30 days was last completed in november. Pt will need repeat A1c today. Discussed routine diabetic follow up in 3 months and pt is agreeable. Pt counseled on diet and weight management at today's visit. Pt will try to comply with ADA guidelines in regards to diet and increase daily activity as tolerated. Call or RTC sooner than follow up should any questions or concerns arise. *Diabetic Measures:M etformin:y esACE/ARB: ASA: yes-otcSta tin: yesGLP:yes stop janumet- use only metformini ncrease statin labs next visit Body mass index 30+ - obesity 857592802 Z68.34 Obesity 965802765 E66.3 Anxiety 15545116 F41.9 Patient identified triggers for anxiety and impact of anxious thinking on functionin g. Discussed strategies to regulate symptoms and need for compliance with treatment. Obstructiv e sleep apnea of adult 9580157564 103 G47.33 Advised good sleep habits and patterns to include: 1. Setting a goal for at least 7 to 8 hours of sleep time per day. 2. Using the bed mainly for sleep and to go to bed only when tired. If unable to fall asleep after 30 minutes, patient should get out of bed but should not engage in any activity that requires sustained mental alertness. 3. Maintainin g a regular bedtime and wake-up time even on weekends or days off of work. 4. Avoiding excessive naps during the daytime. If a nap is necessary, limit it to no more than 30minutes. 5. Minimizing environmen vivek noise, bright lights, and extremes in bedroom temperatur e. 6. Avoiding alcohol, caffeinate d beverages, and nicotine products for at least 6 hours prior to bedtime. 7. Avoiding strenuous exercise and large meals for at least 4 hours prior to bedtime. Pt refuses to wear Cpap machine. Hypercholesterolemia 136 12288 E78.00 [id number] Dean Hamlin DIRECTOR [employer] [address] [address] 02/12/2022 11:18:04 02/12/2022 14:10:19 Acute maxillary sinusitis 05906495 J01.00 [id number] Dean Hamlin [address] [address] 03/05/2022 08:17:56 03/05/2022 09:28:08 Type 2 diabetes mellitus 81837071 E11.9 increase ozempic to 0.5mg q weekincrea se metformin to 1000mg po bidcheck glucose bid and write in log bring to next appointmen t-log given to ptlabs next visit [id number] Yasminekarel Hamlin DIRECT[employer] [address] [address] 03/12/2022 08:15:43 03/12/2022 09:43:09 Diabetes mellitus 63854961 E11.9 Overall, pt doing well at this time. This has remained stable since previous visit. Pt is due for Diabetic labs today. Pt will need repeat A1c today. Discussed routine diabetic follow up in 3 months and pt is agreeable. Pt counseled on diet and weight management at today's visit. Pt will try to comply with ADA guidelines in regards to diet and increase daily activity as tolerated. Call or RTC sooner than follow up should any questions or concerns arise. *Diabetic Measures:M etformin:y esACE/ARB: ASA: yes-otcSta tin: yesGLP:yes stop janumet- use only metformini ncrease statin labs next visit Hypercholesterolemia 136 53662 E78.00 [id number] Dean Chindeb [address] [address] 03/18/2022 10:46:02 03/18/2022 11:24:05 Type 2 diabetes mellitus 80847851 E11.9 discussed diet and exercise planlibre ordered [id number] Yasminekarel Hamlin [address] [address] 03/26/2022 08:20:27 03/26/2022 10:13:53 Type 2 diabetes mellitus 28762414 E11.9 long discussion with pt about a proper diet. discussed with pt that he needs to start a long acting insulin added to his medication plan, his glucose is ranging 240-350 on most days. Pt at this time wants to hold on injections for 1 month and watch his diet close. talked with pt about his risk of his glucose being this high and the effects it has on his organs.yuliya re orderedfol low up with nephrology Hypercholesterolemia 136 90628 E78.00 Administra tion of diphtheria, pertussis, and tetanus vaccine 427139148 Z23 Immunization advised 310 414038 Z71.9 declined vaccine [id number] Dean Hamlin [address] [address] 04/29/2022 08:59:05 04/29/2022 10:25:50 Type 2 diabetes mellitus 72000445 E11.9 again I had a long discussion with pt about a proper diet. discussed with pt that he needs to start a long acting insulin added to his medication plan, his glucose is ranging 240-350 on most days. Pt at this time wants to hold on injections for 1 month and watch his diet close. talked with pt about his risk of his glucose being this high and the effects it has on his organs.lab s due in 1 month- pt states he will try to watch diet and decide after labs if he wants to start injections . labs in 1 monthdiscu ssed carbs and offered dietian referral pt declinesli mad[facility] in [facility] w up with nephrology Chest pain 69512857 R07. 9 ekg normal- pt refused to go to ed for eval states its his shoulder not heart Pain of le ft shoulder joint 2686516057 7794492 M25.663 [id number] Dean Hamlin [address] [address] 05/03/2022 15:32:26 05/03/2022 15:57:32 Low back pain 936330096 M54.50 sent to [facility] er report to josep marcum. [id number] Dean Hamlin [address] [address] 05/25/2022 13:01:03 05/25/2022 14:49:40 Impacted cerumen in right ear 3381994214 610412 H61.21 Acute righ t otitis media 044847717 H66.91 Sebaceous cyst of skin 407158629 L72.3 [id number] Dean Hamlin [address] [address] 1 05/28/2022 08:27:07 05/28/2022 09:44:38 Type 2 diabetes mellitus 72495082 E11.9 Hypercholesterolemia 136 50038 E78.00 Anxiety 06117115 F41.9 Patient identified triggers for anxiety and impact of anxious thinking on functionin g. Discussed strategies to regulate symptoms and need for compliance with treatment. [id number] Dean Hamlin [address] [address] 06/22/2022 09:02:45 06/22/2022 11:00:43 Acute left otitis media 914682065 H66.92 Anxiety 66260469 F41.9 Patient identified triggers for anxiety and impact of anxious thinking on functionin g. Discussed strategies to regulate symptoms and need for compliance with treatment. Pt compliant with plan of careKasper reviewedme dication compliance discussedL ast uds:Control substance agreement on file Type 2 christina betes mellitus 63537863 E11.9 increase lantus to 10 units q [id number] Dean Hamlin [address] [address] 07/20/2022 09:33:44 07/20/2022 10:35:35 Anxiety 51524277 F41.9 Patient identified triggers for anxiety and impact of anxious thinking on functionin g. Discussed strategies to regulate symptoms and need for compliance with treatment. Pt compliant with plan of careKasper reviewedme dication compliance discussedL ast uds:Control substance agreement on file Type 2 christina betes mellitus 09885584 E11.9 increase lantus to 16 units qhs Fracture o f lumbar spine 630083181 S32.009A follow up with back surgeon as scheduled Diabetes mellitus 139498 09 E11.9 continue to increase lantus by 2 units every week that adv glucose over 200 for the weekPt counseled on diet and weight management at today's visit. Pt will try to comply with ADA guidelines in regards to diet and increase daily activity as tolerated. Call or RTC sooner than follow up should any questions or concerns arise. *Diabetic Measures:M etformin:y esACE/ARB: will discuss again he will think about itASA: yes-otcSta tin: yesGLP:yes stop janumet- use only metformin [id number] Dean Hamlin [address] [address] 09/06/2022 11:30:10 09/06/2022 12:08:51 Type 2 diabetes mellitus 19938365 E11.9 increase lantus to 20 units qhs Hypercholesterolemia 136 79677 E78.00 Anxiety 99016379 F41.9 Patient identified triggers for anxiety and impact of anxious thinking on functionin g. Discussed strategies to regulate symptoms and need for compliance with treatment. Pt compliant with plan of careKasper reviewedme dication compliance discussedL ast uds:Control substance agreement on file [id number] Dean Hamlin[address] [address] 09/16/2022 13:23:39 09/16/2022 14:54:56 Acute left otitis media 552045501 H66.92 Acute maxi llary sinusitis 49702974 J01.00 [id number] [facility] Roger[address] [address] 10/04/2022 14:05:00 10/04/2022 15:58:47 Fracture of lumbar spine 398328660 S32.009A follow up with back surgeon as scheduled Depressive disorder 7768 9007 F32.A Anxiety 48171210 F41.9 Patient identified triggers for anxiety and impact of anxious thinking on functionin g. Discussed strategies to regulate symptoms and need for compliance with treatment. Pt compliant with plan of careKasper reviewedme dication compliance discussedL ast uds:Control substance agreement on filehas one refill on last month script Type 2 christina betes mellitus 31302580 E11.9 Arthritis 1847742 M19.90 Hypercholesterolemia 136 33835 E78.00 Environmental allergy 42 4148501 T78.49XA Diabetes mellitus 925397 09 E11.9 [id number] [facility] [address] 10/21/2022 10:08:41 10/21/2022 10:50:53 Acute left otitis media 979549781 H66.92 [id number] Dean Hamlin [place] [address] 1 10/28/2022 16:21:21 10/28/2022 17:15:43 Lumbosacral nerve root pain 834387799 M54.17 Neuropathy 110879277 G62 .9 [id number] [place] [address] 1 12/17/2022 11:17:05 12/17/2022 13:17:56 Body mass index 30+ - obesity 295329416 Z68.34 Obesity 272793462 E66.9 Acute left otitis media 892074792 H66.92 Acute otit is externa of left ear 7788685953 035305 H60.502 Anxiety 14092611 F41.9 Patient identified triggers for anxiety and impact of anxious thinking on functionin g. Discussed strategies to regulate symptoms and need for compliance with treatment. Pt compliant with plan of careKasper reviewedme dication compliance discussedL ast uds:Control substance agreement on filehas one refill on last month script [id number] Dean Hamlin[address] [address] 01/04/2023 09:06:26 01/04/2023 10:21:34 Anxiety 58206581 F41.9 Patient identified triggers for anxiety and impact of anxious thinking on functionin g. Discussed strategies to regulate symptoms and need for compliance with treatment. Pt compliant with plan of careKasper reviewed and appropriat emedicatio n compliance discussedL ast uds: 3Control substance agreement on file Arthritis 3307972 M19.90 Depressive disorder 3548 9007 F32.A Environmental allergy 42 1592333 T78.49XA Hypercholesterolemia 136 24918 E78.00 Type 2 christina betes mellitus 44452877 E11.9 continue to monitor and diet Body mass index 30+ - obesity 849412296 Z68.33 Obesity 704562653 E66.9 [id number] Dean Hamlin [address] [address] 04/04/2023 10:24:49 04/04/2023 12:20:34 Type 2 diabetes mellitus 89494294 E11.9 continue to monitor and xpowu9p 7.8trial of increase of ozempic Anxiety 06992520 F41.9 Pt compliant with plan of careKasper reviewedme dication compliance discussedL ast uds: 3Control substance agreement on file Impacted c erumen in left ear 3055493925 290168 H61.22 Acute otit is externa of left ear 1352980099 084230 H60.784 [id number] Dean Hamlin [place] [address] 1 04/18/2023 14:57:32 04/18/2023 16:21:13 Bite of spider 799638332 W57.XXXA taking keflex Pain of ri ght shoulder joint 1667529522 5554789 M25.511 pt states he will talk to his ortho about shoulder [id number] Yasminekarel Hamlin[address] [address] 06/27/2023 10:36:42 06/27/2023 11:48:37 Type 2 diabetes mellitus 12001004 E11.9 continue to monitor and dietwill decrease metformin and change to er to help with diarrhea Acute maxi llary sinusitis 83558684 J01.00 [id number] Dean Hamlin[address] [address] 2023 10:59:36 2023 11:49:56 Acute maxillary sinusitis 41151301 J01.00 discussed med with pt [id number] [place] [address] 1 08/22/2023 11:11:17 08/22/2023 12:56:00 Body mass index 30+ - obesity 403002257 Z68.35 Obesity 242853889 E66.9 Acute maxi llary sinusitis 53004613 J01.00 discussed med with pt [id number] Dean Hamlin [address] [address] 09/08/2023 08:03:12 09/08/2023 10:40:00 Adult health examination 603601313 Z00.00 have labs done tuesday and send copy to office Depression screening 171 853537 Z13.31 Examinatio n of blood pressure 524015249 Z01.30 Diet education 07044987 Z71.3 Counseling 260867032 Z71 .82 Exercise counseling . Patient encouraged to exercise 30 minutes 5 days a week. At [facility] ed risk for falls 227603529 Z91.81 STEADI FAST screening score of __4___. Advance care planning 71 9149333 Z71.89 Finding of body mass index 238963415 Z68.35 Body mass index 30+ - obesity 727487888 Z68.35 Obesity 328631998 E66.9 Seasonal a llergic rhinitis 054743713 J30.2 [id number] Dean Hamlin [address] [address] 11/21/2023 08:20:25 11/21/2023 09:15:09 Anxiety 66571831 F41.9 Pt compliant with plan of careKasper reviewedme dication compliance discussedL ast uds: 4Control substance agreement on file Long-term current use of benzodiazepine 8932342749 1336860 Z79.899 Albuminuria 662401261 R8 0.9 Depressive disorder 3548 9007 F32.A Hypercholesterolemia 136 98883 E78.00 Type 2 christina betes mellitus 54431047 E11.9 continue to monitor and dietwill decrease metformin and change to er to help with diarrhea [id number] Dean Hamlin DIRECTOR [employer] [address] [address] 12/05/2023 09:20:09 12/05/2023 10:16:33 Anxiety 28028391 F41.9 [id number] Dean Hamlin [address] [place] [address] 12/22/2023 08:50:25 12/22/2023 09:11:37 Anemia 662179050 D64.9 [id number] Yasminekarel Hamlin [address] [address] 02/28/2024 08:35:05 02/28/2024 10:17:06 Diabetic on insulin 623457209 Z79.4 Pneumococc al vaccination declined 225021539 Z28.21 Hepatitis C screening declined 6476387856 5105 Z53.20 HIV screen ing declined 4741710619 37214 Z53.20 [id number] Yasminekarel Hamlin [address] [address] 03/30/2024 08:01:52 03/30/2024 08:39:28 Albuminuria 239874116 R80.9 Anxiety 53956317 F41.9 [facility] dication compliance discussedL ast uds: 4Control substance agreement on file Diabetic on insulin 1707 11604 Z79.4 Hypercholesterolemia 136 85550 E78.00 Type 2 christina betes mellitus 02291863 E11.9 [id number] Yasminekarel Hamlin[address] [address] 04/06/2024 13:32:41 04/06/2024 14:26:29 Hernia of anterior abdominal wall 060561946 K43.9 [id number] Haiderjosep Hamlin [address] [address] 05/10/2024 16:03:28 05/10/2024 16:51:23 Influenza vaccine needed 8643127730 106 Z23 [id number] Yasminekarel Hamlin [address] [address] 05/21/2024 09:40:58 05/21/2024 10:47:44 Nausea and vomiting 21701651 R11.2 COVID-19 348482030 U07.1 no sign of a bacterial infection. likely viral. viruses can take 7-14 days to run their course. nasal saline and bulb syringe to remove nasal drainage to help with congestion . monitor temp. Tylenol or Motrin as needed for pain or fever. encourage fluids, water, Gatorade, power aide, Pedialyte if infant/tod dler/child warm salt water gargles warm fluids sore throat lozenges sleep elevated humidifier /vaporizer follow up immediatel y for new or worsening symptoms or no noticeable improvemen t over the next 48-72 hours [id number] Dean Hamlin[address] [address] 06/14/2024 08:01:24 06/14/2024 09:38:20 Body mass index 30+ - obesity 436295686 Z68.36 Obesity 872490021 E66.9 Infection of tick bite 655220096 L08.9 if worsen or no improvemen t return Hypercholesterolemia 136 94941 E78.00 Type 2 christina betes mellitus 33758910 E11.9 [id number] [facility] Elmer[address] [address] 06/18/2024 09:16:59 06/18/2024 10:57:44 Closed fracture of head of left radius 1036975080 3700945 S52.125A [id number] [address] [address] 08/20/2024 10:03:53 08/20/2024 11:21:12 Anxiety 78217417 F41.9 Pt compliant with plan of careKasper reviewedme dication compliance discussedL ast uds: 4Control substance agreement on fileuds next visitfirst script sent to wrong pharm- called and cancelled first script- sent second Depressive disorder 9277 9008 F32.A 7467143 Dean Hamlin[address] [address] 09/18/2024 15:20:49 09/18/2024 16:28:09 Gingival abscess 864314524 K04.7 follow up with dentist , call for appointmen t Acute righ t otitis media 369054099 H66.91 [id number] Dean Hamlin [address] [address] 10/09/2024 08:52:06 10/09/2024 10:42:19 Adult health examination 989286879 Z00.00 Depression screening 171 601132 Z13.31 A depression screening was completed via a standardiz ed screening tool. 5 minutes were spent discussing depression screening results and risk factors. Examinatio n of blood pressure 970763759 Z01.30 Diet education 72373030 Z71.3 Counseling 583496161 Z71 .82 Exercise counseling . Patient encouraged to exercise 30 minutes 5 days a week. At [facility] ed risk for falls 754808094 Z91.81 STEADI FAST screening score of __5___. Advance care planning [address] vaccination declined 1889448357 102 Z28.20 Pneumococc al vaccination declined 055844338 Z28.21 Diabetic on insulin 1707 73021 Z79.4 Environmental allergy 42 4562880 T78.49XA Hypercholesterolemia 136 85169 E78.00 Type 2 christina betes mellitus 45168164 E11.9 labs Iron defic iency anemia 77211832 D50.9 labs [id number] Dean Hamlin [address] [address] 11/23/2024 09:26:39 11/23/2024 10:36:28 Type 2 diabetes mellitus 62161564 E11.9 Z79.4 23274550 pt adherence to cgm regimen and dm treatment plan [id number] Dean Hamlin [address] [address] 11/27/2024 10:40:14 11/27/2024 11:18:01 Laceration of left thumb 1172578073 2812426 S61.012A 5168693 keep area clean and drysteri strips will fall offmonitor for s/s of infection [id number] Dean Hamlin [address] [address] 12/10/2024 08:05:25 12/10/2024 09:05:46 Type 2 diabetes mellitus 30870364 E11.9 Z79.4 pt adherence to cgm regimen and dm treatment plan [id number] Yasminebryonjosep Roger [address] [address] 01/03/2025 14:26:24 01/03/2025 15:39:56 Anxiety 91669058 F41.9 Pt compliant with plan of careKasper reviewedme dication compliance discussedL ast uds: 5Control substance agreement on file Type 2 christina betes mellitus 22744988 E11.9 Z79.4 pt adherence to cgm regimen and dm treatment plandiscus sed med in detail [id number] Haiderjosep deb[address] [address] 01/15/2025 15:38:00 01/15/2025 16:26:40 Pain of knee region 7069236188 M25.561 57467780 decadronre sticeeleva tebracefol low up with ortho on thursretur n if symptoms worsen or no improvemen tmonitor glucose close- may need to increase lantus to cover [id number] Yasminekarel Hamlin [address] [address] 04/16/2025 14:21:27 04/16/2025 16:39:42 Influenza vaccine needed 4931997140 106 Z23 Type 2 christina betes mellitus 55914046 E11.9 Z79.4 pt adherence to cgm regimen and dm treatment plandiscus sed med in detail Diabetic on insulin 1707 57459 Z79.4 Malaise and fatigue 2717 11583 R53.81 R53.83 67746 Excessive sweating 75878 005 R61 16111 [id number] Haiderjosep Hamlin[address] [address] 04/25/2025 10:51:05 04/25/2025 14:04:18 Diabetic on insulin 899180068 Z79.4 Type 2 christina betes mellitus 43465218 E11.9 Z79.4 pt adherence to cgm regimen and dm treatment plandiscus sed med in detail [id number] Dean Hamlin APRN [facility] [address] [place] [address] 05/06/2025 11:43:25 05/06/2025 12:36:52 Bronchitis 33560691 J40 51382 no sign of a bacterial infection. likely [...] hours Depressive disorder 3548 9007 F32.A Anxiety 77115800 F41.9 Pt compliant with plan of Lei reviewedme dication compliance discussedL ast uds: 5Control substance agreement on file Hypercholesterolemia 136 06216 E78.00 Type 2 christina betes mellitus 96803950 E11.9 Z79.4 pt adherence to cgm regimen and dm treatment plandiscus sed med in detail Environmental allergy 42 3544808 T78.49XA [id number] GAGE [facility] [address] [place] [address] 05/09/2025 13:46:57 05/09/2025 14:46:26 Body mass index 30+ - obesity 153930572 Z68.35 705176 Acute bronchitis 9367619 2 J20.9 89140875 Wheezing 96087936 R06.2 37814 Health Concerns Section Related Observation LastModified by Organization Detai ls LastModified Time None Recorded Concern Status LastModified by Organization Details LastModified Time None Recorded Advance Directives Directive N: Payers Insurance Date Sequence Insurance Name Policy Number Policy Mckeon Covered Member ID Mckeon Member ID Guarantor Name 04/04/[address] [facility] - DUAL ELIGIBLE (MEDICARE REPLACEMENT/ ADVANTAGE - HMO) [place] Otto Hoff Dargavell [id number] Otto Dargavell 04/06/[address] [facility] (MEDICARE REPLACEMENT/ ADVANTAGE - HMO) [place] Otto Hoff Dargavell [id number] Otto Dargavell 04/21/2022 2 [place] [facility] - FFS/TRADITIO NAL Otto K Dargavell [id number] Otto Dargavell 07/20/2023 2 [place] [id number] Otto Kavya Dargavell [id number] Otto Dargavell 07/21/2023 [place] [id number] Otto Kavya Dargavell [id number] Otto Dargavell 05/16/2024 2 [place] Otto K Dargavell [id number] Otto Dargavell 04/25/2025 [employer] [place] R[place] Otto K Dargavell [id number] Otto Dargavell 04/10/2024 2 [place] Otto K Dargavell [id number] Otto Dargavell 08/29/2023 2 [place] Otto Kavya Dargavell [id number] Otto Dargavell 05/06/[address] [facility] (MEDICARE REPLACEMENT/ ADVANTAGE - HMO) [id number] Otto Hoff Dargavell [id number] Otto Dargavell Notes Date Note Type Note Provider Name and Address Organization Details Recorded Time 01/15/2025 text/html 64 yr old male presents for right knee pain. He injured it last Nov and it has flared up again. pt states he has tried lidocaine patch,brace,tyleno l and cream and nothing is helping pain. pt states he did get a new brace and hopes it will help Dean Hamlin, DIRECT[employer] [address], [place], [address], [place] - [facility] 01/15/2025 16:22:15 04/16/2025 text/html ROS as noted in the [facility] 64 year old male who presents to the office today for a follow up ondiabetes, hard to control sugars, fatigue, sleep all the timebreaks into cold sweats at timeswants flu shot Dean Hamlin, DIRECTOR [employer] [address], [place], [address], [place] - [facility] 04/16/2025 17:12:32 04/25/2025 text/html labs [place] [facility], [place] - [facility] 04/25/2025 11:32:10 05/06/2025 text/html ROS as noted in the [facility] 64 yr old male presents for cough and wheezing for about 3 days. Patient has taken zithromax that he had at home.also needs all of his meds refilled.states his meds help with his anxiety/panic attacks Dean Hamlin, DIRECTOR [employer] [address], [place], [address], [facility] - [facility] 05/06/2025 13:20:07 05/09/2025 text/html ROS as noted in the HPI Patient presents with productive cough. Doesn't look at what he produces as he swallows it.He states that he has to sit up in a chair at night. When he tries to lay down he wheezes, and has feeling that he needs to get up and cough. Denies being short of breath.Hx of smoking, did this occasionally. Was never habitual. Took a couple days worth of azithromycin prior to seeing practitioner the other the day. Took a azithromycin of his significant others this am.Denies any fever or chills. Last Tuesday he chilled and believes that he had a fever.Was negative for influenza and COVID the other day. Salima Quinteros, DIRECTOR [employer] [address], [place], [address], [facility] - [facility] 05/09/2025 14:39:51
--- OUTSIDE RECORDS SUMMARY | 2025-05-13 06:47 | XMS_ITS | Continuity of Care Document ---
Author Organization [facility] Address [address] [place] [address] Care Team Providers Care Inductor Tester Name Role Phone DEAN HAMLIN Primary Care Provider HARREIT Richardson Primary Care Provider CARLO CORDREO Urologist FARIDA GRAVES Information [employer] [facility] Histology Technologist Assessment No assessment recorded. Plan of Treatment Reminders Order Date Submit Date Provider Last Modified By Organization Details Last Modified Time Details Appointments None recorded. Lab Mycobacteri um tuberculosi s stimulated gamma interferon, qual, blood 2024 025 IRENE [facility], [address], [address] [address], [place], [address], 5 04:05:57 HbA1c (hemoglobin A1c), blood 2024 025 IRENE [facility], [address], [place], [place], [address], 5 08:10:54 CBC w/ auto diff 2024 025 IRENE [facility], [address], [place], [place], [address], 5 08:10:54 TSH + free T4, serum 2024 025 IRENE [facility], [address], [place], [place], [address], 5 04:05:56 CMP, serum or plasma 2024 025 IRENE [facility], [address], [place], [place], [address], 5 04:05:56 cobalamin and folate panel, serum 2024 025 IRENE [facility], [address], [place], [place], [address], 5 04:05:57 vitamin D, 25-hydroxy, total, serum 2024 025 IRENE [facility], [address], [place], [place], [address], 5 04:05:57 iron + total iron-bindin g capacity (TIBC), serum 2024 025 IRENE [facility], [address], [place], [place], [address], 5 04:05:57 Referral cardiologis t referral - 04/17/25- dr gilbert at 1 pm per [facility] 2024 025 IRENE Woodruff MD, [address], [place], [address], 5 08:27:27 Procedures None recorded. Surgeries None recorded. Imaging electrocard iogram 2024 025 [email or web address] [facility], [address], [place], [address], 5 16:39:42 Medication Orders None recorded. Patient TargetsNo targets recorded. Patient InstructionsNo instructions recorded. Reason for Referral Conference Services Manager Referral for Ex cessive sweating 04/17/25- dr gilbert at 1 pm per [facility] Referring Physician: Dean Hamlin, Family Medicine, Encounter Date: 04/16/2025 Results Created Date Observation Date Name Description Value Unit Range Abnormal Flag Note LastModifiedBy Organization Detail LastModifiedTime 04/25/2004/26/2025 CBC WITH DIFFE RENTI AL/PL ATELE T WBC 5.2 x10e3 /uL 3.4-10 .8 normal Not Available [facility] ([facility]) [address], [place], [address], 04/26/2025 08:10:54 04/25/2004/26/2025 CBC WITH DIFFE RENTI AL/PL ATELE T RBC 4.51 x10e6 /uL 4.14-5 .80 normal Not Available [facility] ([facility]) [address] [place], [address], 04/26/2025 08:10:54 04/25/2004/26/2025 CBC WITH DIFFE RENTI AL/PL ATELE T hemoglobin 13.4 g/dL 13.0-1 7.7 normal Not Available [facility] ([facility]) [address] [place], [address], 04/26/2025 08:10:54 04/25/20 25 04/26/2025 CBC WITH DIFFE RENTI AL/PL ATELE T hematocrit 41.6 % 37.5-5 1.0 normal Not Available [facility] ([facility]) [address] [place], [address], 04/26/2025 08:10:54 04/25/20 25 04/26/2025 CBC WITH DIFFE RENTI AL/PL ATELE T MCV 92 fL 79-97 normal Not Available [facility] ([facility]) [address] [place], [address], 04/26/2025 08:10:54 04/25/20 25 04/26/2025 CBC WITH DIFFE RENTI AL/PL ATELE T MCH 29.7 pg 26.6-3 3.0 normal Not Available [facility] ([facility]) [address] [place], [address], 04/26/2025 08:10:54 04/25/20 25 04/26/2025 CBC WITH DIFFE RENTI AL/PL ATELE T MCHC 32.2 g/dL 31.5-3 5.7 normal Not Available [facility] ([facility]) [address] [place], [address], 04/26/2025 08:10:54 04/25/20 25 04/26/2025 CBC WITH DIFFE RENTI AL/PL ATELE T RDW 13.1 % 11.6-1 5.4 Not Available [facility] ([facility]) [address] [place], [address], 04/26/2025 08:10:54 04/25/20 25 04/26/2025 CBC WITH DIFFE RENTI AL/PL ATELE T platelets 210 x10e3 /uL 150-45 0 normal Not Available [facility] ([facility]) [address] [place], [address], 04/26/2025 08:10:54 04/25/20 25 04/26/2025 CBC WITH DIFFE RENTI AL/PL ATELE T neutrophils 55 % not estab. normal Not Available [facility] ([facility]) [address] [place], [address], 04/26/2025 08:10:54 04/25/20 25 04/26/2025 CBC WITH DIFFE RENTI AL/PL ATELE T lymphs 34 % not estab. normal Not Available [facility] ([facility]) [address] [place], [address], 04/26/2025 08:10:54 04/25/20 25 04/26/2025 CBC WITH DIFFE RENTI AL/PL ATELE T monocytes 8 % not estab. normal Not Available [facility] ([facility]) [address] [place], [address], 04/26/2025 08:10:54 04/25/20 25 04/26/2025 CBC WITH DIFFE RENTI AL/PL ATELE T eos 2 % not estab. normal Not Available [facility] ([facility]) [address] [place], [address], 04/26/2025 08:10:54 04/25/2004/26/2025 CBC WITH DIFFE RENTI AL/PL ATELE T basos 1 % not estab. normal Not Available [facility] ([facility]) [address] [place], [address], 04/26/2025 08:10:54 04/25/20 25 04/26/2025 CBC WITH DIFFE RENTI AL/PL ATELE T immature cells ROOM DESIGNER Not Available [facility] ([facility]) [address] [place], [address], 04/26/2025 08:10:54 04/25/20 25 04/26/2025 CBC WITH DIFFE RENTI AL/PL ATELE T neutrophils (absolute) 2.9 x10e3 /uL 1.4-7. 0 normal Not Available [facility] ([facility]) [address] [place], [address], 04/26/2025 08:10:54 04/25/2004/26/2025 CBC WITH DIFFE RENTI AL/PL ATELE T lymphs (absolute) 1.7 x10e3 /uL 0.7-3. 1 normal Not Available [facility] ([facility]) [address] [place], [address], 04/26/2025 08:10:54 04/25/2004/26/2025 CBC WITH DIFFE RENTI AL/PL ATELE T monocytes(ab solute) 0.4 x10e3 /uL 0.1-0. 9 normal Not Available [facility] ([facility]) [address] [place], [address], 04/26/2025 08:10:54 04/25/20 25 04/26/2025 CBC WITH DIFFE RENTI AL/PL ATELE T eos (absolute) 0.1 x10e3 /uL 0.0-0. 4 normal Not Available [facility] ([facility]) [address] [facility], [place], [address], 04/26/2025 08:10:54 04/25/20 25 04/26/2025 CBC WITH DIFFE RENTI AL/PL ATELE T baso (absolute) 0.0 x10e3 /uL 0.0-0. 2 normal Not Available [facility] ([facility]) [address] [facility], [place], [address], 04/26/2025 08:10:54 04/25/20 25 04/26/2025 CBC WITH DIFFE RENTI AL/PL ATELE T immature granulocytes 0 % not estab. Not Available [facility] ([facility]) [address] [facility], [place], [address], 04/26/2025 08:10:54 04/25/20 25 04/26/2025 CBC WITH DIFFE RENTI AL/PL ATELE T immature grans (abs) 0.0 x10e3 /uL 0.0-0. 1 Not Available [facility] ([facility]) [address] [place], [address], 04/26/2025 08:10:54 04/25/20 25 04/26/2025 CBC WITH DIFFE RENTI AL/PL ATELE T NRBC ROOM DESIGNER Not Available [facility] ([facility]) [address] [place], [address], 04/26/2025 08:10:54 04/25/20 25 04/26/2025 CBC WITH DIFFE RENTI AL/PL ATELE T hematology comments: ROOM DESIGNER Not Available [facility] ([facility]) [address] [facility], [place], [address], 04/26/2025 08:10:54 04/25/2004/26/2025 HEMOG LOBIN A1C hemoglobin A1C 9.8 % 4.8-5. 6 above high normal Predi abete s: 5.7 - 6.4 Diabe gayatri: >6.4 Glyce lucio contr ol for adult s with diabe gayatri: <7.0 Not Available [facility] ([facility]) [address], [place], [address], 04/26/2025 08:10:54 04/16/2004/16/2025 elect rocar diogr am No observ ation record ed. efryman [address], [address], 04/16/2025 16:39:45 05/03/20 25 04/16/2025 elect rocar diogr am No observ ation record ed. [address], [address], 05/03/2025 14:42:28 Result Notes None recorded. 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 87254772271 9105 Active 2020 Yesika Galvin [place], [place] - [facility] 4 08:22:17 Type 2 diabetes mellitus 32622495 Completed 202101/26/2022 Dean Hamlin [employer] [address], [place], [address] , [place] - [facility] 4 08:17:49 Anxiety 62044694 Active 2021 Dean Hamlin APRN [address], [place], [address] , [place] - [facility] 2 16:49:08 Depressiv e disorder 72697295 Active 2021 Dean Hamlin APRN [address], [place], [address] , [place] - [facility] 2 16:49:13 Hyperchol esterolem ia 99433901 Active 2021 Dean Hamlin, [employer] [address], [place], [address] , [place] - [facility] 2 16:49:26 Arthritis 9164107 Active 2021 Dean Hamlin, [employer] [address], [place], [address] , [place] - [facility] 2 16:49:10 Environme ntal allergy 141794090 Active 2021 Dean Hamlin, [employer] [address], [place], [address] , [place] [facility] 2 16:49:17 Type 2 diabetes mellitus 93882255 Active 2021 Dean Hamlin, [employer] [address], [place], [address] , [place] [facility] 4 08:17:48 Albuminur ia 684924834 Active 2021 Dean Hamlin, [employer] [address], [place], [address] , [place] - [facility] 2 08:46:14 Neck pain 80558740 Active 2021 Yesika Galvin [place], [place] - [facility] 4 08:22:17 Fracture of lumbar spine 786010961 Active 2021 Dean Hamlin, [employer] [address], [place], [address] , [place] [facility] 2 11:07:18 Low back pain 373880879 Active 2022 Yesika Galvin [place], [place] [facility] 4 08:22:17 History of respirato ry disease 879536054 Active 2023 Yesika Galvin [place] [facility] 4 08:22:17 History of asthma 803640082 Active 2023 Yesika Galvin [place] [facility] 4 08:22:17 Systemic inflammat ory response syndrome 498453421 Completed 202309/12/2023 Yesikachristy Galvin [place] [facility] 4 08:22:17 Lumbar spondylos is 677621944 Active 2023 Yesika Galvin [place] [facility] 4 08:22:17 Subconjun ctival hemorrhag e of right eye 75018344453 9100 Active 2023 Yesika Galvin [place] [facility] 4 08:22:17 Arthropat hy of spinal facet joint 870991597 Active 2023 Yesika Galvin [place] [facility] 4 08:22:17 Allergic condition 026803017 Active 2023 Yesika Gal[place] [facility] 4 08:22:17 Pain of hip region 70078612 Active 2023 Yesikachristy Galvin [place] [facility] 4 08:22:17 Diabetes mellitus 35285861 Completed 202309/12/2023 Yesikachristy Galvin [place] [facility] 4 08:22:17 Septic shock 34920866 Completed 202309/12/2023 Yesikachristy Galvin [place] [facility] 4 08:22:17 Pulmonic valve regurgita tion 80922634 Active 2023 Yesikachristy Galvin [place] [facility] 4 08:22:17 Postopera tive state 39089991 Active 2023 Yesika Kamar [place] [facility] 4 08:22:17 Diabetic on insulin 119286858 Active 2023 Dean Hamlin, [employer] [address], [place], [address] , [place] [facility] 4 15:06:20 Gastritis 0114348 Active 2023 Vinita Stock[place], [place] [facility] 4 09:09:10 Acute bronchiti s 21122123 Active 2024 Salima Quinteros, [employer] [address], [place], [address] , [place] [facility] 14:19:26 Wheezing 68891539 Active 2024 Salima Quinteros, [employer] [address], [place], [address] , [place] - [facility] 5 14:22:04 Problem Notes None recorded. Procedures Surgical History Date Name Laterality Status Provider Name and Address Organization Details Recorded Time 11/28/19 25 Laceration Repair with Sutures/Marie completed Dean Hamlin, [employer] [address], [place], [address], [place] [facility] 11/27/2024 11:10:23 10/10/19 25 Advance Care Planning completed Vinita Stockton [place] - [facility] 10/09/2024 09:00:13 10/10/19 25 Functional Status Assessed completed Vinita [place] - [facility] 025 09:00:13 09/08/19 24 Advance Care Planning completed Yesika Galvin [place] - [facility] 09/08/2023 08:09:01 09/08/19 24 Functional Status Assessed completed Yesika Galvin [place] [facility] 09/08/2023 08:09:01 04/04/20 23 Cerumen Removal completed Yesika Galvin [place] [facility] 04/04/2023 13:11:40 05/25/20 22 Cerumen Removal completed Dean Hamlin, [employer] [address], [place], [address], [place] [facility] 05/25/2022 14:51:22 03/12/20 22 Dexcom Placement completed Dean Hamlin, [employer] [address], [place], [address], [place] [facility] 03/12/2022 09:33:13 Eye Surgery completed Vinita Stockton [place] [facility] 01/26/2022 14:57:12 Deviated Septum Repair completed Vinita [place] [facility] 01/26/2022 14:57:23 total knee replacement completed Vinita [place] [facility] 01/26/2022 14:57:42 Back Surgery completed Vinita [place] [facility] 01/26/2022 14:57:46 Prostate Surgery completed Vinita Maharajs [place] [facility] 01/26/2022 14:58:11 operation on urinary bladder completed Vinita Maharajs [place] [facility] 022 14:58:27 Colonoscopy completed Yesika Galvin [place] [facility] 09/08/2023 08:10:45 Joint Replacement completed Yesika Galvin [place] [facility] 09/08/2023 08:10:45 Knee Surgery completed Yesika Galvin [place] [facility] 09/08/2023 08:10:45 Sinus Surgery completed Yesika Galvin [place] [facility] 09/08/2023 08:10:45 endoscopy completed Vinita Maharajs [place] [facility] 02/28/2024 09:08:44 Imaging Results None recorded. Procedure Notes None recorded. Medical Equipment None Reported. Allergies Allergen ID Allergen Name Allergen Category Reaction Reaction Severity Criticality Documentation Date Start Date Code Code System Note Provider Name and Address Organization Details Recorded Time 613399 No known allergy (situatio n) Not available Not available Not available Not available 11/21/2023 34031 6003 SNOMED Yesika abebe, [place] - [facility] 08:22:23 No known drug [...] t Available Vitals Date Recorded Body height Respiratory rate Body mass index (BMI) Body weight Body temperature Heart rate Oxygen saturation Oxygen saturation in Arterial blood by Pulse oximetry Systolic And Diastolic Provider Name and Address Organization Details Last Updated DateTime 5 180.34 cm 18 /min 35.6 kg/m2 275539. 05 g 97.8 [degF] 70 /min 97 % 97 % 134/78 mm[Hg] Vinita Stockton [place] - [facility] 5 15:02:30 Social History Question Answer Notes LastModified by Organizat ion Details LastModified Time Tobacco Smoking Status Former Smoker Vinita Stockton [facility], [place] - [facility] 01/26/2022 14:56:00 Do You [...] Or The Highest Degree You Have Received? [id number] Information not available 01/26/2022 Have There Been [...] Do You Have A Medical Power Of Registrar Assistant? No Information not available 09/08/2023 What Was [...] or have you ever used smokeless tobacco? [id number] Information n ot available 09/08/2023 Are you [...] anxious, or unable to sleep at night)? [id number] Information not available 01/26/2022 Do you have [...] available 2023 08:10:25 Medical History Condition Response Ear or Hearing Problems Y Hypothyroidism Y Depression Y Anxiety Disorder Y Diabetes Y Arthritis Y Hyperlipidemia Y Acid Reflux (GERD) Y Hypoglycemia Y Hypercholesterolemia Y Hypertension Y Immunizations Vaccine Type Date Status Note Provider Name and Address Organization Details Recorded Time Tdap 022 cancelled patient objection Dean Hamlin APRN [address], [place], [address], [place] [facility] 03/26/2022 10:37:59 Pneumococcal conjugate PCV20, polysaccharide [id number] conjugate, adjuvant, PF 024 cancelled patient objection Dean Hamlin APRN [address], [place], [address], [place] [facility] 02/28/2024 13:34:11 Influenza, high-dose, trivalent, PF 024 completed Yesika [place]ebe, [place] [facility] 05/10/2024 16:48:23 zoster recombinant 025 cancelled patient objection Dean Hamlin APRN [address], [place], [address], [place] [facility] 10/09/2024 10:08:40 Pneumococcal conjugate PCV20, polysaccharide [id number] conjugate, adjuvant, PF 025 cancelled patient objection Dean Hamlin APRN [address] [place] [address], [place], [address], [place] [facility] 10/09/2024 10:08:40 Tdap 025 completed Vinita Stears null, [place] - [facility] 11/27/2024 16:08:06 Influenza, high-dose, trivalent, PF 025 completed Vinita Stears [place], [place] [facility] 04/16/2025 16:30:33 COVID-19, mRNA, LNP-S, PF, 30 mcg/0.3 mL dose 021 completed Yesika Kamar [place], [place] - [facility] 05/25/2022 13:19:20 Influenza, split virus, trivalent, PF 017 completed Yesika Kamar [place] [facility] 05/25/2022 13:19:20 Influenza, split virus, trivalent, PF 018 completed Yesika Kamar [place] [facility] 05/25/2022 13:19:20 Influenza, split virus, quadrivalent, PF 022 completed Yesika Kamar [place] [facility] 05/25/2022 13:19:20 Td (adult) 018 completed Yesika Kamar [place], [place] [facility] 05/25/2022 13:19:20 Influenza, MDCK, quadrivalent, PF 023 completed Yesika Galvin null, [place] - [facility] 04/18/2023 15:16:35 Past Encounters Encounter ID Performer Location Encounter Start Date Encounter Closed Date Diagnosis/Indication Diagnosis SNOMED-CT Code Diagnosis ICD10 Code Diagnosis IMO Codes Diagnosis Note [id number] Dean Hamlin APRN [address] [address] 04/16/2025 14:21:27 04/16/2025 16:39:42 Influenza vaccine needed 6262929259 106 Z23 Type 2 christina betes mellitus 34428078 E11.9 Z79.4 pt adherence to cgm regimen and dm treatment plandiscus sed med in detail Diabetic on insulin 1707 57857 Z79.4 Malaise and fatigue 2717 45376 R53.81 R53.83 60984 Excessive sweating 57432 005 R61 02550 Health Concerns Section Related Observation LastModified by Organization Detai ls LastModified Time None Recorded Concern Status LastModified by Organization Details LastModified Time None Recorded Payers Encounter Date Sequence Insurance Name Policy Number Policy Mckeon Covered Member ID Mckeon Member ID Guarantor Name 04/16/2025 1 [facility] (MEDICARE REPLACEMENT/A DVANTAGE - HMO) [id number] Otto Comer [id number] Otto Comer Notes Date Note Type Note Provider Name and Address Organization Details Recorded Time 04/16/2025 text/html ROS as noted in the HPI 64 year old male who presents to the office today for a follow up ondiabetes, hard to control sugars, fatigue, sleep all the timebreaks into cold sweats at timeswants flu shot Dean Hamlin, [employer] [address], [place], [address], [place] [facility] 04/16/2025 17:12:32
--- OUTSIDE RECORDS SUMMARY | 2025-05-13 06:47 | XMS_ITS | Clinical Summary ---
Author Organization [facility] , [facility] Address [address] [place] [address] Phone Care Team Providers Care Cook Italian Style Food Name Role Phone Maxim WINSTON, Iron Oshea Unavailable [phone] Nellie Duran APRN Unavailable [phone] Rodrigue Reece MD Primary Care Provider Unavailabl e Reason for Visit and Chief Complaint SI joint injection Problems Includes: Problems addressed during this encounter and other active Problems All Visits Onset Date Resolved Date Provider Condition S tatus Lower Back Pain 04/06/2023 WOLF GONZALEZ PA-C Active Last Documented On 3 11:22AM ; [facility] Neck Pain 05/31/2022 Adam Guerrier MD Active Last Documented On 2 10:13AM ; [facility] Joint Pain Shoulder Right 05/20/2022 Faby Rodriguez PA-C Active Last Documented On 2 9:03AM ; [facility] Joint Pain Shoulder Left 05/20/2022 Faby Rodriguez PA-C Active Last Documented On 2 8:59AM ; [facility] 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 - Last Documented On 09/26/2024 9:58AM ; [facility] Pending Tests Order Diagnosis Results Due Ordering P rovimatilde Radiology - MRI MRI Lumbar Spine Low back pain, unspecified 04/20/23 WOLF GONZALEZ PA-C Last Documented On 3 11:41AM ; [facility], [facility] Future Appointments Date Time Location Provi matilde Follow Up 05/20/2025 9:30AM [facility] paedics [facility] B Iron Pan MD Last Documented On 5 11:14AM ; [facility] Assessments Includes: Assessments from this encounter No Assessments Recorded Medical Equipment - Implanted Devices Includes: Current Devices No Medical Equipment Recorded Medications Includes: Medications discussed during this encounter and other current Medications Current Medications (continue as prescribed) clonazePAM 0.5 MG Oral Tablet 02/06/2025 Provider: Nellie Duran APRN Diagnosis: Last Documented On 5 12:53PM By Kusum Stokes ; [facility] Montelukast Sodium 10 MG Oral Tablet 02/06/2025 Prov ider: Nellie Duran APRN Diagnosis: Last Documented On 5 12:53PM By Kusum Stokes ; [facility] Escitalopram Oxalate 10 MG Oral Tablet 02/06/2025 Pr ovider: Nellie Duran APRN Diagnosis: Last Documented On 5 12:53PM By Kusum Stokes ; [facility] Atorvastatin Calcium 80 MG Oral Tablet 02/06/2025 Pr ovider: Nellie Duran APRN Diagnosis: Last Documented On 5 12:53PM By Kusum Stokes ; [facility] Omeprazole 20 MG Oral Capsule Delayed Release 03/14/20 24 Provider: Diagnosis: Last Documented On 4 6:12PM By Adam Guerrier ; [facility] FeroSul 325 (65 Fe) MG Oral Tablet 03/05/2024 Provid er: Nellie Duran APRN Diagnosis: Last Documented On 4 6:12PM By Adam Guerrier ; [facility], [facility] Jardiance 25 MG Oral Tablet 03/02/2024 Provider: Nellie Duran APRN Diagnosis: Last Documented On 4 6:12PM By Adam Guerrier ; [facility] Celecoxib 200 MG Oral Capsule 02/16/2024 Provider: Nellie Duran APRN Diagnosis: Last Documented On 4 6:13PM By Adam Guerrier ; [facility], [facility] Lantus SoloStar 100 UNIT/ML Subcutaneous Solution Pen-injector 02/16/2024 Provider: Nellie Gilbert Diagnosis: Last Documented On 4 6:13PM By Adam Guerrier ; [facility], [facility] Medications Administered Includes: Administered Medications from this encounter No Administered Medications Recorded Results Includes: Results discussed during this encounter No Results Recorded For Specified Dates History of Present Illness Includes: History of Present Illness from this encounter No History of Present Illness Recorded Social History No Social History Recorded - Smoking Status Unknown Procedures and Surgical History Includes: Procedures from this encounter Procedures Code Diagnosis Performing Provider Service Location Service Date INJECT SACROILIAC JOINT (LEFT) 00339 Sacroiliitis, not elsewhere classified [facility] 08[facility]21/2024 Last Documented On 5 1:40PM ; [facility] Triamcinolone/Kenalog, 10mg per cc [id number] Sacroiliitis, not elsewhere classified Adam Guerrier [facility] 08/21/2024 Last Documented On 5 1:40PM ; [facility] Medical History Includes: Medical History addressed during this encounter No Medical History Recorded Family History Includes: Family History addressed during this encounter No Family History Recorded Review of Systems Includes: Review of Systems from this encounter No Review of Systems Recorded Mental Status Includes: Mental Status from this encounter No Mental Status Recorded Functional Status Includes: Functional Status from this encounter No Functional Status Recorded Physical Exam Includes: Physical Exam from this encounter No Physical Exam Recorded Allergies Includes: Active Allergies No Known Allergies Encounters Encounter Provider Location Date Check-In Time Check-Out Time Diagnosis SI joint injection WOLF [facility] 08[facility]19 1:00PM 1:14PM Insurance Includes: Active Insurance Policies Plan Name Member ID Group # Subscriber Relationship Effect alok Dates 1 - [employer] /MEDICARE [id number] Otto Ochoa 07/25/2024 - Unknown Clinical Notes Includes: Clinical Notes from this encounter * Progress note Date Encounter Last Documented by 08/21/2024 SI joint injection Last document ed on 09/26/2024; 9:58 AM, WOLF GONZALEZ PA-C; [facility], [facility] Plan Diagnosis: SI Joint [...]
--- OUTSIDE RECORDS SUMMARY | 2025-05-13 06:47 | XMS_ITS | Continuity of Care Document ---
[facility] Address [address] [place] [address] Care Team Providers Care Hydraulic Lift Operator Name Role Phone DEAN DURAN Primary Care Provider HARRIET Richardson Primary Care Provider [phone] CARLO CORDERO Urologist FARIDA GRAVES Bumper Straightener [facility] Typesetters Printer Assessment No assessment recorded. Plan of Treatment Reminders Order Date Submit Date Provider Last Modified By Organization Details Last Modified Time Details Appointments None recorded. Lab venipunctur e 2024 025 felisha [facility], [address], [address], [place], [address], 16:46:04 Referral None recorded. Procedures None recorded. Surgeries None recorded. Imaging None recorded. Medication Orders None recorded. Patient TargetsNo targets recorded. Patient InstructionsNo instructions recorded. Reason for Referral None Reported. Results Created Date Observation Date Name Description Value Unit Range Abnormal Flag Note LastModifiedBy Organization Detail LastModifiedTime 04/25/2004/26/2025 CBC WITH DIFFE RENTI AL/PL ATELE T WBC 5.2 x10e3 /uL 3.4-10 .8 normal Not Available [facility] ([facility]) [address], [place], [address], 04/26/2025 08:10:54 04/25/2004/26/2025 CBC WITH DIFFE RENTI AL/PL ATELE T RBC 4.51 x10e6 /uL 4.14-5 .80 normal Not Available [facility] ([facility]) [address] [place], [address], 04/26/2025 08:10:54 04/25/20 25 04/26/2025 CBC WITH DIFFE RENTI AL/PL ATELE T hemoglobin 13.4 g/dL 13.0-1 7.7 normal Not Available [facility] ([facility]) [address] [place], [address], 04/26/2025 08:10:54 04/25/2004/26/2025 CBC WITH DIFFE RENTI AL/PL ATELE T hematocrit 41.6 % 37.5-5 1.0 normal Not Available [facility] ([facility]) [address] [place], [address], 04/26/2025 08:10:54 04/25/2004/26/2025 CBC WITH DIFFE RENTI AL/PL ATELE T MCV 92 fL 79-97 normal Not Available [facility] ([facility]) [address] [place], [address], 04/26/2025 08:10:54 04/25/2004/26/2025 CBC WITH DIFFE RENTI AL/PL ATELE T MCH 29.7 pg 26.6-3 3.0 normal Not Available [facility] ([facility]) [address] [place], [address], 04/26/2025 08:10:54 04/25/2004/26/2025 CBC WITH DIFFE RENTI AL/PL ATELE T MCHC 32.2 g/dL 31.5-3 5.7 normal Not Available [facility] ([facility]) [address] [place], [address], 04/26/2025 08:10:54 04/25/2004/26/2025 CBC WITH DIFFE RENTI AL/PL ATELE T RDW 13.1 % 11.6-1 5.4 Not Available [facility] ([facility]) [address] [facility] [address], [place], [address], 04/26/2025 08:10:54 04/25/20 25 04/26/2025 CBC WITH DIFFE RENTI AL/PL ATELE T platelets 210 x10e3 /uL 150-45 0 normal Not Available [facility] ([facility]) [address], [place], [address], 04/26/2025 08:10:54 04/25/2004/26/2025 CBC WITH DIFFE RENTI AL/PL ATELE T neutrophils 55 % not estab. normal Not Available [facility] ([facility]) [address], [place], [address], 04/26/2025 08:10:54 04/25/20 25 04/26/2025 CBC WITH DIFFE RENTI AL/PL ATELE T lymphs 34 % not estab. normal Not Available [facility] ([facility]) [address] [facility] [address], [place], [address], 04/26/2025 08:10:54 04/25/20 25 04/26/2025 CBC WITH DIFFE RENTI AL/PL ATELE T monocytes 8 % not estab. normal Not Available [facility] ([facility]) [address] [facility] [address], [place], [address], 04/26/2025 08:10:54 04/25/20 25 04/26/2025 CBC WITH DIFFE RENTI AL/PL ATELE T eos 2 % not estab. normal Not Available [facility] ([facility]) [address] [facility] [address], [place], [address], 04/26/2025 08:10:54 04/25/20 25 04/26/2025 CBC WITH DIFFE RENTI AL/PL ATELE T basos 1 % not estab. normal Not Available [facility] ([facility]) [address] [facility] [address], [place], [address], 04/26/2025 08:10:54 04/25/2004/26/2025 CBC WITH DIFFE RENTI AL/PL ATELE T immature cells CLASSIFICATION CASE MANAGER Not Available [facility] ([facility]) [address] [facility] [address], [place], [address], 04/26/2025 08:10:54 04/25/20 25 04/26/2025 CBC WITH DIFFE RENTI AL/PL ATELE T neutrophils (absolute) 2.9 x10e3 /uL 1.4-7. 0 normal Not Available [facility] ([facility]) [address] [facility] [address], [place], [address], 04/26/2025 08:10:54 04/25/20 25 04/26/2025 CBC WITH DIFFE RENTI AL/PL ATELE T lymphs (absolute) 1.7 x10e3 /uL 0.7-3. 1 normal Not Available [facility] ([facility]) [address] [facility] [address], [place], [address], 04/26/2025 08:10:54 04/25/20 25 04/26/2025 CBC WITH DIFFE RENTI AL/PL ATELE T monocytes(ab solute) 0.4 x10e3 /uL 0.1-0. 9 normal Not Available [facility] ([facility]) [address] [place], [address], 04/26/2025 08:10:54 04/25/20 25 04/26/2025 CBC WITH DIFFE RENTI AL/PL ATELE T eos (absolute) 0.1 x10e3 /uL 0.0-0. 4 normal Not Available [facility] ([facility]) [address] [facility] [address], [place], [address], 04/26/2025 08:10:54 04/25/20 25 04/26/2025 CBC WITH DIFFE RENTI AL/PL ATELE T baso (absolute) 0.0 x10e3 /uL 0.0-0. 2 normal Not Available [facility] ([facility]) [address] [facility] [address], [place], [address], 04/26/2025 08:10:54 04/25/20 25 04/26/2025 CBC WITH DIFFE RENTI AL/PL ATELE T immature granulocytes 0 % not estab. Not Available [facility] ([facility]) [address] [facility] [address], [place], [address], 04/26/2025 08:10:54 04/25/2004/26/2025 CBC WITH DIFFE RENTI AL/PL ATELE T immature grans (abs) 0.0 x10e3 /uL 0.0-0. 1 Not Available [facility] ([facility]) [address], [place], [address], 04/26/2025 08:10:54 04/25/20 25 04/26/2025 CBC WITH DIFFE RENTI AL/PL ATELE T NRBC CLASSIFICATION CASE MANAGER Not Available [facility] ([facility]) [address], [place], [address], 04/26/2025 08:10:54 04/25/20 25 04/26/2025 CBC WITH DIFFE RENTI AL/PL ATELE T hematology comments: CLASSIFICATION CASE MANAGER Not Available [facility] ([facility]) [address], [place], [address], 04/26/2025 08:10:54 04/25/20 25 04/26/2025 HEMOG LOBIN A1C hemoglobin A1C 9.8 % 4.8-5. 6 above high normal Predi abete s: 5.7 - 6.4 Diabe gayatri: >6.4 Glyce lucio contr ol for adult s with diabe gayatri: <7.0 Not Available [facility] ([facility]) [address], [place], [address], 04/26/2025 08:10:54 04/16/2004/16/2025 elect roctanya diogr am No observ ation record ed. efrubi [address], [address], 04/16/2025 16:39:45 05/03/20 25 04/16/2025 elect rocar diogr am No observ ation record ed. VISHAL [address], [address], 05/03/2025 14:42:28 Result Notes None recorded. 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 19516781427 9105 Active 2020 Yesika Galvin [place], [place] - [facility] 4 08:22:17 Type 2 diabetes mellitus 29503415 Completed 202101/26/2022 Yasminekarel Duran, FINISHED METAL REPAIRER [address], [place], [address] , [place] - [facility] 4 08:17:49 Anxiety 76568937 Active 2021 Yasminekarel deb FINISHED METAL REPAIRER [address], [place], [address] , [place] - [facility] 2 16:49:08 Depressiv e disorder 51124554 Active 2021 Yasminekarel Duran FINISHED METAL REPAIRER [address], [place], [address] , [place] - [facility] 2 16:49:13 Hyperchol esterolem ia 44845488 Active 2021 Yasminekarel Duran FINISHED METAL REPAIRER [address], [place], [address] , [place] - [facility] 2 16:49:26 Arthritis 4713096 Active 2021 Yasminekarel Duran FINISHED METAL REPAIRER [address], [place], [address] , [place] - [facility] 2 16:49:10 Environme ntal allergy 951168727 Active 2021 Dean Duran, FINISHED METAL REPAIRER [address], [place], [address] , [place] - [facility] 2 16:49:17 Type 2 diabetes mellitus 23190285 Active 2021 Dean Duran, FINISHED METAL REPAIRER [address], [place], [address] , [place] [facility] 4 08:17:48 Albuminur ia 159233104 Active 2021 Dean Duran, FINISHED METAL REPAIRER [address], [place], [address] , [place] [facility] 2 08:46:14 Neck pain 23822736 Active 2021 Yesika Galvin [place] [facility] 4 08:22:17 Fracture of lumbar spine 917693080 Active 2021 Dean Duran, FINISHED METAL REPAIRER [address], [place], [address] , [place] [facility] 2 11:07:18 Low back pain 621265822 Active 2022 Yesika Galvin [place] [facility] 4 08:22:17 History of respirato ry disease 082922362 Active 2023 Yesika Gal[place] [facility] 4 08:22:17 History of asthma 873050713 Active 2023 Yesika [place] [facility] 4 08:22:17 Systemic inflammat ory response syndrome 486266333 Completed 202309/12/2023 Yesika [place] [facility] 4 08:22:17 Lumbar spondylos is 372720309 Active 2023 Yesika Gal[place] [facility] 4 08:22:17 Subconjun ctival hemorrhag e of right eye 18390147777 9100 Active 2023 Yesika Gal[place] [facility] 4 08:22:17 Arthropat hy of spinal facet joint 211460613 Active 2023 Yesika Gal[place] [facility] 4 08:22:17 Allergic condition 059621406 Active 2023 Yesika Gal[place] [facility] 4 08:22:17 Pain of hip region 50166666 Active 2023 Yesika Gal[place] [facility] 08:22:17 Diabetes mellitus 44096132 Completed 202309/12/2023 Yesika Gal[place] [facility] 4 08:22:17 Septic shock 53324258 Completed 202309/12/2023 Yesika Kamar [place] [facility] 4 08:22:17 Pulmonic valve regurgita tion 23479278 Active 2023 Yesika Gal[place] [facility] 4 08:22:17 Postopera tive state 44143071 Active 2023 Yesika Galvin null, [place] - [facility] 4 08:22:17 Diabetic on insulin 309717828 Active 2023 Dean Duran APRN [address], [place], [address] , [place] [facility] 4 15:06:20 Gastritis 4448125 Active 2023 Vinita Stock[place], [place] - [facility] 4 09:09:10 Acute bronchiti s 86794913 Active 2024 Salima Quinteros, GAGE [address], [place], [address] , [place] - [facility] 5 14:19:26 Wheezing 00946382 Active 2024 Salima Quinteros, FINISHED METAL REPAIRER [address], [place], [address] , [facility] - [facility] 5 14:22:04 Problem Notes None recorded. Procedures Surgical History Date Name Laterality Status Provider Name and Address Organization Details Recorded Time 11/28/19 25 Laceration Repair with Sutures/Marie completed Dean Duran APRN [address], [place], [address], [place] - [facility] 11/27/2024 11:10:23 10/10/19 25 Advance Care Planning completed Vinita Maharajs [place] - [facility] 10/09/2024 09:00:13 10/10/19 25 Functional Status Assessed completed Vinita Stockton [place] - [facility] 025 09:00:13 09/08/19 24 Advance Care Planning completed Yesika Galvin [place] - [facility] 09/08/2023 08:09:01 09/08/19 24 Functional Status Assessed completed Yesika Galvin [place] [facility] 09/08/2023 08:09:01 04/04/20 23 Cerumen Removal completed Yesika Galvin [place] [facility] 04/04/2023 13:11:40 05/25/20 22 Cerumen Removal completed Dean Duran APRN [address], [place], [address], [place] [facility] 05/25/2022 14:51:22 03/12/20 22 Dexcom Placement completed Dean Duran FINISHED METAL REPAIRER [address], [place], [address], [place] [facility] 03/12/2022 09:33:13 Eye Surgery completed Vinita Stockton [place] - [facility] 01/26/2022 14:57:12 Deviated Septum Repair completed Vinita Maharajs [place] [facility] 01/26/2022 14:57:23 total knee replacement completed Vinita Maharajs [place] [facility] 01/26/2022 14:57:42 Back Surgery completed Vinita Maharajs [place] [facility] 01/26/2022 14:57:46 Prostate Surgery completed Vinita Maharajs [place] [facility] 01/26/2022 14:58:11 operation on urinary bladder completed Vinita Stockton [place] - [facility] 022 14:58:27 Colonoscopy completed Yesika Galvin [place] [facility] 09/08/2023 08:10:45 Joint Replacement completed Yesika Galvin [place] [facility] 09/08/2023 08:10:45 Knee Surgery [place]ika [place]vin [place] [facility] 09/08/2023 08:10:45 Sinus Surgery [place] Yesika [place]vin [place] [facility] 09/08/2023 08:10:45 endoscopy completed Vinita Maharajelida [place] - [facility] 02/28/2024 09:08:44 Imaging Results None recorded. Procedure Notes None recorded. Medical Equipment None Reported. Allergies Allergen ID Allergen Name Allergen Category Reaction Reaction Severity Criticality Documentation Date Start Date Code Code System Note Provider Name and Address Organization Details Recorded Time 009046 No known allergy (situatio n) Not available Not available Not available Not available 11/21/2023 60873 6003 SNOMED Yesika Kamar [place], [place] - [facility] 08:22:23 No known [...] completed Not Available Not Available Not Available NetseerTouch Ultra Test strips USE TO TEST TWICE [...] t Available Vitals Date Recorded Body height Provider Name an d Address Organization Details Last Updated DateTime 04/25/2025 180.34 cm Vinita Stockton [place] - [facility] 04/25 11:29:41 Social History Question Answer Notes LastModified by Organizat ion Details LastModified Time Tobacco Smoking Status Former Smoker Vinita [place] [facility] 01/26/2022 14:56:00 Do You [...] Or The Highest Degree You Have Received? NG09040-5 Information not available 01/26/2022 Have There Been [...] Do You Have A Medical Power Of Help Desk Rep? No Information not available 09/08/2023 What Was [...] or have you ever used smokeless tobacco? [id number] Information n ot available 09/08/2023 Are you [...] anxious, or unable to sleep at night)? BG7364-1 Information not available 01/26/2022 Do you have [...] Tdap 022 cancelled patient objection Dean Duran, GAGE [address], [place], [address], [place] [facility] 03/26/2022 10:37:59 Pneumococcal conjugate PCV20, polysaccharide [id number] conjugate, adjuvant, PF 024 cancelled patient objection Dean uDran, FINISHED METAL REPAIRER [address], [place], [address], [place] [facility] 02/28/2024 13:34:11 Influenza, high-dose, trivalent, PF 024 completed Yesika Galvin [place], [place] - [facility] 05/10/2024 16:48:23 zoster recombinant 025 cancelled patient objection Dean Duran, GAGE [address], [place], [address], [place] [facility] 10/09/2024 10:08:40 Pneumococcal conjugate PCV20, polysaccharide [id number] conjugate, adjuvant, PF 025 cancelled patient objection Dean Duran APRN [address], [place], [address], [place] [facility] 10/09/2024 10:08:40 Tdap 025 completed Vinita [place] [facility] 11/27/2024 16:08:06 Influenza, high-dose, trivalent, PF 025 completed Vinita [place] [facility] 04/16/2025 16:30:33 COVID-19, mRNA, LNP-S, PF, 30 mcg/0.3 mL dose 021 completed Yesika [place] [facility] 05/25/2022 13:19:20 Influenza, split virus, trivalent, PF 017 completed Yes[place] Kamar [place] [facility] 05/25/2022 13:19:20 Influenza, split virus, trivalent, PF 018 completed [place] [facility] 05/25/2022 13:19:20 Influenza, split virus, quadrivalent, PF 022 completed [place] [facility] 05/25/2022 13:19:20 Td (adult) 018 completed [place] [facility] 05/25/2022 13:19:20 Influenza, MDCK, quadrivalent, PF 023 completed [place] [facility] 04/18/2023 15:16:35 Past Encounters Encounter ID Performer Location Encounter Start Date Encounter Closed Date Diagnosis/Indication Diagnosis SNOMED-CT Code Diagnosis ICD10 Code Diagnosis IMO Codes Diagnosis Note [id number] Dean Duran [address] [address] 04/16/2025 14:21:27 04/16/2025 16:39:42 Influenza vaccine needed 1094277869 106 Z23 Type 2 christina betes mellitus 78624718 E11.9 Z79.4 pt adherence to cgm regimen and dm treatment plandiscus sed med in detail Diabetic on insulin 1707 46835 Z79.4 Malaise and fatigue 2717 24834 R53.81 R53.83 12944 Excessive sweating 53631 005 R61 40866 [id number] Dean Duran FINISHED METAL REPAIRER [address] [address] 04/25/2025 10:51:05 04/25/2025 14:04:18 Diabetic on insulin 353777627 Z79.4 Type 2 christina betes mellitus 68101169 E11.9 Z79.4 pt adherence to cgm regimen and dm treatment plandiscus sed med in detail Health Concerns Section Related Observation LastModified by Organization Detai ls LastModified Time None Recorded Concern Status LastModified by Organization Details LastModified Time None Recorded Payers Encounter Date Sequence Insurance Name Policy Number Policy Mckeon Covered Member ID Mckeon Member ID Guarantor Name 04/25/2025 1 [facility] (MEDICARE REPLACEMENT/A DVANTAGE - HMO) [id number] Otto Comer [id number] Otto Comer Notes Date Note Type Note Provider Name a nd Address Organization Details Recorded Time 04/25/2025 text/html labs [facility] [place] - [facility] 04/25/2025 11:32:10
--- OUTSIDE RECORDS SUMMARY | 2025-05-13 06:47 | XMS_ITS | Continuity of Care Document ---
Author Organization [facility] Address [address] [place] [address] Care Team Providers Care Welder Operator Name Role Phone DEAN HAMLIN Primary Care Provider HARRIET Richardson Primary Care Provider CARLO CORDERO Urologist FARIDA GRAVES Psychiatric Therapist [facility] Radio Station Audio Engineer Assessment No assessment recorded. Plan of Treatment Reminders Order Date Submit Date Provider Last Modified By Organization Details Last Modified Time Details Appointments None recorded. Lab None recorded. Referral None recorded. Procedures None recorded. Surgeries None recorded. Imaging None recorded. Medication Orders albuterol sulfate HFA 90 mcg/actuati on aerosol inhaler 2024 025 [facility], [address] [place] [address], [address], 5 14:25:33 Claritin 10 mg tablet 2024 025 [facility], [address] [place] [address], [address], 5 14:25:33 Medrol (Cheikh) 4 mg tablets in a dose pack 2024 025 [facility], [address] [place] [address], [address], 5 14:25:31 cefdinir 300 mg capsule 2024 [facility], [address] [facility], [place], [address], 14:25:31 triamcinolo ne acetonide 40 mg/mL suspension for injection 2024 lflora Not available 14:39:24 Patient TargetsNo targets recorded. Patient Instructions Encounter Date Encounter Id Patient Instructions Last Modified By Organization Details Last Modified Time 05/09/2025 [id number] wheezing or bronchoconstricti on: care instructions Not [...] Not available 05/09/2025 14:39:32 Reason for Referral None Reported. Results Created Date Observation Date Name Description Value Unit Range Abnormal Flag Note LastModifiedBy Organization Detail LastModifiedTime 04/25/2004/26/2025 CBC WITH DIFFE RENTI AL/PL ATELE T WBC 5.2 x10e3 /uL 3.4-10 .8 normal Not Available [facility] ([facility]) [address] [facility], [place], [address], 04/26/2025 08:10:54 04/25/2004/26/2025 CBC WITH DIFFE RENTI AL/PL ATELE T RBC 4.51 x10e6 /uL 4.14-5 .80 normal Not Available [facility] ([facility]) [address] [place], [address], 04/26/2025 08:10:54 04/25/20 25 04/26/2025 CBC WITH DIFFE RENTI AL/PL ATELE T hemoglobin 13.4 g/dL 13.0-1 7.7 normal Not Available [facility] ([facility]) [address] [place], [address], 04/26/2025 08:10:54 04/25/2004/26/2025 CBC WITH DIFFE RENTI AL/PL ATELE T hematocrit 41.6 % 37.5-5 1.0 normal Not Available [facility] ([facility]) [address] [place], [address], 04/26/2025 08:10:54 04/25/2004/26/2025 CBC WITH DIFFE RENTI AL/PL ATELE T MCV 92 fL 79-97 normal Not Available [facility] ([facility]) [address] [place], [address], 04/26/2025 08:10:54 04/25/20 25 04/26/2025 CBC WITH DIFFE RENTI AL/PL ATELE T MCH 29.7 pg 26.6-3 3.0 normal Not Available [facility] ([facility]) [address] [place], [address], 04/26/2025 08:10:54 04/25/2004/26/2025 CBC WITH DIFFE RENTI AL/PL ATELE T MCHC 32.2 g/dL 31.5-3 5.7 normal Not Available [facility] ([facility]) [address] [place], [address], 04/26/2025 08:10:54 04/25/20 25 04/26/2025 CBC WITH DIFFE RENTI AL/PL ATELE T RDW 13.1 % 11.6-1 5.4 Not Available [facility] ([facility]) [address] [facility], [place], [address], 04/26/2025 08:10:54 04/25/20 25 04/26/2025 CBC WITH DIFFE RENTI AL/PL ATELE T platelets 210 x10e3 /uL 150-45 0 normal Not Available [facility] ([facility]) [address] [facility], [place], [address], 04/26/2025 08:10:54 04/25/2004/26/2025 CBC WITH DIFFE RENTI AL/PL ATELE T neutrophils 55 % not estab. normal Not Available [facility] ([facility]) [address] [facility], [place], [address], 04/26/2025 08:10:54 04/25/20 25 04/26/2025 CBC WITH DIFFE RENTI AL/PL ATELE T lymphs 34 % not estab. normal Not Available [facility] ([facility]) [address] [facility], [place], [address], 04/26/2025 08:10:54 04/25/20 25 04/26/2025 CBC WITH DIFFE RENTI AL/PL ATELE T monocytes 8 % not estab. normal Not Available [facility] ([facility]) [address] [facility], [place], [address], 04/26/2025 08:10:54 04/25/20 25 04/26/2025 CBC WITH DIFFE RENTI AL/PL ATELE T eos 2 % not estab. normal Not Available [facility] ([facility]) [address] [facility], [place], [address], 04/26/2025 08:10:54 04/25/20 25 04/26/2025 CBC WITH DIFFE RENTI AL/PL ATELE T basos 1 % not estab. 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 0 normal Not Available [facility] ([facility]) [address] [facility], [place], [address], 04/26/2025 08:10:54 04/25/20 25 04/26/2025 CBC WITH DIFFE RENTI AL/PL ATELE T lymphs (absolute) 1.7 x10e3 /uL 0.7-3. 1 normal Not Available [facility] ([facility]) [address] [facility], [place], [address], 04/26/2025 08:10:54 04/25/20 25 04/26/2025 CBC WITH DIFFE RENTI AL/PL ATELE T monocytes(ab solute) 0.4 x10e3 /uL 0.1-0. 9 normal Not Available [facility] ([facility]) [address] [facility], [place], [address], 04/26/2025 08:10:54 04/25/20 25 04/26/2025 CBC WITH DIFFE RENTI AL/PL ATELE T eos (absolute) 0.1 x10e3 /uL 0.0-0. 4 normal Not Available [facility] ([facility]) [address] [facility], [place], [address], 04/26/2025 08:10:54 04/25/20 25 04/26/2025 CBC WITH DIFFE RENTI AL/PL ATELE T baso (absolute) 0.0 x10e3 /uL 0.0-0. 2 normal Not Available [facility] ([facility]) [address] [facility], [place], [address], 04/26/2025 08:10:54 04/25/20 25 04/26/2025 CBC WITH DIFFE RENTI AL/PL ATELE T immature granulocytes 0 % not estab. Not Available [facility] ([facility]) [address] [facility], [place], [address], 04/26/2025 08:10:54 04/25/2004/26/2025 CBC WITH DIFFE RENTI AL/PL ATELE T immature grans (abs) 0.0 x10e3 /uL 0.0-0. 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 6 above high normal Predi abete s: 5.7 - 6.4 Diabe gayatri: >6.4 Glyce lucio contr ol for adult s with diabe gayatri: <7.0 Not Available [facility] ([facility]) [address] [facility], [place], [address], 04/26/2025 08:10:54 05/06/2005/06/2025 rapid SARS CoV + SARS CoV 2 Ag, QL IA, respi rator y speci men SARS CoV antigen Invali d Not Available [address], [address], 05/06/2025 12:43:36 05/06/2005/06/2025 rapid flu (A+B) Flu negati ve Not Available [address], [address], 05/06/2025 12:43:08 05/06/2005/06/2025 rapid flu (A+B) Type Both A & B Not Available [address], [address], 05/06/2025 12:43:08 04/16/2004/16/2025 elect rocar diogr am No observ ation record ed. efryman [address], [address], 04/16/2025 16:39:45 05/03/20 25 04/16/2025 elect rocar diogr am No observ ation record ed. BARCODE [address], [address], 05/03/2025 14:42:28 Result Notes None recorded. 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 19422696294 9105 Active 2020 Yesika Galvin [place], [place] - [facility] 08:22:17 Type 2 diabetes mellitus 81807352 Completed 202101/26/2022 Dean Hamlin, [employer] [address], [place], [address] , [facility] - [facility] 4 08:17:49 Anxiety 11292303 Active 2021 Dean Hamlin, [employer] [address], [place], [address] , [place] - [facility] 2 16:49:08 Depressiv e disorder 56412335 Active 2021 Dean Hamlin [employer] [address], [place], [address] , [place] [facility] 2 16:49:13 Hyperchol esterolem ia 34076803 Active 2021 Dean Hamlin, [employer] [address], [place], [address] , [place] [facility] 2 16:49:26 Arthritis 1152493 Active 2021 Dean Hamlin [employer] [address], [place], [address] , [place] [facility] 2 16:49:10 Environme ntal allergy 773780898 Active 2021 Dean Hamlin [employer] [address], [place], [address] , [place] [facility] 2 16:49:17 Type 2 diabetes mellitus 79869330 Active 2021 Dean Hamlin [employer] [address], [place], [address] , [place] [facility] 4 08:17:48 Albuminur ia 919658739 Active 2021 Dean Hamlin [employer] [address], [place], [address] , [place] [facility] 2 08:46:14 Neck pain 15089263 Active 2021 Yesika Galvin null, [place] - [facility] 4 08:22:17 Fracture of lumbar spine 253657091 Active 2021 Dean Hamlin, [employer] [address], [place], [address] , [place] [facility] 2 11:07:18 Low back pain 170356115 Active 2022 Yesika Galvin null, [place] - [facility] 4 08:22:17 History of respirato ry disease 550986543 Active 2023 Yesika Galvin [place], [place] - [facility] 4 08:22:17 History of asthma 159315034 Active 2023 Yesika Galvin [place], [place] - [facility] 4 08:22:17 Systemic inflammat ory response syndrome 835227238 Completed 202309/12/2023 Yesikachristy Galvin null, [place] - [facility] 4 08:22:17 Lumbar spondylos is 853344490 Active 2023 Yesika Galvin [place], [place] - [facility] 4 08:22:17 Subconjun ctival hemorrhag e of right eye 47696348596 9100 Active 2023 Yesika Galvin [place], [place] - [facility] 4 08:22:17 Arthropat hy of spinal facet joint 054030795 Active 2023 Yesikachristy Galvin null, [place] - [facility] 4 08:22:17 Allergic condition 822021393 Active 2023 Yesika Galvin [place], [place] - [facility] 4 08:22:17 Pain of hip region 31022244 Active 2023 Yesikachristy Galvin null, [place] - [facility] 4 08:22:17 Diabetes mellitus 09589819 Completed 202309/12/2023 Yesika Galvin [place], [place] - [facility] 4 08:22:17 Septic shock 04680750 Completed 202309/12/2023 Yesikachristy Galvin [place], [place] - [facility] 4 08:22:17 Pulmonic valve regurgita tion 62772882 Active 2023 Yesika Kamar null, [place] - [facility] 4 08:22:17 Postopera tive state 33752338 Active 2023 Yesika Galvin [place], [place] - [facility] 4 08:22:17 Diabetic on insulin 144321433 Active 2023 Dean Hamlin, [employer] [address], [place], [address] , [place] - [facility] 4 15:06:20 Gastritis 6169311 Active 2023 Vinita Stockton mis, [place] - [facility] 4 09:09:10 Acute bronchiti s 95701616 Active 2024 Salima Saexnaoberts, [employer] [address], [place], [address] , [place] - [facility] 5 14:19:26 Wheezing 98981904 Active 2024 Salima Saxenaoberts, [employer] [address], [place], [address] , [place] - [facility] 5 14:22:04 Problem Notes None recorded. Procedures Surgical History Date Name Laterality Status Provider Name and Address Organization Details Recorded Time 11/28/19 25 Laceration Repair with Sutures/Marie completed Dean Hamlin APRN [address], [place], [address], [place] - [facility] 11/27/2024 11:10:23 10/10/19 25 [...] completed Dean Hamlin APRN [address], [place], [address], [place] - [facility] 05/25/2022 14:51:22 03/12/20 22 Dexcom Placement completed Dean Hamlin APRN [address], [place], [address], [place] - [facility] 03/12/2022 09:33:13 Eye Surgery [...] endoscopy completed Vinita Stears [place] - [facility] 02/28/2024 09:08:44 Imaging Results None recorded. Procedure Notes None recorded. Medical Equipment None Reported. Allergies Allergen ID Allergen Name Allergen Category Reaction Reaction Severity Criticality Documentation Date Start Date Code Code System Note Provider Name and Address Organization Details Recorded Time 368976 No known allergy (situatio n) Not available Not available Not available Not available 11/21/2023 29023 6003 SNOMED Yesika Garcialer null, [place] - [facility] 08:22:23 No known [...] completed Not Available Not Available Not Available Standing Cloud Test strips USE TO TEST TWICE A [...] Last Updated DateTime 180.34 cm 35.3 kg/m2 663784. 87 g 97.8 [degF] 18 /min 0 60 /min 98 % 98 % 138/70 mm[Hg] Trisha Palmer [place] - [facility] 14:05:20 Social History Question Answer Notes LastModified by Organizat ion Details LastModified Time Tobacco Smoking Status Former Smoker Vinita abebe [place] - [facility] 01/26/2022 14:56:00 Do You [...] Or The Highest Degree You Have Received? [id number] Information not available 01/26/2022 Have There Been [...] Do You Have A Medical Power Of Transportation Maintenance Operator? No Information not available 09/08/2023 What Was [...] or have you ever used smokeless tobacco? [id number] Information n ot available 09/08/2023 Are you [...] anxious, or unable to sleep at night)? [id number] Information not available 01/26/2022 Do you have [...] available 2023 08:10:25 Medical History Condition Response Hypothyroidism Y Depression Y Anxiety Disorder Y Arthritis Y Acid Reflux (GERD) Y Hypoglycemia Y Hypercholesterolemia Y Ear or Hearing Problems Y Diabetes Y Hyperlipidemia Y Hypertension Y Immunizations Vaccine Type Date Status Note Provider Name and Address Organization Details Recorded Time Tdap 022 cancelled patient objection Dean Hamlin APRN [address], [place], [address], [place] - [facility] 03/26/2022 10:37:59 Pneumococcal conjugate PCV20, polysaccharide [id number] conjugate, adjuvant, PF 024 cancelled patient objection Dean Hamlin APRN [address], [place], [address], [place] - [facility] 02/28/2024 13:34:11 Influenza, high-dose, trivalent, PF 024 completed Yesika Garcialer null, [place] - [facility] 05/10/2024 16:48:23 zoster recombinant 025 cancelled patient objection Dean Hamlin, [employer] [address], [place], [address], [place] [facility] 10/09/2024 10:08:40 Pneumococcal conjugate PCV20, polysaccharide [id number] conjugate, adjuvant, PF 025 cancelled patient objection Dean Paynerodrick, [employer] [address], [place], [address], [place] [facility] 10/09/2024 10:08:40 Tdap 025 completed Vinita Stears null, [place] - [facility] 11/27/2024 16:08:06 Influenza, high-dose, trivalent, PF 025 completed Vinita Stears null, [place] - [facility] 04/16/2025 16:30:33 COVID-19, mRNA, LNP-S, PF, 30 mcg/0.3 mL dose 021 completed Yesika Kamar null, [place] - [facility] 05/25/2022 13:19:20 Influenza, split virus, trivalent, PF 017 completed Yesika Kamar null, [place] - [facility] 05/25/2022 13:19:20 Influenza, split virus, trivalent, PF 018 completed Yesika Kamar null, [place] - [facility] 05/25/2022 13:19:20 Influenza, split virus, quadrivalent, PF 022 completed Yesika Kamar null, [place] - [facility] 05/25/2022 13:19:20 Td (adult) 018 completed Yesika Kamar null, [place] - [facility] 05/25/2022 13:19:20 Influenza, MDCK, quadrivalent, PF 023 completed Yesika Galvin null, [place] - [facility] 04/18/2023 15:16:35 Past Encounters Encounter ID Performer Location Encounter Start Date Encounter Closed Date Diagnosis/Indication Diagnosis SNOMED-CT Code Diagnosis ICD10 Code Diagnosis IMO Codes Diagnosis Note [id number] Dean Hamlin [address] [address] 04/16/2025 14:21:27 04/16/2025 16:39:42 Influenza vaccine needed 9061621816 106 Z23 Type 2 christina betes mellitus 97830971 E11.9 Z79.4 pt adherence to cgm regimen and dm treatment plandiscus sed med in detail Diabetic on insulin 1707 68972 Z79.4 Malaise and fatigue 2717 55319 R53.81 R53.83 29448 Excessive sweating 99186 005 R61 83470 [id number] [facility] [address] 04/25/2025 10:51:05 04/25/2025 14:04:18 Diabetic on insulin 535213825 Z79.4 Type 2 christina betes mellitus 73060222 E11.9 Z79.4 pt adherence to cgm regimen and dm treatment plandiscus sed med in detail [id number] [facility] [address] 05/06/2025 11:43:25 05/06/2025 12:36:52 Bronchitis 34865892 J40 58892 no sign of a bacterial infection. likely [...] over the next 48-72 hours Depressive disorder 3898 9007 F32.A Anxiety 60166611 F41.9 Pt compliant with plan of careKasper reviewedme dication compliance discussedL ast uds: 5Control substance agreement on file Hypercholesterolemia 136 58514 E78.00 Type 2 christina betes mellitus 80379689 E11.9 Z79.4 pt adherence to cgm regimen and dm treatment plandiscus sed med in detail Environmental allergy 42 5551046 T78.49XA [id number] [facility] [address] [place] [address] 05/09/2025 13:46:57 05/09/2025 14:46:26 Body mass index 30+ - obesity 199852694 Z68.35 397664 Acute bronchitis 3670612 2 J20.9 07209739 Wheezing 38335151 R06.2 25674 Health Concerns Section Related Observation LastModified by Organization Detai ls LastModified Time None Recorded Concern Status LastModified by Organization Details LastModified Time None Recorded Payers Encounter Date Sequence Insurance Name Policy Number Policy Mckeon Covered Member ID Mckeon Member ID Guarantor Name 05/09/2025 1 [facility] (MEDICARE REPLACEMENT/A DVANTAGE - HMO) [id number] Otto Comer [id number] Otto Comer Notes Date Note Type Note Provider Name and Address Organization Details Recorded Time 05/09/2025 text/html ROS as noted in the [...] influenza and COVID the other day. Salima Quinteros APRN [address], [place], [address], [place] - [facility] 05/09/2025 14:39:51
--- OUTSIDE RECORDS SUMMARY | 2025-05-13 06:47 | XMS_ITS | Data Portability ---
Author Organization [facility] - Dayo shea MD, Main Office Address [address] [place] [address], [address] [address] Assessment No assessment recorded. Plan of Treatment Reminders Order Date Submit Date Provider Last Modified By Organization Details Last Modified Time Details Appointments None record ed. Lab None record ed. Referral None record ed. Procedures None record ed. Surgeries None record ed. Imaging None record ed. Medication Orders None record ed. Patient TargetsNo targets recorded. Patient Instructions Encounter Date Encounter Id Patient Instructions Last Modified By Organization Details Last Modified Time 08/26/2017 [id number] carpal tunnel syndrome: care instructions [email or web address] Not available 08/26/2017 15:44:25 Reason for Referral None Reported. Results Created Date Observation Date Name Description Value Unit Range Abnormal Flag Note LastModifiedBy Organization Detail LastModifiedTime 08/26/19 18 08/26/2017 elect romyo gram + nerve condu ction study No observ ation record ed. BARCODE Not Available 2017 15:15:33 Result Notes None recorded. Procedures Surgical History Date Name Laterality Status Provider Name and Address Organization Details Recorded Time 08/26/2017 NCV/EMG completed Anmol Garcia MD 08/26/2017 14:30:47 Imaging Results None recorded. Procedure Notes None recorded. Medical Equipment None Reported. Medications Name Sig Start Date Stop Date Status Note LastModified by Organization Details LastModified Time celecoxib 200 mg capsule active Not Available Not Available N ot Available amoxicillin 500 mg capsule active Not Available Not Available N ot Available atorvastatin 20 mg tablet active Not Available Not Available No t Available azithromycin 250 mg tablet active Not Available Not Availabl e Not Available clonazepam 0.5 mg tablet active Not Available Not Available No t Available triamcinolone acetonide 0.1 % topical cream active Not Available Not Availabl e Not Available tamsulosin 0.4 mg capsule active Not Available Not Available N ot Available OneTouch Ultra Test strips active Not Available Not Available Not Available gemfibrozil 600 mg tablet active Not Available Not Available No t Available oseltamivir 75 mg capsule active Not Available Not Available N ot Available metformin 1,000 mg tablet active Not Available Not Available No t Available montelukast 10 mg tablet active Not Available Not Available No t Available azelastine 137 mcg (0.1 %) nasal spray active Not Available Not Available Not Available amoxicillin 875 mg-potassium clavulanate 125 mg tablet active Not Available Not Available No t Available escitalopram 10 mg tablet active Not Available Not Available No t Available chlorhexidine gluconate 0.12 % mouthwash active Not Available Not Available Not Available AndroGel 20.25 mg/1.25 gram per pump act. (1.62 %) transdermal gel active Not Available Not Availa ble Not Available Janumet XR 100 mg-1,000 mg tablet,extended release active Not Available Not Available Not Available OneTouch Delica Lancets 30 gauge active Not Available Not Available Not Available Afluria 4868-9408 (PF) 45 mcg(15 mcg x 3)/0.5 mL intramuscular syringe active Not Available Not Available Not Available Vitals None Recorded Social History None recorded. Functional Status None recorded. Mental Status None recorded. Family History Nothing Reported. Medical History No medical history recorded. Past Encounters Encounter ID Performer Location Encounter Start Date Encounter Closed Date Diagnosis/Indication Diagnosis SNOMED-CT Code Diagnosis ICD10 Code Diagnosis IMO Codes Diagnosis Note [id number] Dayo Garcia MD Main Office [address] [facility] [address] [place] [address] 08/26/2017 13:01:04 08/26/2017 15:07:41 Bilateral carpal tunnel syndrome 5522701802 1228487 G56.03 Moderate to severe bilateral CTS. Health Concerns Section Related Observation LastModified by Organization Detai ls LastModified Time None Recorded Concern Status LastModified by Organization Details LastModified Time None Recorded Advance Directives Directive None Recorded Payers Insurance Date Sequence Insurance Name Policy Number Policy Mckeon Covered Member ID Mckeon Member ID Guarantor Name 08/26/2017 1 [employer] [id number] Otto Comer [id number] Otto Comer
--- OUTSIDE RECORDS SUMMARY | 2025-05-13 06:47 | XMS_ITS | Clinical Summary ---
Author Organization [facility] , [facility] Address [address] [place] [address] Phone Care Team Providers Care Manager Diabetes Name Role Phone Maxim WINSTON, Iron Oshea Unavailable [phone] Nellie Duran APRN Unavailable [phone] Rodrigue Reece MD Primary Care Provider Unavailabl e Reason for Visit and Chief Complaint The Chief Complaint is: low back pain Problems Includes: Problems addressed during this encounter and other active Problems Current Visit Onset Date Resolved Date Provider Conditio n Status Lower Back Pain 04/06/2023 WOLF GONZALEZ PA-C Active Last Documented On 3 11:22AM ; [facility], [facility] Past Visits Onset Date Resolved Date Provider Condition Status Neck Pain 05/31/2022 Adam Guerrier MD Active Last Documented On 2 10:13AM ; [facility], [facility] Joint Pain Shoulder Right 05/20/2022 Faby JOAQUIN-C Active Last Documented On 2 9:03AM ; [facility], [facility] Joint Pain Shoulder Left 05/20/2022 Faby Rodriguez PA-C Active Last Documented On 2 8:59AM ; [facility], [facility] Plan of Treatment - Patient screened for future fall risk: documentation of any fall with injury in past year - Last Documented On 03/28/2024 6:13PM ; [facility], [facility] Pending Tests Order Diagnosis Results Due Ordering Norah morales Procedure/Tests EMG 06/14/22 Adam Gibson MD Last Documented On 2 2:09PM ; [facility] Procedure/Tests Nerve Conduction Study 06/14/22 Adam Guerrier MD Last Documented On 2 2:09PM ; [facility] Radiology - CT Scan Lumbar Low back benedict n, unspecified 08/30/23 Adam Guerrier MD Last Documented On 4 4:14PM ; [facility] Future Appointments Date Time Location Provi matilde Follow Up 05/20/2025 9:30AM [facility] paedics [facility] Iron Pan MD Last Documented On 5 11:14AM ; [facility] Instructions to patient Lose weight Last Documented On 4 1:46PM ; [facility], [facility] Assessments Includes: Assessments from this encounter Findings - Overweight - Last Documented On 03/28/2024 6:13PM ; [facility], [facility] Fall Risk Assessment: - Last Documented On 03/28/2024 6:13PM ; [facility] This patient has been identified as a fall risk. Balance/gait along with postural blood pressure, vision and home fall hazards have been assessed. Medications have been reviewed, and recommendations made with regard to contributing factors for future falls. - Last Documented On 03/28/2024 6:13PM ; [facility] Plan of care: Consideration of vitamin D supplementation along with balance and strength training with consideration for formal physical therapy has been discussed with the patient. - Last Documented On 03/28/2024 6:13PM ; [facility], [facility] Instructions Includes: Instructions from this encounter Instructions to patient Lose weight Last Documented On 4 1:46PM ; [facility], [facility] Medical Equipment - Implanted Devices Includes: Current Devices No Medical Equipment Recorded Medications Includes: Medications discussed during this encounter and other current Medications Discontinued / Stopped on this date Nellie Duran APRN on 03/24/2023 Celecoxib 200 MG Oral Capsule Provider: Nellie Duran APRN Diagnosis: Last Documented On 6:12PM By Adam Guerrier ; [facility] Current Medications (continue as prescribed) clonazePAM 0.5 MG Oral Tablet 02/06/2025 Provider: Nellie Duran DIRECTOR [employer] Diagnosis: Last Documented On 5 12:53PM By Kusum Stokes ; [facility], [facility] Montelukast Sodium 10 MG Oral Tablet 02/06/2025 Prov ider: Nellie Chinymrodrick DIRECTOR [employer] Diagnosis: Last Documented On 5 12:53PM By Kusum Stokes ; [facility], [facility] Escitalopram Oxalate 10 MG Oral Tablet 02/06/2025 Pr ovider: Haidera yman DIRECTOR [employer] Diagnosis: Last Documented On 5 12:53PM By Kusum Stokes ; [facility], [facility] Atorvastatin Calcium 80 MG Oral Tablet 02/06/2025 Pr ovider: Haidera yman DIRECTOR [employer] Diagnosis: Last Documented On 5 12:53PM By Kusum Stokes ; [facility], [facility] Omeprazole 20 MG Oral Capsule Delayed Release 03/14/20 24 Provider: Diagnosis: Last Documented On 4 6:12PM By Adam Guerrier ; [facility], [facility] FeroSul 325 (65 Fe) MG Oral Tablet 03/05/2024 Provid er: Nellie Chindeb DIRECTOR [employer] Diagnosis: Last Documented On 4 6:12PM By Adam Guerrier ; [facility], [facility] Jardiance 25 MG Oral Tablet 03/02/2024 Provider: Nellie Duran DIRECTOR [employer] Diagnosis: Last Documented On 4 6:12PM By Adam Guerrier ; [facility], [facility] Celecoxib 200 MG Oral Capsule 02/16/2024 Provider: Nellie Duran DIRECTOR [employer] Diagnosis: Last Documented On 4 6:13PM By Adam Guerrier ; [facility], [facility] Lantus SoloStar 100 UNIT/ML Subcutaneous Solution Pen-injector 02/16/2024 Provider: Nellie Duran APR N Diagnosis: Last Documented On 4 6:13PM By Adam Guerrier ; [facility], [facility] Past Medications on file HYDROcodone-Acetaminophen 5- 325 MG Oral Tablet 10/26/2023 - 11/02/2023 Provider: Adam Guerrier MD Diagnosis: Intervertebral d isc disorders w radiculopathy, lumbar region Take 1 tablet PO Q4H, NEE DED-may take with tylenol Last Documented On 4 11:12AM By Adam Guerrier ; [facility] [place] Medications Administered Includes: Administered Medications from this encounter No Administered Medications Recorded Vital Signs Includes: Vital Signs from this encounter Vital Name 03/28/2024 02:09P Height (in) 71 Weight (lb) 255 Body Mass Index 35.6 Body Surface Area 2.3 Pain Level 5 Note: HL Last Documented: On 03/28/2024 2:09PM ; [facility] Results Includes: Results discussed during this encounter No Results Recorded For Specified Dates History of Present Illness Includes: History of Present Illness from this encounter HPI Otto Comer is a 63 year old male. - Allergy list reviewed - Problem list reviewed - Medication list reviewed - Previous history of new onset pain Injury is not work related or an automotive accident - Patient pain level from 1-10: 5 - Yes, previous treatment. - History of Physical Therapy @ [facility] - History of Home Exercise - History of Injections 12/28/2022 Arnie L4-S1 Facet 03/10/2023 Left SI Joint Inj 05/25/2023 L3-4 MARISSA - - Review of medications documented Medications used for this condition: 63-year-old man who is following up 6 months status post an L3-S1 decompression and fusion. Overall, Otto is doing extremely well. The pain in his back is much better than it was. He has a little bit stiff but otherwise doing pretty well. Social History Description Last Updated Not a current smoker. 09/13/2022 Last Documented On 4 1:46PM ; [facility] Caffeine use 08/26/2022 Last Documented On 4 1:46PM ; [facility] [place] Not exercising regularly 08/26/2022 Last Documented On 4 1:46PM ; [facility] Not using alcohol former 08/26/2022 Last Documented On 4 1:46PM ; [facility] Not using drugs 08/26/2022 Last Documented On 4 1:46PM ; [facility] Recent change in diet 08/26/2022 Last Documented On 4 1:46PM ; [facility] Tobacco non-user 08/26/2022 Last Documented On 4 1:46PM ; [facility] Smoking Status Unknown Procedures and Surgical History Includes: Procedures from this encounter Procedures Code Diagnosis Performing Provider Service L ocation Service Date use of tobacco assessment performed 1000F Last Documented On 4 1:46PM ; [facility] patient screened for future fall risk: documentation of any fall with injury in past year 1100F Last Documented On 4 1:46PM ; [facility] review of medications documented 1160F Last Documented On 4 1:46PM ; [facility] EMG was performed 06/25/2022 BLE @ [facility] [id number] Last Documented On 4 1:46PM ; [facility] an X-ray was performed 08/02 [facility] @ [facility] ~12/15/2022 [facility] @ [facility] ~11/08/2023 [facility] @ [facility] ~12/21/2023 [facility] @ [facility] ~03/28/2024 [facility]Spine @ [facility] [id number] Last Documented On 4 1:53PM ; [facility] an MRI was performed 05/24/2022 LSpine @ [facility] [id number] Last Documented On 4 1:46PM ; [facility] Surgical History Last Updated History of back surgery 02/2024 L3-5 Decompression, L3-S1 Fusion @ [facility] 10/12/2023 Last Documented On 4 1:46PM ; [facility] History of total knee arthroplasty 08/26 Last Documented On 4 1:46PM ; [facility] Medical History Includes: Medical History addressed during this encounter Description Last Updated History of arthritis 08/26/2022 Last Documented On 4 1:46PM ; [facility] History of depression 08/26/2022 Last Documented On 4 1:46PM ; [facility] History of diabetes mellitus 08/26/2022 Last Documented On 4 1:46PM ; [facility] No recent immunization for flu 3 Last Documented On 4 1:46PM ; [facility] No recent immunization for pneumococcal pneumonia 08/26/2022 Last Documented On 4 1:46PM ; [facility] Family History Includes: Family History addressed during this encounter Description Last Updated No significant family history 08/26/2022 Last Documented On 4 1:46PM ; [facility] Review of Systems Includes: Review [...] Check-In Time Check-Out Time Diagnosis Follow Up Adam marrero MD [facility] 4 1:27PM 2:36PM Overweight Insurance Includes: Active Insurance Policies Plan Name Member ID Group # Subscriber Relationship Effect alok Dates 1 - [facility] /MEDICARE [id number] Otto Comer Self 07/25/2024 - Unknown Clinical Notes Includes: Clinical Notes from this encounter * Progress note Date Encounter Last Documented by 03/28/2024 Follow Up Last documented on 03/28/2024; 6:13 PM, Adam Rosenbaum MD; [facility], [facility] Active Problems & Conditions - Joint Pain, Localized in the Left Shoulder - Joint Pain, Localized in the Right Shoulder - Lower Back Pain - Neck Pain Chief Complaint The Chief Complaint is: Low back pain. Referred Here Referred by PCP. History of Present Illness Otto Comer is a 63 year old male. - Allergy list reviewed - Problem list reviewed - Medication list reviewed - Previous history of new onset pain Injury is not work related or an automotive accident - Patient pain level from 1-10: 5 - Yes, previous treatment. - History of Physical Therapy @ [facility] - History of Home Exercise - History of Injections 12/28/2022 Arnie L4-S1 Facet 03/10/2023 Left SI Joint Inj 05/25/2023 L3-4 MARISSA - - Review of medications documented Medications used for this condition: 63-year-old man who is following up 6 months status post an L3-S1 decompression and fusion. Overall, Otto is doing extremely well. The pain in his back is much better than it was. He has a little bit stiff but otherwise doing pretty well. Current Medication - Atorvastatin Calcium 80 MG [...] allergic reaction. Physical Findings - Vitals taken 03/28/2024 02:09 pm HL Height 71 in Weight 255 lbs Body Mass Index 35.6 kg/m2 Body Surface Area 2.3 m2 Pain Level 5 Standard Measurements: - Patient was overweight. General: Alert and oriented x3 Focused musculoskeletal exam of the spine: Surgical incision is well-healed and clean, dry, and intact. There are no signs or symptoms concerning for infection Moving the bilateral upper and lower extremities similar to preoperative state with no new focal deficits Ambulating similar to preoperative state Tests 2v lumbar spine xrays AP and Lateral views of the lumbar spine were obtained today There is pedicle screw instrumentation from L3-S1 with no evidence of hardware failure breakage or loosening User Defined 5 This is a 63-year-old man six-month status post L3-S1 decompression and fusion. It was really nice seeing Otto in the office. I told him that I would see him back in 6 months which will constitute a 1 year follow up. I did encourage him to please call me in the meantime if he needs anything. It was shared with me that she feels as though he is getting a little bit depressed due to some of the limitations associated with various orthopedic injuries as well as general aging I told him that that is certainly something that he needs to keep an eye on and if he needs any support he can call us and we can refer to appropriate mental health specialists. Fall Risk Assessment: This patient has been [...] therapy has been discussed with the patient. Assessment - Overweight Previous Tests Laboratory Studies: Neuro-Electrical Functions: EMG 06/25/2022 BLE @ [facility]. Imaging: X-Ray: An X-ray was performed 08/02/2022 [facility]Spine @ [place] 12/15/2022 [facility]Sp[facility] @ [facility] 11/08/2023 [facility]Spine @ [place] 12/21/2023 [facility]Sp[facility] @ [facility] 03/28/2024 LSpine @ [place]. MRI Scan: An MRI was performed 05/24/2022 LSpine @ [facility]. Counseling/Education - Tobacco non-user - Use of tobacco assessment performed - Lose weight Plan - Patient screened for future fall risk: documentation of any fall with injury in past year Practice Management Use of tobacco assessment performed and patient screened for future fall risk documentation of any fall with injury in past year Review of medications documented. Care Team - Nellie Duran - [employer] REPAIRER Notes This dictation was done with voice recognition software and may contain errors and omissions. Health Reminders - Assess BMI satisfied 03/28/2024. - Assess Tobacco Use satisfied 08/26/2022. - Follow Up Plan BMI Management satisfied 03/28/2024.
--- OUTSIDE RECORDS SUMMARY | 2025-05-13 06:48 | XMS_ITS | Clinical Summary ---
Author Organization [facility] Address [address] [place] [address] Phone Care Team Providers Care Senior Marketing Associate Name Role Phone Maxim WINSTON, Iron Oshea Unavailable Unavail able Nellie Duran APRN Unavailable [phone] Chevy WINSTON, Rodrigue Primary Care Provider Unavailabl e Reason for Visit and Chief Complaint The Chief Complaint is: Bilateral shoulder pain Problems Includes: Problems addressed during this encounter and other active Problems Current Visit Onset Date Resolved Date Provider Conditio n Status Lower Back Pain 04/06/2023 WOLF GONZALEZ PA-C Active Last Documented On 3 11:22AM ; [facility], [facility] Past Visits Onset Date Resolved Date Provider Condition Status Neck Pain 05/31/2022 Adam Guerrier MD Active Last Documented On 2 10:13AM ; [facility], [facility] Joint Pain Shoulder Right 05/20/2022 Faby Pascal os Michael PA-C Active Last Documented On 2 9:03AM ; [facility], [facility] Joint Pain Shoulder Left 05/20/2022 Faby Bustillo s Michael PA-C Active Last Documented On 2 8:59AM ; [facility], [facility] Plan of Treatment Patient screened for future fall risk: documentation of any fall with injury in past year. - Last Documented On 02/25/2025 1:25PM ; [facility], [facility] Fall Risk Assessment: This patient has been [...] with the patient. - Last Documented On 02/25/2025 1:25PM ; [facility], [facility] At this point he is not ready [...] this procedure well. - Last Documented On 02/25/2025 1:25PM ; [facility] Pending Tests Order Diagnosis Results Due Ordering [facility] - MRI MRI Shoulder 12/08/22 Iron Pan MD Last Documented On 3 7:41AM ; [facility] Future Appointments Date Time Location Provi matilde Follow Up 05/20/2025 9:30AM [facility] Iron Pan MD Last Documented On 5 11:14AM ; [facility], [facility] Instructions to patient Lose weight Last Documented On 5 12:53PM ; [facility], [facility] Assessments Includes: Assessments from this encounter Findings - Overweight - Last Documented On 02/25/2025 1:25PM ; [facility], [facility] Bilateral shoulder pain [id number]-[id number]-[id number]-left in a 64-year-old gentleman with a 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 - Last Documented On 02/25/2025 1:25PM ; [facility], [facility] Instructions Includes: Instructions from this encounter Instructions to patient Lose weight Last Documented On 5 12:53PM ; [facility], [facility] Medical Equipment - Implanted Devices Includes: Current Devices No Medical Equipment Recorded Medications Includes: Medications discussed during this encounter and other current Medications Discontinued / Stopped on this date Yasminekarel Duran FOOD PRODUCTION MANAGER on 03/09/2024 Atorvastatin Calcium 80 MG Oral Tablet Pr ovider: Eugonda Fryman FOOD PRODUCTION MANAGER Diagnosis: Last Documented On 5 3:18PM By Iron Pan ; [facility], [facility] Escitalopram Oxalate 10 MG Oral Tablet Pr ovider: Yasminebryona yman FOOD PRODUCTION MANAGER Diagnosis: Last Documented On 5 3:18PM By Iron Pan ; [facility], [facility] Current Medications (continue as prescribed) clonazePAM 0.5 MG Oral Tablet 02/06/2025 Provider: Nellie Duran FOOD PRODUCTION MANAGER Diagnosis: Last Documented On 5 12:53PM By Kusum Stokes ; [facility], [facility] Montelukast Sodium 10 MG Oral Tablet 02/06/2025 Prov ider: Yasminebryona mitchan FOOD PRODUCTION MANAGER Diagnosis: Last Documented On 5 12:53PM By Kusum Stokes ; [facility], [facility] Escitalopram Oxalate 10 MG Oral Tablet 02/06/2025 Pr ovider: Yasminebryona yman FOOD PRODUCTION MANAGER Diagnosis: Last Documented On 5 12:53PM By Kusum Stokes ; [facility], [facility] Atorvastatin Calcium 80 MG Oral Tablet 02/06/2025 Pr ovider: Yasminebryona yman FOOD PRODUCTION MANAGER Diagnosis: Last Documented On 5 12:53PM By Kusum Stokes ; [facility], [facility] Omeprazole 20 MG Oral Capsule Delayed Release 03/14/20 24 Provider: Diagnosis: Last Documented On 4 6:12PM By Adam Guerrier ; [facility], [facility] FeroSul 325 (65 Fe) MG Oral Tablet 03/05/2024 Provid er: Yasminekarel Duran FOOD PRODUCTION MANAGER Diagnosis: Last Documented On 4 6:12PM By Adam Guerrier ; [facility], [facility] Jardiance 25 MG Oral Tablet 03/02/2024 Provider: Nellie Duran APRN Diagnosis: Last Documented On 4 6:12PM By Adam Guerrier ; [facility], [facility] Celecoxib 200 MG Oral Capsule 02/16/2024 Provider: Nellie Duran APRN Diagnosis: Last Documented On 4 6:13PM By Adam Guerrier ; [facility], [facility] Lantus SoloStar 100 UNIT/ML Subcutaneous Solution Pen-injector 02/16/2024 Provider: Nellie Gilbert Diagnosis: Last Documented On 4 6:13PM By Adam Guerrier ; [facility], [facility] Past Medications on file HYDROcodone-Acetaminophen 5- 325 MG Oral Tablet 10/26/2023 - 11/02/2023 Provider: Adam Guerrier MD Diagnosis: Intervertebral d isc disorders w radiculopathy, lumbar region Take 1 tablet PO Q4H, NEE DED-may take with tylenol Last Documented On 4 11:12AM By Adam Guerrier ; [facility] Medications Administered Includes: Administered Medications from this encounter No Administered Medications Recorded Vital Signs Includes: Vital Signs from this encounter Vital Name 02/18/2025 12:53P Height (in) 71 Weight (lb) 247 Body Mass Index 34.4 Body Surface Area 2.3 Note: Last Documented: On 02/18/2025 12:53P M ; [facility], [facility] Results Includes: Results discussed during this encounter No Results Recorded For Specified Dates History of Present Illness Includes: History of Present Illness from this encounter HPI Otto Comer is a 64 year old [...] right side is intolerable at this point. Social History Description Last Updated Not a current smoker. 09/13/2022 Last Documented On 5 12:53PM ; [facility] Caffeine use 08/26/2022 Last Documented On 5 12:53PM ; [facility] Not exercising regularly 08/26/2022 Last Documented On 5 12:53PM ; [facility] Not using alcohol former 08/26/2022 Last Documented On 5 12:53PM ; [facility] Not using drugs 08/26/2022 Last Documented On 5 12:53PM ; [facility] Recent change in diet 08/26/2022 Last Documented On 5 12:53PM ; [facility] Tobacco non-user 08/26/2022 Last Documented On 5 12:53PM ; [facility] Smoking Status Unknown Procedures and Surgical History Includes: Procedures from this encounter Procedures Code Diagnosis Performing Provider Service Location Service Date DRAIN/INJECT, JOINT/BURSA (RIGHT) Pain in right shoulder Iron Pan MD [facility] 02/18/2025 Last Documented On 5 11:08AM ; [facility] Triamcinolone/Kenalog, 10mg per cc [id number] Pain in right shoulder Iron Pan MD [facility] 02/18/2025 Last Documented On 5 11:08AM ; [facility] an X-ray was performed [id number] Last Documented On 5 12:53PM ; [facility] an MRI was performed [id number] Last Documented On 5 12:53PM ; [facility] Surgical History Last Updated History of back surgery 02/2024 L3-5 Decompression, L3-S1 Fusion @ [facility] 10/12/2023 Last Documented On 5 12:53PM ; [facility] History of total knee arthroplasty 08/26 Last Documented On 5 12:53PM ; [facility] Medical History Includes: Medical History addressed during this encounter Description Last Updated History of arthritis 08/26/2022 Last Documented On 5 12:53PM ; [facility] History of depression 08/26/2022 Last Documented On 5 12:53PM ; [facility] History of diabetes mellitus 08/26/2022 Last Documented On 5 12:53PM ; [facility] Family History Includes: Family History addressed during this encounter Description Last Updated No significant family history 08/26/2022 Last Documented On 5 12:53PM ; [facility] Review of Systems Includes: Review [...] Time Diagnosis Follow Up Iron Pan MD [facility] 5 12:45PM 12:57PM Overweight Insurance Includes: Active Insurance Policies Plan Name Member ID Group # Subscriber Relationship Effect alok Dates 1 - [employer] /MEDICARE [id number] Otto Ochoa 07/25/2024 - Unknown Clinical Notes Includes: Clinical Notes from this encounter * Progress note Date Encounter Last Documented by 02/18/2025 Follow Up Last documented on 02/25/2025; 1:25 PM, Iron Pan MD; [facility], [facility] Active Problems & Conditions - Joint Pain, [...] testing. Assessment - Overweight Bilateral shoulder pain [id number]-left in a 64-year-old gentleman with a known [...] Care Team - Nellie Duran APRN - [facility] [employer]
--- NOTE | 2025-05-13 07:00 | NM_ITS ---
APPROVED REPORT Exam: Nuclear Stress Test Indication: SOB, Abnormal EKG, Fatigue, Family history Patient Location: Outpatient Stress Tech: Isabel OLMSTEAD Tech:Ligia Levy, ARRT, RT (R)(N) Ht: 5 ft 11 in Wt: 255 lbs HR: 60 bpm BP: 148/84 mmHg BSA: 2.34 m2 TID: 1.23 BMI: 35.5 History: SOB, Abnormal EKG, Fatigue, Family history Procedure: Patient received 0.4 mg of intravenous Lexiscan, resting heart rate 60 bpm, resting blood pressure 148/84 mmHg, with Lexiscan maximum heart rate achieved was 103 bpm which is % of the maximum predicted heart rate and blood pressure was 148/84 mmHg. With Lexiscan, patient denied any complaint of chest pain. Cardiac Stress and Resting SPECT Images: Cardiac Stress and Resting SPECT images were obtained using technetium 99m Myoview 32.5 mCi stress and 10.37 mCi at rest. Resting and stress imaging in supine positions demonstrate a medium sized, mild, fixed perfusion defect in the basal to mid inferior LV wall. This is no longer visualized with prone stress imaging. Findings are suggestive of diaphragmatic attenuation. There is increase in transient ischemic dilatation ratio (TID 1.23), which may be suggestive of possible multivessel disease or balanced ischemia. Gated imaging demonstrates normal global and regional LV systolic function. LVEF is calculated at 62%. Conclusion: Diaphragmatic attenuation is present. There is increase in transient ischemic dilatation ratio (TID 1.23), which may be suggestive of possible multivessel disease or balanced ischemia. Gated imaging demonstrates normal global and regional LV systolic function. LVEF is calculated at 62%. Electronically signed by : Linda Woodruff MD 05/14/2025 13:20:57
[2025-05-13 08:00] VITALS: BP 148/84; PULSE 59; RESP 14
[2025-05-13] MEDS: SODIUM CHLORIDE 0.9% 10ML SYR (RAD ONLY) 10 ML IV ×2 (08:22)
[2025-05-13] MEDS: ISOTOPE MYOVIEW (PER STUDY) 1 DOSE IV (08:22)
--- NOTE | 2025-05-13 09:30 | CA_ITS ---
APPROVED REPORT EXAM: Comprehensive 2D, Doppler, and color-flow Echocardiogram Mini Lab Operator: Renetta Walton CRT Ht: 5 ft 11 in Wt: 254lbs BSA: 2.33 BP: 165/75 mmHg Indications: COPD, Shortness of Breath, Diabetes, Fatigue, Hypertension/HDD Echo Enhancing Agent Indication: Endocardial border delineation Agent(s) / Amount(s) Used: Definity 2 cc Comments: definity given 2D Dimensions LA Volume 41.50 mL LA Volume Index 17.40 mL/m2 (M/F) 16-34 M-Mode Dimensions RVDd 4.01 cm (0.9-2.6) LA Diam 3.61 cm (1.9-4.0) LVDd 4.76 cm (3.5-5.7) LVDs 3.15 cm (3.5-5.7) IVSd 1.40 cm (0.6-1.1) PWd 0.97 cm (0.6-1.1) EF (Teich) 62.60% FS 33.80% EDV (Teich) 105.40 mL TAPSE 3.15 (<1.7) ESV (Teich) 39.40 mL LV Diastology E Decel Time 260 (160-240 msec) E/A Ratio 0.95 MED A' 7.60 cm/s LAT A' 9.20 cm/s Aortic Valve AO Peak GR. 4.60 mmHg Mitral Valve MV A Velocity 68.0 (40-130 cm/s) E/A Ratio 0.95 Pulmonary Valve PV Peak Velocity 132.0 (50-150 cm/s) Tricuspid Valve TR P. Velocity 129.00 cm/s RAP Estimate 10.00 mmHg RVSP 16.70 mmHg Left Ventricle The left ventricle is normal size. Left ventricular systolic function is normal. The left ventricular ejection fraction is within the normal range. There is increased left ventricular wall thickness. There is normal LV segmental wall motion. The left ventricular diastolic function is normal. No left ventricle thrombus noted on this study. LVEF is 60%. Right Ventricle The right ventricle is normal size. The right ventricular systolic function is normal. Atria The left atrium size is normal. The right atrium is not well-visualized. There is no color Doppler evidence of interatrial shunt. Aortic Valve The aortic valve opens well. There is no hemodynamically significant aortic valvular stenosis. No aortic regurgitation is present. Mitral Valve The mitral valve is normal in structure. No evidence of mitral valve stenosis. Trace mitral regurgitation is present. Tricuspid Valve The tricuspid valve leaflets are thin and pliable. Trace tricuspid regurgitation. There is insufficient TR jet to estimate RVSP. Pulmonic Valve The pulmonary valve is grossly normal in structure. Mild pulmonic valve regurgitation is present. Great Vessels The aortic root is normal in size. IVC is normal in size and collapses >50% with inspiration. Pericardium There is no pericardial effusion. Other Information Study Quality: Technically Difficult Conclusion Technically difficult study. Normal biventricular systolic function. Mild PI. Electronically signed by : Linda Woodruff MD 05/16/2025 12:39:07
[2025-05-13] MEDS: DEFINITY US ECHO CONTRAST 2ML INJ 2 MG IV (09:41)
== END 2025-05-13 23:59 | disposition home or self-care (01) ==
LOC: RAD 06:42
PROVIDERS: PCP Nurse Practitioner Family; Visit Provider Internal Medicine
DX: I37.1 Nonrheumatic pulmonary valve insufficiency (principal); I49.1 Atrial premature depolarization; R94.31 Abnormal electrocardiogram [ECG] [EKG]; R94.39 Abnormal result of other cardiovascular function study; J44.9 Chronic obstructive pulmonary disease, unspecified; E11.9 Type 2 diabetes mellitus without complications; I10 Essential (primary) hypertension
CPT/HCPCS: 78452; 93017; 93018; 93306; A9502; J2785; Q9957

== ENCOUNTER 2025-05-28 08:32 | Outpatient (CLI) | payer MEDICARE, SELFPAY ==
--- OUTSIDE RECORDS SUMMARY | 2025-05-28 08:35 | XMS_ITS | Clinical Summary ---
Author Organization [facility] Address [address] [place] [id number] Phone Care Team Providers Care Patent Counsel Name Role Phone Sayra Dugan Unavailable [phone] Conditions or Problems No information available. Medications No information available. Medications Administered No information available. Allergies, Adverse Reactions, Alerts No information available. Results No information available. Plan of Care No information available. Procedures No information available. Vital Signs No information available. Immunizations No information available. Advance Directives No information available.
--- OUTSIDE RECORDS SUMMARY | 2025-05-28 08:35 | XMS_ITS | Clinical Summary ---
Author Organization [facility] Address [address] [place] [address] Care Team Providers Care Director Regulatory Compliance Name Role Phone Anu Polo APRN, DNP Unavailable Priscila Musa APRN Unavailable [phone] Nellie Duran NETBACKUP ADMINISTRATOR Primary Care Provider [phone] Allergies Active Allergy Reactions Criticality Noted Date [...] 05/31/20 22 Active Lancets (OneTouch Delica Plus [id number]) [facility] USE DIRECTED TO TEST BLOOD SUGAR 10/30/19 22 Active Continuous Blood Gluc Sensor (Dexcom G6 Sensor) [facility] Dexcom G6 Sensor device APPLY 1 SENSOR EVERY 10 DAYS DIRECTED Active B-D UF III MINI PEN NEEDLES 31G X 5 MM [facility] FOLLOW PER PRESCRIBER DIRECTONS 05/16/20 23 Active [...] (06/23/2021): Added automatically from request for surgery [id number] Intervertebral disc disorder s with radiculopathy, lumbar region 06/23/2021 Overview (06/23/2021): Added automatically from request for surgery [id number] Resolved Problems Problem Noted Date Diagnosed Date [...] Description 09/27/2025 9:20 AM EST Office Visit [facility] [address] [place] [address] Vincent Jnoes MD [address] [place] [phone] Health Maintenance Due Date Last Done Comments [...] 07/15/2021 [facility]-Abdominal Aortic Aneurysm (AAA) Screening 2023 [id number] Vaccine (2 - season) 2025 03/31/2021 [facility]-Influenza [...] <5.7 % 07/15/2021 1:24 PM EST [facility] Blood Venous blood specimen / Unknown [...] Adults <6.0% Children and Adolescents <7.5% Source: [place] [employer]. Standards of medical care in diabetes,2017. Diabetes Care.2017:40 (suppl 1):S1-S135. HbA1c assay performed by an ion-exchange chromatography method that is certified traceable to the DCCT. Anu Polo APRN, DNP LAB BLOOD ORDERABLES Final Result [facility] [address] [place] [address] from Last 3 Months or Most Recently Relevant to Health Maintenance Insurance [facility] MEDICARE Care Teams Director Regulatory Compliance Relationship Specialty Start Date End Date Nellie Duran APRN [address] [place] [address] PCP - General 06/07/22 Anu Polo APRN, PATRICK [address] [place] [id number] Nurse Practitioner Neurosurgery 07/15/21 Priscila Musa APRN [address] [place] [address] Nurse Practitioner Neurosurgery 06/07/22
--- OUTSIDE RECORDS SUMMARY | 2025-05-28 08:35 | XMS_ITS | Clinical Summary ---
Author Organization [facility] Address [address] [place] [address] Care Team Providers Care Hospitality Job Titles Name Role Phone David Reece MD Primary Care Provider [phone] Medications oxyCODONE (ROXICODONE) 10 MG tablet Take [...] 07/26/2016 COVID-19 Vaccine ( season) 2025 Insurance [facility] PPO Member Subscriber Plan / Payer (Ef fective 2019-Present) Name:Otto Comer Relation to Subscriber:Self Name:Otto Comer Payer ID:[id number] (NAIC) Type:Not on file Address: [facility] [id number] [address] Care Teams Hospitality Job Titles Relationship Specialty Start Date End Date David Reece MD [address] [place] [address] PCP - General Family Medicine 02/01/20
--- OUTSIDE RECORDS SUMMARY | 2025-05-28 08:36 | XMS_ITS | Data Portability ---
Author Organization [facility] FILIPPO [place] CLOSED Address [address] [facility] [address] [address] [place] [address] Care Team Providers Care Network Associate Name Role Phone DEAN MCKINLEY Primary Care Provider [phone] Assessment Encounter Date Assessment Date Assessment LastModified [...] of the abdomen and pelvis done at [facility]. I would like to review these records [...] in 3 months - sooner if needed [email or web address] Not available 06/04/2024 19:11:04 Plan of Treatment Reminders Order Date Submit Date Provider Last Modified By Organization Details Last Modified Time Details Appointments None recorded. Lab PSA, total, serum or plasma 2023 024 [email or web address] [facility], [address] [place] [address], [phone], 5 16:26:48 urinalysi s panel, auto 2023 024 [email or web address] [facility], [address] [place], [place] [address], [place], [address], 4 20:07:12 culture, urine 2023 024 [facility], [address] [place] [address], [id number], 4 09:30:24 Referral None recorded. Procedures None recorded. Surgeries None recorded. Imaging None recorded. Medication Orders tamsulosi n 0.4 mg capsule 2023 024 [facility][id number], [address], [id number], 4 19:06:29 betametha sone dipropion ate 0.05 % topical cream 2015 016 gosetimara [facility] #[id number], [address], [id number], 6 12:49:11 Patient TargetsNo targets recorded. Patient Instructions Encounter Date Encounter Id Patient Instructions Last Modified By Organization Details Last Modified Time 07/22/2016 [id number] 1. Audiogram performed today - bilateral sensorineural [...] sm: Entero coccus faecal is Not Available [facility] [address] [place] [address], [phone], 06/06/2024 12:04:27 06/04/20 24 06/06/2024 URINE CULTU RE urine culture abnormal ISOLA TE #1 COLON Y COUNT : > 100,0 00 CFU/M L Proba ble Strep tococ cus sp.; ID and sensi tivit y in progr ess. See [place] te Resul t(s) Below Enter ococc us faeca lis Not Available [facility] [address] [place] [address], [phone], 06/06/2024 12:04:27 06/04/20 24 06/06/2024 URINE CULTU RE ampicillin <=2 ug/mL susceptib le Not Available [facility] [address] [place] [address], [address], 06/06/2024 12:04:27 06/04/20 24 06/06/2024 URINE CULTU RE ciprofloxaci n <=1 ug/mL susceptib le Not Available [facility] [address] [place] [address], [phone], 06/06/2024 12:04:27 06/04/20 24 06/06/2024 URINE CULTU RE levofloxacin <=1 ug/mL susceptib le Not Available [facility] [address] [place] [address], [phone], 06/06/2024 12:04:27 06/04/20 24 06/06/2024 URINE CULTU RE nitrofuranto in <=32 ug/mL susceptib le Not Available [facility] [address] [place] [address], [phone], 06/06/2024 12:04:27 06/04/20 24 06/06/2024 URINE CULTU RE penicillin 2 ug/mL susceptib le Not Available [facility] [address] [place] [address], [address], 06/06/2024 12:04:27 06/04/20 24 06/06/2024 URINE CULTU RE rifampin 2 ug/mL intermedi ate Not Available [facility] [address] [place], [address], 06/06/2024 12:04:27 06/04/20 24 06/06/2024 URINE CULTU RE tetracycline >8 ug/mL resistant Not Available [facility] [address] [place], [address], 06/06/2024 12:04:27 06/04/20 24 06/06/2024 URINE CULTU RE vancomycin 1 ug/mL susceptib le Not Available [facility] [address] [place], [address], 06/06/2024 12:04:27 06/04/2006/04/2024 urina lysis panel , auto Unknown Analyte Clean Catch Not Available [facility] [address], [place], [address], 06/04/2024 10:05:16 06/04/20 24 06/04/2024 urina lysis panel , auto Unknown Analyte Yellow Not Available [facility] [address], [place], [address], 06/04/2024 10:05:16 06/04/20 24 06/04/2024 urina lysis panel , auto Unknown Analyte Clear Not Available [facility] [address], [place], [address], 06/04/2024 10:05:16 06/04/20 24 06/04/2024 urina lysis panel , auto Unknown Analyte 1.015 Not Available [facility] [address], [place], [address], 06/04/2024 10:05:16 06/04/20 24 06/04/2024 urina lysis panel , auto Unknown Analyte 1.003- 1.035 Not Available [facility] [address], [place], [address], 06/04/2024 10:05:16 06/04/20 24 06/04/2024 urina lysis panel , auto Unknown Analyte 5.0 Not Available [facility] [address], [place], [address], 06/04/2024 10:05:16 06/04/20 24 06/04/2024 urina lysis panel , auto Unknown Analyte 5.0-8. 0 Not Available [facility] [address], [place], [address], 06/04/2024 10:05:16 06/04/20 24 06/04/2024 urina lysis panel , auto Unknown Analyte Negati ve Not Available [facility] [address], [place], [address], 06/04/2024 10:05:16 06/04/20 24 06/04/2024 urina lysis panel , auto Unknown Analyte Negati ve Not Available [facility] [address], [place], [address], 06/04/2024 10:05:16 06/04/20 24 06/04/2024 urina lysis panel , auto Unknown Analyte Negati ve Not Available [facility] [address], [place], [address], 06/04/2024 10:05:16 06/04/20 24 06/04/2024 urina lysis panel , auto Unknown Analyte Negati ve Not Available [facility] [address], [place], [address], 06/04/2024 10:05:16 06/04/20 24 06/04/2024 urina lysis panel , auto Unknown Analyte Negati ve Not Available [facility] [address], [place], [address], 06/04/2024 10:05:16 06/04/2006/04/2024 urina lysis panel , auto Unknown Analyte Negati ve Not Available [facility] [address], [place], [address], 06/04/2024 10:05:16 06/04/20 24 06/04/2024 urina lysis panel , auto Unknown Analyte >1000 mg/dl Not Available [facility] [address], [place], [address], 06/04/2024 10:05:16 06/04/20 24 06/04/2024 urina lysis panel , auto Unknown Analyte Normal Not Available [facility] [address], [place], [address], 06/04/2024 10:05:16 06/04/2006/04/2024 urina lysis panel , auto Unknown Analyte Negati ve Not Available [facility] [address], [place], [address], 06/04/2024 10:05:16 06/04/20 24 06/04/2024 urina lysis panel , auto Unknown Analyte Negati ve Not Available [facility] [address], [place], [address], 06/04/2024 10:05:16 06/04/20 24 06/04/2024 urina lysis panel , auto Unknown Analyte Normal Not Available [facility] [address], [place], [address], 06/04/2024 10:05:16 06/04/20 24 06/04/2024 urina lysis panel , auto Unknown Analyte Normal 1 mg/dl Not Available [facility] [address], [place], [address], 06/04/2024 10:05:16 06/04/20 24 06/04/2024 urina lysis panel , auto Unknown Analyte Negati ve Not Available [facility] [address], [place], [address], 06/04/2024 10:05:16 06/04/20 24 06/04/2024 urina lysis panel , auto Unknown Analyte Negati ve Not Available [facility] [address], [place], [address], 06/04/2024 10:05:16 06/04/20 24 06/04/2024 urina lysis panel , auto Unknown Analyte Negati ve Not Available [facility] [address], [place], [address], 06/04/2024 10:05:16 06/04/20 24 06/04/2024 urina lysis panel , auto Unknown Analyte Negati ve Not Available [facility] [address], [place], [address], 06/04/2024 10:05:16 Result Notes None recorded. Problems No Known Problems Procedures Surgical History Date Name Laterality Status Provider Name and Address Organization Details Recorded Time 4 Post Void Residual; Ultrasound completed Penny Coleman [facility] 06/04/2024 10:26:54 6 Tympanogram completed MURIEL NEW, AUD [address] [place], [address], [facility] 07/22/2016 09:43:37 6 Audiogram completed MURIEL NEW, AUD [address] [place], [address], [facility] 07/22/2016 09:43:35 Imaging Results None recorded. Procedure [...] Updated DateTime 06/04/2024 180.34 cm 34.9 kg/m2 489665.09 g Penny Coleman [facility] 06/04/2024 09:45:41 Date Recorded Body weight Body temperature Heart rate Body height Body mass index (BMI) Systolic And Diastolic Provider Name and Address Organization Details Last Updated DateTime 6 663766. 88 g 97.4 [degF] 72 /min 180.34 cm 37.3 kg/m2 136/71 mm[Hg] Aba Rosales [facility] 6 09:17:24 Social History Question Answer Notes LastModified by Organizat ion Details LastModified Time Tobacco Smoking Status Former Smoker no second hand exposure [facility]2024 09:48:52 What Was The Date Of Your Most Recent Tobacco Screening? 06/04/2024 [email or web address] Information not available 06/04/2024 What Is Your [...] available 2015 09:13:06 Medical History Condition Response Depression Y Anxiety Disorder Y Arthritis Y Cancer N Bleeding Disorder N Anesthesia Complications N High Cholesterol Y Allergies/Hayfever Y Diabetes Y Hypertension N Past Encounters Encounter ID Performer Location Encounter Start Date Encounter Closed Date Diagnosis/Indication Diagnosis SNOMED-CT Code Diagnosis ICD10 Code Diagnosis IMO Codes Diagnosis Note [id number] MD BRADY HENDRICKSON [facility] [address] [place] [address] 07/22/2016 08:21:09 07/22/2016 14:49:49 Eczema 69175904 L30.9 of the ear canals Sensorineu ral hearing loss of bilateral ears 239034953 H90.3 [id number] MURIEL NEW AYANA BRADY [facility] [address] [place] [address] 07/22/2016 09:43:10 07/22/2016 10:12:20 Asymmetrical sensorineural hearing loss 683473989 H90.A21 Tinnitus 01089199 H93.13 Finding of hearing aid 666199079 Z97.4 [id number] MURIEL NEW AYANA ABREU [facility]NT [address] [place] [address] 07/22/2016 11:18:10 07/22/2016 11:19:43 [id number] MURIEL NEW AYANA BRADY [facility] [address] [place] [address] 07/30/2016 15:57:25 07/30/2016 16:33:59 [id number] ARCHANA XIAO PA-C [facility] [address] [place] [address] 06/04/2024 09:07:30 07/06/2024 15:57:03 Difficulty passing urine 916469768 R39.198 Dysuria 23375672 R30.0 Lower urin torsten tract symptoms due to benign prostatic hypertrophy 3135935632 9101 N40.1 Health Concerns Section Related Observation LastModified by Organization Detai ls LastModified Time None Recorded Concern Status LastModified by Organization Details LastModified Time None Recorded Advance Directives Directive None Recorded Payers Insurance Date Sequence Insurance Name Policy Number Policy Mckeon Covered Member ID Mckeon Member ID Guarantor Name 06/01/2024 1 [place] [id number] Otto Comer [id number] Otto Comer 07/07/2024 1 [facility] (MEDICARE REPLACEMENT/A DVANTAGE - HMO) [id number] Otto Comer [id number] Otto Comer Notes Date Note Type Note [...] was tested for. ATTILA KENNEDY MD [address] [place], [address], [facility] 07/22/2016 15:00:33 06/04/2024 text/html ROS as noted [...] was 99 mL. ARCHANA XIAO PA-C [address] [place], [address], [facility] 06/04/2024 19:12:52
--- OUTSIDE RECORDS SUMMARY | 2025-05-28 08:36 | XMS_ITS | Continuity of Care Document ---
Author Organization [place] Address [address] [address] Care Team Providers Care Nitric Acid Plant Operator Name Role Phone DEAN DURAN Primary Care Provider HARRIET Richardson Primary Care Provider CARLO CORDERO Urologist FARIDA GRAVES Customer Care Agent [facility] Senior Engineering Team Leader Assessment No assessment recorded. Plan of Treatment Reminders Order Date Submit Date Provider Last Modified By Organization Details Last Modified Time Details Appointments None recorded. Lab venipunctur e 2024 025 felisha [facility], [address], Jovon F, [place], [address], 16:46:04 Referral None recorded. Procedures None recorded. Surgeries None recorded. Imaging None recorded. Medication Orders None recorded. Patient TargetsNo targets recorded. Patient InstructionsNo instructions recorded. Reason for Referral None Reported. Results Created Date Observation Date Name Description Value Unit Range Abnormal Flag Note LastModifiedBy Organization Detail LastModifiedTime 04/16/2004/17/2025 SPECI MEN STATU S REPOR T specimen status report COMMEN T Test not perfo rmed. Whole blood speci men parti ally or compl etely clott ed. A commo n cause is insuf ficie nt mixin g upon colle ction . TEST: [id number] CBC With Diffe renti al/Pl atele t Not Available [facility] ([facility]) [address] [facility], [place], [address], 05/27/2025 11:07:36 04/16/2005/27/[address] PROBL EM request problem COMMEN T Test not perfo rmed. Whole blood speci men parti ally or compl etely clott ed. A commo n cause is insuf ficie nt mixin g upon colle ction . TEST: [id number] 3 Hemog lobin A1c Not Available [facility] ([facility]) [address] [facility], [place], [address], 05/27/2025 11:07:36 04/25/2004/26/2025 CBC WITH DIFFE RENTI AL/PL ATELE T WBC 5.2 x10e3 /uL 3.4-10 .8 normal Not Available [facility] ([facility]) [address] [facility], [place], [address], 04/26/2025 08:10:54 04/25/20 25 04/26/2025 CBC WITH DIFFE RENTI AL/PL ATELE T RBC 4.51 x10e6 /uL 4.14-5 .80 normal Not Available [facility] ([facility]) [address] [facility], [place], [address], 04/26/2025 08:10:54 04/25/20 25 04/26/2025 CBC WITH DIFFE RENTI AL/PL ATELE T hemoglobin 13.4 g/dL 13.0-1 7.7 normal Not Available [facility] ([facility]) [address] [facility], [place], [address], 04/26/2025 08:10:54 04/25/20 25 04/26/2025 CBC WITH DIFFE RENTI AL/PL ATELE T hematocrit 41.6 % 37.5-5 1.0 normal Not Available [facility] ([facility]) [address] [facility], [place], [address], 04/26/2025 08:10:54 04/25/20 25 04/26/2025 CBC WITH DIFFE RENTI AL/PL ATELE T MCV 92 fL 79-97 normal Not Available [facility] ([facility]) [address] [place], [address], 04/26/2025 08:10:54 04/25/20 25 04/26/2025 CBC WITH DIFFE RENTI AL/PL ATELE T MCH 29.7 pg 26.6-3 3.0 normal Not Available [facility] ([facility]) [address] [place], [address], 04/26/2025 08:10:54 04/25/20 25 04/26/2025 CBC WITH DIFFE RENTI AL/PL ATELE T MCHC 32.2 g/dL 31.5-3 5.7 normal Not Available [facility] ([facility]) [address] [place], [address], 04/26/2025 08:10:54 04/25/20 25 04/26/2025 CBC WITH DIFFE RENTI AL/PL ATELE T RDW 13.1 % 11.6-1 5.4 Not Available [facility] ([facility]) [address] [place], [address], 04/26/2025 08:10:54 04/25/20 25 04/26/2025 CBC WITH DIFFE RENTI AL/PL ATELE T platelets 210 x10e3 /uL 150-45 0 normal Not Available [facility] ([facility]) [address] [place], [address], 04/26/2025 08:10:54 04/25/20 25 04/26/2025 CBC WITH DIFFE RENTI AL/PL ATELE T neutrophils 55 % not estab. normal Not Available [facility] ([facility]) [address] [place], [address], 04/26/2025 08:10:54 04/25/20 25 04/26/2025 CBC WITH DIFFE RENTI AL/PL ATELE T lymphs 34 % not estab. normal Not Available [facility] ([facility]) [address] [facility], [place], [address], 04/26/2025 08:10:54 04/25/20 25 04/26/2025 CBC WITH DIFFE RENTI AL/PL ATELE T monocytes 8 % not estab. normal Not Available [facility] ([facility]) [address] [facility], [place], [address], 04/26/2025 08:10:54 04/25/20 25 04/26/2025 CBC WITH DIFFE RENTI AL/PL ATELE T eos 2 % not estab. normal Not Available [facility] ([facility]) [address] [facility], [place], [address], 04/26/2025 08:10:54 04/25/20 25 04/26/2025 CBC WITH DIFFE RENTI AL/PL ATELE T basos 1 % not estab. normal Not Available [facility] ([facility]) [address] [facility], [place], [address], 04/26/2025 08:10:54 04/25/20 25 04/26/2025 CBC WITH DIFFE RENTI AL/PL ATELE T immature cells FREELANCE PHOTOGRAPHER Not Available [facility] ([facility]) [address] [place], [address], 04/26/2025 08:10:54 04/25/20 25 04/26/2025 CBC WITH DIFFE RENTI AL/PL ATELE T neutrophils (absolute) 2.9 x10e3 /uL 1.4-7. 0 normal Not Available [facility] ([facility]) [address] [place], [address], 04/26/2025 08:10:54 04/25/20 25 04/26/2025 CBC WITH DIFFE RENTI AL/PL ATELE T lymphs (absolute) 1.7 x10e3 /uL 0.7-3. 1 normal Not Available [facility] ([facility]) [address] [facility], [place], [address], 04/26/2025 08:10:54 04/25/20 25 04/26/2025 CBC WITH DIFFE RENTI AL/PL ATELE T monocytes(ab solute) 0.4 x10e3 /uL 0.1-0. 9 normal Not Available [facility] ([facility]) [address] [facility], [place], [address], 04/26/2025 08:10:54 04/25/20 25 04/26/2025 CBC WITH DIFFE RENTI AL/PL ATELE T eos (absolute) 0.1 x10e3 /uL 0.0-0. 4 normal Not Available [facility] ([facility]) [address] [facility], [place], [address], 04/26/2025 08:10:54 04/25/20 25 04/26/2025 CBC WITH DIFFE RENTI AL/PL ATELE T baso (absolute) 0.0 x10e3 /uL 0.0-0. 2 normal Not Available [facility] ([facility]) [address] [facility], [place], [address], 04/26/2025 08:10:54 04/25/20 25 04/26/2025 CBC WITH DIFFE RENTI AL/PL ATELE T immature granulocytes 0 % not estab. Not Available [facility] ([facility]) [address] [facility], [place], [address], 04/26/2025 08:10:54 04/25/20 25 04/26/2025 CBC WITH DIFFE RENTI AL/PL ATELE T immature grans (abs) 0.0 x10e3 /uL 0.0-0. 1 Not Available [facility] ([facility]) [address] [facility], [place], [address], 04/26/2025 08:10:54 04/25/20 25 04/26/2025 CBC WITH DIFFE RENTI AL/PL ATELE T NRBC FREELANCE PHOTOGRAPHER Not Available [facility] ([facility]) [address] [facility], [place], [address], 04/26/2025 08:10:54 04/25/2004/26/2025 CBC WITH DIFFE RENTI AL/PL ATELE T hematology comments: FREELANCE PHOTOGRAPHER Not Available [facility] ([facility]) [address] [facility], [place], [address], 04/26/2025 08:10:54 04/25/2004/26/2025 HEMOG LOBIN A1C hemoglobin A1C 9.8 % 4.8-5. 6 above high normal Predi abete s: 5.7 - 6.4 Diabe gayatri: >6.4 Glyce lucio contr ol for adult s with diabe gayatri: <7.0 Not Available [facility] ([facility]) [address] [facility], [place], [address], 04/26/2025 08:10:54 04/16/2004/16/2025 elect rocar diogr am No observ ation record ed. [address], [address], 04/16/2025 16:39:45 05/03/20 25 04/16/2025 elect rocar diogr am No observ ation record ed. [email or web address] [address], [address], 05/13/2025 13:37:55 05/14/2005/13/2025 NM, myoca rdial perfu pilar scan, w/ stres s No observ ation record ed. [facility] [address], [place], [address], 05/16/2025 08:53:52 05/15/2005/13/2025 cardi ac stres s test No observ ation record ed. [facility] [address], [place], [address], 05/16/2025 08:53:53 05/16/20 25 05/13/2025 stres s echoc ardio gram with doppl er color flow (PROC ) No observ ation record ed. [facility] [address], [place], [address], 05/20/2025 13:17:21 Result Notes None recorded. 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 49649646959 9105 Active 2020 Yesika Galvin [place], [place] - [facility] 4 08:22:17 Type 2 diabetes mellitus 84775008 Completed 202101/26/2022 Dean Duran APRN [address], [place], [place], [address] [place] [address] , [place] - [facility] 4 08:17:49 Anxiety 02939995 Active 2021 Yasminekarel Duran [employer] [address], [place], [address] [place] [address] , [place] - [facility] 2 16:49:08 Depressiv e disorder 83936867 Active 2021 Dean Duran APRN [address], [place], [address] [place] [address] , [place] [facility] 2 16:49:13 Hyperchol esterolem ia 57445497 Active 2021 Dean Duran [employer] [address], [place], [address] [place] [address] , [place] [facility] 2 16:49:26 Arthritis 7957957 Active 2021 Dean Duran APRN [address], [place], [address] , [place] - [facility] 2 16:49:10 Environme ntal allergy 919049262 Active 2021 Dean Duran APRN [address], [place], [address] , [place] - [facility] 2 16:49:17 Type 2 diabetes mellitus 65994534 Active 2021 Dean Duran, [employer] [address], [place], [address] , [place] [facility] 4 08:17:48 Albuminur ia 022537908 Active 2021 Dean Duran, [employer] [address], [place], [address] , [place] [facility] 2 08:46:14 Neck pain 35407517 Active 2021 Yesika Kamar [place], [place] - [facility] 4 08:22:17 Fracture of lumbar spine 430957438 Active 2021 Dean Duran, [employer] [address], [place], [address] , [place] [facility] 2 11:07:18 Low back pain 632218193 Active 2022 Yesika Galvin [place], [place] [facility] 4 08:22:17 History of respirato ry disease 986588864 Active 2023 Yesika Galvin [place] - [facility] 4 08:22:17 History of asthma 858685952 Active 2023 Yesika Galvin [place] [facility] 4 08:22:17 Systemic inflammat ory response syndrome 847248017 Completed 202309/12/2023 Yesika Galvin [place] [facility] 4 08:22:17 Lumbar spondylos is 247999421 Active 2023 Yesika Galvin [place] [facility] 4 08:22:17 Subconjun ctival hemorrhag e of right eye 73735895610 9100 Active 2023 Yesika Galvin [place] [facility] 4 08:22:17 Arthropat hy of spinal facet joint 265651582 Active 2023 Yesika Galvin [place] [facility] 4 08:22:17 Allergic condition 962934591 Active 2023 Yesika Galvin [place] [facility] 4 08:22:17 Pain of hip region 84358279 Active 2023 Yesika Galvin [place] [facility] 4 08:22:17 Diabetes mellitus 64213553 Completed 202309/12/2023 Yesika Galvin [place] [facility] 4 08:22:17 Septic shock 94014159 Completed 202309/12/2023 Yesikachristy Galvin [place] [facility] 4 08:22:17 Pulmonic valve regurgita tion 95064346 Active 2023 Yesikachristy Galvin [place] [facility] 4 08:22:17 Postopera tive state 46343911 Active 2023 Yesikachristy Galvin [place] [facility] 4 08:22:17 Diabetic on insulin 677971440 Active 2023 Dean Duran APRN [address], [place], [address] , [place] - [facility] 4 15:06:20 Gastritis 0482787 Active 2023 Vinita Stockton [place], [place] - [facility] 4 09:09:10 Acute bronchiti s 49736940 Active 2024 Salima Quinteros, GAGE [address], [place], [address] , [place] - [facility] 5 14:19:26 Wheezing 69765358 Active 2024 Salima Quinteros, [employer] [address], [place], [address] , [place] - [facility] 5 14:22:04 Problem Notes None recorded. Procedures Surgical History Date Name Laterality Status Provider Name and Address Organization Details Recorded Time 11/28/19 25 Laceration Repair with Sutures/[place] completed Dean Duran APRN [address], [place], [address], [place] [facility] 11/27/2024 11:10:23 10/10/19 25 Advance Care Planning completed Vinita Maharajs [place] - [facility] 10/09/2024 09:00:13 10/10/19 25 Functional Status Assessed completed Vinita Maharajs [place] - [facility] 025 09:00:13 09/08/19 24 Advance Care Planning completed Yesika Galvin [place] - [facility] 09/08/2023 08:09:01 09/08/19 24 Functional Status Assessed completed Yesika Galvin [place] [facility] 09/08/2023 08:09:01 04/04/20 23 Cerumen Removal completed Yesika Galvin [place] - [facility] 04/04/2023 13:11:40 05/25/20 22 Cerumen Removal completed Dean Duran APRN [address], [place], [address], [place] [facility] 05/25/2022 14:51:22 03/12/20 22 Dexcom Placement completed Dean Duran APRN [address], [place], [address], [place] [facility] 03/12/2022 09:33:13 Eye Surgery completed Vinita Maharajs [place] - [facility] 01/26/2022 14:57:12 Deviated Septum Repair completed Vinita Maharajs [place] [facility] 01/26/2022 14:57:23 total knee replacement completed Vinita Carol Anns [place] - [facility] 01/26/2022 14:57:42 Back Surgery completed Vinita Maharajs [place] [facility] 01/26/2022 14:57:46 Prostate Surgery completed Vinita [place] - [facility] 01/26/2022 14:58:11 operation on urinary bladder completed Vinita [place]ns [place] - [facility] 022 14:58:27 Colonoscopy completed [...] Name and Address Organization Details Recorded Time 14570827 No known allergy (situatio n) Not available Not available Not available Not available 11/21/2023 [address] 6003 SNOMED Yesika [place]ar [place] - [...] Not Available Not Available Not Available ondansetron HCl 4 mg tablet Take 1 tablet by oral route. 06/14 completed Not Available Not Available Not Available prednisone 20 mg tablet TAKE 1 [...] completed Not Available Not Available Not Available [employer] Ultra Test strips USE TO TEST TWICE [...] completed Not Available Not Available Not Available methylpredn isolone 4 mg tablets in a dose pack TAKE DIRECTED PER INSIDE DIRECTION S active Not Available Not Available No t Available albuterol sulfate HFA 90 mcg/actuati on aerosol inhaler INHALE TWO (2) PUFFS EVERY FOUR (4) HOURS BY INHALATIO N ROUTE NEEDED. active Not Available Not Available No t Available docusate sodium 250 mg capsule 01/26 completed Not Available Not Available Not Available ondansetron 4 mg disintegrat ing tablet DISSOLVE 1 TABLET ON THE TONGUE EVERY 8 HOURS FOR 3 DAYS NEEDED 06/14 completed Not Available Not Available Not Available cefdinir 300 mg capsule Take 1 capsule every 12 hours by oral route for 10 days. 05/26 completed Not Available Not Available Not Available fluticasone propionate 50 mcg/actuati on nasal spray,suspe nsion SHAKE LIQUID AND USE 1 SPRAY IN EACH NOSTRIL EVERY DAY FOR CONGESTIO N active Not Available Not Available No t Available metformin ER 500 mg tablet,exte nded release 24 hr TAKE 2 TABLETS BY MOUTH TWICE DAILY 2024 active Not Available Not Available Not Avai lable loratadine 10 mg tablet TAKE ONE (1) TABLET EVERY DAY BY ORAL ROUTE IN THE MORNING. active Not Available Not Available No t Available neomycin-po lymyxin-hyd rocort 3.5 mg-10,000 unit/mL-1 % [...] Tobacco Smoking Status Former Smoker Vinita Stockton [facility], [place] - [facility] 01/26/2022 14:56:00 Do You [...] Or The Highest Degree You Have Received? [id number] Information not available 01/26/2022 Have There Been [...] Do You Have A Medical Power Of Admitting Coordinator? No Information not available 09/08/2023 What Was [...] or have you ever used smokeless tobacco? [id number] Information n ot available 09/08/2023 Are you [...] anxious, or unable to sleep at night)? [id number] Information not available 01/26/2022 Do you have [...] available 2023 08:10:25 Medical History Condition Response Anxiety Disorder Y Diabetes Y Arthritis Y Ear or Hearing Problems Y Acid Reflux (GERD) Y Hyperlipidemia Y Hypoglycemia Y Depression Y Hypothyroidism Y Hypercholesterolemia Y Hypertension Y Immunizations Vaccine Type Date Status Note Provider Name and Address Organization Details Recorded Time Tdap 022 cancelled patient objection Dean Duran, [employer] [address], [place], [address], [place] [facility] 03/26/2022 10:37:59 Pneumococcal conjugate PCV20, polysaccharide [id number] conjugate, adjuvant, PF 024 cancelled patient objection Yasminebryonjosep Chindeb, [employer] [address], [place], [address], [place] [facility] 02/28/2024 13:34:11 Influenza, high-dose, trivalent, PF 024 completed Yesika Galvin null, [place] - [facility] 05/10/2024 16:48:23 zoster recombinant 025 cancelled patient objection Yasminebryonjosep Chindeb, [employer] [address], [place], [address], [place] [facility] 10/09/2024 10:08:40 Pneumococcal conjugate PCV20, polysaccharide [id number] conjugate, adjuvant, PF 025 cancelled patient objection Dean Duran, [employer] [address], [place], [address], [place] [facility] 10/09/2024 10:08:40 Tdap 025 completed Vinita Stockton null, [place] - [facility] 11/27/2024 16:08:06 Influenza, high-dose, trivalent, PF 025 completed Vinita Stears null, [place] - [facility] 04/16/2025 16:30:33 COVID-19, mRNA, LNP-S, PF, 30 mcg/0.3 mL dose 021 completed Yesika Galvin null, [place] - [facility] 05/25/2022 13:19:20 Influenza, split virus, trivalent, PF 017 completed Yesika Galvin null, [place] - [facility] 05/25/2022 13:19:20 Influenza, split virus, trivalent, PF 018 completed Yes[place] Gal[place] [facility] 05/25/2022 13:19:20 Influenza, split virus, quadrivalent, PF 022 completed Yes[place] Gal[place] [facility] 05/25/2022 13:19:20 Td (adult) 018 completed Yesika Galvin null, [place] - [facility] 05/25/2022 13:19:20 Influenza, MDCK, quadrivalent, PF 023 completed Yes[place] Galvin [place] [facility] 04/18/2023 15:16:35 Past Encounters Encounter ID Performer Location Encounter Start Date Encounter Closed Date Diagnosis/Indication Diagnosis SNOMED-CT Code Diagnosis ICD10 Code Diagnosis IMO Codes Diagnosis Note [id number] Yasminekarel Duran [address] [address] 04/16/2025 14:21:27 04/16/2025 16:39:42 Influenza vaccine needed 0371298103 106 Z23 Type 2 christina betes mellitus 94298760 E11.9 Z79.4 pt adherence to cgm regimen and dm treatment plandiscus sed med in detail Diabetic on insulin 1707 73921 Z79.4 Malaise and fatigue 2717 58774 R53.81 R53.83 52119 Excessive sweating 94998 005 R61 54124 [id number] Yasminekarel Duran [address] [address] 04/25/2025 10:51:05 04/25/2025 14:04:18 Diabetic on insulin 301240344 Z79.4 Type 2 christina betes mellitus 50210304 E11.9 Z79.4 pt adherence to cgm regimen and dm treatment plandiscus sed med in detail Health Concerns Section Related Observation LastModified by Organization Detai ls LastModified Time None Recorded Concern Status LastModified by Organization Details LastModified Time None Recorded Payers Encounter Date Sequence Insurance Name Policy Number Policy Mckeon Covered Member ID Mckeon Member ID Guarantor Name 04/25/2025 1 [facility] (MEDICARE REPLACEMENT/A DVANTAGE - HMO) [id number] Otto Comer [id number] Otto Comer Notes Date Note Type Note Provider Name a nd Address Organization Details Recorded Time 04/25/2025 text/html labs [place], [place] - [facility] 04/25/2025 11:32:10
--- OUTSIDE RECORDS SUMMARY | 2025-05-28 08:36 | XMS_ITS | Clinical Summary ---
Author Organization [employer] [facility] ([place], [place], [place], [place], [place]) Address [address] [place] [address] Care Team Providers Care Firepot Operator And Tender Name Role Phone Nellie Duran Primary Care Provider [phone] Allergies No known active allergies Medications Ozempic [...] tablet (80 mg total) by mouth nightly. Active azelastine (ASTELIN) 137 mcg (0.1 %) [...] (09/12/2023): Added automatically from request for surgery [id number] Resolved Problems Problem Noted Date Diagnosed Date [...] Do you speak a language other than Hebrew at [facility]? No 09/30/2023 Do you want help with [...] Tdap) 11/06/2027 Medical Devices Implanted Type Area Basin Finish Operator Tig Welder Device Identifier Shelf Expiration Date Model / Serial / Lot Fibergraft Mtrx 12.5cc [id number] - [id number] Implanted:Qty: 1 on 09/30/2023 by Adam Guerrier MD at [facility] IMPLANTS N/A: Spine Lumbar [employer] 05/03/2026 [id number] / / [id number] Bone Vivigen Frmble Cell 10cc -1600-003 - [id number] Implanted:Qty: 1 on 09/30/2023 by Adam Guerrier MD at [facility] IMPLANTS N/A: Spine Lumbar LIFENET:LIFENET TRANSPLANT SRV 09/13/2024 BL-1600-003 / / [id number] Robbie Pre Load 95mm - [id number] Implanted:Qty: 2 on 09/30/2023 by Adam Guerrier MD at [facility] IMPLANTS N/A: Spine Lumbar J &J:DEPUY:DEPUY SPINE / / Scr Spne Hayden Fix 6x40mm - [id number] Implanted:Qty: 2 on 09/30/2023 by Adam Guerrier MD at [facility] IMPLANTS N/A: Spine Lumbar J &J:DEPUY:DEPUY SPINE / / Scr Spne Hayden Fix 6x50mm - [id number] Implanted:Qty: 4 on 09/30/2023 by Adam Guerrier MD at [facility] IMPLANTS N/A: Spine Lumbar J &J:DEPUY:DEPUY SPINE / / Scr Spne Hayden Fix 6x55mm - [id number] Implanted:Qty: 2 on 09/30/2023 by Adam Guerrier MD at [facility] IMPLANTS N/A: Spine Lumbar J &J:DEPUY:DEPUY SPINE / / Mis Melisa Ply Scrw Set Ti - Implanted:Qty: 8 on 09/30/2023 by Adam Guerrier MD at [facility] IMPLANTS N/A: Spine Lumbar J &J:DEPUY:DEPUY SPINE / / Explanted Type Area Basin Finish Operator Tig Welder Device Identifier Shelf Expiration Date Model / Serial / Lot Scr Spne Hayden Fix 6x30mm - [id number] Explanted:Qty : 1 on 09/30/2023 at [facility] IMPLANTS N/A: Spine Lumbar J &J:DEPUY:DEPUY SPINE 30 / 30 / Scr Spne Hayden Fix Fen 6x45mm - [id number] Explanted:Qty : 1 on 09/30/2023 at [facility] IMPLANTS N/A: Spine Lumbar J &J:DEPUY:DEPUY SPINE 45 / 45 / Procedures Procedure Name Priority Date/Time Associated Diagnosis Comments HEMOGLOBIN A1C STAT 09/30/2023 6:51 AM EST from Last 3 Months or Most Recently Relevant to Health Maintenance Results * Hemoglobin A1c (09/30/2023 6:51 AM EST) Hemoglobin A1C 7.4 % 09/30/2023 12:20 PM EST [facility] Comment: Hemoglobin A1C levels are related to mean glucose during the preceding 2-3 months. Less than 7% demonstrates glycemic control in diabetic patients. Hemoglobin AlC % Suggested Diagnosis > or = 6.5 Diabetic 5.7 - 6.4 Prediabetic <5.7 Non-diabetic eAVG Glucose 165.68 mg/dL 09/30/2023 12:20 PM EST [facility] Blood Venipuncture / Unknown 09/30/2023 6:51 AM EST 09/30/2023 6:59 AM EST us Adam Guerrier MD LAB BLOOD ORDERABLES F inal Result [facility] [address] [id number] [phone] from Last 3 Months or Most Recently Relevant to Health Maintenance Insurance [facility] DUAL COMPLETE MCR ADV Advance Directives For more information, please contact: [phone] * Full Code (Latest Code Status on File) Date Activated Date Inactivated Comments 09/30/2023 4:20 PM 10/04/2023 1:40 PM Care Teams Firepot Operator And Tender Relationship Specialty Start Date End Date Roger Nellie [address] [place] [address] PCP - General 09/12/23
--- OUTSIDE RECORDS SUMMARY | 2025-05-28 08:36 | XMS_ITS | Referral Summary ---
Author Organization [email or web address] ([place], [place], [place], [place], [place]) Address [address] [place] [address] Care Team Providers Care Stable Hand Name Role Phone Nellie Duran Primary Care Provider [phone] Allergies No known active allergies Medications Ozempic [...] (09/12/2023): Added automatically from request for surgery [id number] Resolved Problems Problem Noted Date Diagnosed Date [...] Do you speak a language other than Italian at [facility]? No 09/30/2023 Do you want [...] on file Medical Devices Implanted Type Area Dope Edger Device Identifier Shelf Expiration Date Model / Serial / Lot Fibergraft Mtrx 12.5cc [id number] - [id number] Implanted:Qty: 1 on 09/30/2023 by Adam Guerrier MD at [facility] IMPLANTS N/A: Spine Lumbar [employer] 05/03/2026 [id number] / / [id number] Bone Vivigen Frmble Cell 10 Bl-1600-003 - [id number] Implanted:Qty: 1 on 09/30/2023 by Adam Guerrier MD at [facility] IMPLANTS N/A: Spine Lumbar LIFENET:LIFENET TRANSPLANT SRV 09/13/2024 BL-1600-003 / / [id number] Robbie Pre Load 95mm - [id number] Implanted:Qty: 2 on 09/30/2023 by Adam Guerrier MD at [facility] IMPLANTS N/A: Spine Lumbar J &J:DEPUY:DEPUY SPINE / / Scr Spne Hayden Fix 6x40mm - [id number] Implanted:Qty: 2 on 09/30/2023 by Adam Guerrier MD at [facility] IMPLANTS N/A: Spine Lumbar J &J:DEPUY:DEPUY SPINE / / Scr Spne Hayden Fix 6x50mm - [id number] Implanted:Qty: 4 on 09/30/2023 by Adam Guerrier MD at [facility] IMPLANTS N/A: Spine Lumbar J &J:DEPUY:DEPUY SPINE / / Scr Spne Hayden Fix 6x55mm - Implanted:Qty: 2 on 09/30/2023 by Adam Guerrier MD at [facility] IMPLANTS N/A: Spine Lumbar J &J:DEPUY:DEPUY SPINE / / Mis Melisa Ply Scrw Set Ti - [id number] Implanted:Qty: 8 on 09/30/2023 by Adam Guerrier MD at [facility] IMPLANTS N/A: Spine Lumbar J &J:DEPUY:DEPUY SPINE / / Explanted Type Area Dope Edger Device Identifier Shelf Expiration Date Model / Serial / Lot Scr Spne Hayden Fix 6x30mm - [id number] Explanted:Qty : 1 on 09/30/2023 at [facility] IMPLANTS N/A: Spine Lumbar J &J:DEPUY:DEPUY SPINE 30 / 30 / Scr Spne Hayden Fix Fen 6x45mm 5 - [id number] Explanted:Qty : 1 on 09/30/2023 at [facility] IMPLANTS N/A: Spine Lumbar J &J:DEPUY:DEPUY SPINE 45 / 45 / Procedures Procedure Name Priority Date/Time Associated Diagnosis Comments HEMOGLOBIN A1C STAT 09/30/2023 6:51 AM EST from Last 3 Months or Most Recently Relevant to Health Maintenance Results * Hemoglobin A1c (09/30/2023 6:51 AM EST) Hemoglobin A1C 7.4 % 09/30/2023 12:20 PM EST [facility] Comment: Hemoglobin A1C levels are related to mean glucose during the preceding 2-3 months. Less than 7% demonstrates glycemic control in diabetic patients. Hemoglobin AlC % Suggested Diagnosis > or = 6.5 Diabetic 5.7 - 6.4 Prediabetic <5.7 Non-diabetic eAVG Glucose 165.68 mg/dL 09/30/2023 12:20 PM EST [facility] Blood Venipuncture / Unknown 09/30/2023 6:51 AM EST 09/30/2023 6:59 AM EST us Adam Guerrier MD LAB BLOOD ORDERABLES F inal Result [facility] [address] [phone] from Last 3 Months or Most Recently Relevant to Health Maintenance Insurance [facility] DUAL COMPLETE MCR ADV Advance Directives For more information, please contact: [phone] * Full Code (Latest Code Status on File) Date Activated Date Inactivated Comments 09/30/2023 4:20 PM 10/04/2023 1:40 PM Care Teams Stable Hand Relationship Specialty Start Date End Date Nellie Duran [address] [place] [address] PCP - General 09/12/23
--- OUTSIDE RECORDS SUMMARY | 2025-05-28 08:36 | XMS_ITS | Continuity of Care Document ---
Author Organization [facility] Address [address] [place] [address] Care Team Providers Care Desk Director Name Role Phone DEAN HAMLIN Primary Care Provider HARRIET Richardson Primary Care Provider CARLO CORDERO Urologist FARIDA GRAVES Correctional Officer [facility] Wig Sales Consultant [phone] Assessment No assessment recorded. Plan of Treatment Reminders Order Date Submit Date Provider Last Modified By Organization Details Last Modified Time Details Appointments None recorded. Lab Mycobacteri um tuberculosi s stimulated gamma interferon, qual, blood 2024 025 IRENE [facility], [address], [address], [place], [address], 11:07:34 HbA1c (hemoglobin A1c), blood 2024 025 IRENE [facility], [address], [place] [address], [place], [address], 08:10:54 CBC w/ auto diff 2024 025 IRENE [facility], [address], [place] [address], [place], [address], 08:10:54 TSH + free T4, serum 2024 025 IRENE [facility], [address], [place], [place], [address], 11:07:32 CMP, serum or plasma 2024 025 IRENE [facility], [address], [place] [address], [place], [address], 5 11:07:33 cobalamin and folate panel, serum 2024 025 IRENE [facility], [address], [place], [place], [address], 5 11:07:34 vitamin D, 25-hydroxy, total, serum 2024 025 IRENE [facility], [address], [place], [place], [address], 11:07:35 iron + total iron-bindin g capacity (TIBC), serum 2024 025 IRENE [facility], [address], [place], [place], [address], 11:07:33 Referral cardiologis t referral - 04/17/25- dr gilbert at 1 pm per [facility] 2024 025 IRENE Woodruff MD, [address], [place], [address], 08:27:27 Procedures None recorded. Surgeries None recorded. Imaging electrocard iogram 2024 025 [email or web address] [facility], [address] [facility], [place], [address], 16:39:42 Medication Orders None recorded. Patient TargetsNo targets recorded. Patient InstructionsNo instructions recorded. Reason for Referral [employer] Referral for Ex cessive sweating 04/17/25- dr gilbert at 1 pm per [facility] Referring Physician: Dean Hamlin, Family Medicine, Encounter [...] mixin g upon colle ction . TEST: [id number] CBC With Diffe renti al/Pl atele t Not Available [facility] ([facility]) [address] [place], [address], 05/27/2025 11:07:36 04/16/2005/27/[address] PROBL EM request problem COMMEN T Test not perfo rmed. Whole blood speci men parti ally or compl etely clott ed. A commo n cause is insuf ficie nt mixin g upon colle ction . TEST: 19437 3 Hemog lobin A1c Not Available [facility] ([facility]) [address] [place], [address], 05/27/2025 11:07:36 04/25/2004/26/2025 CBC WITH DIFFE RENTI AL/PL ATELE T WBC 5.2 x10e3 /uL 3.4-10 .8 normal Not Available [facility] ([facility]) [address] [place], [address], 04/26/2025 08:10:54 04/25/20 25 04/26/2025 CBC WITH DIFFE RENTI AL/PL ATELE T RBC 4.51 x10e6 /uL 4.14-5 .80 normal Not Available [facility] ([facility]) [address] [place], [address], 04/26/2025 08:10:54 04/25/20 25 04/26/2025 CBC WITH DIFFE RENTI AL/PL ATELE T hemoglobin 13.4 g/dL 13.0-1 7.7 normal Not Available [facility] ([facility]) [address] [facility], [place], [address], 04/26/2025 08:10:54 04/25/20 25 04/26/2025 CBC WITH DIFFE RENTI AL/PL ATELE T hematocrit 41.6 % 37.5-5 1.0 normal Not Available [facility] ([facility]) [address] [facility], [place], [address], 04/26/2025 08:10:54 04/25/20 25 04/26/2025 CBC WITH DIFFE RENTI AL/PL ATELE T MCV 92 fL 79-97 normal Not Available [facility] ([facility]) [address] [facility], [place], [address], 04/26/2025 08:10:54 04/25/20 25 04/26/2025 CBC WITH DIFFE RENTI AL/PL ATELE T MCH 29.7 pg 26.6-3 3.0 normal Not Available [facility] ([facility]) [address] [place], [address], 04/26/2025 08:10:54 04/25/20 25 04/26/2025 CBC WITH DIFFE RENTI AL/PL ATELE T MCHC 32.2 g/dL 31.5-3 5.7 normal Not Available [facility] ([facility]) [address] [facility], [place], [address], 04/26/2025 08:10:54 04/25/20 25 04/26/2025 CBC WITH DIFFE RENTI AL/PL ATELE T RDW 13.1 % 11.6-1 5.4 Not Available [facility] ([facility]) [address] [place], [address], 04/26/2025 08:10:54 04/25/20 25 04/26/2025 CBC WITH DIFFE RENTI AL/PL ATELE T platelets 210 x10e3 /uL 150-45 0 normal Not Available [facility] ([facility]) [address] [facility], [place], [address], 04/26/2025 08:10:54 04/25/2004/26/2025 CBC WITH DIFFE RENTI AL/PL ATELE T neutrophils 55 % not estab. normal Not Available [facility] ([facility]) [address] [facility], [place], [address], 04/26/2025 08:10:54 04/25/2004/26/2025 CBC WITH DIFFE RENTI AL/PL ATELE T lymphs 34 % not estab. normal Not Available [facility] ([facility]) [address] [facility], [place], [address], 04/26/2025 08:10:54 04/25/20 25 04/26/2025 CBC WITH DIFFE RENTI AL/PL ATELE T monocytes 8 % not estab. normal Not Available [facility] ([facility]) [address] [facility], [place], [address], 04/26/2025 08:10:54 04/25/2004/26/2025 CBC WITH DIFFE RENTI AL/PL ATELE T eos 2 % not estab. normal Not Available [facility] ([facility]) [address] [facility], [place], [address], 04/26/2025 08:10:54 04/25/20 25 04/26/2025 CBC WITH DIFFE RENTI AL/PL ATELE T basos 1 % not estab. normal Not Available [facility] ([facility]) [address] [facility], [place], [address], 04/26/2025 08:10:54 04/25/20 25 04/26/2025 CBC WITH DIFFE RENTI AL/PL ATELE T immature cells MID TEACHER Not Available [facility] ([facility]) [address] [facility], [place], [address], 04/26/2025 08:10:54 04/25/20 25 04/26/2025 CBC WITH DIFFE RENTI AL/PL ATELE T neutrophils (absolute) 2.9 x10e3 /uL 1.4-7. 0 normal Not Available [facility] ([facility]) [address] [facility], [place], [address], 04/26/2025 08:10:54 04/25/20 25 04/26/2025 CBC WITH DIFFE RENTI AL/PL ATELE T lymphs (absolute) 1.7 x10e3 /uL 0.7-3. 1 normal Not Available [facility] ([facility]) [address] [place], [address], 04/26/2025 08:10:54 04/25/20 25 04/26/2025 CBC WITH DIFFE RENTI AL/PL ATELE T monocytes(ab solute) 0.4 x10e3 /uL 0.1-0. 9 normal Not Available [facility] ([facility]) [address] [facility], [place], [address], 04/26/2025 08:10:54 04/25/20 25 04/26/2025 CBC WITH DIFFE RENTI AL/PL ATELE T eos (absolute) 0.1 x10e3 /uL 0.0-0. 4 normal Not Available [facility] ([facility]) [address] [place], [address], 04/26/2025 08:10:54 04/25/20 25 04/26/2025 CBC WITH DIFFE RENTI AL/PL ATELE T baso (absolute) 0.0 x10e3 /uL 0.0-0. 2 normal Not Available [facility] ([facility]) [address] [place], [address], 04/26/2025 08:10:54 04/25/20 25 04/26/2025 CBC WITH DIFFE RENTI AL/PL ATELE T immature granulocytes 0 % not estab. Not Available [facility] ([facility]) [address] [facility], [place], [address], 04/26/2025 08:10:54 04/25/2004/26/2025 CBC WITH DIFFE RENTI AL/PL ATELE T immature grans (abs) 0.0 x10e3 /uL 0.0-0. 1 Not Available [facility] ([facility]) [address] [facility], [place], [address], 04/26/2025 08:10:54 04/25/2004/26/2025 CBC WITH DIFFE RENTI AL/PL ATELE T NRBC MID TEACHER Not Available [facility] ([facility]) [address] [facility], [place], [address], 04/26/2025 08:10:54 04/25/2004/26/2025 CBC WITH DIFFE RENTI AL/PL ATELE T hematology comments: MID TEACHER Not Available [facility] ([facility]) [address] [facility], [place], [address], 04/26/2025 08:10:54 04/25/2004/26/2025 HEMOG LOBIN A1C hemoglobin A1C 9.8 % 4.8-5. 6 above high normal Predi abete s: 5.7 - 6.4 Diabe gayatri: >6.4 Glyce lucio contr ol for adult s with diabe gayatri: <7.0 Not Available [facility] ([facility]) [address] [facility], [place], [address], 04/26/2025 08:10:54 04/16/2004/16/2025 elect rocar diogr am No observ ation record ed. [email or web address] [address], [address], 04/16/2025 16:39:45 05/03/20 25 04/16/2025 elect rocar diogr am No observ ation record ed. [email or web address] [address], [place], [address], 05/13/2025 13:37:55 05/14/2005/13/2025 NM, myoca rdial perfu pilar scan, w/ stres s No observ ation record ed. [facility] [address], [place], [address], 05/16/2025 08:53:52 05/15/2005/13/2025 cardi ac stres s test No observ ation record ed. [facility] [address], [place], [address], 05/16/2025 08:53:53 05/16/2005/13/2025 stres s echoc ardio gram with doppl er color flow (PROC ) No observ ation record ed. [facility] [address], [place], [address], 05/20/2025 13:17:21 Result Notes None recorded. 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 59861971438 9105 Active 2020 Yesika Galvin [place], [place] - [facility] 4 08:22:17 Type 2 diabetes mellitus 74698903 Completed 202101/26/2022 Dean Hamlin SERVICE WORKER [address], [place], [address] , [place] - [facility] 4 08:17:49 Anxiety 95647044 Active 2021 Dean Hamlin SERVICE WORKER [address], [place], [address] , [place] - [facility] 2 16:49:08 Depressiv e disorder 53653454 Active 2021 Dean Hamlin SERVICE WORKER [address], [place], [address] , [place] - [facility] 2 16:49:13 Hyperchol esterolem ia 32754007 Active 2021 Dean Hamlin, SERVICE WORKER [address], [place], [address] , [place] [facility] 2 16:49:26 Arthritis 9744364 Active 2021 Dean Hamlin, SERVICE WORKER [address], [place], [address] , [place] [facility] 2 16:49:10 Environme ntal allergy 513182630 Active 2021 Dean Hamlin, SERVICE WORKER [address], [place], [address] , [place] [facility] 2 16:49:17 Type 2 diabetes mellitus 72401089 Active 2021 Dean Hamlin, SERVICE WORKER [address], [place], [address] , [place] [facility] 4 08:17:48 Albuminur ia 230127200 Active 2021 Dean Hamlin, SERVICE WORKER [address], [place], [address] , [place] [facility] 2 08:46:14 Neck pain 85077837 Active 2021 Yesika Kamar [place] - [facility] 4 08:22:17 Fracture of lumbar spine 510401191 Active 2021 Dean Hamlin, SERVICE WORKER [address], [place], [address] , [place] [facility] 2 11:07:18 Low back pain 094235880 Active 2022 Yesika Galvin [place] - [facility] 4 08:22:17 History of respirato ry disease 396448036 Active 2023 Yesika Galvin [place] [facility] 4 08:22:17 History of asthma 664771934 Active 2023 Yesika Galvin [place] [facility] 4 08:22:17 Systemic inflammat ory response syndrome 591476086 Completed 202309/12/2023 Yesikachristy Galvin [place] - [facility] 4 08:22:17 Lumbar spondylos is 470276566 Active 2023 Yesikachristy Galvin [place] - [facility] 4 08:22:17 Subconjun ctival hemorrhag e of right eye 40862995432 9100 Active 2023 Yesika Galvin [place] [facility] 4 08:22:17 Arthropat hy of spinal facet joint 423058453 Active 2023 Yesikachristy Galvin [place] [facility] 4 08:22:17 Allergic condition 901711072 Active 2023 Yesika Kamar [place] [facility] 4 08:22:17 Pain of hip region 77447698 Active 2023 Yesikachristy Galvin [place] [facility] 4 08:22:17 Diabetes mellitus 63183281 Completed 202309/12/2023 Yesikachristy Galvin [place] - [facility] 4 08:22:17 Septic shock 09732785 Completed 202309/12/2023 Yesika Kamar [place] [facility] 4 08:22:17 Pulmonic valve regurgita tion 80243311 Active 2023 Yesika Kamar [place] [facility] 4 08:22:17 Postopera tive state 76633167 Active 2023 Yesika Kamar [place] - [facility] 4 08:22:17 Diabetic on insulin 225394132 Active 2023 Dean Hamlin, SERVICE WORKER [address], [place], [address] , [place] [facility] 4 15:06:20 Gastritis 1450842 Active 2023 Vinita [place], [place] - [facility] 4 09:09:10 Acute bronchiti s 93997888 Active 2024 Salima Quinteros, SERVICE WORKER [address], [place], [address] , [place] [facility] 14:19:26 Wheezing 43830245 Active 2024 Salima Aldair, SERVICE WORKER [address], [place], [address] , [place] - [facility] 14:22:04 Problem Notes None recorded. Procedures Surgical History Date Name Laterality Status Provider Name and Address Organization Details Recorded Time 11/28/19 25 Laceration Repair with Sutures/[place] completed Dean Hamlin, GAGE [address], [place], [address], [place] - [facility] 11/27/2024 11:10:23 10/10/19 25 Advance Care Planning completed Vinita [place] - [facility] 10/09/2024 09:00:13 10/10/19 25 Functional Status Assessed completed Vinita [place] [facility] 025 09:00:13 09/08/19 24 Advance Care Planning completed Yesika Galvin [place] [facility] 09/08/2023 08:09:01 09/08/19 24 Functional Status Assessed completed Yesika Galvin [place] [facility] 09/08/2023 08:09:01 04/04/20 23 Cerumen Removal completed Yesika Galvin [place] [facility] 04/04/2023 13:11:40 05/25/20 22 Cerumen Removal completed Dean Hamlin APRN [address], [place], [address], [place] - [facility] 05/25/2022 14:51:22 03/12/20 22 Dexcom Placement completed Dean Hamlin APRN [address], [place], [address], [place] - [facility] 03/12/2022 09:33:13 Eye Surgery completed Vinita [place] - [facility] 01/26/2022 14:57:12 Deviated Septum Repair completed Vinita [place] - [facility] 01/26/2022 14:57:23 total knee replacement completed Vinita [place] - [facility] 01/26/2022 14:57:42 Back Surgery completed Vinita [place] - [facility] 01/26/2022 14:57:46 Prostate Surgery completed Vinita [place] - [facility] 01/26/2022 14:58:11 operation on urinary bladder completed Vinita [place] - [facility] 022 14:58:27 Colonoscopy completed Yesika Galvin [place] - [facility] 09/08/2023 08:10:45 Joint Replacement completed Yesika Galvin [place] - [facility] 09/08/2023 08:10:45 Knee Surgery completed Yesika Galvin [place] - [facility] 09/08/2023 08:10:45 Sinus Surgery completed Yesika Galvin [place] - [facility] 09/08/2023 08:10:45 endoscopy completed Vinita [place] - [facility] 02/28/2024 09:08:44 Imaging Results None recorded. Procedure Notes None recorded. Medical Equipment None Reported. Allergies Allergen ID Allergen Name Allergen Category Reaction Reaction Severity Criticality Documentation Date Start Date Code Code System Note Provider Name and Address Organization Details Recorded Time 251046 No known allergy (situatio n) Not available Not available Not available Not available 11/21/2023 14873 6003 SNOMED Yesika abebe, [place] - [facility] [...] completed Not Available Not Available Not Available Osmosis [facility] Ultra Test strips USE TO TEST TWICE [...] 5 180.34 cm 18 /min 35.6 kg/m2 220788. 05 g 97.8 [degF] 70 /min 97 % 97 % 134/78 mm[Hg] Vinita [place] - [facility] 5 15:02:30 Social History Question Answer Notes LastModified by Organizat ion Details LastModified Time Tobacco Smoking Status Former Smoker Vinita Maharajelida null, [place] - [facility] 01/26/2022 14:56:00 Do [...] Or The Highest Degree You Have Received? [id number] Information not available 01/26/2022 Have There Been [...] Do You Have A Medical Power Of Electroencephalogram Technologist? No Information not available 09/08/2023 What Was [...] or have you ever used smokeless tobacco? [id number] Information n ot available 09/08/2023 Are you [...] anxious, or unable to sleep at night)? LM8769-6 Information not available 01/26/2022 Do you have [...] cancelled patient objection Dean Hamlin APRN [address], [address], [facility] - [facility] 03/26/2022 10:37:59 Pneumococcal conjugate PCV20, polysaccharide [id number] conjugate, adjuvant, PF 024 cancelled patient objection Dean Hamlin APRN [address], [address], [facility] - [facility] 02/28/2024 13:34:11 Influenza, high-dose, trivalent, PF 024 completed Yesika [place]ebe, [place] - [facility] 05/10/2024 16:48:23 zoster recombinant 025 cancelled patient objection Dean Hamlin APRN [address], [address], [facility] - [facility] 10/09/2024 10:08:40 Pneumococcal conjugate PCV20, polysaccharide [id number] conjugate, adjuvant, PF 025 cancelled patient objection Dean Hamlin, SERVICE WORKER [address], [place], [address], [place] [facility] 10/09/2024 10:08:40 Tdap 025 completed Vinita [place] [facility] 11/27/2024 16:08:06 Influenza, high-dose, trivalent, PF 025 completed V[place]a [place] [facility] 04/16/2025 16:30:33 COVID-19, mRNA, LNP-S, PF, 30 mcg/0.3 mL dose 021 completed Yesika Kamar [place] [facility] 05/25/2022 13:19:20 Influenza, split virus, trivalent, PF 017 completed Yes[place]ar [place] [facility] 05/25/2022 13:19:20 Influenza, split virus, trivalent, PF 018 completed [place] [facility] 05/25/2022 13:19:20 Influenza, split virus, quadrivalent, PF 022 completed [place] [facility] 05/25/2022 13:19:20 Td (adult) 018 completed [place] [facility] 05/25/2022 13:19:20 Influenza, MDCK, quadrivalent, PF 023 completed [place] Kamar [place] [facility] 04/18/2023 15:16:35 Past Encounters Encounter ID Performer Location Encounter Start Date Encounter Closed Date Diagnosis/Indication Diagnosis SNOMED-CT Code Diagnosis ICD10 Code Diagnosis IMO Codes Diagnosis Note [id number] Dean Hamlin, GAGE [address] [address] 04/16/2025 14:21:27 04/16/2025 16:39:42 Influenza vaccine needed 4300103497 106 Z23 Type 2 christina betes mellitus 42422351 E11.9 Z79.4 pt adherence to cgm regimen and dm treatment plandiscus sed med in detail Diabetic on insulin 1707 08081 Z79.4 Malaise and fatigue 2717 85972 R53.81 R53.83 51258 Excessive sweating 35773 005 R61 21758 Health Concerns Section Related Observation LastModified by Organization Detai ls LastModified Time None Recorded Concern Status LastModified by Organization Details LastModified Time None Recorded Payers Encounter Date Sequence Insurance Name Policy Number Policy Mckeon Covered Member ID Mckeon Member ID Guarantor Name 04/16/2025 1 [facility] (MEDICARE REPLACEMENT/A DVANTAGE - HMO) [id number] Otto Comer [id number] Otto Comer Notes Date Note Type Note Provider Name and Address Organization Details Recorded Time 04/16/2025 text/html ROS as noted in the HPI 64 year old male who presents to the office today for a follow up ondiabetes, hard to control sugars, fatigue, sleep all the timebreaks into cold sweats at timeswants flu shot Dean Hamlin, SERVICE WORKER [address], [place], [address], [place] - [facility] 04/16/2025 17:12:32
--- OUTSIDE RECORDS SUMMARY | 2025-05-28 08:36 | XMS_ITS | Continuity of Care Document ---
Author Organization [facility] Address [address] [place] [address] Care Team Providers Care Marketing Consultant Name Role Phone DEAN DURAN Primary Care Provider HARRIET Richardson Primary Care Provider CARLO CORDERO Urologist FARIDA GRAVES Head Of Commission Department [facility] Dough Machine Operator Assessment No assessment recorded. Plan of Treatment Reminders Order Date Submit Date Provider Last Modified By Organization Details Last Modified Time Details Appointments None recorded. Lab rapid flu (A+B) 2024 [facility], [address] [place] [address], [id number], 13:19:18 rapid SARS CoV + SARS CoV 2 Ag, QL IA, respiratory specimen 2024 [facility], [address] [place] [address], [phone], 13:19:18 Referral None recorded. Procedures None recorded. Surgeries None recorded. Imaging None recorded. Medication Orders montelukast 10 mg tablet 2024 [facility] #88569, [address], [id number], 13:19:37 dexamethaso ne sodium phosphate 4 mg/mL injection solution 2024 [facility] #15906, [address] [address] [address], [place], [id number], 14:03:30 Januvia 25 mg tablet 2024 [facility], [address] [address] [address], [place], [phone], 13:19:38 Lantus Solostar U-100 Insulin 100 unit/mL (3 mL) subcutaneou s pen 2024 [facility], [address], [place], [place], [phone], 13:19:41 metformin ER 500 mg tablet,exte nded release 24 hr 2024 [facility] #47167, [address], [place], [place], [phone], 13:19:37 atorvastati n 80 mg tablet 2024 [facility], [address], [place], [place], [phone], 13:19:41 clonazepam 0.5 mg tablet 2024 [facility] #12383, [address], [place], [place], [phone], 13:19:27 escitalopra m 10 mg tablet 2024 [facility] #65053, [address], [phone], 13:19:45 Patient TargetsNo targets recorded. Patient InstructionsNo [...] mixin g upon colle ction . TEST: [id number] 9 CBC With Diffe renti al/Pl atele t Not Available [facility] ([facility]) [address] [place], [address], 05/27/2025 11:07:36 04/16/2005/27/[address] PROBL EM request problem COMMEN T Test not perfo rmed. Whole blood speci men parti ally or compl etely clott ed. A commo n cause is insuf ficie nt mixin g upon colle ction . TEST: 11985 3 Hemog lobin A1c Not Available [facility] ([facility]) [address] [place], [address], 05/27/2025 11:07:36 04/25/2004/26/2025 CBC WITH DIFFE RENTI AL/PL ATELE T WBC 5.2 x10e3 /uL 3.4-10 .8 normal Not Available [facility] ([facility]) [address] [place], [address], 04/26/2025 08:10:54 04/25/2004/26/2025 CBC WITH DIFFE RENTI AL/PL ATELE T RBC 4.51 x10e6 /uL 4.14-5 .80 normal Not Available [facility] ([facility]) [address] [place], [address], 04/26/2025 08:10:54 04/25/2004/26/2025 CBC WITH DIFFE RENTI AL/PL ATELE T hemoglobin 13.4 g/dL 13.0-1 7.7 normal Not Available [facility] ([facility]) [address] [facility], [place], [address], 04/26/2025 08:10:54 04/25/20 25 04/26/2025 CBC WITH DIFFE RENTI AL/PL ATELE T hematocrit 41.6 % 37.5-5 1.0 normal Not Available [facility] ([facility]) [address] [facility], [place], [address], 04/26/2025 08:10:54 04/25/2004/26/2025 CBC WITH DIFFE RENTI AL/PL ATELE T MCV 92 fL 79-97 normal Not Available [facility] ([facility]) [address] [place], [address], 04/26/2025 08:10:54 04/25/20 25 04/26/2025 CBC WITH DIFFE RENTI AL/PL ATELE T MCH 29.7 pg 26.6-3 3.0 normal Not Available [facility] ([facility]) [address] [facility], [place], [address], 04/26/2025 08:10:54 04/25/20 25 04/26/2025 CBC WITH DIFFE RENTI AL/PL ATELE T MCHC 32.2 g/dL 31.5-3 5.7 normal Not Available [facility] ([facility]) [address] [place], [address], 04/26/2025 08:10:54 04/25/2004/26/2025 CBC WITH DIFFE RENTI AL/PL ATELE T RDW 13.1 % 11.6-1 5.4 Not Available [facility] ([facility]) [address] [place], [address], 04/26/2025 08:10:54 04/25/2004/26/2025 CBC WITH DIFFE RENTI AL/PL ATELE T platelets 210 x10e3 /uL 150-45 0 normal Not Available [facility] ([facility]) [address] [facility], [place], [address], 04/26/2025 08:10:54 04/25/20 25 04/26/2025 CBC WITH DIFFE RENTI AL/PL ATELE T neutrophils 55 % not estab. normal Not Available [facility] ([facility]) [address] [facility], [place], [address], 04/26/2025 08:10:54 04/25/20 25 04/26/2025 CBC WITH DIFFE RENTI AL/PL ATELE T lymphs 34 % not estab. normal Not Available [facility] ([facility]) [address] [facility], [place], [address], 04/26/2025 08:10:54 04/25/20 25 04/26/2025 CBC WITH DIFFE RENTI AL/PL ATELE T monocytes 8 % not estab. normal Not Available [facility] ([facility]) [address] [facility], [place], [address], 04/26/2025 08:10:54 04/25/20 25 04/26/2025 CBC WITH DIFFE RENTI AL/PL ATELE T eos 2 % not estab. normal Not Available [facility] ([facility]) [address] [facility], [place], [address], 04/26/2025 08:10:54 04/25/20 25 04/26/2025 CBC WITH DIFFE RENTI AL/PL ATELE T basos 1 % not estab. normal Not Available [facility] ([facility]) [address] [facility], [place], [address], 04/26/2025 08:10:54 04/25/20 25 04/26/2025 CBC WITH DIFFE RENTI AL/PL ATELE T immature cells SUPERVISOR COUNSELING [employer] GUIDANCE Not Available [facility] ([facility]) [address] [facility], [place], [address], 04/26/2025 08:10:54 04/25/2004/26/2025 CBC WITH DIFFE RENTI AL/PL ATELE T neutrophils (absolute) 2.9 x10e3 /uL 1.4-7. 0 normal Not Available [facility] ([facility]) [address] [facility], [place], [address], 04/26/2025 08:10:54 04/25/20 25 04/26/2025 CBC WITH DIFFE RENTI AL/PL ATELE T lymphs (absolute) 1.7 x10e3 /uL 0.7-3. 1 normal Not Available [facility] ([facility]) [address] [facility], [place], [address], 04/26/2025 08:10:54 04/25/20 25 04/26/2025 CBC WITH DIFFE RENTI AL/PL ATELE T monocytes(ab solute) 0.4 x10e3 /uL 0.1-0. 9 normal Not Available [facility] ([facility]) [address] [facility], [place], [address], 04/26/2025 08:10:54 04/25/20 25 04/26/2025 CBC WITH DIFFE RENTI AL/PL ATELE T eos (absolute) 0.1 x10e3 /uL 0.0-0. 4 normal Not Available [facility] ([facility]) [address] [facility], [place], [address], 04/26/2025 08:10:54 04/25/20 25 04/26/2025 CBC WITH DIFFE RENTI AL/PL ATELE T baso (absolute) 0.0 x10e3 /uL 0.0-0. 2 normal Not Available [facility] ([facility]) [address] [place], [address], 04/26/2025 08:10:54 04/25/20 25 04/26/2025 CBC WITH DIFFE RENTI AL/PL ATELE T immature granulocytes 0 % not estab. Not Available [facility] ([facility]) [address] [facility], [place], [address], 04/26/2025 08:10:54 04/25/2004/26/2025 CBC WITH DIFFE RENTI AL/PL ATELE T immature grans (abs) 0.0 x10e3 /uL 0.0-0. 1 Not Available [facility] ([facility]) [address] [facility], [place], [address], 04/26/2025 08:10:54 04/25/2004/26/2025 CBC WITH DIFFE RENTI AL/PL ATELE T NRBC [employer]PER[employer] COUNSELING [employer] GUIDANCE Not Available [facility] ([facility]) [address] [facility], [place], [address], 04/26/2025 08:10:54 04/25/2004/26/2025 CBC WITH DIFFE RENTI AL/PL ATELE T hematology comments: SUPERVISOR COUNSELING [employer] GUIDANCE Not Available [facility] ([facility]) [address] [facility], [place], [address], 04/26/2025 08:10:54 04/25/2004/26/2025 HEMOG LOBIN A1C hemoglobin A1C 9.8 % 4.8-5. 6 above high normal Predi abete s: 5.7 - 6.4 Diabe gayatri: >6.4 Glyce lucio contr ol for adult s with diabe gayatri: <7.0 Not Available [facility] ([facility]) [address] [facility], [place], [address], 04/26/2025 08:10:54 05/06/2005/06/2025 rapid SARS CoV + SARS CoV 2 Ag, QL IA, respi rator y speci men SARS CoV antigen Invali d Not Available [address], [place], [address], 05/06/2025 12:43:36 05/06/2005/06/2025 rapid flu (A+B) Flu negati ve Not Available [address], [address], 05/06/2025 12:43:08 05/06/2005/06/2025 rapid flu (A+B) Type Both A & B Not Available [address], [address], 05/06/2025 12:43:08 04/16/2004/16/2025 elect rocar diogr am No observ ation record ed. [address], [address], 04/16/2025 16:39:45 05/03/2004/16/2025 elect rocar diogr am No observ ation record ed. [email or web address] [address], [address], 05/13/2025 13:37:55 05/14/2005/13/2025 NM, myoca rdial perfu pilar scan, w/ stres s No observ ation record ed. [address], [place], [address], 05/16/2025 08:53:52 05/15/2005/13/2025 cardi ac stres s test No observ ation record ed. [facility] [address], [place], [address], 05/16/2025 08:53:53 05/16/2005/13/2025 stres s echoc ardio gram with doppl er color flow (PROC ) No observ ation record ed. [facility] [address], [place], [address], 05/20/2025 13:17:21 Result Notes None recorded. 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 44114576706 9105 Active 2020 Yesika Galvin [facility], [place] - [facility] 4 08:22:17 Type 2 diabetes mellitus 97682507 Completed 202101/26/2022 Dean Duran, GEAR CUTTING MACHINE OPERATOR [address], [place], [address] , [place] - [facility] 4 08:17:49 Anxiety 38149607 Active 2021 Dean Duran, GEAR CUTTING MACHINE OPERATOR [address], [place], [address] , [place] - [facility] 2 16:49:08 Depressiv e disorder 71339354 Active 2021 Dean Duran, GEAR CUTTING MACHINE OPERATOR [address], [place], [address] , [place] - [facility] 2 16:49:13 Hyperchol esterolem ia 48064381 Active 2021 Dean Duran, GEAR CUTTING MACHINE OPERATOR [address], [place], [address] , [place] - [facility] 2 16:49:26 Arthritis 7260953 Active 2021 Dean Duran, GEAR CUTTING MACHINE OPERATOR [address], [place], [address] , [place] - [facility] 2 16:49:10 Environme ntal allergy 020701526 Active 2021 Dean Duran, GEAR CUTTING MACHINE OPERATOR [address], [place], [address] , [place] - [facility] 2 16:49:17 Type 2 diabetes mellitus 73091295 Active 2021 Dean Duran, GEAR CUTTING MACHINE OPERATOR [address], [place], [address] , [place] [facility] 4 08:17:48 Albuminur ia 832458991 Active 2021 Dean Duran, GEAR CUTTING MACHINE OPERATOR [address], [place], [address] , [place] [facility] 2 08:46:14 Neck pain 22467932 Active 2021 Yesika Galvin null, [place] - [facility] 4 08:22:17 Fracture of lumbar spine 499796165 Active 2021 Dean Duran, GEAR CUTTING MACHINE OPERATOR [address], [place], [address] , [place] [facility] 2 11:07:18 Low back pain 034373429 Active 2022 Yesika Galvin null, [place] - [facility] 4 08:22:17 History of respirato ry disease 750268380 Active 2023 Yesikachristy Galvin null, [place] - [facility] 4 08:22:17 History of asthma 900457292 Active 2023 Yesikachristy Galvin null, [place] - [facility] 4 08:22:17 Systemic inflammat ory response syndrome 903002635 Completed 202309/12/2023 Yesika Galvin [place], [place] - [facility] 4 08:22:17 Lumbar spondylos is 346240871 Active 2023 Yesikachristy Galvin null, [place] - [facility] 4 08:22:17 Subconjun ctival hemorrhag e of right eye 87474818332 9100 Active 2023 Yesikachristy Galvin null, [place] - [facility] 4 08:22:17 Arthropat hy of spinal facet joint 090992171 Active 2023 Yesikachristy Galvin null, [place] - [facility] 4 08:22:17 Allergic condition 368653154 Active 2023 Yesika Kamar null, [place] - [facility] 4 08:22:17 Pain of hip region 55509476 Active 2023 Yesika Galvin [place], [place] - [facility] 4 08:22:17 Diabetes mellitus 02283203 Completed 202309/12/2023 Yesika Galvin [place], [place] - [facility] 4 08:22:17 Septic shock 17810483 Completed 202309/12/2023 Yesika Kamar null[place] - [facility] 4 08:22:17 Pulmonic valve regurgita tion 25436308 Active 2023 Yesika Kamar [place] - [facility] 4 08:22:17 Postopera tive state 16756950 Active 2023 Yesika Kamar [place], [place] - [facility] 4 08:22:17 Diabetic on insulin 193205008 Active 2023 Dean Duran, GEAR CUTTING MACHINE OPERATOR [address], [place], [address] , [place] - [facility] 4 15:06:20 Gastritis 5989451 Active 2023 Vinita Stockton null, [place] - [facility] 4 09:09:10 Acute bronchiti s 39276614 Active 2024 Salima Quinteros, GEAR CUTTING MACHINE OPERATOR [address], [place], [address] , [place] - [facility] 5 14:19:26 Wheezing 05225174 Active 2024 Salima Quinteros, GEAR CUTTING MACHINE OPERATOR [address], [place], [address] , [place] - [facility] 5 14:22:04 Problem Notes None recorded. Procedures Surgical History Date Name Laterality Status Provider Name and Address Organization Details Recorded Time 11/28/19 25 Laceration Repair with Sutures/[place] completed Dean Duran, GAGE [address], [place], [address], [place] - [facility] 11/27/2024 11:10:23 10/10/19 25 Advance Care Planning completed Vinita Stockton [place] - [facility] 10/09/2024 09:00:13 10/10/19 25 Functional Status Assessed completed Vinita Stock[place] - [facility] 025 09:00:13 09/08/19 24 Advance Care Planning completed Yesika Galvin [place] - [facility] 09/08/2023 08:09:01 02/15/20 24 Functional Status Assessed completed Yesika Galvin [place] - [facility] 09/08/2023 08:09:01 04/04/20 23 Cerumen Removal completed Yesika Galvin [place] [facility] 04/04/2023 13:11:40 05/25/20 22 Cerumen Removal completed Dean Chinmitchrodrick, GEAR CUTTING MACHINE OPERATOR [address], [place], [address], [place] [facility] 05/25/2022 14:51:22 03/12/20 22 Dexcom Placement completed Yasminebryonjosep Chindeb, GEAR CUTTING MACHINE OPERATOR [address], [place], [address], [place] - [facility] 03/12/2022 09:33:13 Eye Surgery completed Vinita Maharajs [place] - [facility] 01/26/2022 14:57:12 Deviated Septum Repair completed Vinita Carol Anns [place] - [facility] 01/26/2022 14:57:23 total knee [...] [facility] 09/08/2023 08:10:45 Sinus Surgery completed Yesika Garcialer [place] - [facility] 09/08/2023 08:10:45 endoscopy completed Vinita Carol Anns [place] - [facility] 02/28/2024 09:08:44 Imaging Results None recorded. Procedure Notes None recorded. Medical Equipment None Reported. Allergies Allergen ID Allergen Name Allergen Category Reaction Reaction Severity Criticality Documentation Date Start Date Code Code System Note Provider Name and Address Organization Details Recorded Time 521275 No known allergy (situatio n) Not available Not available Not available Not available 11/21/2023 55903 6003 SNOMED Yesika abebe, [place] - [facility] [...] completed Not Available Not Available Not Available [employer] Ultra Test strips USE TO TEST TWICE [...] and Address Organization Details Last Updated DateTime 10/13/202 5 180.34 cm 35.3 kg/m2 340044. 87 g 97.6 [degF] 62 /min 95 % 95 % 18 /min 0 142/84 mm[Hg] Yesika Galvin [place] - [facility] 12:42:20 Social History Question Answer Notes LastModified by Organizat ion Details LastModified Time Tobacco Smoking Status Former Smoker Vinita [place] mis, [place] - [facility] 01/26/2022 14:56:00 Do You [...] Or The Highest Degree You Have Received? WP11342-1 Information not available 01/26/2022 Have There Been [...] Do You Have A Medical Power Of Transliterator? No Information not available 09/08/2023 What Was [...] or have you ever used smokeless tobacco? [id number] Information n ot available 09/08/2023 Are you [...] anxious, or unable to sleep at night)? [id number] Information not available 01/26/2022 Do you have [...] Recorded Time Tdap 022 cancelled patient objection Yasminekarel Duran, GAGE [address], [place], [address], [facility] - [facility] 03/26/2022 10:37:59 Pneumococcal conjugate PCV20, polysaccharide [id number] conjugate, adjuvant, PF 024 cancelled patient objection Yasminekarel Duran, GEAR CUTTING MACHINE OPERATOR [address], [place], [address], [facility] - [facility] 02/28/2024 13:34:11 Influenza, high-dose, trivalent, PF 024 completed Yesika Galvin null, [facility] 05/10/2024 16:48:23 zoster recombinant 025 cancelled patient objection Dean Duran APRN [address], [place], [address], [facility] - [facility] 10/09/2024 10:08:40 Pneumococcal conjugate PCV20, polysaccharide [id number] conjugate, adjuvant, PF 025 cancelled patient objection Yasminekarel Duran APRN [address], [place], [address], [facility] - [facility] 10/09/2024 10:08:40 Tdap 025 completed Vinita Maharajs null, [facility] 11/27/2024 16:08:06 Influenza, high-dose, trivalent, PF 025 completed Vinita Stears null, [facility] 04/16/2025 16:30:33 COVID-19, mRNA, LNP-S, PF, 30 mcg/0.3 mL dose 021 completed Yesika Galvin null, [facility] 05/25/2022 13:19:20 Influenza, split virus, trivalent, PF 017 completed Yesika Galvin null, [facility] 05/25/2022 13:19:20 Influenza, split virus, trivalent, PF 018 completed Yesika Galvin null, [place] - [facility] 05/25/2022 13:19:20 Influenza, split virus, quadrivalent, PF 022 completed Yesika Galvin null, [place] - [facility] 05/25/2022 13:19:20 Td (adult) 018 completed Yesika Kamar [place] - [facility] 05/25/2022 13:19:20 Influenza, MDCK, quadrivalent, PF 023 completed Yesika Kamar [place] [facility] 04/18/2023 15:16:35 Past Encounters Encounter ID Performer Location Encounter Start Date Encounter Closed Date Diagnosis/Indication Diagnosis SNOMED-CT Code Diagnosis ICD10 Code Diagnosis IMO Codes Diagnosis Note [id number] Dean Duran [address] [address] 04/16/2025 14:21:27 04/16/2025 16:39:42 Influenza vaccine needed 8587224042 106 Z23 Type 2 christina betes mellitus 88870264 E11.9 Z79.4 pt adherence to cgm regimen and dm treatment plandiscus sed med in detail Diabetic on insulin 1707 96375 Z79.4 Malaise and fatigue 2717 96669 R53.81 R53.83 03981 Excessive sweating 17466 005 R61 20420 [id number] Dean Duran [address] [address] 04/25/2025 10:51:05 04/25/2025 14:04:18 Diabetic on insulin 142061974 Z79.4 Type 2 christina betes mellitus 13825722 E11.9 Z79.4 pt adherence to cgm regimen and dm treatment plandiscus sed med in detail [id number] Dean Duran [address] [address] 05/06/2025 11:43:25 05/06/2025 12:36:52 Bronchitis 16557868 J40 45213 no sign of a bacterial infection. likely [...] hours Depressive disorder 3548 9007 F32.A Anxiety 31791269 F41.9 Pt compliant with plan of careKasper reviewedme dication compliance discussedL ast uds: 5Control substance agreement on file Hypercholesterolemia 136 87399 E78.00 Type 2 christina betes mellitus 81991388 E11.9 Z79.4 pt adherence to cgm regimen and dm treatment plandiscus sed med in detail Environmental allergy 42 0454155 T78.49XA Health Concerns Section Related Observation LastModified by Organization Detai ls LastModified Time None Recorded Concern Status LastModified by Organization Details LastModified Time None Recorded Payers Encounter Date Sequence Insurance Name Policy Number Policy Mckeon Covered Member ID Mckeon Member ID Guarantor Name 05/06/2025 1 [facility] (MEDICARE REPLACEMENT/A DVANTAGE - HMO) [id number] Otto Comer [id number] Otto Comer Notes Date Note Type Note Provider Name and Address Organization Details Recorded Time 05/06/2025 text/html ROS as noted in the HPI 64 yr old male presents for cough and wheezing for about 3 days. Patient has taken zithromax that he had at home.also needs all of his meds refilled.states his meds help with his anxiety/panic attacks Dean Duran, GEAR CUTTING MACHINE OPERATOR [address], [place], [address], [place] - [facility] 05/06/2025 13:20:07
--- OUTSIDE RECORDS SUMMARY | 2025-05-28 08:36 | XMS_ITS | Continuity of Care Document ---
Author Organization [facility] Address [address] [place] [address] Care Team Providers Care Scrap Sorter Name Role Phone DEAN HAMLIN Primary Care Provider HARRIET Richardson Primary Care Provider CARLO CORDERO Urologist FARIDA GRAVES Hairspring Setter [facility] Therapeutic Recreation Leader [phone] Assessment No assessment recorded. Plan of Treatment Reminders Order Date Submit Date Provider Last Modified By Organization Details Last Modified Time Details Appointments None recorded. Lab None recorded. Referral None recorded. Procedures None recorded. Surgeries None recorded. Imaging None recorded. Medication Orders albuterol sulfate HFA 90 mcg/actuati on aerosol inhaler 2024 025 [facility], [address] [place] [address], [address], 5 14:25:33 Claritin 10 mg tablet 2024 025 [facility], [address] [place] [address], [address], 5 14:25:33 Medrol (Cheikh) 4 mg tablets in a dose pack 2024 025 [facility], [address] [place] [address], [address], 5 14:25:31 cefdinir 300 mg capsule 2024 [facility], [address] [facility], [place], [address], 05:01:55 triamcinolo ne acetonide 40 mg/mL suspension for injection 2024 025 [facility] Not available 14:39:24 Patient TargetsNo targets recorded. Patient Instructions Encounter Date Encounter Id Patient Instructions Last Modified By Organization Details Last Modified Time 05/09/2025 [id number] wheezing or bronchoconstricti on: care instructions Not [...] Abnormal Flag Note LastModifiedBy Organization Detail LastModifiedTime 04/16/20 25 04/17/2025 SPECI MEN STATU S REPOR T specimen status report COMMEN T Test not perfo rmed. Whole blood speci men parti ally or compl etely clott ed. A commo n cause is insuf ficie nt mixin g upon colle ction . TEST: [id number] CBC With Diffe renti al/Pl atele t Not Available [facility] ([facility]) [address], [place], [address], 05/27/2025 11:07:36 04/16/20 25 05/27/[address] PROBL EM request problem COMMEN T Test not perfo rmed. Whole blood speci men parti ally or compl etely clott ed. A commo n cause is insuf ficie nt mixin g upon colle ction . TEST: [id number] Hemog lobin A1c Not Available [facility] ([facility]) [address] [facility], [place], [address], 05/27/2025 11:07:36 04/25/2004/26/2025 CBC WITH DIFFE RENTI AL/PL ATELE T WBC 5.2 x10e3 /uL 3.4-10 .8 normal Not Available [facility] ([facility]) [address], [place], [address], 04/26/2025 08:10:54 04/25/2004/26/2025 CBC WITH DIFFE RENTI AL/PL ATELE T RBC 4.51 x10e6 /uL 4.14-5 .80 normal Not Available [facility] ([facility]) [address] [facility], [place], [address], 04/26/2025 08:10:54 04/25/20 25 04/26/2025 CBC WITH DIFFE RENTI AL/PL ATELE T hemoglobin 13.4 g/dL 13.0-1 7.7 normal Not Available [facility] ([facility]) [address] [place], [address], 04/26/2025 08:10:54 04/25/20 25 04/26/2025 CBC WITH DIFFE RENTI AL/PL ATELE T hematocrit 41.6 % 37.5-5 1.0 normal Not Available [facility] ([facility]) [address], [place], [address], 04/26/2025 08:10:54 04/25/20 25 04/26/2025 CBC WITH DIFFE RENTI AL/PL ATELE T MCV 92 fL 79-97 normal Not Available [facility] ([facility]) [address] [place], [address], 04/26/2025 08:10:54 04/25/20 25 04/26/2025 CBC WITH DIFFE RENTI AL/PL ATELE T MCH 29.7 pg 26.6-3 3.0 normal Not Available [facility] ([facility]) [address], [place], [address], 04/26/2025 08:10:54 04/25/20 25 04/26/2025 CBC WITH DIFFE RENTI AL/PL ATELE T MCHC 32.2 g/dL 31.5-3 5.7 normal Not Available [facility] ([facility]) [address] [place], [address], 04/26/2025 08:10:54 04/25/20 25 04/26/2025 CBC WITH DIFFE RENTI AL/PL ATELE T RDW 13.1 % 11.6-1 5.4 Not Available [facility] ([facility]) [address] [place], [address], 04/26/2025 08:10:54 04/25/20 25 04/26/2025 CBC WITH DIFFE RENTI AL/PL ATELE T platelets 210 x10e3 /uL 150-45 0 normal Not Available [facility] ([facility]) [address] [place], [address], 04/26/2025 08:10:54 04/25/20 25 04/26/2025 CBC WITH DIFFE RENTI AL/PL ATELE T neutrophils 55 % not estab. normal Not Available [facility] ([facility]) [address] [place], [address], 04/26/2025 08:10:54 04/25/20 25 04/26/2025 CBC WITH DIFFE RENTI AL/PL ATELE T lymphs 34 % not estab. normal Not Available [facility] ([facility]) [address], [place], [address], 04/26/2025 08:10:54 04/25/20 25 04/26/2025 CBC WITH DIFFE RENTI AL/PL ATELE T monocytes 8 % not estab. normal Not Available [facility] ([facility]) [address], [place], [address], 04/26/2025 08:10:54 04/25/20 25 04/26/2025 CBC WITH DIFFE RENTI AL/PL ATELE T eos 2 % not estab. normal Not Available [facility] ([facility]) [address], [place], [address], 04/26/2025 08:10:54 04/25/20 25 04/26/2025 CBC WITH DIFFE RENTI AL/PL ATELE T basos 1 % not estab. normal Not Available [facility] ([facility]) [address], [place], [address], 04/26/2025 08:10:54 04/25/20 25 04/26/2025 CBC WITH DIFFE RENTI AL/PL ATELE T immature cells MRI TECH Not Available [facility] ([facility]) [address] [place], [address], 04/26/2025 08:10:54 04/25/20 25 04/26/2025 CBC WITH DIFFE RENTI AL/PL ATELE T neutrophils (absolute) 2.9 x10e3 /uL 1.4-7. 0 normal Not Available [facility] ([facility]) [address], [place], [address], 04/26/2025 08:10:54 04/25/20 25 04/26/2025 CBC WITH DIFFE RENTI AL/PL ATELE T lymphs (absolute) 1.7 x10e3 /uL 0.7-3. 1 normal Not Available [facility] ([facility]) [address], [place], [address], 04/26/2025 08:10:54 04/25/20 25 04/26/2025 CBC WITH DIFFE RENTI AL/PL ATELE T monocytes(ab solute) 0.4 x10e3 /uL 0.1-0. 9 normal Not Available [facility] ([facility]) [address], [place], [address], 04/26/2025 08:10:54 04/25/20 25 04/26/2025 CBC WITH DIFFE RENTI AL/PL ATELE T eos (absolute) 0.1 x10e3 /uL 0.0-0. 4 normal Not Available [facility] ([facility]) [address], [place], [address], 04/26/2025 08:10:54 04/25/20 25 04/26/2025 CBC WITH DIFFE RENTI AL/PL ATELE T baso (absolute) 0.0 x10e3 /uL 0.0-0. 2 normal Not Available [facility] ([facility]) [address], [place], [address], 04/26/2025 08:10:54 04/25/20 25 04/26/2025 CBC WITH DIFFE RENTI AL/PL ATELE T immature granulocytes 0 % not estab. Not Available [facility] ([facility]) [address], [place], [address], 04/26/2025 08:10:54 04/25/20 25 04/26/2025 CBC WITH DIFFE RENTI AL/PL ATELE T immature grans (abs) 0.0 x10e3 /uL 0.0-0. 1 Not Available [facility] ([facility]) [address], [place], [address], 04/26/2025 08:10:54 04/25/20 25 04/26/2025 CBC WITH DIFFE RENTI AL/PL ATELE T NRBC MRI TECH Not Available [facility] ([facility]) [address], [place], [address], 04/26/2025 08:10:54 04/25/2004/26/2025 CBC WITH DIFFE RENTI AL/PL ATELE T hematology comments: MRI TECH Not Available [facility] ([facility]) [address], [place], [address], 04/26/2025 08:10:54 04/25/2004/26/2025 HEMOG LOBIN A1C hemoglobin A1C 9.8 % 4.8-5. 6 above high normal Predi abete s: 5.7 - 6.4 Diabe gayatri: >6.4 Glyce lucio contr ol for adult s with diabe gayatri: <7.0 Not Available [facility] ([facility]) [address], [place], [address], 04/26/2025 08:10:54 05/06/2005/06/2025 rapid SARS CoV + SARS CoV 2 Ag, QL IA, respi rator y speci men SARS CoV antigen Invali d Not Available [address], [address], 05/06/2025 12:43:36 05/06/2005/06/2025 rapid flu (A+B) Flu negati ve Not Available [address], [address], 05/06/2025 12:43:08 05/06/2005/06/2025 rapid flu (A+B) Type Both A & B Not Available [address], [address], 05/06/2025 12:43:08 04/16/20 25 04/16/2025 elect bhaskar barreragr am No observ ation record ed. [address], [place], [address], 04/16/2025 16:39:45 05/03/2004/16/2025 elect bhaskar mares am No observ ation record ed. [email or web address], [place], [address], 05/13/2025 13:37:55 05/14/2005/13/2025 NM, myoca rdial perfu pilar scan, w/ stres s No observ ation record ed. [place] [address], [place], [address], 05/16/2025 08:53:52 05/15/2005/13/2025 cardi ac stres s test No observ ation record ed. [facility] [address], [place], [address], 05/16/2025 08:53:53 05/16/2005/13/2025 stres s echoc ardio gram with doppl er color flow (PROC ) No observ ation record ed. [place] [address], [place], [address], 05/20/2025 13:17:21 Result Notes None recorded. 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 56950814750 9105 Active 2020 Yesika abebe, [place] - [facility] 08:22:17 Type 2 diabetes mellitus 64969795 Completed 202101/26/2022 Dean Hamlin, GAGE [address], [place], [address] , [place] - [facility] 4 08:17:49 Anxiety 97681132 Active 2021 Dean Hamlin APRN [address], [place], [address] , [place] - [facility] 2 16:49:08 Depressiv e disorder 78601091 Active 2021 Dean Hamlin, [employer] [address], [place], [address] , [place] [facility] 2 16:49:13 Hyperchol esterolem ia 39628506 Active 2021 Dean Hamlin, [employer] [address], [place], [address] , [place] [facility] 2 16:49:26 Arthritis 4005078 Active 2021 Dean Hamlin [employer] [address], [place], [address] , [place] [facility] 2 16:49:10 Environme ntal allergy 284421758 Active 2021 Dean Hamlin [employer] [address], [place], [address] , [place] [facility] 2 16:49:17 Type 2 diabetes mellitus 71852681 Active 2021 Dean Hamlin [employer] [address], [place], [address] , [place] [facility] 4 08:17:48 Albuminur ia 388604831 Active 2021 Dean Hamlin [employer] [address], [place], [address] , [place] [facility] 2 08:46:14 Neck pain 58082958 Active 2021 Yesika Galvin null, [place] - [facility] 4 08:22:17 Fracture of lumbar spine 986016627 Active 2021 Dean Hamlin, [employer] [address], [place], [address] , [place] [facility] 2 11:07:18 Low back pain 880597737 Active 2022 Yesika Galvin null, [place] - [facility] 4 08:22:17 History of respirato ry disease 701311177 Active 2023 Yesika Galvin [place], [place] - [facility] 4 08:22:17 History of asthma 892622662 Active 2023 Yesika Galvin [place] [facility] 4 08:22:17 Systemic inflammat ory response syndrome 727035218 Completed 202309/12/2023 Yesikachristy Galvin null, [place] - [facility] 4 08:22:17 Lumbar spondylos is 893322434 Active 2023 Yesika Galvin [place], [place] - [facility] 4 08:22:17 Subconjun ctival hemorrhag e of right eye 18234586411 9100 Active 2023 Yesika Galvin [place], [place] - [facility] 4 08:22:17 Arthropat hy of spinal facet joint 262435946 Active 2023 Yesikachristy Galvin [place], [place] - [facility] 4 08:22:17 Allergic condition 839338554 Active 2023 Yesika Galvin [place] [facility] 08:22:17 Pain of hip region 88591092 Active 2023 Yesikachristy Galvin [place], [place] - [facility] 08:22:17 Diabetes mellitus 24862311 Completed 202309/12/2023 Yesikachristy Galvin [place], [place] [facility] 4 08:22:17 Septic shock 25663532 Completed 202309/12/2023 Yesikachristy Galvin [place] [facility] 4 08:22:17 Pulmonic valve regurgita tion 67086107 Active 2023 Yesika Kamar null, [place] - [facility] 4 08:22:17 Postopera tive state 73369799 Active 2023 Yesika Galvin [place] [facility] 4 08:22:17 Diabetic on insulin 435202425 Active 2023 Dean Hamlin, [employer] [address], [place], [address] , [place] - [facility] 4 15:06:20 Gastritis 8606980 Active 2023 Vinita Stockton [facility], [place] - [facility] 4 09:09:10 Acute bronchiti s 91372562 Active 2024 Salima Saxenaoberts, [employer] [address], [place], [address] , [place] - [facility] 5 14:19:26 Wheezing 94741196 Active 2024 Salima Saxenaoberts, [employer] [address], [place], [address] , [place] - [facility] 5 14:22:04 Problem Notes None recorded. Procedures Surgical History Date Name Laterality Status Provider Name and Address Organization Details Recorded Time 11/28/19 25 Laceration Repair with Sutures/Marie completed Dean Hamlin APRN [address], [place], [address], [place] - [facility] 11/27/2024 11:10:23 10/10/19 25 [...] completed Dean Hamlin APRN [address], [place], [address], [place] [facility] 05/25/2022 14:51:22 03/12/20 22 Dexcom Placement completed Dean Hamlin APRN [address], [place], [address], [place] [facility] 03/12/2022 09:33:13 Eye Surgery [...] Name and Address Organization Details Recorded Time 471431 No known allergy (situatio n) Not available Not available Not available Not available 11/21/2023 70440 6003 SNOMED Yesika Garcialer null, [place] - [...] Last Updated DateTime 180.34 cm 35.3 kg/m2 381865. 87 g 97.8 [degF] 18 /min 0 [...] Or The Highest Degree You Have Received? TC48915-5 Information not available 01/26/2022 Have There Been [...] Do You Have A Medical Power Of Marketing Data Specialist? No Information not available 09/08/2023 What Was [...] or have you ever used smokeless tobacco? [id number] Information n ot available 09/08/2023 Are you [...] anxious, or unable to sleep at night)? [id number] Information not available 01/26/2022 Do you have [...] Time Tdap 022 cancelled patient objection Dean Hamlin, GAGE [address], [place], [address], [place] [facility] 03/26/2022 10:37:59 Pneumococcal conjugate PCV20, polysaccharide [id number] conjugate, adjuvant, PF 024 cancelled patient objection Dean Hamlin APRN [address], [place], [address], [place] [facility] 02/28/2024 13:34:11 Influenza, high-dose, trivalent, PF 024 completed Yesika abebe, [place] - [facility] 05/10/2024 16:48:23 zoster recombinant 025 cancelled patient objection Dean Hamlin, GAGE [address], [place], [address], [facility] - [facility] 10/09/2024 10:08:40 Pneumococcal conjugate PCV20, polysaccharide [id number] conjugate, adjuvant, PF 025 cancelled patient objection Dean Hamlin, [employer] [address], [place], [address], [facility] - [facility] 10/09/2024 10:08:40 Tdap 025 completed Vinita Stears null, [facility] [place] [facility] 11/27/2024 16:08:06 Influenza, high-dose, trivalent, PF 025 completed Vinita Stears null, [facility] [place] [facility] 04/16/2025 16:30:33 COVID-19, mRNA, LNP-S, PF, 30 mcg/0.3 mL dose 021 completed Yesika Galvin null, [place] - [facility] 05/25/2022 13:19:20 Influenza, split virus, trivalent, PF 017 completed Yesika Garcialer null, [place] - [facility] 05/25/2022 13:19:20 Influenza, split virus, trivalent, PF 018 completed Yesika Kamar [place], [place] [facility] 05/25/2022 13:19:20 Influenza, split virus, quadrivalent, PF 022 completed Yesika Galvin null, [facility] [place] [facility] 05/25/2022 13:19:20 Td (adult) 018 completed Yesika Galvin null, [place] - [facility] 05/25/2022 13:19:20 Influenza, MDCK, quadrivalent, PF 023 completed Yesika Galvin null, [facility] [place] [facility] 04/18/2023 15:16:35 Past Encounters Encounter ID Performer Location Encounter Start Date Encounter Closed Date Diagnosis/Indication Diagnosis SNOMED-CT Code Diagnosis ICD10 Code Diagnosis IMO Codes Diagnosis Note [id number] Dean Hamlin APRN [address] [address] 04/16/2025 14:21:27 04/16/2025 16:39:42 Influenza vaccine needed 6725418423 106 Z23 Type 2 christina betes mellitus 93872241 E11.9 Z79.4 pt adherence to cgm regimen and dm treatment plandiscus sed med in detail Diabetic on insulin 1707 99791 Z79.4 Malaise and fatigue 2717 82594 R53.81 R53.83 88290 Excessive sweating 83309 005 R61 15631 [id number] Dean Hamlin APRN [address] [address] 04/25/2025 10:51:05 04/25/2025 14:04:18 Diabetic on insulin 402904471 Z79.4 Type 2 christina betes mellitus 75396776 E11.9 Z79.4 pt adherence to cgm regimen and dm treatment plandiscus sed med in detail [id number] Dean Hamlin APRN [address] [address] 05/06/2025 11:43:25 05/06/2025 12:36:52 Bronchitis 50886728 J40 19566 no sign of a bacterial infection. likely [...] hours Depressive disorder 3548 9007 F32.A Anxiety 60624798 F41.9 Pt compliant with plan of careTristen reviewedme dication compliance discussedL ast uds: 5Control substance agreement on file Hypercholesterolemia 136 44952 E78.00 Type 2 christina betes mellitus 45418376 E11.9 Z79.4 pt adherence to cgm regimen and dm treatment plandiscus sed med in detail Environmental allergy 42 0169565 T78.49XA [id number] GAGE Hartley [facility] [address] [place] [address] 05/09/2025 13:46:57 05/09/2025 14:46:26 Body mass index 30+ - obesity 290609668 Z68.35 944195 Acute bronchitis 8327775 2 J20.9 93516091 Wheezing 06087947 R06.2 02914 Health Concerns Section Related Observation LastModified by Organization Detai ls LastModified Time None Recorded Concern Status LastModified by Organization Details LastModified Time None Recorded Payers Encounter Date Sequence Insurance Name Policy Number Policy Mckeon Covered Member ID Mckeon Member ID Guarantor Name 05/09/2025 1 [facility] (MEDICARE REPLACEMENT/A DVANTAGE - HMO) [id number] Otto Comer [id number] Otto Comer Notes Date Note Type Note [...] day. Salima Quinteros APRN [address], [place], [address], [place] - [facility] 05/09/2025 14:39:51
--- OUTSIDE RECORDS SUMMARY | 2025-05-28 08:37 | XMS_ITS | Data Portability ---
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 Plan of Treatment Reminders Order Date Submit Date Provider Last Modified By Organization Details Last Modified Time Details Appointments None recorded. Lab rapid flu (A+B) 2024 025 [facility], [address] [place] [address], [address], 13:19:18 rapid SARS CoV + SARS CoV 2 Ag, QL IA, respiratory specimen 2024 025 [facility], [address] [place] [address], [address], 13:19:18 venipunctur e 2024 025 felisha [facility], [address], [facility] F, [place], [address], 16:46:04 Mycobacteri um tuberculosi s stimulated gamma interferon, qual, blood 2024 025 IRENE [facility], [address], Jovon F, [place], [address], 11:07:34 HbA1c (hemoglobin A1c), blood 2024 025 IRENE [facility], [address], Jovon F, [place], [address], 08:10:54 CBC w/ auto diff 2024 025 IRENE [facility], [address], Jovon F, [place], [address], 08:10:54 TSH + free T4, serum 2024 025 IRENE [facility], [address], Jovon F, [place], [address], 11:07:32 CMP, serum or plasma 2024 025 IRENE [facility], [address], Jovon F, [place], [address], 11:07:33 cobalamin and folate panel, serum 2024 025 IRENE [facility], [address], Jovon F, [place], [address], 11:07:34 vitamin D, 25-hydroxy, total, serum 2024 025 IRENE [facility], [address], Jovon F, [place], [address], 11:07:35 iron + total iron-bindin g capacity (TIBC), serum 2024 025 IRENE [facility], [address], Jovon F, [place], [address], 11:07:33 Referral cardiologis t referral - 04/17/25- dr gilbert at 1 pm per em 2024 IRENE Woodruff MD, [address], [place], [address], 08:27:27 Procedures None recorded. Surgeries None recorded. Imaging electrocard iogram 2024 [email or web address] [facility], [address] [place] [address], [address], 16:39:42 Medication Orders albuterol sulfate HFA 90 mcg/actuati on aerosol inhaler 2024 [facility], [address] [place] [address], [address], 14:25:33 Claritin 10 mg tablet 2024 [facility], [address] [place] [address], [address], 14:25:33 Medrol (Cheikh) 4 mg tablets in a dose pack 2024 [facility], [address] [place] [address], [address], 14:25:31 cefdinir 300 mg capsule 2024 [facility], [address] [place] [address], [address], 05:01:55 triamcinolo ne acetonide 40 mg/mL suspension for injection 2024 [email or web address] Not available 14:39:24 montelukast 10 mg tablet 2024 [id number], [address], [place], [id number], 13:19:37 dexamethaso ne sodium phosphate 4 mg/mL injection solution 2024 [facility]53[facility], [address] [address] [address], [place], [id number], 14:03:30 Januvia 25 mg tablet 2024 [facility] #60428, [address] [address] [address], [place], [id number], 13:19:38 Lantus Solostar U-100 Insulin 100 unit/mL (3 mL) subcutaneou s pen 2024 [facility] #, [address] [address] [address], [place], [id number], 13:19:41 metformin ER 500 mg tablet,exte nded release 24 hr 2024 [facility] #12943, [address] [address] [address], [place], [id number], 13:19:37 atorvastati n 80 mg tablet 2024 [facility] #90673, [address] [address] [address], [place], [id number], 13:19:41 clonazepam 0.5 mg tablet 2024 [facility] #66635, [address] [address] [address], [place], [id number], 13:19:27 escitalopra m 10 mg tablet 2024 [facility]01778, [address] [address] [place], [id number], 13:19:45 dexamethaso ne sodium phosphate 4 mg/mL injection solution 2024 025 lflora Not available 14:03:30 Patient TargetsNo targets recorded. 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 Referral for Ex cessive sweating 04/17/25- dr gilbert at 1 pm per em Referring Physician: Dean Hamlin, Family Medicine, Encounter Date: 04/16/2025 Results Created Date Observation Date Name Description Value Unit Range Abnormal Flag Note LastModifiedBy Organization Detail LastModifiedTime 01/04/2001/03/2025 drug scree n, urine AMP negati ve Not Available [address], [place], [address], 01/03/2025 14:38:32 01/04/2001/03/2025 drug scree n, urine BAR negati ve Not Available [address], [address], 01/03/2025 14:38:32 01/04/20 25 01/03/2025 drug scree n, urine BUP negati ve Not Available [address], [address], 01/03/2025 14:38:32 01/04/20 25 01/03/2025 drug scree n, urine BZO negati ve Not Available [address], [address], 01/03/2025 14:38:32 01/04/20 25 01/03/2025 drug scree n, urine SANDEEP negati ve Not Available [address], [address], 01/03/2025 14:38:32 01/04/20 25 01/03/2025 drug scree n, urine FTY negati ve Not Available [address], [address], 01/03/2025 14:38:32 01/04/20 25 01/03/2025 drug scree n, urine MDMA negati ve Not Available [address], [address], 01/03/2025 14:38:32 01/04/20 25 01/03/2025 drug scree n, urine MET negati ve Not Available [address], [address], 01/03/2025 14:38:32 01/04/20 25 01/03/2025 drug scree n, urine MOP negati ve Not Available [address], [address], 01/03/2025 14:38:32 01/04/20 25 01/03/2025 drug scree n, urine MTD negati ve Not Available [address], [address], 01/03/2025 14:38:32 01/04/20 25 01/03/2025 drug scree n, urine OXY negati ve Not Available [address], [address], 01/03/2025 14:38:32 01/04/20 25 01/03/2025 drug scree n, urine PCP negati ve Not Available [address], [address], 01/03/2025 14:38:32 01/04/20 25 01/03/2025 drug scree n, urine TCA negati ve Not Available [address], [address], 01/03/2025 14:38:32 01/04/20 25 01/03/2025 drug scree n, urine THC negati ve Not Available [address], [address], 01/03/2025 14:38:32 04/16/20 25 04/17/2025 SPECI MEN STATU S REPOR T specimen status report COMMEN T Test not perfo rmed. Whole blood speci men parti ally or compl etely clott ed. A commo n cause is insuf ficie nt mixin g upon colle ction . TEST: [id number] CBC With Diffe renti al/Pl atele t Not Available [facility] ([facility]) [address] [place], [address], 05/27/2025 11:07:36 04/16/2005/27/[address] PROBL EM request problem COMMEN T Test not perfo rmed. Whole blood speci men parti ally or compl etely clott ed. A commo n cause is insuf ficie nt mixin g upon colle ction . TEST: [id number] 3 Hemog lobin A1c Not Available [facility] ([facility]) [address] [facility], [place], [address], 05/27/2025 11:07:36 04/25/2004/26/2025 CBC WITH DIFFE RENTI AL/PL ATELE T WBC 5.2 x10e3 /uL 3.4-10 .8 normal Not Available [facility] ([facility]) [address] [place], [address], 04/26/2025 08:10:54 04/25/20 25 04/26/2025 CBC WITH DIFFE RENTI AL/PL ATELE T RBC 4.51 x10e6 /uL 4.14-5 .80 normal Not Available [facility] ([facility]) [address] [facility], [place], [address], 04/26/2025 08:10:54 04/25/20 25 04/26/2025 CBC WITH DIFFE RENTI AL/PL ATELE T hemoglobin 13.4 g/dL 13.0-1 7.7 normal Not Available [facility] ([facility]) [address] [place], [address], 04/26/2025 08:10:54 04/25/2004/26/2025 CBC WITH DIFFE RENTI AL/PL ATELE T hematocrit 41.6 % 37.5-5 1.0 normal Not Available [facility] ([facility]) [address] [place], [address], 04/26/2025 08:10:54 04/25/20 25 04/26/2025 CBC WITH DIFFE RENTI AL/PL ATELE T MCV 92 fL 79-97 normal Not Available [facility] ([facility]) [address] [place], [address], 04/26/2025 08:10:54 04/25/20 25 04/26/2025 CBC WITH DIFFE RENTI AL/PL ATELE T MCH 29.7 pg 26.6-3 3.0 normal Not Available [facility] ([facility]) [address] [place], [address], 04/26/2025 08:10:54 04/25/2004/26/2025 CBC WITH DIFFE RENTI AL/PL ATELE T MCHC 32.2 g/dL 31.5-3 5.7 normal Not Available [facility] ([facility]) [address] [place], [address], 04/26/2025 08:10:54 04/25/20 25 04/26/2025 CBC WITH DIFFE RENTI AL/PL ATELE T RDW 13.1 % 11.6-1 5.4 Not Available [facility] ([facility]) [address] [place], [address], 04/26/2025 08:10:54 04/25/20 25 04/26/2025 CBC WITH DIFFE RENTI AL/PL ATELE T platelets 210 x10e3 /uL 150-45 0 normal Not Available [facility] ([facility]) [address] [place], [address], 04/26/2025 08:10:54 04/25/20 25 04/26/2025 CBC WITH DIFFE RENTI AL/PL ATELE T neutrophils 55 % not estab. normal Not Available [facility] ([facility]) [address] [place], [address], 04/26/2025 08:10:54 04/25/20 25 04/26/2025 CBC WITH DIFFE RENTI AL/PL ATELE T lymphs 34 % not estab. normal Not Available [facility] ([facility]) [address] [facility], [place], [address], 04/26/2025 08:10:54 04/25/20 25 04/26/2025 CBC WITH DIFFE RENTI AL/PL ATELE T monocytes 8 % not estab. normal Not Available [facility] ([facility]) [address] [facility], [place], [address], 04/26/2025 08:10:54 04/25/20 25 04/26/2025 CBC WITH DIFFE RENTI AL/PL ATELE T eos 2 % not estab. normal Not Available [facility] ([facility]) [address] [facility], [place], [address], 04/26/2025 08:10:54 04/25/20 25 04/26/2025 CBC WITH DIFFE RENTI AL/PL ATELE T basos 1 % not estab. normal Not Available [facility] (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) [address] [facility], [place], [address], 04/26/2025 08:10:54 04/25/20 25 04/26/2025 CBC WITH DIFFE RENTI AL/PL ATELE T neutrophils (absolute) 2.9 x10e3 /uL 1.4-7. 0 normal Not Available [facility] ([facility]) [address] [place], [address], 04/26/2025 08:10:54 04/25/20 25 04/26/2025 CBC WITH DIFFE RENTI AL/PL ATELE T lymphs (absolute) 1.7 x10e3 /uL 0.7-3. 1 normal Not Available [facility] ([facility]) [address] [facility], [place], [address], 04/26/2025 08:10:54 04/25/20 25 04/26/2025 CBC WITH DIFFE RENTI AL/PL ATELE T monocytes(ab solute) 0.4 x10e3 /uL 0.1-0. 9 normal Not Available [facility] ([facility]) [address] [facility], [place], [address], 04/26/2025 08:10:54 04/25/20 25 04/26/2025 CBC WITH DIFFE RENTI AL/PL ATELE T eos (absolute) 0.1 x10e3 /uL 0.0-0. 4 normal Not Available [facility] ([facility]) [address] [facility], [place], [address], 04/26/2025 08:10:54 04/25/20 25 04/26/2025 CBC WITH DIFFE RENTI AL/PL ATELE T baso (absolute) 0.0 x10e3 /uL 0.0-0. 2 normal Not Available [facility] ([facility]) [address] [facility], [place], [address], 04/26/2025 08:10:54 04/25/20 25 04/26/2025 CBC WITH DIFFE RENTI AL/PL ATELE T immature granulocytes 0 % not estab. Not Available [facility] ([facility]) [address] [place], [address], 04/26/2025 08:10:54 04/25/20 25 04/26/2025 CBC WITH DIFFE RENTI AL/PL ATELE T immature grans (abs) 0.0 x10e3 /uL 0.0-0. 1 Not Available [facility] ([facility]) [address] [facility], [place], [address], 04/26/2025 08:10:54 04/25/20 25 04/26/2025 CBC WITH DIFFE RENTI AL/PL ATELE T NRBC FACILITY MAINTENANCE MANAGER Not Available [facility] ([facility]) [address] [facility], [place], [address], 04/26/2025 08:10:54 04/25/2004/26/2025 CBC WITH DIFFE RENTI AL/PL ATELE T hematology comments: FACILITY MAINTENANCE MANAGER Not Available [facility] ([facility]) [address] [facility], [place], [address], 04/26/2025 08:10:54 04/25/2004/26/2025 HEMOG LOBIN A1C hemoglobin A1C 9.8 % 4.8-5. 6 above high normal Predi abete s: 5.7 - 6.4 Diabe gayatri: >6.4 Glyce lucio contr ol for adult s with diabe gayatri: <7.0 Not Available [facility] ([facility]) [address] [facility], [place], [address], 04/26/2025 08:10:54 05/06/2005/06/2025 rapid SARS CoV + SARS CoV 2 Ag, QL IA, respi rator y speci men SARS CoV antigen Invali d Not Available [address], [address], 05/06/2025 12:43:36 05/06/2005/06/2025 rapid flu (A+B) Flu negati ve Not Available [address], [address], 05/06/2025 12:43:08 05/06/2005/06/2025 rapid flu (A+B) Type Both A & B Not Available [address], [address], 05/06/2025 12:43:08 04/16/20 25 04/16/2025 elect bhaskar mares am No observ ation record ed. [facility] [address] [facility], [place], [address], 04/16/2025 16:39:45 05/03/2004/16/2025 elect bhaskar mares am No observ ation record ed. [email or web address] [address], [place], [address], 05/13/2025 13:37:55 05/14/2005/13/2025 NM, myoca rdial perfu pilar scan, w/ stres s No observ ation record ed. [place] [address], [place], [address], 05/16/2025 08:53:52 05/15/2005/13/2025 cardi ac stres s test No observ ation record ed. [facility] [address], [place], [address], 05/16/2025 08:53:53 05/16/2005/13/2025 stres s echoc ardio gram with doppl er color flow (PROC ) No observ ation record ed. [place] [address], [place], [address], 05/20/2025 13:17:21 Result Notes None recorded. 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 40369446422 9105 Active 2020 Yesika abebe, [place] - [facility] 08:22:17 Type 2 diabetes mellitus 02496745 Completed 202101/26/2022 Dean Hamlin, WAIT STAFF [address], [place], [address] , [facility] - [facility] 4 08:17:49 Anxiety 27809599 Active 2021 Dean Hamlin, WAIT STAFF [address], [place], [address] , [place] - [facility] 2 16:49:08 Depressiv e disorder 87044044 Active 2021 Dean Hamlin, WAIT STAFF [address], [place], [address] , [place] [facility] 2 16:49:13 Hyperchol esterolem ia 91912713 Active 2021 Dean Hamlin, WAIT STAFF [address], [place], [address] , [place] [facility] 2 16:49:26 Arthritis 5110874 Active 2021 Dean Hamlin WAIT STAFF [address], [place], [address] , [place] [facility] 2 16:49:10 Environme ntal allergy 186869932 Active 2021 Dean Hamlin WAIT STAFF [address], [place], [address] , [place] [facility] 2 16:49:17 Type 2 diabetes mellitus 14367876 Active 2021 Dean Hamlin WAIT STAFF [address], [place], [address] , [place] [facility] 4 08:17:48 Albuminur ia 041994855 Active 2021 Dean Hamlin WAIT STAFF [address], [place], [address] , [place] [facility] 2 08:46:14 Neck pain 71317728 Active 2021 Yesika Galvin null, [place] - [facility] 4 08:22:17 Fracture of lumbar spine 001392116 Active 2021 Dean Hamlin, WAIT STAFF [address], [place], [address] , [place] [facility] 2 11:07:18 Low back pain 859496210 Active 2022 Yesika Galvin null, [place] - [facility] 4 08:22:17 History of respirato ry disease 951362051 Active 2023 Yesika Galvin [place] - [facility] 4 08:22:17 History of asthma 400406410 Active 2023 Yesika Galvin [place], [place] - [facility] 4 08:22:17 Systemic inflammat ory response syndrome 738763261 Completed 202309/12/2023 Yesikachristy Galvin [place], [place] - [facility] 4 08:22:17 Lumbar spondylos is 487421497 Active 2023 Yesika Galvin [place] - [facility] 4 08:22:17 Subconjun ctival hemorrhag e of right eye 21961364432 9100 Active 2023 Yesika Galvin [place], [place] - [facility] 4 08:22:17 Arthropat hy of spinal facet joint 829886577 Active 2023 Yesikachristy Galvin [place] - [facility] 4 08:22:17 Allergic condition 251441740 Active 2023 Yesika Galvin [place] - [facility] 4 08:22:17 Pain of hip region 75065431 Active 2023 Yesika Galvin [place] - [facility] 4 08:22:17 Diabetes mellitus 55979287 Completed 202309/12/2023 Yesika Galvin [place] - [facility] 4 08:22:17 Septic shock 45223862 Completed 202309/12/2023 Yesika Galvin [place] [facility] 4 08:22:17 Pulmonic valve regurgita tion 46019950 Active 2023 Yesika Kamar [place], [place] - [facility] 4 08:22:17 Postopera tive state 86225721 Active 2023 Yesika Galvin [place] - [facility] 4 08:22:17 Diabetic on insulin 990714851 Active 2023 Dean Hamlin, WAIT STAFF [address], [place], [address] , [place] - [facility] 4 15:06:20 Gastritis 6986927 Active 2023 Vinita Stockton [facility], [place] - [facility] 4 09:09:10 Acute bronchiti s 47208577 Active 2024 Salima Saxenaoberts, WAIT STAFF [address], [place], [address] , [place] - [facility] 5 14:19:26 Wheezing 07390682 Active 2024 Salima Saxenaoberts, WAIT STAFF [address], [place], [address] , [place] - [facility] 5 14:22:04 Problem Notes None recorded. Procedures Surgical History Date Name Laterality Status Provider Name and Address Organization Details Recorded Time 11/28/19 25 Laceration Repair with Sutures/Elora completed Dean Hamlin APRN [address], [place], [address], [place] - [facility] 11/27/2024 11:10:23 10/10/19 25 [...] 05/25/20 22 Cerumen Removal completed Dean Hamlin WAIT STAFF [address], [place], [address], [place] - [facility] 05/25/2022 14:51:22 03/12/20 22 Dexcom Placement completed Dean Hamlin WAIT STAFF [address], [place], [address], [place] - [facility] 03/12/2022 09:33:13 Eye Surgery [...] - [facility] 09/08/2023 08:10:45 Joint Replacement completed Yesikachristy Galvin [place] - [facility] 09/08/2023 08:10:45 Knee Surgery completed Yesika Garcialer [place] - [facility] 09/08/2023 08:10:45 Sinus Surgery [...] Name and Address Organization Details Recorded Time 567289 No known allergy (situatio n) Not available Not available Not available Not available 11/21/2023 95471 6003 SNOMED Yesika Garcialer null, [place] - [...] Updated DateTime 5 180.34 cm 35.3 kg/m2 386338. 57 g 100 /min 96 % 96 [...] 5 180.34 cm 18 /min 35.6 kg/m2 856115. 05 g 97.8 [degF] 70 /min 97 % 97 % 134/78 mm[Hg] Vinita Stockton [place] - [facility] 5 15:02:30 Date Recorded Body height Provider Name an d Address Organization Details Last Updated DateTime 04/25/2025 180.34 cm Vinita Stockton [place] - [facility] 04/25 11:29:41 Date Recorded Body height Body mass index (BMI) Body weight Body temperature Heart rate Oxygen saturation Oxygen saturation in Arterial blood by Pulse oximetry Respiratory rate Pain severity - 0-10 verbal numeric rating [Score] - Reported Systolic And Diastolic Provider Name and Address Organization Details Last Updated DateTime 180.34 cm 35.3 kg/m2 090866. 87 g 97.6 [degF] 62 /min 95 % 95 % 18 /min 0 142/84 mm[Hg] Yesika Galvin [place] - [facility] 12:42:20 Date Recorded Body height Body mass index (BMI) Body weight Body temperature Respiratory rate Pain severity - 0-10 verbal numeric rating [Score] - Reported Heart rate Oxygen saturation Oxygen saturation in Arterial blood by Pulse oximetry Systolic And Diastolic Provider Name and Address Organization Details Last Updated DateTime 180.34 cm 35.3 kg/m2 805119. 87 g 97.8 [degF] 18 /min 0 60 /min 98 % 98 % 138/70 mm[Hg] Ellindsey [place] - [facility] 14:05:20 Social History Question Answer Notes LastModified by Organizat ion Details LastModified Time Tobacco Smoking Status Former Smoker Vinita Stockton [place], [place] - [facility] 01/26/2022 14:56:00 Do You Have An Advance [...] Or The Highest Degree You Have Received? [id number] Information not available 01/26/2022 Have There Been [...] Do You Have A Medical Power Of Release Manager? No Information not available 09/08/2023 What Was [...] or have you ever used smokeless tobacco? [id number] Information n ot available 09/08/2023 Are you [...] anxious, or unable to sleep at night)? [id number] Information not available 01/26/2022 Do you have [...] cancelled patient objection Dean Hamlin APRN [address], [place], [address], [place] - [facility] 03/26/2022 10:37:59 Pneumococcal conjugate PCV20, polysaccharide [id number] conjugate, adjuvant, PF 024 cancelled patient objection Dean Hamlin APRN [address], [place], [address], [place] - [facility] 02/28/2024 13:34:11 Influenza, high-dose, trivalent, PF 024 completed Yesika Galvin [facility], [place] - [facility] 05/10/2024 16:48:23 zoster recombinant 025 cancelled patient objection Dean Hamlin APRN [address], [place], [address], [place] [facility] 10/09/2024 10:08:40 Pneumococcal conjugate PCV20, polysaccharide [id number] conjugate, adjuvant, PF 025 cancelled patient objection Dean Hamlin APRN [address], [place], [address], [place] [facility] 10/09/2024 10:08:40 Tdap 025 completed Vinita Ste[place] - [facility] 11/27/2024 16:08:06 Influenza, high-dose, trivalent, PF 025 completed Vinita [place]ars [place] [facility] 04/16/2025 16:30:33 COVID-19, mRNA, LNP-S, PF, 30 mcg/0.3 mL dose 021 completed Yesika Kamar [place], [place] - [facility] [...] quadrivalent, PF 023 completed Yesika Kamar null, [place] - [facility] 04/18/2023 15:16:35 Past Encounters Encounter ID Performer Location Encounter Start Date Encounter Closed Date Diagnosis/Indication Diagnosis SNOMED-CT Code Diagnosis ICD10 Code Diagnosis IMO Codes Diagnosis Note [id number] Dean Hamlin APRN [address] [address] 01/26/2022 14:00:20 01/26/2022 15:39:43 Diabetes mellitus 02286530 E11.9 Overall, pt doing well at this [...] visit Body mass index 30+ - obesity 774195530 Z68.34 Obesity 479241206 E66.3 Anxiety 84502311 F41.9 Patient identified triggers for anxiety and impact of anxious thinking on functionin g. Discussed strategies to regulate symptoms and need for compliance with treatment. Obstructiv e sleep apnea of adult 2934425663 103 G47.33 Advised good sleep habits and [...] refuses to wear Cpap machine. Hypercholesterolemia 136 03074 E78.00 [id number] Dean Hamlin WAIT STAFF [address] [address] 02/12/2022 11:18:04 02/12/2022 14:10:19 Acute maxillary sinusitis 02781721 J01.00 [id number] Dean Hamlin [address] [address] 03/05/2022 08:17:56 03/05/2022 09:28:08 Type 2 diabetes mellitus 65146591 E11.9 increase ozempic to 0.5mg q weekincrea se metformin to 1000mg po bidcheck glucose bid and write in log bring to next appointmen t-log given to ptlabs next visit [id number] Dean Hamlin WAIT STAFF [address] [address] 03/12/2022 08:15:43 03/12/2022 09:43:09 Diabetes mellitus 52375224 E11.9 Overall, pt doing well at this [...] ncrease statin labs next visit Hypercholesterolemia 136 95502 E78.00 [id number] Dean Hamlin [address] [address] 03/18/2022 10:46:02 03/18/2022 11:24:05 Type 2 diabetes mellitus 16138091 E11.9 discussed diet and exercise planlibre ordered [id number] Dean Hamlin [address] [address] 03/26/2022 08:20:27 03/26/2022 10:13:53 Type 2 diabetes mellitus 61135378 E11.9 long discussion with pt about a [...] orderedfol low up with nephrology Hypercholesterolemia 136 59699 E78.00 Administra tion of diphtheria, pertussis, and tetanus vaccine 126017822 Z23 Immunization advised 310 579134 Z71.9 declined vaccine [id number] Yasminekarel Hamlin [address] [address] 04/29/2022 08:59:05 04/29/2022 10:25:50 Type 2 diabetes mellitus 99768359 E11.9 again I had a long discussion [...] offered dietian referral pt declinesli madyson in [facility] w up with nephrology Chest pain 03381759 R07. 9 ekg normal- pt refused to go to ed for eval states its his shoulder not heart Pain of le ft shoulder joint 5910033196 6593509 M25.350 [id number] Dean Hamlin [address] [address] 05/03/2022 15:32:26 05/03/2022 15:57:32 Low back pain 383229242 M54.50 sent to [facility] er report to josep marcum. [id number] Dean Hamlin [address] [address] 05/25/2022 13:01:03 05/25/2022 14:49:40 Impacted cerumen in right ear 3497656958 228136 H61.21 Acute righ t otitis media 166838786 H66.91 Sebaceous cyst of skin 027214047 L72.3 [id number] Dean Hamlin [address] [address] 1 05/28/2022 08:27:07 05/28/2022 09:44:38 Type 2 diabetes mellitus 70964025 E11.9 Hypercholesterolemia 136 61085 E78.00 Anxiety 28034365 F41.9 Patient identified triggers for anxiety and impact of anxious thinking on functionin g. Discussed strategies to regulate symptoms and need for compliance with treatment. [id number] Dean Hamlin WAIT STAFF [address] [address] 1 06/22/2022 09:02:45 06/22/2022 11:00:43 Acute left otitis media 991079805 H66.92 Anxiety 03435061 F41.9 Patient identified triggers for anxiety and impact of anxious thinking on functionin g. Discussed strategies to regulate symptoms and need for compliance with treatment. Pt compliant with plan of careKasper reviewedme dication compliance discussedL ast uds:Control substance agreement on file Type 2 christina betes mellitus 48657353 E11.9 increase lantus to 10 units qhs [id number] Dean Hamlin [address] [address] 1 07/20/2022 09:33:44 07/20/2022 10:35:35 Anxiety 79804969 F41.9 Patient identified triggers for anxiety and impact of anxious thinking on functionin g. Discussed strategies to regulate symptoms and need for compliance with treatment. Pt compliant with plan of careKasper reviewedme dication compliance discussedL ast uds:Control substance agreement on file Type 2 christina betes mellitus 35062035 E11.9 increase lantus to 16 units qhs Fracture o f lumbar spine 242881265 S32.009A follow up with back surgeon as scheduled Diabetes mellitus 508609 09 E11.9 continue to increase lantus by [...] tin: yesGLP:yes stop janumet- use only metformin [id number] Eugonda Fryman[address] [address] 1 09/06/2022 11:30:10 09/06/2022 12:08:51 Type 2 diabetes mellitus 93389438 E11.9 increase lantus to 20 units qhs Hypercholesterolemia 136 26301 E78.00 Anxiety 74178525 F41.9 Patient identified triggers for anxiety and impact of anxious thinking on functionin g. Discussed strategies to regulate symptoms and need for compliance with treatment. Pt compliant with plan of careKasper reviewedme dication compliance discussedL ast uds:Control substance agreement on file [id number] Dean Chindeb[address] [address] 09/16/2022 13:23:39 09/16/2022 14:54:56 Acute left otitis media 677740567 H66.92 Acute maxi llary sinusitis 94023796 J01.00 [id number] Yasminekarel Hamlin[address] [address] 1 10/04/2022 14:05:00 10/04/2022 15:58:47 Fracture of lumbar spine 522285475 S32.009A follow up with back surgeon as scheduled Depressive disorder 2461 9007 F32.A Anxiety 81836013 F41.9 Patient identified triggers for anxiety and impact of anxious thinking on functionin g. Discussed strategies to regulate symptoms and need for compliance with treatment. Pt compliant with plan of careKasper reviewedme dication compliance discussedL ast uds:Control substance agreement on filehas one refill on last month script Type 2 christina betes mellitus 58775843 E11.9 Arthritis 5774638 M19.90 Hypercholesterolemia 136 10068 E78.00 Environmental allergy 42 4754152 T78.49XA Diabetes mellitus 247822 09 E11.9 [id number] Yasminekarel Hamlin [address] [address] 1 10/21/2022 10:08:41 10/21/2022 10:50:53 Acute left otitis media 290922091 H66.92 [id number] Dean Hamlin [address] [address] 1 10/28/2022 16:21:21 10/28/2022 17:15:43 Lumbosacral nerve root pain 378099084 M54.17 Neuropathy 933539911 G62 .9 [id number] Dean Hamlin [address] [address] 1 12/17/2022 11:17:05 12/17/2022 13:17:56 Body mass index 30+ - obesity 921260722 Z68.34 Obesity 250080883 E66.9 Acute left otitis media 655607175 H66.92 Acute otit is externa of left ear 4797544871 420417 H60.502 Anxiety 57122814 F41.9 Patient identified triggers for anxiety and impact of anxious thinking on functionin g. Discussed strategies to regulate symptoms and need for compliance with treatment. Pt compliant with plan of careKasper reviewedme dication compliance discussedL ast uds:Control substance agreement on filehas one refill on last month script [id number] [facility] [address] 01/04/2023 09:06:26 01/04/2023 10:21:34 Anxiety 72508333 F41.9 Patient identified triggers for anxiety and impact of anxious thinking on functionin g. Discussed strategies to regulate symptoms and need for compliance with treatment. Pt compliant with plan of careKasper reviewed and appropriat emedicatio n compliance discussedL ast uds: 3Control substance agreement on file Arthritis 6716926 M19.90 Depressive disorder 3548 9007 F32.A Environmental allergy 42 3991497 T78.49XA Hypercholesterolemia 136 19109 E78.00 Type 2 christina betes mellitus 52130069 E11.9 continue to monitor and diet Body mass index 30+ - obesity 955165800 Z68.33 Obesity 663961051 E66.9 [id number] [facility] [address] 1 04/04/2023 10:24:49 04/04/2023 12:20:34 Type 2 diabetes mellitus 71470321 E11.9 continue to monitor and [id number] 7.8trial of increase of ozempic Anxiety 82304170 F41.9 Pt compliant with plan of careKasper reviewedme dication compliance discussedL ast uds: 3Control substance agreement on file Impacted c erumen in left ear 8265933342 718540 H61.22 Acute otit is externa of left ear 1679035782 922921 H60.928 [id number] Dean Hamlin WAIT STAFF [address] [address] 1 04/18/2023 14:57:32 04/18/2023 16:21:13 Bite of spider 093152538 W57.XXXA taking keflex Pain of ri ght shoulder joint 6852670111 9782949 M25.511 pt states he will talk to his ortho about shoulder [id number] Dean Hamlin WAIT STAFF [address] [address] 1 06/27/2023 10:36:42 06/27/2023 11:48:37 Type 2 diabetes mellitus 39531886 E11.9 continue to monitor and dietwill decrease metformin and change to er to help with diarrhea Acute maxi llary sinusitis 13368126 J01.00 [id number] Dean Hamlin [address] [address] 2023 10:59:36 2023 11:49:56 Acute maxillary sinusitis 28335805 J01.00 discussed med with pt [id number] Dean Hamlin [address] [address] 1 08/22/2023 11:11:17 08/22/2023 12:56:00 Body mass index 30+ - obesity 444629523 Z68.35 Obesity 048790882 E66.9 Acute maxi llary sinusitis 89133258 J01.00 discussed med with pt [id number] Eugonda Fryman, [address] [address] 1 09/08/2023 08:03:12 09/08/2023 10:40:00 Adult health examination 597268348 Z00.00 have labs done tuesday and send copy to office Depression screening 171 439184 Z13.31 Examinatio n of blood pressure 558184680 Z01.30 Diet education 27317837 Z71.3 Counseling 060779529 Z71 .82 Exercise counseling . Patient encouraged to exercise 30 minutes 5 days a week. At [facility] ed risk for falls 159493976 Z91.81 STEADI FAST screening score of __4___. Advance care planning 71 2163092 Z71.89 Finding of body mass index 021870883 Z68.35 Body mass index 30+ - obesity 994589194 Z68.35 Obesity 068701459 E66.9 Seasonal a llergic rhinitis 569983508 J30.2 [id number] Dean Hamlin [address] [address] 1 11/21/2023 08:20:25 11/21/2023 09:15:09 Anxiety 08154953 F41.9 Pt compliant with plan of careTristen reviewedme dication compliance discussedL ast uds: 4Control substance agreement on file Long-term current use of benzodiazepine 9910771116 3583191 Z79.899 Albuminuria 391935452 R8 0.9 Depressive disorder 3548 9007 F32.A Hypercholesterolemia 136 98877 E78.00 Type 2 christina betes mellitus 39146990 E11.9 continue to monitor and dietwill decrease metformin and change to er to help with diarrhea [id number] Dean Hamlin [address] [address] 1 12/05/2023 09:20:09 12/05/2023 10:16:33 Anxiety 74843477 F41.9 [id number] Dean Hamlin [address] [address] 1 12/22/2023 08:50:25 12/22/2023 09:11:37 Anemia 825400608 D64.9 [id number] Yasminekarel Hamlin [address] [address] 1 02/28/2024 08:35:05 02/28/2024 10:17:06 Diabetic on insulin 609362581 Z79.4 Pneumococc al vaccination declined 184928811 Z28.21 Hepatitis C screening declined 6829845987 5105 Z53.20 HIV screen ing declined 5135272345 15224 Z53.20 [id number] Dean Hamlin [address] [address] 1 03/30/2024 08:01:52 03/30/2024 08:39:28 Albuminuria 043947890 R80.9 Anxiety 04075343 F41.9 Pt compliant with plan of careKasper reviewedme dication compliance discussedL ast uds: 4Control substance agreement on file Diabetic on insulin 1707 22175 Z79.4 Hypercholesterolemia 136 47852 E78.00 Type 2 christina betes mellitus 62198654 E11.9 [id number] [facility] [address] 04/06/2024 13:32:41 04/06/2024 14:26:29 Hernia of anterior abdominal wall 676926245 K43.9 [id number] [facility] [address] 05/10/2024 16:03:28 05/10/2024 16:51:23 Influenza vaccine needed 5807706932 106 Z23 [id number] [facility] [address] 05/21/2024 09:40:58 05/21/2024 10:47:44 Nausea and vomiting 99739725 R11.2 COVID-19 638158498 U07.1 no sign of a bacterial infection. [...] improvemen t over the next 48-72 hours [id number] [facility] [place] [place] 623[address]64[address] 1 06/14/2024 08:01:24 06/14/2024 09:38:20 Body mass index 30+ - obesity 968442146 Z68.36 Obesity 099338245 E66.9 Infection of tick bite 137915756 L08.9 if worsen or no improvemen t return Hypercholesterolemia 136 12533 E78.00 Type 2 christina betes mellitus 59670208 E11.9 [id number] [facility] [place] 6234564[address] 1 06/18/2024 09:16:59 06/18/2024 10:57:44 Closed fracture of head of left radius 7149413402 7616376 S52.125A [id number] [facility] 6234564-[address] 1 08/20/2024 10:03:53 08/20/2024 11:21:12 Anxiety 08557472 F41.9 Pt compliant with plan of caresper reviewedme dication compliance discussedL ast uds: 4Control substance agreement on fileuds next visitfirst script sent to wrong pharm- called and cancelled first script- sent second Depressive disorder 1244 9007 F32.A [id number] [facility] [address] 09/18/2024 15:20:49 09/18/2024 16:28:09 Gingival abscess 021552244 K04.7 follow up with dentist , call for appointmen t Acute righ t otitis media 678900835 H66.91 [id number] Dean Hamlin [address] [address] 1 10/09/2024 08:52:06 10/09/2024 10:42:19 Adult health examination 100867895 Z00.00 Depression screening 171 008136 Z13.31 A depression screening was completed via a standardiz ed screening tool. 5 minutes were spent discussing depression screening results and risk factors. Examinatio n of blood pressure 226043861 Z01.30 Diet education 88237078 Z71.3 Counseling 047954845 Z71 .82 Exercise counseling . Patient encouraged to exercise 30 minutes 5 days a week. At [facility] ed risk for falls 952428686 Z91.81 STEADI FAST screening score of __5___. Advance care planning [address] vaccination declined 7459355792 102 Z28.20 Pneumococc al vaccination declined 049077399 Z28.21 Diabetic on insulin 1707 40039 Z79.4 Environmental allergy 42 0813178 T78.49XA Hypercholesterolemia 136 13497 E78.00 Type 2 christina betes mellitus 17688990 E11.9 labs Iron defic iency anemia 11453445 D50.9 labs [id number] Dean Hamlin [address] [address] 1 11/23/2024 09:26:39 11/23/2024 10:36:28 Type 2 diabetes mellitus 23777358 E11.9 Z79.4 08009529 pt adherence to cgm regimen and dm treatment plan [id number] Dean Hamlin [address] [address] 1 11/27/2024 10:40:14 11/27/2024 11:18:01 Laceration of left thumb 2785691782 1427585 S61.012A 9967205 keep area clean and drysteri strips will fall offmonitor for s/s of infection [id number] Dean Hamlin [address] [address] 1 12/10/2024 08:05:25 12/10/2024 09:05:46 Type 2 diabetes mellitus 86904008 E11.9 Z79.4 pt adherence to cgm regimen and dm treatment plan [id number] Dean Hamlin [address] [address] 1 01/03/2025 14:26:24 01/03/2025 15:39:56 Anxiety 43327610 F41.9 Pt compliant with plan of careKasper reviewedme dication compliance discussedL ast uds: 5Control substance agreement on file Type 2 christina betes mellitus 88225280 E11.9 Z79.4 pt adherence to cgm regimen and dm treatment plandiscus sed med in detail [id number] Dean Hamlin [address] [address] 1 01/15/2025 15:38:00 01/15/2025 16:26:40 Pain of knee region 6224767737 M25.561 [id number] decadronre sticeeleva tebracefol low up with ortho on thursretur n if symptoms worsen or no improvemen tmonitor glucose close- may need to increase lantus to cover [id number] Dean Hamlin [address] [address] 1 04/16/2025 14:21:27 04/16/2025 16:39:42 Influenza vaccine needed 3832679911 106 Z23 Type 2 christina betes mellitus 18394680 E11.9 Z79.4 pt adherence to cgm regimen and dm treatment plandiscus sed med in detail Diabetic on insulin 1707 17934 Z79.4 Malaise and fatigue 2717 53495 R53.81 R53.83 90060 Excessive sweating 29325 005 R61 43987 [id number] Yasminekarel Hamlin [address] [address] 1 04/25/2025 10:51:05 04/25/2025 14:04:18 Diabetic on insulin 052437701 Z79.4 Type 2 christina betes mellitus 30860882 E11.9 Z79.4 pt adherence to cgm regimen and dm treatment plandiscus sed med in detail [id number] Dean Hamlin APRN [facility] [address] [place] [address] 05/06/2025 11:43:25 05/06/2025 12:36:52 Bronchitis 58090459 J40 12606 no sign of a bacterial infection. likely [...] hours Depressive disorder 3548 9007 F32.A Anxiety 46047357 F41.9 Pt compliant with plan of Lei reviewedme dication compliance discussedL ast uds: 5Control substance agreement on file Hypercholesterolemia 136 48797 E78.00 Type 2 christina betes mellitus 84319133 E11.9 Z79.4 pt adherence to cgm regimen and dm treatment plandiscus sed med in detail Environmental allergy 42 4342823 T78.49XA [id number] G[facility] [address] [place] [address] 05/09/2025 13:46:57 05/09/2025 14:46:26 Body mass index 30+ - obesity 552521421 Z68.35 948910 Acute bronchitis 7842621 2 J20.9 67348841 Wheezing 22655521 R06.2 23091 Health Concerns Section Related Observation LastModified by Organization Detai ls LastModified Time None Recorded Concern Status LastModified by Organization Details LastModified Time None Recorded Advance Directives Directive N: Payers Insurance Date Sequence Insurance Name Policy Number Policy Mckeon Covered Member ID Mckeon Member ID Guarantor Name 04/04/2023 2 [facility] - DUAL ELIGIBLE (MEDICARE REPLACEMENT/ ADVANTAGE - HMO) BISI Comer [id number] Otto Dargavell 04/06/2024 1 [facility] (MEDICARE REPLACEMENT/ ADVANTAGE - HMO) [id number] Otto Hoff Dargavell [id number] Otto Dargavell 04/21/2022 2 [place] [facility] - FFS/TRADITIO NAL Otto K Dargavell [id number] Otto Dargavell 07/20/2023 2 [place] [id number] Otto K Dargavell [id number] Otto Dargavell 07/21/2023 [place] [id number] Otto Hoff Dargavell [id number] Otto Dargavell 05/16/2024 2 [place] Otto K Dargavell [id number] Otto Dargavell 04/25/2025 NGS [facility] [place] R[place] Otto K Dargavell [id number] Otto Dargavell 04/10/2024 2 [place] Otto K Dargavell [id number] Otto Dargavell 08/29/2023 2 [place] Otto K Dargavell [id number] Otto Dargavell 05/06/2025 1 [facility] (MEDICARE REPLACEMENT/ ADVANTAGE - HMO) [id number] Otto K Dargavell [id number] Otto Dargavell Notes Date Note Type Note [...] and hopes it will help Dean Hamlin, WAIT STAFF [address], [place], [address], [place] [facility] 01/15/2025 16:22:15 04/16/2025 text/html ROS as noted in the HPI 64 year old male who presents to the office today for a follow up ondiabetes, hard to control sugars, fatigue, sleep all the timebreaks into cold sweats at timeswants flu shot Dean Hamlin, WAIT STAFF [address], [place], [address], [place] [facility] 04/16/2025 17:12:32 04/25/2025 text/html labs [facility] [place] [facility] 04/25/2025 11:32:10 05/06/2025 text/html ROS as noted in the HPI 64 yr old male presents for cough and wheezing for about 3 days. Patient has taken zithromax that he had at home.also needs all of his meds refilled.states his meds help with his anxiety/panic attacks Dean Hamlin, WAIT STAFF [address], [place], [address], [place] [facility] 05/06/2025 13:20:07 05/09/2025 text/html ROS [...] and COVID the other day. Salima Quinteros, WAIT STAFF [address], [place], [address], [place] [facility] 05/09/2025 14:39:51
[2025-05-28 08:51] VITALS: BMI 35.1
[2025-05-28 09:20] VITALS: BP 133/76; PULSE 58; RESP 18; TEMP 36.1; O2SAT 96
[2025-05-28 09:29] LABS: Anion Gap 9.7 mEq/L (5-15); Blood Urea Nitrogen 13 mg/dl (9-20); Calcium 8.9 mg/dl (8.4-10.2); Carbon Dioxide 29 mmol/L (22.0-30.0); Chloride 99 mmol/L (98-107); Creatinine Clearance Estimated 117 mL/min (50-200); Creatinine,Serum 0.80 mg/dl (0.66-1.25); Estimated Glomerular Filt Rate 97 ml/min (>60); GFR (African American) 117 ML/MIN (>60); Glucose 167 mg/dl (74-100); Potassium 4.7 mmoL/L (3.5-5.1); Sodium 133 mmol/L (136-145)
[2025-05-28 10:00] VITALS: BP 126/81; PULSE 51; RESP 16; O2SAT 96
[2025-05-28] MEDS: NITROGLYCERIN 0.4MG SL TABLET SL (10:00)
--- NOTE | 2025-05-28 10:00 | CT_ITS ---
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 A noncontrast coronary calcium scan was performed. A CT attenuation threshold of 130 Hounsfield units (HU) was used for the detection of calcium in contiguous voxels of 1 sq mm in area to be counted as individual lesions. Bolus tracking in the ascending aorta with a threshold of 180 HU was performed. Immediately afterwards, ECG synchronized cardiac CT was then performed from the cardiac base to apex using retrospective gating with ECG tube current modulation. A total of 85 mL of Isovue 370 mg/mL contrast medium was administered at 5 mL/sec followed by a saline flush using a biphasic injection protocol. A tube voltage of 120 KVp was used. The patient received the following medications prior to the cardiac CT. 0.4 mg of sublingual nitroglycerin The average heart rate at the time of acquisition was 64 bpm and regular. Image Reconstruction Transaxial images were reconstructed at 0.67 mm slide thickness. Data was reviewed interactively on an advanced workstation capable of 2 and 3-dimensional displays in all conventional reconstruction formats, including multiplanar reformations, maximum intensity projections, curved multiplanar reformations, and volume rendered reconstructions. When applicable, selected routine images describing the relevant coronary anatomy and pathology were saved and sent to PACS. Complications None Technical Quality Overall image quality was good. Coronary artery opacification was adequate. Total DLP (Dose-Length Product) is 1965.4 mGy-cm. The reported value represents the total of one or more individual components during the CT acquisition of this date and at this time, and as such, the same value may appear in more than one CT report depending on the interpreting/reporting physicians. COMPARISON None FINDINGS CT Coronary Calcium Scoring LMA (Left Main Artery) = 73 LAD (Left Anterior Descending) = 45 LCX (Left Coronary Circumflex) = 0 RCA (Right Coronary Artery) = 0 Total Calcium Score = 118 using the AJ-130 method. The observed calcium score of 118 is at 55th percentile for subjects of the same age, sex, and race/ethnicity. The interpretation of the calcium heart score is based on the following continuum*: 0 = no calcified plaque detected (risk of coronary artery disease is very low ??? less than 5%) 1-10 = calcium detected in extremely minimal levels (risk of coronary diseases is still low ??? less than 10%) 11-100 = mild levels of plaque detected with certainty (mild or minimal narrowing of heart arteries is likely) 101-400 = definite,at least moderate levels of plaque detected (relatively high risk of a heart attack within 3-5 years) >401-999 = extensive levels of plaque detected (high risk of heart attack, high levels of vascular disease are present, high likelihood of at least one significant coronary narrowing) *The calcium heart score quantifies the burden of coronary calcification/plaque in the coronary arteries. The calcium heart score is not able to evaluate the presence or burden of non-calcified (i.e. soft) plaque. There is no identifiable calcification in the aortic valve, mitral annulus or mitral valve, pericardium, or myocardium. Coronary CT Angiography The coronary arterial system is right dominant. Quantitative Stenosis Grading: Left Main (LM): The left main originates normally from the left sinus of Valsalva. The LM bifurcates into the left anterior descending artery and left circumflex artery. There is calcified plaque in the proximal LM, with no evidence of luminal stenosis. Left Anterior Descending (LAD) and Diagonal Branches: The LAD gives off 3 diagonal branch(es). There is mixed calcified/non-calcified plaque in the proximal LAD segment, with up to 25-49% luminal stenosis. There is no evidence of LAD-myocardial bridge. Left Circumflex (LCX) and Obtuse Marginals (OM): The LCX gives off 1 Obtuse Marginal (OM) branch(es). The LCX and its branches are patent with no evidence of atherosclerosis. Right Coronary Artery (RCA): The RCA originates normally from the right sinus of Valsalva. The RCA gives off a posterior descending artery (PDA) and posterolateral (PL) branches. The RCA and its branches are patent with no evidence of atherosclerosis. Non-Coronary Cardiac Findings: Analysis of the left ventricular (LV) structure and function was performed after 3-D reconstruction of the LV from axial images, with user-corrected automatic contouring for assessment of LV volumes and user-defined reconstruction from oblique planes for measurement of 3-D cardiac structure and function. -The left ventricle systolic function is normal. -There is no left atrial appendage filling defect. Two right pulmonary veins and two left pulmonary veins drain normally into the left atrium. -No pericardial thickening or calcification. -Central and branch pulmonary arteries in the [id number] are unremarkable. -Thoracic aorta within the visualized thoracic aortic-branches in the [id number] is unremarkable. Extracardiac Structures No significant extra-cardiac findings. Note, however, that this study is focused on the cardiac findings. IMPRESSION -Presence of coronary calcification with an Agatston score = 118 using the AJ-130 method. -The observed calcium score of 118 is at 55th percentile for subjects of the same age, sex, and race/ethnicity. -Mild, non-obstructive atherosclerotic coronary disease, with no evidence of significant flow-limiting atherosclerosis of the coronary arteries. -CAD-RADS 2. Management recommendations per ACC/AHA guidelines*, as clinically appropriate. *Recommendations: CAD RADS 0: Reassurance. Consider non-atherosclerotic causes of chest pain. CAD RADS 1: Consider non-atherosclerotic causes of chest pain. Consider preventive therapy and risk factor modification. CAD RADS 2: Consider non-atherosclerotic causes of chest pain. Consider preventive therapy and risk factor modification, particularly for patients with nonobstructive plaque in multiple segments. CAD RADS 3: Consider further functional testing. Consider symptom-guided anti-ischemic and preventive pharmacotherapy as well as risk factor modification per published guideline statements. CAD RADS 4A: Consider further functional testing or invasive coronary angiography with revascularization per published guideline statements. Consider symptom-guided anti-ischemic and preventive pharmacotherapy as well as risk factor modification per published guideline statements. CAD RADS 4B: Invasive coronary angiography recommended with revascularization per published guideline statements. Consider symptom-guided anti-ischemic and preventive pharmacotherapy as well as risk factor modification per published guideline statements. CAD RADS 5: Consider invasive angiography and/or viability assessment with revascularization per published guideline statements. Consider symptom-guided anti-ischemic and preventive pharmacotherapy as well as risk factor modification per published guideline statements. CRITICAL RESULT None COMMUNICATION Per this written report The coronary and cardiac findings of this CCTA were reviewed, reported, and signed by Edvin Woodruff MD (Pipe Welder) Conclusion Electronically signed by : Linda Woodruff MD 06/03/2025 13:14:56
[2025-05-28] MEDS: 0.9 % SODIUM CHLORIDE 50 ML VIAL IV (10:05)
[2025-05-28] MEDS: IOPAMIDOL-370 (76%);100ML BOTTLE 85 ML IV (10:05)
[2025-05-28] MEDS: SODIUM CHLORIDE 0.9% 10ML SYR (RAD ONLY) 10 ML IV (10:05)
[2025-05-28 10:06] VITALS: BP 115/64; PULSE 55; RESP 18; O2SAT 97
== END 2025-05-28 23:59 | disposition home or self-care (01) ==
PROVIDERS: PCP Nurse Practitioner Family; Visit Provider Internal Medicine
DX: I25.10 Atherosclerotic heart disease of native coronary artery without angina pectoris (principal)
CPT/HCPCS: 75574; 80048; Q9967